=== PATIENT | male | born 1995 | race Caucasian/White ===

== ENCOUNTER 2016-12-31 12:12 | Inpatient (IN) | payer OTHER ==
[~2016-12-31] VITALS: Ht 172.7 cm; Wt 114.0 kg
[2016-12-31] MEDS ORDERED: SODIUM CHLORIDE 0.9% 1L BAG IV* STA (12:38)
[2016-12-31] MEDS ORDERED: CEFEPIME 2GM/50 ML (PMX) 50 ML IVPB STA (12:38)
[2016-12-31] MEDS ORDERED: VANCOMYCIN 1 GM (PMX) 250 ML IVPB ONE (13:00)
[2016-12-31] MEDS ORDERED: IBUPROFEN 800 MG TAB PO ONE (13:00)
[2016-12-31 13:13] LABS: ABNORMAL IP MESSAGE 1; BASOPHIL # 0.1 10^3/ul (0.0-0.1); BASOPHILS % 0.5 % (0.0-2.0); EOSINOPHILS # 0.5 10^3/ul (0.0-0.5); HEMATOCRIT 32.8 % (42.0-52.0); HEMOGLOBIN 11.1 g/dl (14.0-18.0); LYMPHOCYTES # 2.2 10^3/ul (0.8-2.9); LYMPHOCYTES % 9.1 % (15.0-51.0); MEAN CORPUSCULAR HGB CONC 33.8 g/dl (32.0-37.0); MEAN CORPUSCULAR VOLUME 100.6 fl (82.0-101.0); MEAN PLATELET VOLUME 9.7 fl (7.4-10.4); MONOCYTE # 1.5 10^3/ul (0.3-0.9); MONOCYTES % 6.3 % (0.0-11.0); NEUTROPHILS % 79.1 % (39.0-77.0); PLATELET COUNT 265 10^3/UL (140-415); POSITIVE DIFF @See below; RED BLOOD COUNT 3.26 10^6/ul (4.70-6.10); RED CELL DISTRIBUTION WIDTH 14.6 % (11.5-14.5)
--- NOTE | 2016-12-31 13:25 | RADRPT ---
PROCEDURE: XR Chest. CLINICAL INDICATION: Sepsis. TECHNIQUE: Single frontal view of the chest was obtained. COMPARISON: None FINDINGS: Monitoring electrodes project across the chest. The bony elements are normal. The heart, cardiomed iastinal silhouette and hilar structures are normal. The pulmonary vasculature is normal. There is a left-sided aorta. The lungs are clear. The costophrenic angles are normal. There is a suboptimal inspiration with mild elevation of the right diaphragm. IMPRESSION: 1. No evidence of active cardiopulmonary disease allowing for a poor inspiratory effort. RPTAT:AAJJ Physician Simone Date Time Electronically viewed and signed by Physician Simone on 12/31/2016 13:24 LOYDA/
[2016-12-31] MEDS ORDERED: LORAZEPAM 2 MG INJ IV ONE (13:30)
[2016-12-31 13:32] LABS: ALANINE AMINOTRANSFERASE 53 IU/L (13-69); ALBUMIN 3.1 g/dl (3.3-4.9); ALBUMIN/GLOBULIN RATIO 0.68; ALKALINE PHOSPHATASE 194 IU/L (42-121); ANION GAP 18 (8-16); ASPARTATE AMINO TRANSFERASE 198 IU/L (15-46); BILIRUBIN,INDIRECT 0.6 mg/dl (0-1.1); BILIRUBIN,TOTAL 0.6 mg/dl (0.2-1.3); CALCIUM 7.9 mg/dl (8.4-10.2); CARBON DIOXIDE 23 mmol/L (21-31); CHLORIDE 97 mmol/L (97-110); CREATININE 0.58 mg/dl (0.61-1.24); GLUCOSE 140 mg/dl (70-220); INR 1.21; PARTIAL THROMBOPLASTIN TIME 38.4 Sec (25.0-35.0); PROTIME 15.4 Sec (12.2-14.2); PT RATIO 1.2; SODIUM 135 mmol/L (135-144); TOTAL PROTEIN 7.6 g/dl (6.1-8.1)
[2016-12-31 13:35] LABS: BLOOD UREA NITROGEN < 2 mg/dl (7-20)
[2016-12-31 13:37] LABS: POTASSIUM 2.8 mmol/L (3.5-5.1)
[2016-12-31] MEDS ORDERED: MULTIVITAMINS 10 ML, THIAMINE 100 MG, FOLIC ACID 1 MG, MAGNESIUM SULFATE 2 GM in SOD CH... IV STA (13:38)
[2016-12-31] MEDS ORDERED: MULTIVITAMINS 10 ML, THIAMINE 100 MG, MAGNESIUM SULFATE 2 GM in SOD CHLORIDE 0.9% 1,000 ML IV STA (13:48)
[2016-12-31 13:52] LABS: TROPONIN-I < 0.012 ng/ml (0.00-0.12)
[2016-12-31] MEDS ORDERED: ONDANSETRON 4 MG INJ IV PRN ×2 (14:00→14:30)
[2016-12-31] MEDS ORDERED: POTASSIUM CHLORIDE 250 ML IVPB ONE (14:00)
[2016-12-31] MEDS ORDERED: ACETAMINOPHEN 325 MG TAB PO PRN (14:00)
[2016-12-31] MEDS ORDERED: LORAZEPAM 2 MG INJ IV PRN (14:30)
[2016-12-31] MEDS ORDERED: DOCUSATE SODIUM 100 MG CAP PO PRN (14:30)
[2016-12-31] MEDS ORDERED: hydrALAzine 20 MG INJ IV PRN (14:30)
[2016-12-31] MEDS ORDERED: NITROGLYCERIN (SL) 0.4 MG TAB SL PRN (14:30)
[2016-12-31] MEDS ORDERED: morphine 2 MG INJ IV PRN (14:30)
[2016-12-31] MEDS ORDERED: HYDROCODONE/APAP (5/325) TAB PO PRN (14:30)
[2016-12-31] MEDS ORDERED: NA PHOSPHATE/BIPHOS 133 ML ENEMA PR PRN (14:30)
[2016-12-31] MEDS ORDERED: ALBUTEROL/IPRATROPIUM (NEB) 3 ML AMP HHN PRN (14:30)
[2016-12-31] MEDS ORDERED: NACL 0.9% 3 ML SYG IV SCH (14:30)
[2016-12-31] MEDS ORDERED: MAGNESIUM HYDROXIDE 30ML CUP PO PRN (14:30)
--- NOTE | 2016-12-31 14:40 | ERD ---
ER Documentation Chief Complaint Chief Complaint sob, bilateral extremity edema, generalize weakness, adb distent x6 days HPI Patient is a 21-year-old male with no medical problems who presents with fever and abdominal pain. He says "I am guessing it is my drinking". He said that he has had bilateral leg swelling and abdominal distention over the past 5 days. He denies fevers although he had fever in the emergency department. He said that he has been drinking beer daily and says that he has been drinking four 24 ounce beers per day. He says he has been drinking for he has pain with coughing. No treatment as of yet. Upon review of old medical records this is the patient's first visit to the emergency department. He does not currently have a primary doctor. ROS All systems reviewed and are negative except as per history of present illness. Medications Home Meds No Active Prescriptions or Reported Meds Allergies Allergies: Coded Allergies: No Known Allergy (Unverified , 12/31/16) PMhx/Soc Medical and Surgical Hx: pt denies Medical Hx History of Surgery: No Anesthesia Reaction: No Hx 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 Disorder: No Hx Respiratory Disorders: No Hx Cardiac Disorders: No Hx Psychiatric Problems: No Hx Miscellaneous Medical Probl: No Hx Alcohol Use: No Hx Substance Use: No Hx Tobacco Use: No Smoking Status: Never smoker FmHx Family History: diabetes Physical Exam Vitals Vital Signs Date Time Temp Pulse Resp B/P Pulse Ox O2 Delivery O2 Flow Rate FiO2 12/31/16 14:17 Nasal Cannula 2.0 12/31/16 14:00 98.3 94 20 129/87 98 Nasal Cannula 2.0 12/31/16 13:00 98.3 141 20 139/91 100 Nasal Cannula 2.0 12/31/16 12:42 Nasal Cannula 2 12/31/16 12:14 100.9 143 18 139/80 97 Physical Exam Const: Moderate distress Head: Atraumatic Eyes: Normal Conjunctiva ENT: Normal External Ears, Nose and Mouth. Neck: Full range of motion..~ No meningismus. Resp: Clear to auscultation bilaterally Cardio: Tachycardic rate without murmur Abd: Distended abdomen with diffuse pain Skin: No petechiae or rashes Back: No midline or flank tenderness Ext: Bilateral lower extremity edema Neur: Awake and alert Psych: Normal Mood and Affect Result Diagram: 12/31/16 1250 12/31/16 1250 Results 24 hrs Laboratory Tests Test 12/31/16 12:50 White Blood Count 24.010^3/ul Red Blood Count 3.2610^6/ul Hemoglobin 11.1g/dl Hematocrit 32.8% Mean Corpuscular Volume 100.6fl Mean Corpuscular Hemoglobin 34.0pg Mean Corpuscular Hemoglobin Concent 33.8g/dl Red Cell Distribution Width 14.6% Platelet Count 55368^3/UL Mean Platelet Volume 9.7fl Neutrophils % 79.1% Lymphocytes % 9.1% Monocytes % 6.3% Eosinophils % 2.0% Basophils % 0.5% Nucleated Red Blood Cells % 0.0/100WBC Neutrophils # 19.010^3/ul Lymphocytes # 2.210^3/ul Monocytes # 1.510^3/ul Eosinophils # 0.510^3/ul Basophils # 0.110^3/ul Nucleated Red Blood Cells # 0.010^3/ul Prothrombin Time 15.4Sec Prothrombin Time Ratio 1.2 INR International Normalized Ratio 1.21 Activated Partial Thromboplast Time 38.4Sec Sodium Level 135mmol/L Potassium Level 2.8mmol/L Chloride Level 97mmol/L Carbon Dioxide Level 23mmol/L Anion Gap 18 Blood Urea Nitrogen < 2mg/dl Creatinine 0.58mg/dl Glucose Level 140mg/dl Lactic Acid Level 6.6mmol/L Calcium Level 7.9mg/dl Total Bilirubin 0.6mg/dl Direct Bilirubin 0.00mg/dl Indirect Bilirubin 0.6mg/dl Aspartate Amino Transf (AST/SGOT) 198IU/L Alanine Aminotransferase (ALT/SGPT) 53IU/L Alkaline Phosphatase 194IU/L Troponin I < 0.012ng/ml Total Protein 7.6g/dl Albumin 3.1g/dl Globulin 4.50g/dl Albumin/Globulin Ratio 0.68 Current Medications Medications (Trade) Dose Ordered Sig/Thalia Route PRN Reason Start Time Stop Time Status Last Admin Dose Admin Sodium Chloride 3530 ml 3,530 ml BOLUS OVER 2 HOURS STAT IV* 12/31/16 12:38 12/31/16 12:41 DC 12/31/16 13:01 Cefepime HCl 50 ml @ 100 mls/hr ONCE STAT IVPB 12/31/16 12:38 12/31/16 13:07 DC 12/31/16 13:02 Vancomycin HCl (Vancocin) 250 ml @ 125 mls/hr ONCE ONCE IVPB 12/31/16 13:00 12/31/16 14:59 12/31/16 13:32 Ibuprofen (Motrin) 800 mg ONCE ONCE PO 12/31/16 13:00 12/31/16 13:01 DC 12/31/16 13:02 Lorazepam 1 mg 1 mg ONCE ONCE IV 12/31/16 13:30 12/31/16 13:31 DC 12/31/16 13:33 Multivitamins 10 ml/Thiamine HCl 100 mg/Folic Acid 1 mg/Magnesium Sulfate 2 gm/ Sodium Chloride 1,015.2 ml @ 500 mls/ hr Q2H2M STAT IV 12/31/16 13:38 12/31/16 13:48 DC Multivitamins/ Thiamine HCl/ Magnesium Sulfate/ Sodium Chloride (Mvi Adult/ Vitamin B1/ Magnesium Sulfate/ NS) 1,015 ml @ 500 mls/hr Q2H2M STAT IV 12/31/16 13:48 12/31/16 15:39 Ondansetron HCl (Zofran Inj) 4 mg ER BRIDGE PRN IV NAUSEA AND/OR VOMITING 12/31/16 14:00 01/01/17 13:59 Acetaminophen 650 mg 650 mg ER BRIDGE PRN PO MILD PAIN/FEVER 12/31/16 14:00 01/01/17 13:59 Potassium Chloride (KCl 40 MEQ/250 ML NS) 250 ml @ 62.5 mls/hr ONCE ONCE IVPB 12/31/16 14:00 12/31/16 17:59 IV Flush (NS 3 ml) 3 ml PER PROTOCOL IV 12/31/16 14:30 Ondansetron HCl (Zofran Inj) 4 mg Q6H PRN IV NAUSEA AND/OR VOMITING 12/31/16 14:30 Acetaminophen (Tylenol Tab) 650 mg Q6H PRN PO PAIN LEVEL 1-3 OR FEVER 12/31/16 14:30 Acetaminophen/ Hydrocodone Bitart ([place] (5/325)) 1 tab Q6H PRN PO MODERATE PAIN LEVEL 4-6 12/31/16 14:30 Morphine Sulfate (morphine) 2 mg Q4H PRN IV SEVERE PAIN LEVEL 7-10 12/31/16 14:30 Docusate Sodium (Colace) 100 mg Q12H PRN PO CONSTIPATION 12/31/16 14:30 Magnesium Hydroxide (Milk Of Mag) 30 ml DAILY PRN PO CONSTIPATION 12/31/16 14:30 Sodium Biphosphate/ Sodium Phosphate (Fleet Enema) 133 ml DAILY PRN OR CONSTIPATION 12/31/16 14:30 Heparin Sodium (Porcine) (Heparin (5000 Units/0.5 ml)) 5,000 unit Q12 SC 12/31/16 15:00 Lorazepam (Ativan) 0.5 mg Q6H PRN IV ANXIETY 12/31/16 14:30 Albuterol/ Ipratropium (Duoneb) 3 ml Q4H RESP THERAPY PRN HHN SHORTNESS OF BREATH 12/31/16 14:30 Hydralazine HCl (Apresoline) 10 mg Q6H PRN IV for sys bp > 180 12/31/16 14:30 Clonidine (Catapres) 0.1 mg Q6H PRN PO sys bp > 160 12/31/16 14:30 Nitroglycerin 1 tab 1 tab Q5M PRN SL ANGINA 12/31/16 14:30 Cefotaxime Sodium/ Dextrose (Claforan 2gm/50 ml (Pmx)) 50 ml @ 100 mls/hr Q8 IVPB 12/31/16 15:00 Thiamine HCl (Vitamin B1) 100 mg DAILY PO 12/31/16 15:00 Multivitamins Therapeutic (Theragran) 1 tab DAILY PO 12/31/16 15:00 Folic Acid 1 mg 1 mg DAILY PO 12/31/16 15:00 Sodium Chloride (1/2 NS) 1,000 ml @ 75 mls/hr [id number] IV 12/31/16 14:30 Procedures/MDM EKG read by me: Rate/Rhythm: Sinus tachycardia Intervals: Normal Impression: Sinus tachycardia without ischemia Chest x-ray shows no pneumonia or pneumothorax per radiology. CT abdomen pelvis is pending. Ultrasound the gallbladder is pending at this time. Admit MDM: Patient's infectious symptoms have not stabilized and the patient is at risk of rapid decompensation. The patient will be admitted for careful hydration, antibiotic therapy, and infectious source control. Severe Sepsis criteria: Infectious source: Probable SBP End organ damage indicated by: Lactate greater than 2 Sepsis Management: Time of recognition of sepsis: Upon arrival Within 3 hours of recognition: Blood cultures x 2 before broad-spectrum antibiotics: Yes 30 ml/kg NS bolus Completed Initial lactate 6.6 Repeat lactate pending Time of recognition of septic shock: 12:50 PM Septic Shock Assessment: Any lactic acid > 4.0 Yes Persistent hypotension (SBP < 90 or 40 mmHg drop, MAP < 65) despite 30 mL/kg IV fluid bolus No Volume Re-assessment for Septic Shock (post 30 ml/kg bolus): Temp 98.3, BP 129/87, HR 94, RR 20, Pox 98% Heart Regular rate & rhythm Lungs No crackles Skin Warm & dry Cap Refill Less than 2 seconds Peripheral pulses Radially present Persistent Hypotension Treatment: Comfort care No Central line Not Required Vasopressor started Not required I considered further perfusion assessment with CVP measurement, SCVO2, bedside ultrasound volume assessment, passive leg raise, trial of further fluid bolus. And proceeded with 30 ml/kg fluid bolus of NSS, broad spectrum antibiotics, and admission. Accepting Care Team Current data and ongoing care discussed. Admitting Physician: Dr. Duke from the panel team Assessment Consultant(s): None Outstanding Data: Culture results and repeat lactic acid Critical Care: Critical care time 35 minutes excluding all billable procedures Emergent fluid management while maintaining close respiratory support. Provision of immediate and broad-spectrum antibiotic therapy. Simultaneous assessment for possible sources in order to direct targeted therapy. Consideration for invasive and chemical support to prevent cardiopulmonary collapse. Departure Diagnosis: Primary Impression: Septic shock Additional Impressions: Shortness of breath Alcohol withdrawal Complication of substance-induced condition: uncomplicated Qualified Code: F10.230 - Alcohol withdrawal syndrome without complication Condition: Serious JOSE LUIS MEDINA MD Dec 31, 2016 14:40
--- NOTE | 2016-12-31 14:50 | RADRPT ---
PROCEDURE: US limited abdomen. CLINICAL INDICATION: Ascites. TECHNIQUE: Multiple real-time longitudinal and transverse images were acquired of the patient's ab domen in all four quadrants utilizing a curved array transducer. COMPARISON: No prior studies are available for comparison. FINDINGS: Limited sonographic survey of the abdomen demonstrates no ascites. IMPRESSION: No sonographic evidence of ascites. RPTAT: EE .Michael Bland MD, MD Date Time Electronically viewed and signed by .Michael Bland MD, on 12/31/2016 14:56 .C/
[2016-12-31] MEDS ORDERED: SOD CHLORIDE 0.9% 100 ML ONE (14:56)
[2016-12-31] MEDS ORDERED: IOHEXOL 300MG/ML 30 ML BTL ONE (14:56)
[2016-12-31] MEDS ORDERED: VANCOMYCIN IV PER PHARMACY XX SCH (15:00)
[2016-12-31] MEDS: FOLIC ACID 1 MG TAB PO SCH (15:00)
[2016-12-31] MEDS: THIAMINE 100 MG TAB PO SCH (15:00)
[2016-12-31] MEDS: MULTIVITAMINS THERAPEUTIC TAB PO SCH (15:00)
--- NOTE | 2016-12-31 15:25 | HP ---
DATE OF ADMISSION: 12/31/2016 IDENTIFICATION: This is a 21-year-old male originally admitted on 12/31/2016. CHIEF COMPLAINT: Abdominal swelling. HISTORY OF PRESENT ILLNESS: The patient is a 21-year-old male, no significant past medical history, who says he has been having abdominal swelling and pain for the last 6 days. He has never had this before. No nausea or vomiting. No fevers or chills. He has had some diarrhea and loose stools, but nonbilious and nonbloody. No upper lower GI bleeding. No headaches or dizziness. No loss of consciousness. He has had some mild shortness of breath as well, but no chest pain. No fevers or chills. He does drink beer daily, a 24 ounce of beer for the last year he says. His last drink was 3 days ago. He does not have a primary care doctor. When he came in today, he had a temperature of 100.9, and he had an elevated white blood cell count of 24 and there was concern of possible SBP and he is presently getting an ultrasound of his abdomen for further evaluation. PAST MEDICAL HISTORY: Above. ALLERGIES: NO KNOWN DRUG ALLERGIES. HOME MEDICATIONS: None. PAST SURGICAL HISTORY: None. SOCIAL HISTORY: He drinks again a 24 ounce of beer a day for the last year. Denies any IV drug abuse. Denies any smoking history. FAMILY HISTORY: Noncontributory. PHYSICAL EXAMINATION: VITAL SIGNS: Today vital signs, T-max 100.9, pulse 94 to 143, respirations 18 to 20, blood pressure 129 systolic over 87 diastolic, sating at 98 percent on 2 L nasal cannula. GENERAL: Patient lying in bed, alert, but appears to have tremors and slightly agitated, in mild distress. HEENT: Pupils equal, round, react to light. Extraocular muscles intact. NECK: Supple. No thyromegaly. LUNGS: Clear auscultation bilaterally. CARDIOVASCULAR: S1, S2 heard. No rubs, gallops. ABDOMEN: Distended. Otherwise, normal bowel sounds. No rebound or guarding. MUSCULOSKELETAL: No lower extremity bilaterally. NEUROLOGIC: No focal deficits. LABS: WBC 24,000, hemoglobin 11.1, hematocrit 32.8, platelets of 265. Sodium 135, potassium 3.8, chloride 97, CO2 23, BUN of 2, creatinine 0.58. Glucose 140, lactic acid 6.6. His total bilirubin and direct bilirubin are normal. AST is 198, ALT is 53, troponin is negative x1. Coags show an INR of 1.2 and PTT of 38.4. He had a chest x-ray performed that shows no evidence of any active cardiopulmonary disease. ASSESSMENT AND PLAN: This is a 21-year-old male coming in with abdominal distention, fevers, leukocytosis, positive alcohol history, rule out spontaneous bacterial peritonitis versus intra- abdominal infection versus colitis. 1. Abdominal distention again. Admit patient to medical/surgical floor. Will get a Gastroenterology and Infectious Disease consult given his fevers and abdominal distention. We will check a hep panel. Check TSH, A1c, lipid panel. Put him on cefotaxime for now to treat possible spontaneous bacterial peritonitis . We will follow up the results of the abdominal ultrasound and order for paracentesis and send the fluid for fluid analysis including protein, glucose, LDH, culture, crystals and protein count and albumin count as well. Will check hep panel. 2. History of alcohol abuse. Again, monitor for signs of withdrawal. Ativan p.r.n. Consider Librium and also put him on a banana bag for now next. 3. Gastrointestinal prophylaxis. Put him on H2 ajnali. 4. Deep venous thrombosis prophylaxis. Heparin subcu. Dictated By: Gary Pope MD /maritza/mariana /Document#: [id number]
--- NOTE | 2016-12-31 15:28 | RADRPT ---
PROCEDURE: CT Abdomen and Pelvis with Contrast CLINICAL INDICATION: Abdominal distension, diarrhea, fever TECHNIQUE: Transaxial images were obtained through the abdomen and pelvis on a multi-slice scanner following the intravenous administration of 100 ml of Isovue 370 contrast. No oral contrast had pr eviously been given. Sagittal and coronal re-formations were subsequently reconstructed. One or more of the following dose reduction techniques were used: - Automated exposure control. - Adjustment of the mA and/or kV according to patient size. - Use of iterative reconstruction technique. Radiation dose: CTDIvol = 21.91 mGy; DLP = 1413.34 mGy-cm. COMPARISON: No prior studies are available for comparison. FINDINGS: Lung bases: Minimal discoid atelectasis is seen at the lateral left lung base. Liver: The liver is grossly enlarged and extensively fatty infiltrated with no discrete focal lesion evident. Gallbladder: The wall is not thickened. No radiopaque stones are identified. Bile ducts: The intra and extrahepatic bile ducts are normal in caliber. Pancreas: Appears normal with no mass or inflammation evident. Spleen: The spleen is mildly enlarged. Adrenals: Normal with no mass identified. Kidneys, ureters and bladder: The kidneys enhance normally and are normal in size and there is no ma ss, pathological calcification, or hydronephrosis evident. There is no perinephric stranding. The ur eters are normal in caliber and no ureteroliths are identified. The bladder appears unremarkable. Reproductive organs: The prostate is not enlarged. There is edema seen within the subcutaneous fat a t the base of the penis and anterior scrotal wall.. Stomach, bowel, and mesentery: The stomach appears unremarkable. There are mildly dilated segments o f small bowel with air-fluid levels that would air and stool seen to the colon most compatible with a moderate ileus. There is no evidence of bowel obstruction. Appendix: The vermiform appendix is not discretely identified. Peritoneum: There is a small amount of free intraperitoneal fluid primarily seen in the pelvis and p ericolic gutters. No free air is identified. There is a small fat containing umbilical hernia. There is a small fat containing left inguinal hernia. Aorta: Normal in caliber with no aneurysmal dilatation. IVC: Unremarkable. Lymph nodes: No pathologically enlarged nodes are identified. Osseous structures: The osseous elements appear intact. IMPRESSION: 1. The bowel gas pattern reflects a moderate ileus. There is no evidence of bowel obstruction. The vermiform appendix is not discretely identified. 2. There is a small to moderate amount of free intraperitoneal fluid primarily seen within the pelv is and pericolic gutters. No free air is evident. 3. There is no evidence of urinary outflow obstruction or ureterolithiasis within normal appearing bladder. 4. There is a small fat containing umbilical hernia and a small fat containing left inguinal hernia . 5. Gross hepatomegaly with extensive diffuse fatty infiltration of the liver but no focal lesion id entified. 6. Mild splenomegaly 7. Edema is seen within the soft tissues at the base of the penis and anterior scrotal wall. Physician José Date Time Electronically viewed and signed by Physician José on 12/31/2016 15:27 /
[2016-12-31 15:50] LABS: HAAIG REFLEX REFLEX FILED
[2016-12-31] MEDS ORDERED: VANCOMYCIN 1 GM in NS 250 ML IVPB SCH (16:00)
[2016-12-31 16:33] LABS: ACETAMINOPHEN < 10.0 ug/ml (10.0-30.0); SALICYLATE < 1.0 mg/dl (5.0-30.0)
[2016-12-31 17:00] LABS: HEPATITIS B CORE ANTIBODY NEGATIVE (NEGATIVE)
[2016-12-31 17:31] LABS: ADD UMIC NO; UR ASCORBIC ACID NEGATIVE (NEGATIVE); UR BILIRUBIN (Dip) NEGATIVE (NEGATIVE); UR BLOOD (Dip) NEGATIVE (NEGATIVE); UR CLARITY CLEAR (CLEAR); UR COLOR YELLOW (YELLOW); UR GLUCOSE (Dip) NEGATIVE (NEGATIVE); UR KETONES (Dip) NEGATIVE (NEGATIVE); UR LEUKOCYTE ESTERASE (Dip) NEGATIVE Leu/ul (NEGATIVE); UR NITRITE (Dip) NEGATIVE (NEGATIVE); UR TOTAL PROTEIN (Dip) NEGATIVE (NEGATIVE); UR UROBILINOGEN (Dip) NEGATIVE (NEGATIVE)
[2016-12-31 18:33] VITALS: TEMP 98.1
[2016-12-31 20:48] VITALS: BP 134/83; PULSE 125; RESP 22; Ht 172.7 cm; Wt 114.0 kg
[2016-12-31 20:59] VITALS: PULSE 124
[2016-12-31 23:50] VITALS: BP 129/77; RESP 18
[2017-01-01] VITALS (11 sets, daily range): BP systolic 110–147; BP diastolic 65–86; PULSE 108–121; RESP 18–19
[2017-01-01] MEDS: CEFOTAXIME IVPB SCH ×2 (00:31→06:28)
[2017-01-01] MEDS: VANCOMYCIN 1.25 GM in SOD CHLORIDE 0.9% 250 ML IVPB SCH ×2 (00:31→09:50)
[2017-01-01] MEDS: SOD CHLORIDE 0.45% 1,000 ML IV SCH ×3 (00:32→17:10)
[2017-01-01] MEDS: HEPARIN 5,000 UNIT/0.5 ML VIAL SC SCH ×3 (00:32→20:56)
--- NOTE | 2017-01-01 01:57 | CONS ---
DATE OF ADMISSION: 12/31/2016 DATE OF CONSULTATION: 12/31/2016 TYPE OF CONSULTATION: Infectious Disease. REASON FOR CONSULTATION: Antibiotic management. HISTORY OF PRESENT ILLNESS: Delano Slater is a 21-year-old male who comes in complaining of abdomin al swelling and is being seen for antibiotic management. The patient notes abdominal swelling and p ain for the last 6 days. He has no nausea, vomiting, fever or chills. He has had some diarrhea and loose stools but no nausea or vomiting, no bleeding. He drinks a 24-ounce can of beer daily for last year. His last drink was 3 days ago. He comes in with a temperature of 100.9. His white co unt is elevated at 24,000, H and H 11.1 and 32.8, platelet count 265,000. BUN and creatinine is 2/0 .58, glucose 140, lactic acid 6.6. His bilirubin is normal. AST 198, ALT 53. His coags are okay, negative. Chest x-ray shows no evidence of cardiopulmonary disease. The patient had a temperature 100.9 and elevated white count. There was concern for possible spontaneous bacterial peritonitis an d an ultrasound was ordered. PAST MEDICAL HISTORY: Operations as outlined. FAMILY HISTORY: Noncontributory. SOCIAL HISTORY: He does not smoke or abuse drugs, but he drinks 24 ounces of beer per day at least for the last year. ALLERGIES: NONE TO PENICILLIN, SULFA OR FOODS. MEDICATIONS: Per chart. REVIEW OF SYSTEMS: As per HPI. PHYSICAL EXAMINATION: GENERAL: The patient is a well-developed, well-nourished male, slightly agitated with some tremors, in mild distress. VITAL SIGNS: Stable with a T-max of 100.9. His pulse goes from 94 to 143, respirations 18 to 20. SKIN: Without generalized rash. HEENT: Within normal limits. NECK: Supple. LYMPH NODES: None palpable. CHEST: Decreased breath sounds at the bases. HEART: Without murmur or gallop. ABDOMEN: Soft, nontender, without organosplenomegaly or masses. EXTREMITIES: Without cyanosis, clubbing, or edema. RECTAL AND GENITAL: Deferred. NEUROLOGIC: No focal neurological abnormalities. IMPRESSION AND PLAN: The patient comes in with abdominal distention. GI was called. ID was called . Will get a hepatitis panel. Patient was started on cefotaxime for possible spontaneous bacterial peritonitis. An abdominal ultrasound was ordered and an order for paracentesis was done as well. Will be sent for protein, glucose, LDH, culture, crystals and so on, and will observe the results. The patient was also placed on vancomycin as well as cefotaxime, which is appropriate. I will dicta te my findings to the hospitalist. I want to thank them for asking me to see this mary gentleman in consultation. Dictated By: CRISTOBAL ORDOÑEZ MD, JD/DON Conf#: [id number] DID#: [id number]
[2017-01-01] MEDS ORDERED: PANTOPRAZOLE 40 MG INJ IV SCH (06:00)
[2017-01-01 07:09] LABS: WHITE BLOOD COUNT 19.2 10^3/ul (4.8-10.8)
[2017-01-01 07:10] LABS: BASOPHIL # 0.1 10^3/ul (0.0-0.1); BASOPHILS % 0.5 % (0.0-2.0); EOSINOPHILS # 0.9 10^3/ul (0.0-0.5); EOSINOPHILS % 4.7 % (0.0-7.0); HEMATOCRIT 33.1 % (42.0-52.0); HEMOGLOBIN 10.6 g/dl (14.0-18.0); LYMPHOCYTES # 1.8 10^3/ul (0.8-2.9); LYMPHOCYTES % 9.6 % (15.0-51.0); MEAN CORPUSCULAR HEMOGLOBIN 32.7 pg (29.0-33.0); MEAN CORPUSCULAR VOLUME 102.2 fl (82.0-101.0); MEAN PLATELET VOLUME 9.6 fl (7.4-10.4); MONOCYTE # 1.4 10^3/ul (0.3-0.9); NEUTROPHIL # 14.6 10^3/ul (1.6-7.5); PLATELET COUNT 249 10^3/UL (140-415); RED BLOOD COUNT 3.24 10^6/ul (4.70-6.10); RED CELL DISTRIBUTION WIDTH 15.1 % (11.5-14.5)
[2017-01-01 07:32] LABS: CHOL/HDL RATIO 8.6 RATIO
[2017-01-01 07:42] LABS: ANION GAP 9 (8-16); CALCIUM 7.6 mg/dl (8.4-10.2); CARBON DIOXIDE 28 mmol/L (21-31); CHLORIDE 103 mmol/L (97-110); CREATININE 0.56 mg/dl (0.61-1.24); GLUCOSE 89 mg/dl (70-220); MAGNESIUM 2.1 mg/dl (1.7-2.5); PHOSPHORUS 3.6 mg/dl (2.5-4.9); POTASSIUM 3.3 mmol/L (3.5-5.1); SODIUM 137 mmol/L (135-144)
[2017-01-01 07:44] LABS: BLOOD UREA NITROGEN < 2 mg/dl (7-20)
[2017-01-01 08:01] LABS: THYROID STIMULATING HORMONE 41.4 MIU/L (0.465-4.680)
[2017-01-01] MEDS: FOLIC ACID 1 MG TAB PO SCH (08:43)
[2017-01-01] MEDS: MULTIVITAMINS THERAPEUTIC TAB PO SCH (08:43)
[2017-01-01] MEDS ORDERED: MULTIVITAMINS 10 ML, THIAMINE 100 MG in SOD CHLORIDE 0.9% 1,000 ML IVPB SCH (09:00)
[2017-01-01] MEDS: THIAMINE 100 MG TAB PO SCH (09:49)
[2017-01-01] MEDS ORDERED: FLUCONAZOLE 200 MG TAB PO ONE (14:30)
--- NOTE | 2017-01-01 15:25 | PN ---
Date/Time of Note Date/Time of Note DATE: 01/01/17 TIME: 15:20 Assessment/Plan VTE Prophylaxis VTE Prophylaxis Intervention: SCD's Lines/Catheters IV [facility]from [facility]): Peripheral IV Urinary Cath still in place: No Assessment/Plan Assessment/Plan 21 yo M with pmhx EtOH abuse, obesity admitted for abd pain, found to have ileus and fatty liver. No ascites to suggest SBP. Lipase normal and no evidence of pancreatitis on imaging. UA without pyuria, leuk est or nitrites so no evidence of UTI #ileus: etiology unclear as no recent abd surgery -NPO, IVFs, aggressive electrolyte repletion -no compelling indication for abx as pt unlikely to have SBP given that he does not have ascites #fatty liver: RD eval for dietary counseling #EtOH abuse: SW eval, CIWAS #subclinical hypothyroid: TSH 40s, ft4 nl. Will need outpatient f/u. Subjective 24 Hr Interval Summary Free Text/Dictation Abd pain still present. +BMs Exam/Review of Systems Vital Signs Vitals Vital Signs Date Time Temp Pulse Resp B/P Pulse Ox O2 Delivery O2 Flow Rate FiO2 01/01/17 12:08 116 01/01/17 11:58 99.0 18 129/81 95 01/01/17 08:00 Nasal Cannula 1.0 Intake and Output 12/31/16 12/31/16 01/01/17 15:00 23:00 07:00 Intake Total 1220 ml Balance 1220 ml Exam uncomfortable lungs clear no mrg abd distended, +BS no rashes no edema imaging reviewed Results Result Diagram: 01/01/17 0646 01/01/17 0646 Results 24 hrs Laboratory Tests Test 12/31/16 16:30 12/31/16 17:10 01/01/17 06:46 Lactic Acid Level 3.4 *H Ammonia 36 H Urine Color YELLOW Urine Clarity CLEAR Urine pH 6.0 Urine Specific [place] 1.040 H Urine Ketones NEGATIVE Urine Nitrite NEGATIVE Urine Bilirubin NEGATIVE Urine Urobilinogen NEGATIVE Urine Leukocyte Esterase NEGATIVE Urine Hemoglobin NEGATIVE Urine Glucose NEGATIVE Urine Total Protein NEGATIVE White Blood Count 19.2 H Red Blood Count 3.24 L Hemoglobin 10.6 L Hematocrit 33.1 L Mean Corpuscular Volume 102.2 H Mean Corpuscular Hemoglobin 32.7 Mean Corpuscular Hemoglobin Concent 32.0 Red Cell Distribution Width 15.1 H Platelet Count 249 Mean Platelet Volume 9.6 Neutrophils % 76.0 Lymphocytes % 9.6 L Monocytes % 7.0 Eosinophils % 4.7 Basophils % 0.5 Nucleated Red Blood Cells % 0.0 Neutrophils # 14.6 H Lymphocytes # 1.8 Monocytes # 1.4 H Eosinophils # 0.9 H Basophils # 0.1 Nucleated Red Blood Cells # 0.0 Sodium Level 137 Potassium Level 3.3 L Chloride Level 103 Carbon Dioxide Level 28 Anion Gap 9 # Blood Urea Nitrogen < 2 L Creatinine 0.56 L Glucose Level 89 # Hemoglobin A1c 5.4 Calcium Level 7.6 L Phosphorus Level 3.6 Magnesium Level 2.1 Triglycerides Level 219 H Cholesterol Level 95 L LDL Cholesterol, Calculated 40 HDL Cholesterol 11 L Cholesterol/HDL Ratio 8.6 Prostate Specific Antigen 0.4 Thyroid Stimulating Hormone (TSH) 41.400 H Medications Medications Current Medications Ondansetron HCl (Zofran Inj) 4 mg Q6H PRN IV NAUSEA AND/OR VOMITING; Start at 14:30 Acetaminophen (Tylenol Tab) 650 mg Q6H PRN PO PAIN LEVEL 1-3 OR FEVER; Start 12/31/16 at 14:30 Acetaminophen/ Hydrocodone Bitart ([place] (5/325)) 1 tab Q6H PRN PO MODERATE PAIN LEVEL 4-6; Start 12/31/16 at 14:30 Morphine Sulfate (morphine) 2 mg Q4H PRN IV SEVERE PAIN LEVEL 7-10; Start at 14:30 Docusate Sodium (Colace) 100 mg Q12H PRN PO CONSTIPATION; Start 12/31/16 at 14 :30 Magnesium Hydroxide (Milk Of Mag) 30 ml DAILY PRN PO CONSTIPATION; Start 12/31 at 14:30 Sodium Biphosphate/ Sodium Phosphate (Fleet Enema) 133 ml DAILY PRN [place] CONSTIPATION; Start 12/31/16 at 14:30 Heparin Sodium (Porcine) (Heparin (5000 Units/0.5 ml)) 5,000 unit Q12 SC Last administered on 01/01/17t 08:43; Admin Dose 5,000 UNIT; Start 12/31/16 at 15: 00 Clonidine (Catapres) 0.1 mg Q6H PRN PO sys bp > 160; Start 12/31/16 at 14:30 Nitroglycerin 1 tab 1 tab Q5M PRN SL ANGINA; Start 12/31/16 at 14:30 Cefotaxime Sodium/ Dextrose (Claforan 2gm/50 ml (Pmx)) 50 ml @ 100 mls/hr Q8 IVPB Last administered on 01/01/17 06:28; Admin Dose 100 MLS/HR; Start 12/31 at 15:00 Thiamine HCl (Vitamin B1) 100 mg DAILY PO Last administered on 01/01/17 09:49 ; Admin Dose 100 MG; Start 12/31/16 at 15:00 Multivitamins Therapeutic (Theragran) 1 tab DAILY PO Last administered on 01/01 08:43; Admin Dose 1 TAB; Start 12/31/16 at 15:00 Folic Acid 1 mg 1 mg DAILY PO Last administered on 01/01/17 08:43; Admin Dose 1 MG; Start 12/31/16 at 15:00 Sodium Chloride 1,000 ml @ 75 mls/hr [id number] IV Last administered on 00:32; Admin Dose 75 MLS/HR; Start 12/31/16 at 14:30 Multivitamins/ Thiamine HCl/ Sodium Chloride (Mvi Adult/ Vitamin B1/NS) 1,011 ml @ 125 mls/hr DAILY@09 IVPB Last administered on 01/01/17 09:00; Admin Dose 125 MLS/HR; Start 01/01/17 at 09:00 Lorazepam 1 mg 1 mg Q1H PRN IV CONTROL WITHDRAWAL SYMPTOMS; Start 12/31/16 at 15:30 Vancomycin HCl/ Sodium Chloride (Vancocin/NS) 250 ml @ 83.333 mls/ hr Q8H IVPB Last administered on 01/01/17 09:50; Admin Dose 83.333 MLS/HR; Start at 00:00 Nystatin (Nystatin Susp) 5 ml QID PO ; Start 01/01/17 at 17:00 FERNANDEZ KEBEDE MD Jan 01, 2017 15:25
[2017-01-01] MEDS ORDERED: POTASSIUM CHLORIDE (SR) 20 MEQ TAB PO STA (15:27)
--- NOTE | 2017-01-01 16:12 | RADRPT ---
PROCEDURE: US left lower extremity veins. CLINICAL INDICATION: Left leg pain and swelling. TECHNIQUE: Multiple longitudinal and transverse images of the left lower extremity veins were obta ined with centeno scale and color Doppler imaging. The common femoral vein, femoral vein, and popliteal vein were evaluated. 2D grayscale measurements with compression sonography, pulsed Doppler, color D oppler, and pulsed Doppler with augmentation. COMPARISON: No prior studies are available for comparison. FINDINGS: The left common femoral, femoral and popliteal veins are normally compressible throughout. Color fl ow demonstrates normal filling of the vessels. Normal waveforms are visualized and there is normal response to augmentation. IMPRESSION: 1. No evidence of deep vein thrombosis involving the left lower extremity. RPTAT: QQ .Sunday Nava MD, MD Date Time Electronically viewed and signed by .Sunday Nava MD, on 01/01/2017 16:11 .R/
[2017-01-01] MEDS: NYSTATIN SUSP 5 ML CUP PO SCH ×2 (17:21→20:54)
[2017-01-02] VITALS (13 sets, daily range): BP systolic 117–155; BP diastolic 70–88; PULSE 82–120; RESP 18–20
[2017-01-02] MEDS: SOD CHLORIDE 0.45% 1,000 ML IV SCH ×2 (06:30→19:04)
--- NOTE | 2017-01-02 06:31 | PN ---
DATE: 01/01/2017 SUBJECTIVE: Patient is awake, looks comfortable, complaining of left lower extremity swelling and p ain. VITAL SIGNS: He is afebrile, temperature 99, pulse 114, respirations 18, blood pressure 129/81, sat uration 95% on nasal cannula. LABORATORY DATA: Blood cultures have been negative. Urinalysis was negative. Hepatitis panel also negative. DIAGNOSTICS: CT of the abdomen and pelvis on admission revealed moderate ileus, no bowel obstructio n. Gross hepatomegaly, mild splenomegaly and edema within the soft tissues at the base of the penis and anterior scrotal wall. Ultrasound of the abdomen revealed no ascites. Chest x-ray revealed no evidence of active cardiopulmonary disease. ANTIMICROBIALS: The patient is on: 1. Vancomycin. 2. Cefotaxime. PHYSICAL EXAMINATION: GENERAL: This is a morbidly obese young man who is alert, in no distress. HEENT: Head atraumatic, normocephalic. Sclerae anicteric. Buccal mucosa dry with white rash on hi s tongue and halitosis. NECK: Obese. CHEST: Rise symmetrical. Breath sounds diminished to bases. HEART: S1, S2. ABDOMEN: Obese, soft. Bowel tones present. EXTREMITIES: Without cyanosis. ASSESSMENT: 1. Sepsis with fevers, leukocytosis and tachycardia on admission, etiology unclear. 2. Transaminitis without evidence of acute hepatic injury, without evidence of acute cholecystitis, no ascites. 3. Oral thrush. 4. Left lower extremity pain with mild swelling. 5. History of alcohol abuse. PLAN: The patient is clinically stable, fevers resolving, white blood cell count tracing down. Blo od cultures have been negative. Urine culture pending. Lactic acid went down to 3.4. We are going to keep him on current antibiotics for now. Check left lower extremity ultrasound to make sure he does not have any DVT. Send urine culture if it has not been done yet. Follow chest x-ray. Add ny statin oral swish and give him a dose of fluconazole. Dictated By: BRENDEN SCOTT [employer]PER[employer] for [employer]/DON Conf#: [id number] DID#: [id number]
[2017-01-02 08:53] LABS: BASOPHIL # 0.1 10^3/ul (0.0-0.1); BASOPHILS % 0.7 % (0.0-2.0); EOSINOPHILS # 0.7 10^3/ul (0.0-0.5); EOSINOPHILS % 3.5 % (0.0-7.0); HEMATOCRIT 32.4 % (42.0-52.0); HEMOGLOBIN 10.5 g/dl (14.0-18.0); LYMPHOCYTES # 2.1 10^3/ul (0.8-2.9); LYMPHOCYTES % 10.8 % (15.0-51.0); MEAN CORPUSCULAR HEMOGLOBIN 34.1 pg (29.0-33.0); MEAN CORPUSCULAR HGB CONC 32.4 g/dl (32.0-37.0); MEAN CORPUSCULAR VOLUME 105.2 fl (82.0-101.0); MEAN PLATELET VOLUME 9.8 fl (7.4-10.4); MONOCYTE # 1.4 10^3/ul (0.3-0.9); MONOCYTES % 7.1 % (0.0-11.0); NEUTROPHIL # 14.9 10^3/ul (1.6-7.5); NEUTROPHILS % 75.5 % (39.0-77.0); PLATELET COUNT 250 10^3/UL (140-415); RED BLOOD COUNT 3.08 10^6/ul (4.70-6.10); RED CELL DISTRIBUTION WIDTH 15.2 % (11.5-14.5); WHITE BLOOD COUNT 19.7 10^3/ul (4.8-10.8)
--- NOTE | 2017-01-02 08:56 | RADRPT ---
PROCEDURE: XR Chest. CLINICAL INDICATION: Shortness of breath. TECHNIQUE: Single frontal view. COMPARISON: 12/31/2016. FINDINGS: There is mild right basilar atelectasis. The lungs are otherwise clear. The heart size is normal. There is no pleural effusion. There is no pneumothorax. IMPRESSION: 1. Mild right basilar atelectasis. 2. Otherwise unremarkable chest radiograph. RPTAT: QQ .Sunday Nava MD, MD Date Time Electronically viewed and signed by .Sunday Nava MD, MD on 01/02/2017 08:55 .R/
[2017-01-02 09:10] LABS: PHOSPHORUS 3.4 mg/dl (2.5-4.9)
[2017-01-02 09:17] LABS: CALCIUM 7.5 mg/dl (8.4-10.2); CREATININE 0.66 mg/dl (0.61-1.24); POTASSIUM 3.5 mmol/L (3.5-5.1)
[2017-01-02] MEDS: FOLIC ACID 1 MG TAB PO SCH (09:47)
[2017-01-02] MEDS: NYSTATIN SUSP 5 ML CUP PO SCH ×4 (09:47→20:28)
[2017-01-02] MEDS: THIAMINE 100 MG TAB PO SCH (09:48)
[2017-01-02] MEDS: MULTIVITAMINS THERAPEUTIC TAB PO SCH (09:48)
[2017-01-02] MEDS: HEPARIN 5,000 UNIT/0.5 ML VIAL SC SCH ×2 (09:59→20:30)
--- NOTE | 2017-01-02 14:26 | CONS ---
Date/Time of Note Date/Time of Note DATE: 01/02/17 TIME: 14:23 Consult Date/Type/Reason Admit Date/Time Dec 31, 2016 at 13:50 Initial Consult Date Type of Consultation: id Objective Vital Signs Date Time Temp Pulse Resp B/P Pulse Ox O2 Delivery O2 Flow Rate FiO2 01/02/17 12:00 82 01/02/17 11:40 99.5 18 118/79 97 01/01/17 20:00 Nasal Cannula 1.0 Intake and Output 01/01/17 01/01/17 01/02/17 15:00 23:00 07:00 Intake Total 0 ml Balance 0 ml Results/Medications Result Diagram: 01/02/17 0738 01/02/1738 Results 24 hrs Laboratory Tests Test 01/01/17 14:44 01/02/17 07:38 Vancomycin Level Trough 15.3 HIV (1&2) Antibody NEGATIVE White Blood Count 19.7 H Red Blood Count 3.08 L Hemoglobin 10.5 L Hematocrit 32.4 L Mean Corpuscular Volume 105.2 H Mean Corpuscular Hemoglobin 34.1 H Mean Corpuscular Hemoglobin Concent 32.4 Red Cell Distribution Width 15.2 H Platelet Count 250 Mean Platelet Volume 9.8 Neutrophils % 75.5 Lymphocytes % 10.8 L Monocytes % 7.1 Eosinophils % 3.5 Basophils % 0.7 Nucleated Red Blood Cells % 0.0 Neutrophils # 14.9 H Lymphocytes # 2.1 Monocytes # 1.4 H Eosinophils # 0.7 H Basophils # 0.1 Nucleated Red Blood Cells # 0.0 Sodium Level 140 Potassium Level 3.5 Chloride Level 104 Carbon Dioxide Level 26 Anion Gap 14 Blood Urea Nitrogen 3 L Creatinine 0.66 Glucose Level 67 #L Calcium Level 7.5 L Phosphorus Level 3.4 Magnesium Level 2.0 Medications Current Medications Ondansetron HCl (Zofran Inj) 4 mg Q6H PRN IV NAUSEA AND/OR VOMITING; Start at 14:30 Acetaminophen (Tylenol Tab) 650 mg Q6H PRN PO PAIN LEVEL 1-3 OR FEVER; Start 12/31/16 at 14:30 Acetaminophen/ Hydrocodone Bitart ([place] (5/325)) 1 tab Q6H PRN PO MODERATE PAIN LEVEL 4-6; Start 12/31/16 at 14:30 Morphine Sulfate (morphine) 2 mg Q4H PRN IV SEVERE PAIN LEVEL 7-10; Start at 14:30 Docusate Sodium (Colace) 100 mg Q12H PRN PO CONSTIPATION; Start 12/31/16 at 14 :30 Magnesium Hydroxide (Milk Of Mag) 30 ml DAILY PRN PO CONSTIPATION; Start 12/31 at 14:30 Sodium Biphosphate/ Sodium Phosphate (Fleet Enema) 133 ml DAILY PRN [place] CONSTIPATION; Start 12/31/16 at 14:30 Heparin Sodium (Porcine) (Heparin (5000 Units/0.5 ml)) 5,000 unit Q12 SC Last administered on 01/02/17 09:59; Admin Dose 5,000 UNIT; Start 12/31/16 at 15: 00 Nitroglycerin (Nitroglycerin (Sl Tab) 0.4 Mg) 1 tab Q5M PRN SL ANGINA; Start 12/31/16 at 14:30 Thiamine HCl (Vitamin B1) 100 mg DAILY PO Last administered on 01/02/17 09:48 ; Admin Dose 100 MG; Start 12/31/16 at 15:00 Folic Acid 1 mg 1 mg DAILY PO Last administered on 01/02/17 09:47; Admin Dose 1 MG; Start 12/31/16 at 15:00 Sodium Chloride (1/2 NS) 1,000 ml @ 75 mls/hr [id number] IV Last administered on 01/01/17 00:32; Admin Dose 75 MLS/HR; Start 12/31/16 at 14:30 Lorazepam (Ativan) 1 mg Q1H PRN IV CONTROL WITHDRAWAL SYMPTOMS; Start at 15:30 Nystatin (Nystatin Susp) 5 ml QID PO Last administered on 01/02/17 13:48; Admin Dose 5 ML; Start 01/01/17 at 17:00 Multivitamins Therapeutic (Theragran) 1 tab DAILY PO Last administered on 01/02 09:48; Admin Dose 1 TAB; Start 01/02/17 at 09:00 Assessment/Plan Chief Complaint/Hosp Course SUBJECTIVE: Patient is awake, looks comfortable, no fevers LABORATORY DATA: Blood cultures have been negative. Urinalysis was negative. Hepatitis panel nd HIV negative. DIAGNOSTICS: CT of the abdomen and pelvis on admission revealed moderate ileus , no bowel obstruction. Gross hepatomegaly, mild splenomegaly and edema within the soft tissues at the base of the penis and anterior scrotal wall. Ultrasound of the abdomen revealed no ascites. Chest x-ray revealed no evidence of active cardiopulmonary disease. PHYSICAL EXAMINATION: GENERAL: This is a morbidly obese young man who is alert, in no distress. HEENT: Head atraumatic, normocephalic. Sclerae anicteric. Buccal mucosa dry with white rash on his tongue and halitosis. NECK: Obese. CHEST: Rise symmetrical. Breath sounds diminished to bases. HEART: S1, S2. ABDOMEN: Obese, soft. Bowel tones present. EXTREMITIES: Without cyanosis. ASSESSMENT: 1. Sepsis with fevers, leukocytosis and tachycardia on admission ?etiology 2. Transaminitis without evidence of acute hepatic injury, without evidence of acute cholecystitis, no ascites. 3. Oral thrush. 4. Left lower extremity pain with mild swelling. 5. History of alcohol abuse. PLAN: The patient is clinically stable, all cx's negative, leukocytosis persists, abx dc'd, continue observing, reculture prn, continue Nystatin juliane GONZALEZ staff Problems: BRENDEN SCOTT NP Jan 02, 2017 14:26
[2017-01-02] MEDS: LORAZEPAM 2 MG INJ IV PRN (14:30)
--- NOTE | 2017-01-02 15:38 | PN ---
Date/Time of Note Date/Time of Note DATE: 01/02/17 TIME: 15:37 Assessment/Plan VTE Prophylaxis VTE Prophylaxis Intervention: SCD's Lines/Catheters IV Catheter Type (from Nrsg): Peripheral IV Urinary Cath still in place: No Assessment/Plan Assessment/Plan 21 yo M with pmhx EtOH abuse, obesity admitted for abd pain, found to have ileus and fatty liver. #ileus: etiology unclear as no recent abd surgery -ADAT IVFs, aggressive electrolyte repletion -no compelling indication for abx as pt unlikely to have SBP given that he does not have ascites #fatty liver: RD eval for dietary counseling #EtOH abuse: sp SW eval, CIWAS #subclinical hypothyroid: TSH 40s, ft4 nl. Will need outpatient f/u. dc in AM if tolerating regular diet Subjective 24 Hr Interval Summary Free Text/Dictation abd pain improving Exam/Review of Systems Vital Signs Vitals Vital Signs Date Time Temp Pulse Resp B/P Pulse Ox O2 Delivery O2 Flow Rate FiO2 01/02/17 12:00 82 01/02/17 11:40 99.5 18 118/79 97 01/01/17 20:00 Nasal Cannula 1.0 Intake and Output 01/01/17 01/01/17 01/02/17 15:00 23:00 07:00 Intake Total 0 ml Balance 0 ml Exam nad no mrg lungs clear abd distended no rashes Results Result Diagram: 01/02/17 0738 01/02/17 0738 Results 24 hrs Laboratory Tests Test 01/02/17 07:38 White Blood Count 19.7 H Red Blood Count 3.08 L Hemoglobin 10.5 L Hematocrit 32.4 L Mean Corpuscular Volume 105.2 H Mean Corpuscular Hemoglobin 34.1 H Mean Corpuscular Hemoglobin Concent 32.4 Red Cell Distribution Width 15.2 H Platelet Count 250 Mean Platelet Volume 9.8 Neutrophils % 75.5 Lymphocytes % 10.8 L Monocytes % 7.1 Eosinophils % 3.5 Basophils % 0.7 Nucleated Red Blood Cells % 0.0 Neutrophils # 14.9 H Lymphocytes # 2.1 Monocytes # 1.4 H Eosinophils # 0.7 H Basophils # 0.1 Nucleated Red Blood Cells # 0.0 Sodium Level 140 Potassium Level 3.5 Chloride Level 104 Carbon Dioxide Level 26 Anion Gap 14 Blood Urea Nitrogen 3 L Creatinine 0.66 Glucose Level 67 #L Calcium Level 7.5 L Phosphorus Level 3.4 Magnesium Level 2.0 Medications Medications Current Medications Ondansetron HCl (Zofran Inj) 4 mg Q6H PRN IV NAUSEA AND/OR VOMITING; Start at 14:30 Acetaminophen (Tylenol Tab) 650 mg Q6H PRN PO PAIN LEVEL 1-3 OR FEVER; Start 12/31/16 at 14:30 Acetaminophen/ Hydrocodone Bitart ([place] (5/325)) 1 tab Q6H PRN PO MODERATE PAIN LEVEL 4-6; Start 12/31/16 at 14:30 Morphine Sulfate (morphine) 2 mg Q4H PRN IV SEVERE PAIN LEVEL 7-10; Start at 14:30 Docusate Sodium (Colace) 100 mg Q12H PRN PO CONSTIPATION; Start 12/31/16 at 14 :30 Magnesium Hydroxide (Milk Of Mag) 30 ml DAILY PRN PO CONSTIPATION; Start 12/31 at 14:30 Sodium Biphosphate/ Sodium Phosphate (Fleet Enema) 133 ml DAILY PRN [place] CONSTIPATION; Start 12/31/16 at 14:30 Heparin Sodium (Porcine) (Heparin (5000 Units/0.5 ml)) 5,000 unit Q12 SC Last administered on 01/02/17 09:59; Admin Dose 5,000 UNIT; Start 12/31/16 at 15: 00 Nitroglycerin (Nitroglycerin (Sl Tab) 0.4 Mg) 1 tab Q5M PRN SL ANGINA; Start 12/31/16 at 14:30 Thiamine HCl (Vitamin B1) 100 mg DAILY PO Last administered on 01/02/17 09:48 ; Admin Dose 100 MG; Start 12/31/16 at 15:00 Folic Acid 1 mg 1 mg DAILY PO Last administered on 01/02/17 09:47; Admin Dose 1 MG; Start 12/31/16 at 15:00 Sodium Chloride (1/2 NS) 1,000 ml @ 75 mls/hr [id number] IV Last administered on 01/01/17 00:32; Admin Dose 75 MLS/HR; Start 12/31/16 at 14:30 Lorazepam (Ativan) 1 mg Q1H PRN IV CONTROL WITHDRAWAL SYMPTOMS Last administered on 01/02/17 14:30; Admin Dose 1 MG; Start 12/31/16 at 15:30 Nystatin (Nystatin Susp) 5 ml QID PO Last administered on 01/02/17 13:48; Admin Dose 5 ML; Start 01/01/17 at 17:00 Multivitamins Therapeutic (Theragran) 1 tab DAILY PO Last administered on 01/02 09:48; Admin Dose 1 TAB; Start 01/02/17 at 09:00 FERNANDEZ KEBEDE MD Jan 02, 2017 15:38
[2017-01-03] VITALS (11 sets, daily range): BP systolic 116–128; BP diastolic 60–81; PULSE 116–130; RESP 18–20
[2017-01-03] MEDS: SOD CHLORIDE 0.45% 1,000 ML IV SCH (05:51)
[2017-01-03 09:16] LABS: ABNORMAL IP MESSAGE 1; BASOPHIL # 0.1 10^3/ul (0.0-0.1); BASOPHILS % 0.6 % (0.0-2.0); EOSINOPHILS # 0.7 10^3/ul (0.0-0.5); EOSINOPHILS % 3.8 % (0.0-7.0); HEMATOCRIT 31.2 % (42.0-52.0); HEMOGLOBIN 10.1 g/dl (14.0-18.0); LYMPHOCYTES # 2.4 10^3/ul (0.8-2.9); LYMPHOCYTES % 12.4 % (15.0-51.0); MEAN CORPUSCULAR HGB CONC 32.4 g/dl (32.0-37.0); MEAN CORPUSCULAR VOLUME 105.1 fl (82.0-101.0); MEAN PLATELET VOLUME 9.4 fl (7.4-10.4); MONOCYTE # 1.5 10^3/ul (0.3-0.9); MONOCYTES % 7.8 % (0.0-11.0); NEUTROPHILS % 72.2 % (39.0-77.0); NUCLEATED RED BLOOD CELLS% 0.2 /100WBC (0.0-0.0); PLATELET COUNT 236 10^3/UL (140-415); POSITIVE DIFF @See below; RED BLOOD COUNT 2.97 10^6/ul (4.70-6.10); RED CELL DISTRIBUTION WIDTH 15.3 % (11.5-14.5); WHITE BLOOD COUNT 19.4 10^3/ul (4.8-10.8)
[2017-01-03] MEDS ORDERED: FUROSEMIDE 40 MG TAB PO ONE (09:30)
[2017-01-03] MEDS: THIAMINE 100 MG TAB PO SCH (09:35)
[2017-01-03] MEDS: MULTIVITAMINS THERAPEUTIC TAB PO SCH (09:35)
[2017-01-03] MEDS: FOLIC ACID 1 MG TAB PO SCH (09:35)
[2017-01-03] MEDS: NYSTATIN SUSP 5 ML CUP PO SCH ×4 (09:35→20:11)
[2017-01-03 09:40] LABS: ANION GAP 11 (8-16); CALCIUM 7.9 mg/dl (8.4-10.2); CARBON DIOXIDE 26 mmol/L (21-31); CHLORIDE 105 mmol/L (97-110); CREATININE 0.74 mg/dl (0.61-1.24); GLUCOSE 78 mg/dl (70-220); MAGNESIUM 1.8 mg/dl (1.7-2.5); PHOSPHORUS 3.9 mg/dl (2.5-4.9); POTASSIUM 3.9 mmol/L (3.5-5.1); SODIUM 138 mmol/L (135-144)
[2017-01-03 09:53] LABS: BLOOD UREA NITROGEN < 2 mg/dl (7-20)
[2017-01-03] MEDS: HEPARIN 5,000 UNIT/0.5 ML VIAL SC SCH ×2 (10:26→20:16)
--- NOTE | 2017-01-03 13:53 | CONS ---
Date/Time of Note Date/Time of Note DATE: 01/03/17 TIME: 13:52 Consult Date/Type/Reason Admit Date/Time Dec 31, 2016 at 13:50 Type of Consultation: id Objective Vital Signs Date Time Temp Pulse Resp B/P Pulse Ox O2 Delivery O2 Flow Rate FiO2 01/03/17 12:21 129 01/03/17 12:16 100.4 18 116/60 96 01/02/17 20:00 Nasal Cannula 1.0 Intake and Output 01/02/17 01/02/17 01/03/17 15:00 23:00 07:00 Intake Total 600 ml 1500 ml Balance 600 ml 1500 ml Results/Medications Result Diagram: 01/03/17 0830 01/03/17 0830 Results 24 hrs Laboratory Tests Test 01/03/17 08:30 White Blood Count 19.4 H Red Blood Count 2.97 L Hemoglobin 10.1 L Hematocrit 31.2 L Mean Corpuscular Volume 105.1 H Mean Corpuscular Hemoglobin 34.0 H Mean Corpuscular Hemoglobin Concent 32.4 Red Cell Distribution Width 15.3 H Platelet Count 236 Mean Platelet Volume 9.4 Neutrophils % 72.2 Lymphocytes % 12.4 L Monocytes % 7.8 Eosinophils % 3.8 Basophils % 0.6 Nucleated Red Blood Cells % 0.2 H Neutrophils # 14.0 H Lymphocytes # 2.4 Monocytes # 1.5 H Eosinophils # 0.7 H Basophils # 0.1 Nucleated Red Blood Cells # 0.0 Sodium Level 138 Potassium Level 3.9 Chloride Level 105 Carbon Dioxide Level 26 Anion Gap 11 Blood Urea Nitrogen < 2 L Creatinine 0.74 Glucose Level 78 Calcium Level 7.9 L Phosphorus Level 3.9 Magnesium Level 1.8 Medications Current Medications Ondansetron HCl (Zofran Inj) 4 mg Q6H PRN IV NAUSEA AND/OR VOMITING; Start at 14:30 Acetaminophen (Tylenol Tab) 650 mg Q6H PRN PO PAIN LEVEL 1-3 OR FEVER; Start 12/31/16 at 14:30 Acetaminophen/ Hydrocodone Bitart ([place] (5/325)) 1 tab Q6H PRN PO MODERATE PAIN LEVEL 4-6; Start 12/31/16 at 14:30 Morphine Sulfate (morphine) 2 mg Q4H PRN IV SEVERE PAIN LEVEL 7-10; Start at 14:30 Docusate Sodium (Colace) 100 mg Q12H PRN PO CONSTIPATION; Start 12/31/16 at 14 :30 Magnesium Hydroxide (Milk Of Mag) 30 ml DAILY PRN PO CONSTIPATION; Start 12/31 at 14:30 Sodium Biphosphate/ Sodium Phosphate (Fleet Enema) 133 ml DAILY PRN [place] CONSTIPATION; Start 12/31/16 at 14:30 Heparin Sodium (Porcine) (Heparin (5000 Units/0.5 ml)) 5,000 unit Q12 SC Last administered on 01/03/17 10:26; Admin Dose 5,000 UNIT; Start 12/31/16 at 15:00 Nitroglycerin (Nitroglycerin (Sl Tab) 0.4 Mg) 1 tab Q5M PRN SL ANGINA; Start 12/31/16 at 14:30 Thiamine HCl (Vitamin B1) 100 mg DAILY PO Last administered on 01/03/17 09:35 ; Admin Dose 100 MG; Start 12/31/16 at 15:00 Folic Acid (Folic Acid) 1 mg DAILY PO Last administered on 01/03/17 09:35; Admin Dose 1 MG; Start 12/31/16 at 15:00 Lorazepam (Ativan) 1 mg Q1H PRN IV CONTROL WITHDRAWAL SYMPTOMS Last administered on 01/02/17 14:30; Admin Dose 1 MG; Start 12/31/16 at 15:30 Nystatin (Nystatin Susp) 5 ml QID PO Last administered on 01/03/17 13:09; Admin Dose 5 ML; Start 01/01/17 at 17:00 Multivitamins Therapeutic (Theragran) 1 tab DAILY PO Last administered on 09:35; Admin Dose 1 TAB; Start 01/02/17 at 09:00 Assessment/Plan Chief Complaint/Hosp Course SUBJECTIVE: Patient is awake, looks comfortable, still with low grade temps, no n/v/d, no dysuria LABORATORY DATA: Blood cultures have been negative. Urinalysis was negative. Hepatitis panel and HIV negative. DIAGNOSTICS: CT of the abdomen and pelvis on admission revealed moderate ileus , no bowel obstruction. Gross hepatomegaly, mild splenomegaly and edema within the soft tissues at the base of the penis and anterior scrotal wall. Ultrasound of the abdomen revealed no ascites. Chest x-ray revealed no evidence of active cardiopulmonary disease. PHYSICAL EXAMINATION: GENERAL: This is a morbidly obese young man who is alert, in no distress. HEENT: Head atraumatic, normocephalic. Sclerae anicteric. Buccal mucosa dry with white rash on his tongue and halitosis. NECK: Obese. CHEST: Rise symmetrical. Breath sounds diminished to bases. HEART: S1, S2. ABDOMEN: Obese, soft. Bowel tones present. EXTREMITIES: Without cyanosis. ASSESSMENT: 1. Sepsis with fevers, leukocytosis and tachycardia on admission 2. Transaminitis without evidence of acute hepatic injury, without evidence of acute cholecystitis, no ascites. 3. Oral thrush. 4. Left lower extremity pain with mild swelling. 5. History of alcohol abuse ?acute wd. PLAN: The patient is clinically stable, all cx's negative, continue observing off abx, reculture prn, continue Nystatin swishes DW staff Problems: BRENDEN SCOTT NP Jan 03, 2017 13:53
--- NOTE | 2017-01-03 15:02 | PN ---
Date/Time of Note Date/Time of Note DATE: 01/03/17 TIME: 14:48 Assessment/Plan VTE Prophylaxis VTE Prophylaxis Intervention: heparin Lines/Catheters [facility] Peripheral IV Urinary Cath still in place: No Assessment/Plan Assessment/Plan 1. Community acquired pneumonia, likely viral, influenza screen, levaquin 2. Leukocytosis, likely reactive from viral infection 3. Alcoholism, no withdrawal 4. Transaminitis, alcohol related, follow up with LFTs 5. DVT prophylaxis: heparin Subjective 24 Hr Interval Summary Free Text/Dictation cough with shortness of breath and yellowish sputum, generalized body ache for 1 and 1/2 weeks Exam/Review of Systems Vital Signs Vitals Vital Signs Date Time Temp Pulse Resp B/P Pulse Ox O2 Delivery O2 Flow Rate FiO2 01/03/17 12:21 129 01/03/17 12:16 100.4 18 116/60 96 01/02/17 20:00 Nasal Cannula 1.0 Intake and Output 01/02/17 01/02/17 01/03/17 15:00 23:00 07:00 Intake Total 600 ml 1500 ml Balance 600 ml 1500 ml Exam Constitutional: alert, obese, oriented, well developed Psych: nl mood/affect, no complaints Head: atraumatic, normocephalic Eyes: EOMI, nl conjunctiva, nl lids ENMT: nl external ears & nose, nl lips & teeth, nl nasal mucosa & septum Neck: non-tender, supple Respiratory: congested cough, crackles/rales (at back) Cardiovascular: nl pulses, regular rate and rhythm, No S3, No S4, No bruits, No diastolic murmur, No edema, No gallop, No irregular rhythm, No jugular venous distention (JVD), No murmurs/extra sounds, No other, No rub, No systolic murmur Gastrointestinal: nl liver, spleen, non-tender, soft, No ascites, No bowel sounds, No distended, No firm, No hepatomegaly, No mass , No other, No rebound or guarding, No splenomegaly, No surgical scars, No tender Musculoskeletal: nl extremities to inspection Extremities: normal pulses, No calf tenderness, No clubbing, No cyanosis, No edema, No other, No palpable cord, No pitting pedal edema, No tenderness 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: MANAGER EQUIPMENT II-XII intact, nl mental status, nl speech, nl strength Skin: nl turgor Lymph: nl lymph nodes Results Result Diagram: 01/03/17 0830 01/03/17 0830 Results 24 hrs Laboratory Tests Test 01/03/17 08:30 White Blood Count 19.4 H Red Blood Count 2.97 L Hemoglobin 10.1 L Hematocrit 31.2 L Mean Corpuscular Volume 105.1 H Mean Corpuscular Hemoglobin 34.0 H Mean Corpuscular Hemoglobin Concent 32.4 Red Cell Distribution Width 15.3 H Platelet Count 236 Mean Platelet Volume 9.4 Neutrophils % 72.2 Lymphocytes % 12.4 L Monocytes % 7.8 Eosinophils % 3.8 Basophils % 0.6 Nucleated Red Blood Cells % 0.2 H Neutrophils # 14.0 H Lymphocytes # 2.4 Monocytes # 1.5 H Eosinophils # 0.7 H Basophils # 0.1 Nucleated Red Blood Cells # 0.0 Sodium Level 138 Potassium Level 3.9 Chloride Level 105 Carbon Dioxide Level 26 Anion Gap 11 Blood Urea Nitrogen < 2 L Creatinine 0.74 Glucose Level 78 Calcium Level 7.9 L Phosphorus Level 3.9 Magnesium Level 1.8 Medications Medications Current Medications Ondansetron HCl (Zofran Inj) 4 mg Q6H PRN IV NAUSEA AND/OR VOMITING; Start at 14:30 Acetaminophen (Tylenol Tab) 650 mg Q6H PRN PO PAIN LEVEL 1-3 OR FEVER; Start 12/31/16 at 14:30 Acetaminophen/ Hydrocodone Bitart ([place] (5/325)) 1 tab Q6H PRN PO MODERATE PAIN LEVEL 4-6; Start 12/31/16 at 14:30 Morphine Sulfate (morphine) 2 mg Q4H PRN IV SEVERE PAIN LEVEL 7-10; Start at 14:30 Docusate Sodium (Colace) 100 mg Q12H PRN PO CONSTIPATION; Start 12/31/16 at 14 :30 Magnesium Hydroxide (Milk Of Mag) 30 ml DAILY PRN PO CONSTIPATION; Start 12/31 at 14:30 Sodium Biphosphate/ Sodium Phosphate (Fleet Enema) 133 ml DAILY PRN [place] CONSTIPATION; Start 12/31/16 at 14:30 Heparin Sodium (Porcine) (Heparin (5000 Units/0.5 ml)) 5,000 unit Q12 SC Last administered on 01/03/17t 10:26; Admin Dose 5,000 UNIT; Start 12/31/16 at 15:00 Nitroglycerin (Nitroglycerin (Sl Tab) 0.4 Mg) 1 tab Q5M PRN SL ANGINA; Start 12/31/16 at 14:30 Thiamine HCl (Vitamin B1) 100 mg DAILY PO Last administered on 01/03/17 09:35 ; Admin Dose 100 MG; Start 12/31/16 at 15:00 Folic Acid (Folic Acid) 1 mg DAILY PO Last administered on 01/03/17 09:35; Admin Dose 1 MG; Start 12/31/16 at 15:00 Lorazepam (Ativan) 1 mg Q1H PRN IV CONTROL WITHDRAWAL SYMPTOMS Last administered on 01/02/17 14:30; Admin Dose 1 MG; Start 12/31/16 at 15:30 Nystatin (Nystatin Susp) 5 ml QID PO Last administered on 01/03/17 13:09; Admin Dose 5 ML; Start 01/01/17 at 17:00 Multivitamins Therapeutic (Theragran) 1 tab DAILY PO Last administered on 09:35; Admin Dose 1 TAB; Start 01/02/17 at 09:00 BREE ARENAS MD Jan 03, 2017 14:58
[2017-01-03] MEDS: LEVOFLOXACIN 500MG/D5W (PMX) 100 ML IVPB SCH (15:46)
[2017-01-03] MEDS: ACETAMINOPHEN 325 MG TAB PO PRN (16:03)
[2017-01-03] MEDS: GUAIFENESIN/DM 5ML CUP PO PRN (23:33)
[2017-01-04] VITALS (12 sets, daily range): BP systolic 114–136; BP diastolic 66–81; PULSE 107–118; RESP 18–20
[2017-01-04] MEDS: GUAIFENESIN/DM 5ML CUP PO PRN ×2 (04:56→20:50)
[2017-01-04] MEDS: LEVOTHYROXINE 50 MCG TAB PO SCH (05:10)
[2017-01-04 07:55] LABS: BASOPHIL # 0.1 10^3/ul (0.0-0.1); BASOPHILS % 0.5 % (0.0-2.0); EOSINOPHILS # 0.7 10^3/ul (0.0-0.5); EOSINOPHILS % 3.4 % (0.0-7.0); HEMATOCRIT 32.9 % (42.0-52.0); HEMOGLOBIN 10.4 g/dl (14.0-18.0); LYMPHOCYTES # 2.5 10^3/ul (0.8-2.9); LYMPHOCYTES % 12.9 % (15.0-51.0); MEAN CORPUSCULAR HGB CONC 31.6 g/dl (32.0-37.0); MEAN CORPUSCULAR VOLUME 104.4 fl (82.0-101.0); MEAN PLATELET VOLUME 9.3 fl (7.4-10.4); MONOCYTE # 1.4 10^3/ul (0.3-0.9); MONOCYTES % 7.3 % (0.0-11.0); NEUTROPHILS % 71.7 % (39.0-77.0); NUCLEATED RED BLOOD CELLS% 0.2 /100WBC (0.0-0.0); PLATELET COUNT 236 10^3/UL (140-415); RED BLOOD COUNT 3.15 10^6/ul (4.70-6.10); RED CELL DISTRIBUTION WIDTH 15.6 % (11.5-14.5); WHITE BLOOD COUNT 19.6 10^3/ul (4.8-10.8)
[2017-01-04 08:11] LABS: ALANINE AMINOTRANSFERASE 51 IU/L (13-69); ALBUMIN 2.7 g/dl (3.3-4.9); ALBUMIN/GLOBULIN RATIO 0.62; ALKALINE PHOSPHATASE 157 IU/L (42-121); ANION GAP 11 (8-16); ASPARTATE AMINO TRANSFERASE 169 IU/L (15-46); BILIRUBIN,INDIRECT 0.8 mg/dl (0-1.1); BILIRUBIN,TOTAL 0.8 mg/dl (0.2-1.3); CALCIUM 7.7 mg/dl (8.4-10.2); CARBON DIOXIDE 27 mmol/L (21-31); CHLORIDE 105 mmol/L (97-110); CREATININE 0.61 mg/dl (0.61-1.24); GLUCOSE 90 mg/dl (70-220); POTASSIUM 3.5 mmol/L (3.5-5.1); SODIUM 139 mmol/L (135-144)
[2017-01-04 08:20] LABS: BLOOD UREA NITROGEN < 2 mg/dl (7-20)
[2017-01-04] MEDS: FOLIC ACID 1 MG TAB PO SCH (09:33)
[2017-01-04] MEDS: NYSTATIN SUSP 5 ML CUP PO SCH ×4 (09:33→20:50)
[2017-01-04] MEDS: THIAMINE 100 MG TAB PO SCH (09:33)
[2017-01-04] MEDS: MULTIVITAMINS THERAPEUTIC TAB PO SCH (09:33)
[2017-01-04] MEDS: HEPARIN 5,000 UNIT/0.5 ML VIAL SC SCH ×2 (09:35→20:52)
[2017-01-04] MEDS ORDERED: IBUPROFEN 400 MG TAB PO PRN (11:00)
[2017-01-04] MEDS ORDERED: IBUPROFEN 200 MG TAB PO ONE (11:00)
[2017-01-04] MEDS ORDERED: IBUPROFEN 400 MG TAB PO SCH (12:00)
[2017-01-04] MEDS: LEVOFLOXACIN 500MG/D5W (PMX) 100 ML IVPB SCH (14:15)
--- NOTE | 2017-01-04 14:23 | CONS ---
Date/Time of Note Date/Time of Note DATE: 01/04/17 TIME: 14:22 Consult Date/Type/Reason Admit Date/Time Dec 31, 2016 at 13:50 Type of Consultation: id Objective Vital Signs Date Time Temp Pulse Resp B/P Pulse Ox O2 Delivery O2 Flow Rate FiO2 01/04/17 12:15 114 01/04/17 11:57 Room Air 01/04/17 11:45 98.9 20 114/67 95 01/02/17 20:00 1.0 Intake and Output 01/03/17 01/03/17 01/04/17 15:00 23:00 07:00 Intake Total 1800 ml 700 ml 700 ml Balance 1800 ml 700 ml 700 ml Results/Medications Result Diagram: 01/04/17 0729 01/04/17728 Results 24 hrs Laboratory Tests Test 01/04/17 07:29 White Blood Count 19.6 H Red Blood Count 3.15 L Hemoglobin 10.4 L Hematocrit 32.9 L Mean Corpuscular Volume 104.4 H Mean Corpuscular Hemoglobin 33.0 Mean Corpuscular Hemoglobin Concent 31.6 L Red Cell Distribution Width 15.6 H Platelet Count 236 Mean Platelet Volume 9.3 Neutrophils % 71.7 Lymphocytes % 12.9 L Monocytes % 7.3 Eosinophils % 3.4 Basophils % 0.5 Nucleated Red Blood Cells % 0.2 H Neutrophils # 14.0 H Lymphocytes # 2.5 Monocytes # 1.4 H Eosinophils # 0.7 H Basophils # 0.1 Nucleated Red Blood Cells # 0.0 Sodium Level 139 Potassium Level 3.5 Chloride Level 105 Carbon Dioxide Level 27 Anion Gap 11 Blood Urea Nitrogen < 2 L Creatinine 0.61 Glucose Level 90 Calcium Level 7.7 L Total Bilirubin 0.8 Direct Bilirubin 0.00 Indirect Bilirubin 0.8 Aspartate Amino Transf (AST/SGOT) 169 H Alanine Aminotransferase (ALT/SGPT) 51 Alkaline Phosphatase 157 H Total Protein 7.0 Albumin 2.7 L Globulin 4.30 H Albumin/Globulin Ratio 0.62 Medications Current Medications Ondansetron HCl (Zofran Inj) 4 mg Q6H PRN IV NAUSEA AND/OR VOMITING; Start at 14:30 Acetaminophen (Tylenol Tab) 650 mg Q6H PRN PO PAIN LEVEL 1-3 OR FEVER Last administered on 01/03/17t 16:03; Admin Dose 650 MG; Start 12/31/16 at 14:30 Acetaminophen/ Hydrocodone Bitart ([place] (5/325)) 1 tab Q6H PRN PO MODERATE PAIN LEVEL 4-6; Start 12/31/16 at 14:30 Morphine Sulfate (morphine) 2 mg Q4H PRN IV SEVERE PAIN LEVEL 7-10; Start at 14:30 Docusate Sodium (Colace) 100 mg Q12H PRN PO CONSTIPATION; Start 12/31/16 at 14 :30 Magnesium Hydroxide (Milk Of Mag) 30 ml DAILY PRN PO CONSTIPATION; Start 12/31 at 14:30 Sodium Biphosphate/ Sodium Phosphate (Fleet Enema) 133 ml DAILY PRN [place] CONSTIPATION; Start 12/31/16 at 14:30 Heparin Sodium (Porcine) (Heparin (5000 Units/0.5 ml)) 5,000 unit Q12 SC Last administered on 01/04/17 09:35; Admin Dose 5,000 UNIT; Start 12/31/16 at 15:00 Nitroglycerin (Nitroglycerin (Sl Tab) 0.4 Mg) 1 tab Q5M PRN [place] ANGINA; Start 12/31/16 at 14:30 Thiamine HCl (Vitamin B1) 100 mg DAILY PO Last administered on 01/04/17 09:33 ; Admin Dose 100 MG; Start 12/31/16 at 15:00 Folic Acid (Folic Acid) 1 mg DAILY PO Last administered on 01/04/17 09:33; Admin Dose 1 MG; Start 12/31/16 at 15:00 Lorazepam (Ativan) 1 mg Q1H PRN IV CONTROL WITHDRAWAL SYMPTOMS Last administered on 01/02/17 14:30; Admin Dose 1 MG; Start 12/31/16 at 15:30 Nystatin (Nystatin Susp) 5 ml QID PO Last administered on 01/04/17 13:50; Admin Dose 5 ML; Start 01/01/17 at 17:00 Multivitamins Therapeutic 1 tab 1 tab DAILY PO Last administered on 01/04/17 09:33; Admin Dose 1 TAB; Start 01/02/17 at 09:00 Levofloxacin/ Dextrose (Levaquin 500mg/ D5W 100 ml (Pmx)) 100 ml @ 100 mls/hr Q24H IVPB Last administered on 01/04/17 14:15; Admin Dose 100 MLS/HR; Start 01/03/17 at 15:00 Levothyroxine Sodium (Synthroid) 50 mcg DAILY@06 PO Last administered on 05:10; Admin Dose 50 MCG; Start 01/04/17 at 06:00 Guaifenesin/ Dextromethorphan (Robitussin Dm Liquid Cup) 10 ml Q4H PRN PO COUGH Last administered on 01/04/17 04:56; Admin Dose 10 ML; Start 01/03/17 at 23:30 Ibuprofen (Motrin) 400 mg Q6H PRN PO PAIN OR TEMP ABOVE 38C; Start 01/04/17 at 11:00 Assessment/Plan Chief Complaint/Hosp Course SUBJECTIVE: Patient is awake, looks comfortable, no n/v/d, no dysuria LABORATORY DATA: Blood cultures have been negative. Urinalysis was negative. Hepatitis panel and HIV negative. PHYSICAL EXAMINATION: GENERAL: This is a morbidly obese young man who is alert, in no distress. HEENT: Head atraumatic, normocephalic. Sclerae anicteric. Buccal mucosa dry with white rash on his tongue and halitosis. NECK: Obese. CHEST: Rise symmetrical. Breath sounds diminished to bases. HEART: S1, S2. ABDOMEN: Obese, soft. Bowel tones present. EXTREMITIES: Without cyanosis. ASSESSMENT: 1. Sepsis with fevers, leukocytosis and tachycardia on admission ?PNA===> cxr neg 2. Transaminitis without evidence of acute hepatic injury, without evidence of acute cholecystitis, no ascites. 3. Oral thrush. 4. Left lower extremity pain with mild swelling. 5. History of alcohol abuse ?acute wd. PLAN: The patient is clinically stable, started on Levaquin, continue present care, f/u cxr in am DW staff Problems: BRENDEN SCOTT NP Jan 04, 2017 14:23
--- NOTE | 2017-01-04 17:38 | PN ---
Date/Time of Note Date/Time of Note DATE: 01/04/17 TIME: 17:36 Assessment/Plan VTE Prophylaxis VTE Prophylaxis Intervention: heparin Lines/Catheters IV [facility]from [facility] Saline Lock Urinary Cath still in place: No Assessment/Plan Assessment/Plan 1. Community acquired pneumonia, likely viral, influenza screen, levaquin 2. Leukocytosis, likely reactive from viral infection 3. Alcoholism, no withdrawal 4. Transaminitis, alcohol related, follow up with LFTs 5. DVT prophylaxis: heparin CXR in AM, if improving then we will plan for d/c Subjective 24 Hr Interval Summary Free Text/Dictation no acute events, Bp stable Exam/Review of Systems Vital Signs Vitals Vital Signs Date Time Temp Pulse Resp B/P Pulse Ox O2 Delivery O2 Flow Rate FiO2 01/04/17 16:01 110 01/04/17 15:36 100.5 20 125/76 100 01/04/17 15:17 Room Air 01/02/17 20:00 1.0 Intake and Output 01/03/17 01/03/17 01/04/17 15:00 23:00 07:00 Intake Total 1800 ml 700 ml 700 ml Balance 1800 ml 700 ml 700 ml Exam GENERAL: This is a morbidly obese young man who is alert, in no distress. HEENT: Head atraumatic, normocephalic. Sclerae anicteric. Buccal mucosa dry with white rash on his tongue and halitosis. NECK: Obese. CHEST: Rise symmetrical. Breath sounds diminished to bases. HEART: S1, S2. ABDOMEN: Obese, soft. Bowel tones present. EXTREMITIES: Without cyanosis. Results Result Diagram: 01/04/17 0729 01/04/17 0729 Results 24 hrs Laboratory Tests Test 01/04/17 07:29 White Blood Count 19.6 H Red Blood Count 3.15 L Hemoglobin 10.4 L Hematocrit 32.9 L Mean Corpuscular Volume 104.4 H Mean Corpuscular Hemoglobin 33.0 Mean Corpuscular Hemoglobin Concent 31.6 L Red Cell Distribution Width 15.6 H Platelet Count 236 Mean Platelet Volume 9.3 Neutrophils % 71.7 Lymphocytes % 12.9 L Monocytes % 7.3 Eosinophils % 3.4 Basophils % 0.5 Nucleated Red Blood Cells % 0.2 H Neutrophils # 14.0 H Lymphocytes # 2.5 Monocytes # 1.4 H Eosinophils # 0.7 H Basophils # 0.1 Nucleated Red Blood Cells # 0.0 Sodium Level 139 Potassium Level 3.5 Chloride Level 105 Carbon Dioxide Level 27 Anion Gap 11 Blood Urea Nitrogen < 2 L Creatinine 0.61 Glucose Level 90 Calcium Level 7.7 L Total Bilirubin 0.8 Direct Bilirubin 0.00 Indirect Bilirubin 0.8 Aspartate Amino Transf (AST/SGOT) 169 H Alanine Aminotransferase (ALT/SGPT) 51 Alkaline Phosphatase 157 H Total Protein 7.0 Albumin 2.7 L Globulin 4.30 H Albumin/Globulin Ratio 0.62 Medications Medications Current Medications Ondansetron HCl (Zofran Inj) 4 mg Q6H PRN IV NAUSEA AND/OR VOMITING; Start at 14:30 Acetaminophen (Tylenol Tab) 650 mg Q6H PRN PO PAIN LEVEL 1-3 OR FEVER Last administered on 01/03/17 16:03; Admin Dose 650 MG; Start 12/31/16 at 14:30 Acetaminophen/ Hydrocodone Bitart ([place] (5/325)) 1 tab Q6H PRN PO MODERATE PAIN LEVEL 4-6; Start 12/31/16 at 14:30 Morphine Sulfate (morphine) 2 mg Q4H PRN IV SEVERE PAIN LEVEL 7-10; Start at 14:30 Docusate Sodium (Colace) 100 mg Q12H PRN PO CONSTIPATION; Start 12/31/16 at 14 :30 Magnesium Hydroxide (Milk Of Mag) 30 ml DAILY PRN PO CONSTIPATION; Start 12/31 at 14:30 Sodium Biphosphate/ Sodium Phosphate (Fleet Enema) 133 ml DAILY PRN [place] CONSTIPATION; Start 12/31/16 at 14:30 Heparin Sodium (Porcine) (Heparin (5000 Units/0.5 ml)) 5,000 unit Q12 SC Last administered on 01/04/17 09:35; Admin Dose 5,000 UNIT; Start 12/31/16 at 15:00 Nitroglycerin (Nitroglycerin (Sl Tab) 0.4 Mg) 1 tab Q5M PRN SL ANGINA; Start 12/31/16 at 14:30 Thiamine HCl (Vitamin B1) 100 mg DAILY PO Last administered on 01/04/17 09:33 ; Admin Dose 100 MG; Start 12/31/16 at 15:00 Folic Acid (Folic Acid) 1 mg DAILY PO Last administered on 01/04/17 09:33; Admin Dose 1 MG; Start 12/31/16 at 15:00 Lorazepam (Ativan) 1 mg Q1H PRN IV CONTROL WITHDRAWAL SYMPTOMS Last administered on 01/02/17 14:30; Admin Dose 1 MG; Start 12/31/16 at 15:30 Nystatin (Nystatin Susp) 5 ml QID PO Last administered on 01/04/17 17:10; Admin Dose 5 ML; Start 01/01/17 at 17:00 Multivitamins Therapeutic 1 tab 1 tab DAILY PO Last administered on 01/04/17 09:33; Admin Dose 1 TAB; Start 01/02/17 at 09:00 Levofloxacin/ Dextrose (Levaquin 500mg/ D5W 100 ml (Pmx)) 100 ml @ 100 mls/hr Q24H IVPB Last administered on 01/04/17 14:15; Admin Dose 100 MLS/HR; Start 01/03/17 at 15:00 Levothyroxine Sodium (Synthroid) 50 mcg DAILY@06 PO Last administered on 05:10; Admin Dose 50 MCG; Start 01/04/17 at 06:00 Guaifenesin/ Dextromethorphan (Robitussin Dm Liquid Cup) 10 ml Q4H PRN PO COUGH Last administered on 01/04/17 04:56; Admin Dose 10 ML; Start 01/03/17 at 23:30 Ibuprofen (Motrin) 400 mg Q6H PRN PO PAIN OR TEMP ABOVE 38C; Start 01/04/17 at 11:00 JAY ROSALES MD Jan 04, 2017 17:38
--- NOTE | 2017-01-04 17:55 | RADRPT ---
PROCEDURE: XR Chest. CLINICAL INDICATION: Cough. Evaluate for pneumonia. TECHNIQUE: PA and Lateral views of the chest were obtained. COMPARISON: Chest radiograph dated January 02, 2017. FINDINGS: The heart is magnified. There are low lung volumes with mild pulmonary vascular congestion. No focal consolidation, pleural effusions, or pneumothorax. The osseous structures are grossly unremarkable. IMPRESSION: 1. Low lung volumes with mild pulmonary vascular congestion. 2. No focal consolidations. RPTAT:AAJJ Physician Aida Date Time Electronically viewed and signed by Sully Velez Physician on 01/04/2017 17:55 QL/
--- NOTE | 2017-01-04 19:20 | RADRPT ---
Echocardiogram Report Patient Name: REECE FERMIN Gender: Male Date: 1995 Study Date: 04-Jan-2017 Collection Systems Modeler: Simón Zambrano [facility] Location: 5563 Ref. Physician: OSCAR WADSWORTH Quality: Good Procedures: Transthoracic echocardiogram with complete 2D, M-Mode, and doppler examination. Indications: Edema. 2D/M Mode Doppler Measurement Value Normal Ranges Measurement Value Normal Ranges LVIDd 2D 5.6 3.5 - 5.6 cm AV Peak [place] 1.6 m/sec LVIDs 2D 3.6 2.1 - 4.1 cm AV Peak PG 10.0 mmHg FS 2D 35.2 % LVOT Peak [place] 0.9 m/sec LVPWd 2D 1.0 0.6 - 1.1 cm LVOT Peak PG 3.0 mmHg IVSd 2D 1.1 0.6 - 1.1 cm MV E Peak [place] 1.3 m/sec IVS/LVPW 2D 1.1 MV A Peak [place] 1.2 m/sec AoR Diam 2D 3.0 2.0 - 3.7 cm MV E/A 1.1 LA/Ao 2D 1 0 - 1 MV Decel Time 81 msec EDV 2D 173.0 cm3 MV E/A 1.1 ESV 2D 47.0 cm3 TR Peak [place] 2.2 m/sec LA Dimen 2D 4.1 2.3 - 4.0 cm TR Peak PG 20.0 mmHg RVSP 28.0 mmHg Findings Left Ventricle: Normal left ventricular cavity size. Mild concentric left ventricular hypertrophy. Mild global left ventricular systolic dysfunction. Ejection fraction is visually estimated at 4550 %. Right Ventricle: Normal right ventricular size. Normal right ventricular systolic function. Left Atrium: There is mild enlargement of left atrium. Right Atrium: The right atrium is normal in size. Mitral Valve: Normal appearance and function of the mitral valve with trace physiologic regurgitation. Aortic Valve: Normal appearance of the aortic valve. No significant aortic stenosis or insufficiency. Tricuspid Valve: Normal appearance of the tricuspid valve. Estimated peak PA systolic pressure 28 mmHg. There is trace tricuspid regurgitation. Pulmonic Valve: Normal pulmonic valve appearance. Pericardium: Normal pericardium with no significant pericardial effusion. Aorta: Normal aortic root. IVC: Dilated IVC with respiratory collapse consistent with elevated right atrial pressure. Conclusions 1.Left ventricular cavity size at the upper limits of normal. Mild concentric left ventricular hypertrophy. Mild global left ventricular systolic dysfunction. Ejection fraction is visually estimated at 45-50 %. 2.Normal right ventricular size. Normal right ventricular systolic function. 3.There is mild enlargement of left atrium. 4.Normal appearance and function of the mitral valve with trace physiologic regurgitation. 5.Normal appearance of the tricuspid valve. Estimated peak PA systolic pressure 28 mmHg. There is trace tricuspid regurgitation. Electronically Signed By: Jeff Tobias 04-Jan-2017 19:19:27 -0700 Patient Name: REECE FERMIN Study Date: 04-Jan-2017 [id number]
[2017-01-05] VITALS (12 sets, daily range): BP systolic 110–126; BP diastolic 56–79; PULSE 105–129; RESP 18–20
[2017-01-05] MEDS: LEVOTHYROXINE 50 MCG TAB PO SCH (05:26)
[2017-01-05] MEDS: GUAIFENESIN/DM 5ML CUP PO PRN (05:26)
[2017-01-05 08:45] LABS: BASOPHIL # 0.1 10^3/ul (0.0-0.1); BASOPHILS % 0.6 % (0.0-2.0); EOSINOPHILS # 0.8 10^3/ul (0.0-0.5); HEMATOCRIT 33.4 % (42.0-52.0); HEMOGLOBIN 10.4 g/dl (14.0-18.0); LYMPHOCYTES # 2.7 10^3/ul (0.8-2.9); LYMPHOCYTES % 14.4 % (15.0-51.0); MEAN CORPUSCULAR HEMOGLOBIN 32.6 pg (29.0-33.0); MEAN CORPUSCULAR HGB CONC 31.1 g/dl (32.0-37.0); MEAN CORPUSCULAR VOLUME 104.7 fl (82.0-101.0); MEAN PLATELET VOLUME 9.4 fl (7.4-10.4); MONOCYTE # 1.3 10^3/ul (0.3-0.9); NEUTROPHIL # 13.3 10^3/ul (1.6-7.5); NUCLEATED RED BLOOD CELLS% 0.1 /100WBC (0.0-0.0); PLATELET COUNT 249 10^3/UL (140-415); RED BLOOD COUNT 3.19 10^6/ul (4.70-6.10); RED CELL DISTRIBUTION WIDTH 16.1 % (11.5-14.5); WHITE BLOOD COUNT 18.9 10^3/ul (4.8-10.8)
[2017-01-05] MEDS: FOLIC ACID 1 MG TAB PO SCH (08:45)
[2017-01-05] MEDS: NYSTATIN SUSP 5 ML CUP PO SCH ×4 (08:45→21:08)
[2017-01-05] MEDS: MULTIVITAMINS THERAPEUTIC TAB PO SCH (08:45)
[2017-01-05] MEDS: HEPARIN 5,000 UNIT/0.5 ML VIAL SC SCH ×2 (08:48→21:10)
[2017-01-05 09:08] LABS: ANION GAP 11 (8-16); CALCIUM 7.8 mg/dl (8.4-10.2); CARBON DIOXIDE 27 mmol/L (21-31); CHLORIDE 106 mmol/L (97-110); CREATININE 0.63 mg/dl (0.61-1.24); GLUCOSE 99 mg/dl (70-220); POTASSIUM 3.5 mmol/L (3.5-5.1); SODIUM 140 mmol/L (135-144)
[2017-01-05 09:14] LABS: BLOOD UREA NITROGEN < 2 mg/dl (7-20)
--- NOTE | 2017-01-05 12:38 | PN ---
Date/Time of Note Date/Time of Note DATE: 01/05/17 TIME: 12:33 Assessment/Plan VTE Prophylaxis VTE Prophylaxis Intervention: heparin Lines/Catheters IV [facility]from [facility] Saline Lock Urinary Cath still in place: No Assessment/Plan Assessment/Plan 1. Community acquired pneumonia, likely viral, influenza screen, levaquin 2. Leukocytosis, likely reactive from viral infection 3. Alcoholism, no withdrawal 4. Transaminitis, alcohol related, follow up with LFTs 5. DVT prophylaxis: heparin 6. severe Lower extremity edema 3+, US negative for DVT, US abdomen did not show ascites CXR showed mild pulmonary congestion plan: IV albumin + IV lasix diuresis for 2 days, then we will consider more diuresis depending on his response to Rx US negative for DVT will need PO levaquin on discharge not stable for d/c yet due to anasarca and LE edema, need agressive Diuresis, K replacement while being on IV Lasix Heparin for DVT prophylaxis Subjective 24 Hr Interval Summary Free Text/Dictation CXR still showed Pul congestion, no Pneumonia BP stable, still has 3+ LE edema Respiratory: cough, pleuritic pain, shortness of breath Musculoskeletal: other (3+ edema ), swelling Exam/Review of Systems Vital Signs Vitals Vital Signs Date Time Temp Pulse Resp B/P Pulse Ox O2 Delivery O2 Flow Rate FiO2 01/05/17 12:20 Room Air 01/05/17 11:53 98.9 112 20 122/76 96 01/02/17 20:00 1.0 Intake and Output 01/04/17 01/04/17 01/05/17 15:00 23:00 07:00 Intake Total 1300 ml Balance 1300 ml Exam Constitutional: alert Psych: no complaints Head: normocephalic Eyes: nl conjunctiva Neck: non-tender, supple Respiratory: clear to auscultation, crackles/rales Cardiovascular: nl pulses, regular rate and rhythm Gastrointestinal: non-tender, soft Genitourinary - Male: other (scrotal edema ) Musculoskeletal: muscle weakness, swelling (3+ LE Edema ) Extremities: normal pulses 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: INTELLIGENCE CONSULTANT II-XII intact, nl mental status, nl speech, nl strength Results Result Diagram: 01/05/17 0823 01/05/17 0822 Results 24 hrs Laboratory Tests Test 01/05/17 08:22 01/05/17 08:23 Sodium Level 140 Potassium Level 3.5 Chloride Level 106 Carbon Dioxide Level 27 Anion Gap 11 Blood Urea Nitrogen < 2 L Creatinine 0.63 Glucose Level 99 Calcium Level 7.8 L White Blood Count 18.9 H Red Blood Count 3.19 L Hemoglobin 10.4 L Hematocrit 33.4 L Mean Corpuscular Volume 104.7 H Mean Corpuscular Hemoglobin 32.6 Mean Corpuscular Hemoglobin Concent 31.1 L Red Cell Distribution Width 16.1 H Platelet Count 249 Mean Platelet Volume 9.4 Neutrophils % 70.0 Lymphocytes % 14.4 L Monocytes % 7.0 Eosinophils % 4.0 Basophils % 0.6 Nucleated Red Blood Cells % 0.1 H Neutrophils # 13.3 H Lymphocytes # 2.7 Monocytes # 1.3 H Eosinophils # 0.8 H Basophils # 0.1 Nucleated Red Blood Cells # 0.0 Medications Medications Current Medications Ondansetron HCl (Zofran Inj) 4 mg Q6H PRN IV NAUSEA AND/OR VOMITING; Start at 14:30 Acetaminophen (Tylenol Tab) 650 mg Q6H PRN PO PAIN LEVEL 1-3 OR FEVER Last administered on 01/03/17 16:03; Admin Dose 650 MG; Start 12/31/16 at 14:30 Acetaminophen/ Hydrocodone Bitart ([place] (5/325)) 1 tab Q6H PRN PO MODERATE PAIN LEVEL 4-6; Start 12/31/16 at 14:30 Morphine Sulfate (morphine) 2 mg Q4H PRN IV SEVERE PAIN LEVEL 7-10; Start at 14:30 Docusate Sodium (Colace) 100 mg Q12H PRN PO CONSTIPATION; Start 12/31/16 at 14 :30 Magnesium Hydroxide (Milk Of Mag) 30 ml DAILY PRN PO CONSTIPATION; Start 12/31 at 14:30 Sodium Biphosphate/ Sodium Phosphate (Fleet Enema) 133 ml DAILY PRN [place] CONSTIPATION; Start 12/31/16 at 14:30 Heparin Sodium (Porcine) (Heparin (5000 Units/0.5 ml)) 5,000 unit Q12 SC Last administered on 01/05/17 08:48; Admin Dose 5,000 UNIT; Start 12/31/16 at 15:00 Nitroglycerin (Nitroglycerin (Sl Tab) 0.4 Mg) 1 tab Q5M PRN SL ANGINA; Start 12/31/16 at 14:30 Thiamine HCl (Vitamin B1) 100 mg DAILY PO Last administered on 01/04/17 09:33 ; Admin Dose 100 MG; Start 12/31/16 at 15:00 Folic Acid (Folic Acid) 1 mg DAILY PO Last administered on 01/05/17 08:45; Admin Dose 1 MG; Start 12/31/16 at 15:00 Lorazepam (Ativan) 1 mg Q1H PRN IV CONTROL WITHDRAWAL SYMPTOMS Last administered on 01/02/17 14:30; Admin Dose 1 MG; Start 12/31/16 at 15:30 Nystatin (Nystatin Susp) 5 ml QID PO Last administered on 01/05/17 08:45; Admin Dose 5 ML; Start 01/01/17 at 17:00 Multivitamins Therapeutic 1 tab 1 tab DAILY PO Last administered on 01/05/17 08:45; Admin Dose 1 TAB; Start 01/02/17 at 09:00 Levofloxacin/ Dextrose (Levaquin 500mg/ D5W 100 ml (Pmx)) 100 ml @ 100 mls/hr Q24H IVPB Last administered on 01/04/17 14:15; Admin Dose 100 MLS/HR; Start 01/03/17 at 15:00 Levothyroxine Sodium (Synthroid) 50 mcg DAILY@06 PO Last administered on 05:26; Admin Dose 50 MCG; Start 01/04/17 at 06:00 Guaifenesin/ Dextromethorphan (Robitussin Dm Liquid Cup) 10 ml Q4H PRN PO COUGH Last administered on 01/05/17 05:26; Admin Dose 10 ML; Start 01/03/17 at 23:30 Ibuprofen 400 mg 400 mg Q6H PRN PO PAIN OR TEMP ABOVE 38C; Start 01/04/17 at 11 :00 Albumin Human (Albumin Human 25%) 50 ml @ 100 mls/hr BID IV ; Start 01/05/17 at 12:30; Stop 01/07/17 at 18:00; Status UNV Furosemide (Lasix) 20 mg BID IV ; Start 01/05/17 at 12:30; Status UNV JAY ROSALES MD Jan 05, 2017 12:38
[2017-01-05] MEDS: THIAMINE 100 MG TAB PO SCH (12:58)
[2017-01-05] MEDS: ALBUMIN HUMAN 25% 50 ML IV SCH ×2 (12:59→21:07)
[2017-01-05] MEDS: FUROSEMIDE 20 MG INJ IV SCH ×2 (13:49→21:09)
[2017-01-05] MEDS: LEVOFLOXACIN 500MG/D5W (PMX) 100 ML IVPB SCH (14:00)
--- NOTE | 2017-01-05 14:05 | CONS ---
Date/Time of Note Date/Time of Note DATE: 01/05/17 TIME: 14:04 Consult Date/Type/Reason Admit Date/Time Dec 31, 2016 at 13:50 Type of Consultation: id Objective Vital Signs Date Time Temp Pulse Resp B/P Pulse Ox O2 Delivery O2 Flow Rate FiO2 01/05/17 13:08 112 01/05/17 12:20 Room Air 01/05/17 11:53 98.9 20 122/76 96 01/02/17 20:00 1.0 Intake and Output 01/04/17 01/04/17 01/05/17 15:00 23:00 07:00 Intake Total 1300 ml Balance 1300 ml Results/Medications Result Diagram: 01/05/17 0823 01/05/17 0822 Results 24 hrs Laboratory Tests Test 01/05/17 08:22 01/05/17 08:23 Sodium Level 140 Potassium Level 3.5 Chloride Level 106 Carbon Dioxide Level 27 Anion Gap 11 Blood Urea Nitrogen < 2 L Creatinine 0.63 Glucose Level 99 Calcium Level 7.8 L White Blood Count 18.9 H Red Blood Count 3.19 L Hemoglobin 10.4 L Hematocrit 33.4 L Mean Corpuscular Volume 104.7 H Mean Corpuscular Hemoglobin 32.6 Mean Corpuscular Hemoglobin Concent 31.1 L Red Cell Distribution Width 16.1 H Platelet Count 249 Mean Platelet Volume 9.4 Neutrophils % 70.0 Lymphocytes % 14.4 L Monocytes % 7.0 Eosinophils % 4.0 Basophils % 0.6 Nucleated Red Blood Cells % 0.1 H Neutrophils # 13.3 H Lymphocytes # 2.7 Monocytes # 1.3 H Eosinophils # 0.8 H Basophils # 0.1 Nucleated Red Blood Cells # 0.0 Medications Current Medications Ondansetron HCl (Zofran Inj) 4 mg Q6H PRN IV NAUSEA AND/OR VOMITING; Start at 14:30 Acetaminophen (Tylenol Tab) 650 mg Q6H PRN PO PAIN LEVEL 1-3 OR FEVER Last administered on 01/03/17t 16:03; Admin Dose 650 MG; Start 12/31/16 at 14:30 Acetaminophen/ Hydrocodone Bitart ([place] (5/325)) 1 tab Q6H PRN PO MODERATE PAIN LEVEL 4-6; Start 12/31/16 at 14:30 Morphine Sulfate (morphine) 2 mg Q4H PRN IV SEVERE PAIN LEVEL 7-10; Start at 14:30 Docusate Sodium (Colace) 100 mg Q12H PRN PO CONSTIPATION; Start 12/31/16 at 14 :30 Magnesium Hydroxide (Milk Of Mag) 30 ml DAILY PRN PO CONSTIPATION; Start 12/31 at 14:30 Sodium Biphosphate/ Sodium Phosphate (Fleet Enema) 133 ml DAILY PRN [place] CONSTIPATION; Start 12/31/16 at 14:30 Heparin Sodium (Porcine) (Heparin (5000 Units/0.5 ml)) 5,000 unit Q12 SC Last administered on 01/05/17 08:48; Admin Dose 5,000 UNIT; Start 12/31/16 at 15:00 Nitroglycerin (Nitroglycerin (Sl Tab) 0.4 Mg) 1 tab Q5M PRN SL ANGINA; Start 12/31/16 at 14:30 Thiamine HCl (Vitamin B1) 100 mg DAILY PO Last administered on 01/05/17 12:58 ; Admin Dose 100 MG; Start 12/31/16 at 15:00 Folic Acid (Folic Acid) 1 mg DAILY PO Last administered on 01/05/17 08:45; Admin Dose 1 MG; Start 12/31/16 at 15:00 Lorazepam (Ativan) 1 mg Q1H PRN IV CONTROL WITHDRAWAL SYMPTOMS Last administered on 01/02/17 14:30; Admin Dose 1 MG; Start 12/31/16 at 15:30 Nystatin (Nystatin Susp) 5 ml QID PO Last administered on 01/05/17 12:58; Admin Dose 5 ML; Start 01/01/17 at 17:00 Multivitamins Therapeutic 1 tab 1 tab DAILY PO Last administered on 01/05/17 08:45; Admin Dose 1 TAB; Start 01/02/17 at 09:00 Levofloxacin/ Dextrose (Levaquin 500mg/ D5W 100 ml (Pmx)) 100 ml @ 100 mls/hr Q24H IVPB Last administered on 01/05/17 14:00; Admin Dose 100 MLS/HR; Start 01/03/17 at 15:00 Levothyroxine Sodium (Synthroid) 50 mcg DAILY@06 PO Last administered on 05:26; Admin Dose 50 MCG; Start 01/04/17 at 06:00 Guaifenesin/ Dextromethorphan (Robitussin Dm Liquid Cup) 10 ml Q4H PRN PO COUGH Last administered on 01/05/17 05:26; Admin Dose 10 ML; Start 01/03/17 at 23:30 Ibuprofen 400 mg 400 mg Q6H PRN PO PAIN OR TEMP ABOVE 38C; Start 01/04/17 at 11 :00 Albumin Human (Albumin Human 25%) 50 ml @ 100 mls/hr BID IV Last administered on 01/05/17 12:59; Admin Dose 100 MLS/HR; Start 01/05/17 at 12:30; Stop at 18:00 Furosemide (Lasix) 20 mg BID IV Last administered on 01/05/17 13:49; Admin Dose 20 MG; Start 01/05/17 at 12:30; Stop 01/07/17 at 18:00 Potassium Chloride (Klor-Con 20) 20 meq BID PO ; Start 01/05/17 at 21:00; Stop 01/07/17 at 22:00 Assessment/Plan Chief Complaint/Hosp Course SUBJECTIVE: Patient is awake, looks comfortable, no n/v/d, no dysuria LABORATORY DATA: Blood cultures have been negative. Urinalysis was negative. Hepatitis panel and HIV negative. PHYSICAL EXAMINATION: GENERAL: This is a morbidly obese young man who is alert, in no distress. HEENT: Head atraumatic, normocephalic. Sclerae anicteric. Buccal mucosa dry with white rash on his tongue and halitosis. NECK: Obese. CHEST: Rise symmetrical. Breath sounds diminished to bases. HEART: S1, S2. ABDOMEN: Obese, soft. Bowel tones present. EXTREMITIES: Without cyanosis. ASSESSMENT: 1. Sepsis with fevers, leukocytosis and tachycardia on admission ?PNA===> cxr neg 2. Transaminitis without evidence of acute hepatic injury, without evidence of acute cholecystitis, no ascites. 3. Oral thrush. 4. Left lower extremity pain with mild swelling. 5. History of alcohol abuse ?acute wd. PLAN: The patient is clinically stable, CXR negative, dc Levaquin, continue present care, WBC labeled nuclear scan DW staff Problems: BRENDEN SCOTT NP Jan 05, 2017 14:05
[2017-01-05] MEDS: POTASSIUM CHLORIDE (SR) 20 MEQ TAB PO SCH (21:08)
[2017-01-05] MEDS: ACETAMINOPHEN 325 MG TAB PO PRN (21:10)
[2017-01-06] VITALS (12 sets, daily range): BP systolic 106–123; BP diastolic 62–82; PULSE 103–121; RESP 17–19
[2017-01-06] MEDS: LEVOTHYROXINE 50 MCG TAB PO SCH (06:06)
[2017-01-06] MEDS: ALBUMIN HUMAN 25% 50 ML IV SCH ×2 (08:59→21:57)
[2017-01-06] MEDS: NYSTATIN SUSP 5 ML CUP PO SCH ×4 (09:00→21:57)
[2017-01-06] MEDS: FOLIC ACID 1 MG TAB PO SCH (09:00)
[2017-01-06] MEDS: POTASSIUM CHLORIDE (SR) 20 MEQ TAB PO SCH ×2 (09:00→21:58)
[2017-01-06] MEDS: THIAMINE 100 MG TAB PO SCH (09:00)
[2017-01-06] MEDS: MULTIVITAMINS THERAPEUTIC TAB PO SCH (09:00)
[2017-01-06] MEDS: HEPARIN 5,000 UNIT/0.5 ML VIAL SC SCH ×2 (09:01→21:59)
[2017-01-06] MEDS: FUROSEMIDE 20 MG INJ IV SCH ×2 (09:37→21:58)
[2017-01-06 09:44] LABS: BASOPHIL # 0.1 10^3/ul (0.0-0.1); BASOPHILS % 0.7 % (0.0-2.0); EOSINOPHILS # 0.8 10^3/ul (0.0-0.5); EOSINOPHILS % 4.3 % (0.0-7.0); HEMATOCRIT 32.5 % (42.0-52.0); HEMOGLOBIN 10.3 g/dl (14.0-18.0); LYMPHOCYTES # 2.5 10^3/ul (0.8-2.9); LYMPHOCYTES % 13.9 % (15.0-51.0); MEAN CORPUSCULAR HEMOGLOBIN 33.7 pg (29.0-33.0); MEAN CORPUSCULAR HGB CONC 31.7 g/dl (32.0-37.0); MEAN CORPUSCULAR VOLUME 106.2 fl (82.0-101.0); MEAN PLATELET VOLUME 9.6 fl (7.4-10.4); MONOCYTE # 1.4 10^3/ul (0.3-0.9); MONOCYTES % 7.5 % (0.0-11.0); NEUTROPHIL # 12.8 10^3/ul (1.6-7.5); NEUTROPHILS % 70.5 % (39.0-77.0); NUCLEATED RED BLOOD CELLS% 0.1 /100WBC (0.0-0.0); PLATELET COUNT 258 10^3/UL (140-415); RED BLOOD COUNT 3.06 10^6/ul (4.70-6.10); RED CELL DISTRIBUTION WIDTH 16.6 % (11.5-14.5); WHITE BLOOD COUNT 18.2 10^3/ul (4.8-10.8)
[2017-01-06 09:59] LABS: ANION GAP 11 (8-16); CALCIUM 7.6 mg/dl (8.4-10.2); CARBON DIOXIDE 28 mmol/L (21-31); CHLORIDE 103 mmol/L (97-110); CREATININE 0.69 mg/dl (0.61-1.24); GLUCOSE 91 mg/dl (70-220); POTASSIUM 3.4 mmol/L (3.5-5.1); SODIUM 139 mmol/L (135-144)
[2017-01-06 10:00] LABS: BLOOD UREA NITROGEN < 2 mg/dl (7-20)
--- NOTE | 2017-01-06 13:29 | PN ---
Date/Time of Note Date/Time of Note DATE: 01/06/17 TIME: 13:26 Assessment/Plan VTE Prophylaxis VTE Prophylaxis Intervention: heparin Lines/Catheters IV [facility] Urinary Cath still in place: No Assessment/Plan Assessment/Plan 1. Community acquired pneumonia, likely viral, influenza screen, levaquin 2. Leukocytosis, likely reactive from viral infection 3. Alcoholism, no withdrawal 4. Transaminitis, alcohol related, follow up with LFTs 5. DVT prophylaxis: heparin 6. severe Lower extremity edema 3+, US negative for DVT, US abdomen did not show ascites CXR showed mild pulmonary congestion Plan: getting IV lasix diuresis , HR in 100-110, low grade fever also, no clear source of infection yet, CXR showed mild pulmonary congestion, on infitlrates IV albumin + IV lasix diuresis for 2 days, then we will consider more diuresis depending on his response to Rx US negative for DVT Abx stopped for now, Plan for WBC scan on Sunday not stable for d/c yet due to anasarca and LE edema, need agressive Diuresis, K replacement while being on IV Lasix Heparin for DVT prophylaxis Subjective 24 Hr Interval Summary Free Text/Dictation getting IV lasix diuresis , HR in 100-110, low grade fever also, no clear source of infection yet, CXR showed mild pulmonary congestion, on infitlrates Exam/Review of Systems Vital Signs Vitals Vital Signs Date Time Temp Pulse Resp B/P Pulse Ox O2 Delivery O2 Flow Rate FiO2 01/06/17 13:04 Room Air 01/06/17 12:05 109 01/06/17 11:49 99.9 17 119/63 98 01/02/17 20:00 1.0 Intake and Output 01/05/17 01/05/17 01/06/17 15:00 23:00 07:00 Intake Total 1350 ml 700 ml Balance 1350 ml 700 ml Exam Constitutional: alert Respiratory: clear to auscultation, crackles/rales Cardiovascular: nl pulses, regular rate and rhythm, Tachycardia Gastrointestinal: non-tender, soft Genitourinary - Male: other (scrotal edema ) Musculoskeletal: muscle weakness, swelling (3+ LE Edema ) Extremities: normal pulses 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: FI[employer] 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[employer] 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, nl mental status, nl speech, nl strength Results Result Diagram: 01/06/1737 01/06/17 0837 Results 24 hrs Laboratory Tests Test 01/06/17 08:37 01/06/17 11:24 White Blood Count 18.2 H Red Blood Count 3.06 L Hemoglobin 10.3 L Hematocrit 32.5 L Mean Corpuscular Volume 106.2 H Mean Corpuscular Hemoglobin 33.7 H Mean Corpuscular Hemoglobin Concent 31.7 L Red Cell Distribution Width 16.6 H Platelet Count 258 Mean Platelet Volume 9.6 Neutrophils % 70.5 Lymphocytes % 13.9 L Monocytes % 7.5 Eosinophils % 4.3 Basophils % 0.7 Nucleated Red Blood Cells % 0.1 H Neutrophils # 12.8 H Lymphocytes # 2.5 Monocytes # 1.4 H Eosinophils # 0.8 H Basophils # 0.1 Nucleated Red Blood Cells # 0.0 Sodium Level 139 Potassium Level 3.4 L Chloride Level 103 Carbon Dioxide Level 28 Anion Gap 11 Blood Urea Nitrogen < 2 L Creatinine 0.69 Glucose Level 91 Calcium Level 7.6 L Lab Scanned Report REFERENCE LAB Medications Medications Current Medications Ondansetron HCl (Zofran Inj) 4 mg Q6H PRN IV NAUSEA AND/OR VOMITING; Start at 14:30 Acetaminophen (Tylenol Tab) 650 mg Q6H PRN PO PAIN LEVEL 1-3 OR FEVER Last administered on 01/05/17 21:10; Admin Dose 650 MG; Start 12/31/16 at 14:30 Acetaminophen/ Hydrocodone Bitart ([place] (5/325)) 1 tab Q6H PRN PO MODERATE PAIN LEVEL 4-6; Start 12/31/16 at 14:30 Morphine Sulfate (morphine) 2 mg Q4H PRN IV SEVERE PAIN LEVEL 7-10; Start at 14:30 Docusate Sodium (Colace) 100 mg Q12H PRN PO CONSTIPATION; Start 12/31/16 at 14 :30 Magnesium Hydroxide (Milk Of Mag) 30 ml DAILY PRN PO CONSTIPATION; Start 12/31 at 14:30 Sodium Biphosphate/ Sodium Phosphate (Fleet Enema) 133 ml DAILY PRN [place] CONSTIPATION; Start 12/31/16 at 14:30 Heparin Sodium (Porcine) (Heparin (5000 Units/0.5 ml)) 5,000 unit Q12 SC Last administered on 01/06/17 09:01; Admin Dose 5,000 UNIT; Start 12/31/16 at 15:00 Nitroglycerin (Nitroglycerin (Sl Tab) 0.4 Mg) 1 tab Q5M PRN SL ANGINA; Start 12/31/16 at 14:30 Thiamine HCl (Vitamin B1) 100 mg DAILY PO Last administered on 01/06/17 09:00 ; Admin Dose 100 MG; Start 12/31/16 at 15:00 Folic Acid (Folic Acid) 1 mg DAILY PO Last administered on 01/06/17 09:00; Admin Dose 1 MG; Start 12/31/16 at 15:00 Lorazepam (Ativan) 1 mg Q1H PRN IV CONTROL WITHDRAWAL SYMPTOMS Last administered on 01/02/17 14:30; Admin Dose 1 MG; Start 12/31/16 at 15:30 Nystatin (Nystatin Susp) 5 ml QID PO Last administered on 01/06/17 12:12; Admin Dose 5 ML; Start 01/01/17 at 17:00 Multivitamins Therapeutic (Theragran) 1 tab DAILY PO Last administered on 09:00; Admin Dose 1 TAB; Start 01/02/17 at 09:00 Levothyroxine Sodium (Synthroid) 50 mcg DAILY@06 PO Last administered on 06:06; Admin Dose 50 MCG; Start 01/04/17 at 06:00 Guaifenesin/ Dextromethorphan (Robitussin Dm Liquid Cup) 10 ml Q4H PRN PO COUGH Last administered on 01/05/17 05:26; Admin Dose 10 ML; Start 01/03/17 at 23:30 Ibuprofen 400 mg 400 mg Q6H PRN PO PAIN OR TEMP ABOVE 38C; Start 01/04/17 at 11 :00 Albumin Human (Albumin Human 25%) 50 ml @ 100 mls/hr BID IV Last administered on 01/06/17 08:59; Admin Dose 100 MLS/HR; Start 01/05/17 at 12:30; Stop at 18:00 Furosemide (Lasix) 20 mg BID IV Last administered on 01/06/17 09:37; Admin Dose 20 MG; Start 01/05/17 at 12:30; Stop 01/07/17 at 18:00 Potassium Chloride (Klor-Con 20) 20 meq BID PO Last administered on 01/06/17 09:00; Admin Dose 20 MEQ; Start 01/05/17 at 21:00; Stop 01/07/17 at 22:00 JAY ROSALES MD Jan 06, 2017 13:29
--- NOTE | 2017-01-06 13:43 | CONS ---
Date/Time of Note Date/Time of Note DATE: 01/06/17 TIME: 13:40 Consult Date/Type/Reason Admit Date/Time Dec 31, 2016 at 13:50 Type of Consultation: id Objective Vital Signs Date Time Temp Pulse Resp B/P Pulse Ox O2 Delivery O2 Flow Rate FiO2 01/06/17 13:04 Room Air 01/06/17 12:05 109 01/06/17 11:49 99.9 17 119/63 98 01/02/17 20:00 1.0 Intake and Output 01/05/17 01/05/17 01/06/17 15:00 23:00 07:00 Intake Total 1350 ml 700 ml Balance 1350 ml 700 ml Results/Medications Result Diagram: 01/06/17 0837 01/06/17 0837 Results 24 hrs Laboratory Tests Test 01/06/17 08:37 01/06/17 11:24 White Blood Count 18.2 H Red Blood Count 3.06 L Hemoglobin 10.3 L Hematocrit 32.5 L Mean Corpuscular Volume 106.2 H Mean Corpuscular Hemoglobin 33.7 H Mean Corpuscular Hemoglobin Concent 31.7 L Red Cell Distribution Width 16.6 H Platelet Count 258 Mean Platelet Volume 9.6 Neutrophils % 70.5 Lymphocytes % 13.9 L Monocytes % 7.5 Eosinophils % 4.3 Basophils % 0.7 Nucleated Red Blood Cells % 0.1 H Neutrophils # 12.8 H Lymphocytes # 2.5 Monocytes # 1.4 H Eosinophils # 0.8 H Basophils # 0.1 Nucleated Red Blood Cells # 0.0 Sodium Level 139 Potassium Level 3.4 L Chloride Level 103 Carbon Dioxide Level 28 Anion Gap 11 Blood Urea Nitrogen < 2 L Creatinine 0.69 Glucose Level 91 Calcium Level 7.6 L Lab Scanned Report REFERENCE LAB Medications Current Medications Ondansetron HCl (Zofran Inj) 4 mg Q6H PRN IV NAUSEA AND/OR VOMITING; Start at 14:30 Acetaminophen (Tylenol Tab) 650 mg Q6H PRN PO PAIN LEVEL 1-3 OR FEVER Last administered on 01/05/17t 21:10; Admin Dose 650 MG; Start 12/31/16 at 14:30 Acetaminophen/ Hydrocodone Bitart ([place] (5/325)) 1 tab Q6H PRN PO MODERATE PAIN LEVEL 4-6; Start 12/31/16 at 14:30 Morphine Sulfate (morphine) 2 mg Q4H PRN IV SEVERE PAIN LEVEL 7-10; Start at 14:30 Docusate Sodium (Colace) 100 mg Q12H PRN PO CONSTIPATION; Start 12/31/16 at 14 :30 Magnesium Hydroxide (Milk Of Mag) 30 ml DAILY PRN PO CONSTIPATION; Start 12/31 at 14:30 Sodium Biphosphate/ Sodium Phosphate (Fleet Enema) 133 ml DAILY PRN [place] CONSTIPATION; Start 12/31/16 at 14:30 Heparin Sodium (Porcine) (Heparin (5000 Units/0.5 ml)) 5,000 unit Q12 SC Last administered on 01/06/17 09:01; Admin Dose 5,000 UNIT; Start 12/31/16 at 15:00 Nitroglycerin (Nitroglycerin (Sl Tab) 0.4 Mg) 1 tab Q5M PRN SL ANGINA; Start 12/31/16 at 14:30 Thiamine HCl (Vitamin B1) 100 mg DAILY PO Last administered on 01/06/17 09:00 ; Admin Dose 100 MG; Start 12/31/16 at 15:00 Folic Acid (Folic Acid) 1 mg DAILY PO Last administered on 01/06/17 09:00; Admin Dose 1 MG; Start 12/31/16 at 15:00 Lorazepam (Ativan) 1 mg Q1H PRN IV CONTROL WITHDRAWAL SYMPTOMS Last administered on 01/02/17 14:30; Admin Dose 1 MG; Start 12/31/16 at 15:30 Nystatin (Nystatin Susp) 5 ml QID PO Last administered on 01/06/17 12:12; Admin Dose 5 ML; Start 01/01/17 at 17:00 Multivitamins Therapeutic (Theragran) 1 tab DAILY PO Last administered on 09:00; Admin Dose 1 TAB; Start 01/02/17 at 09:00 Levothyroxine Sodium (Synthroid) 50 mcg DAILY@06 PO Last administered on 06:06; Admin Dose 50 MCG; Start 01/04/17 at 06:00 Guaifenesin/ Dextromethorphan (Robitussin Dm Liquid Cup) 10 ml Q4H PRN PO COUGH Last administered on 01/05/17 05:26; Admin Dose 10 ML; Start 01/03/17 at 23:30 Ibuprofen 400 mg 400 mg Q6H PRN PO PAIN OR TEMP ABOVE 38C; Start 01/04/17 at 11 :00 Albumin Human (Albumin Human 25%) 50 ml @ 100 mls/hr BID IV Last administered on 01/06/17 08:59; Admin Dose 100 MLS/HR; Start 01/05/17 at 12:30; Stop at 18:00 Furosemide (Lasix) 20 mg BID IV Last administered on 01/06/17 09:37; Admin Dose 20 MG; Start 01/05/17 at 12:30; Stop 01/07/17 at 18:00 Potassium Chloride 20 meq 20 meq BID PO Last administered on 01/06/17 09:00; Admin Dose 20 MEQ; Start 01/05/17 at 21:00; Stop 01/07/17 at 22:00 Potassium Chloride/Sodium Chloride (KCl/NS) 110 ml @ 55 mls/hr ONCE ONCE IVPB ; Start 01/06/17 at 14:30; Stop 01/06/17 at 16:29 Assessment/Plan Chief Complaint/Hosp Course SUBJECTIVE: Patient is awake, looks comfortable, no n/v/d, no dysuria, still with low grate temps LABORATORY DATA: Blood cultures have been negative. Urinalysis was negative. Hepatitis panel and HIV negative. PHYSICAL EXAMINATION: GENERAL: This is a morbidly obese young man who is alert, in no distress. HEENT: Head atraumatic, normocephalic. Sclerae anicteric. Buccal mucosa dry with white rash on his tongue and halitosis. NECK: Obese. CHEST: Rise symmetrical. Breath sounds diminished to bases. HEART: S1, S2. ABDOMEN: Obese, soft. Bowel tones present. EXTREMITIES: Without cyanosis. ASSESSMENT: 1. Sepsis with fevers, leukocytosis and tachycardia on admission 2. Transaminitis without evidence of acute hepatic injury, without evidence of acute cholecystitis, no ascites. 3. Oral thrush. 4. BLE cellulitis. 5. History of alcohol abuse 6. Poss nephritic syndrome PLAN: The patient is clinically stable, continue present care, diuresis, pending WBC labeled nuclear scan, keep off abx LISA Batista Problems: BRENDEN SCOTT NP Jan 06, 2017 13:43
[2017-01-06] MEDS ORDERED: POTASSIUM CHLORIDE 20 MEQ in DEXTROSE 5% 100 ML IVPB ONE (14:30)
[2017-01-07] VITALS (10 sets, daily range): BP systolic 120–128; BP diastolic 59–80; PULSE 110–128; RESP 17–19
[2017-01-07] MEDS: LEVOTHYROXINE 50 MCG TAB PO SCH (06:23)
[2017-01-07 08:22] LABS: BASOPHIL # 0.1 10^3/ul (0.0-0.1); BASOPHILS % 0.6 % (0.0-2.0); EOSINOPHILS # 0.7 10^3/ul (0.0-0.5); EOSINOPHILS % 3.4 % (0.0-7.0); HEMATOCRIT 34.1 % (42.0-52.0); HEMOGLOBIN 10.6 g/dl (14.0-18.0); LYMPHOCYTES # 2.7 10^3/ul (0.8-2.9); LYMPHOCYTES % 13.7 % (15.0-51.0); MEAN CORPUSCULAR HEMOGLOBIN 32.7 pg (29.0-33.0); MEAN CORPUSCULAR HGB CONC 31.1 g/dl (32.0-37.0); MEAN CORPUSCULAR VOLUME 105.2 fl (82.0-101.0); MEAN PLATELET VOLUME 9.5 fl (7.4-10.4); MONOCYTE # 1.2 10^3/ul (0.3-0.9); NEUTROPHIL # 14.7 10^3/ul (1.6-7.5); NEUTROPHILS % 73.8 % (39.0-77.0); NUCLEATED RED BLOOD CELLS% 0.1 /100WBC (0.0-0.0); PLATELET COUNT 251 10^3/UL (140-415); RED BLOOD COUNT 3.24 10^6/ul (4.70-6.10); RED CELL DISTRIBUTION WIDTH 16.8 % (11.5-14.5)
[2017-01-07 08:42] LABS: ANION GAP 14 (8-16); CALCIUM 8.1 mg/dl (8.4-10.2); CARBON DIOXIDE 25 mmol/L (21-31); CHLORIDE 104 mmol/L (97-110); CREATININE 0.65 mg/dl (0.61-1.24); GLUCOSE 120 mg/dl (70-220); POTASSIUM 3.9 mmol/L (3.5-5.1); SODIUM 139 mmol/L (135-144)
[2017-01-07 08:49] LABS: BLOOD UREA NITROGEN < 2 mg/dl (7-20)
[2017-01-07] MEDS: FOLIC ACID 1 MG TAB PO SCH (09:07)
[2017-01-07] MEDS: ALBUMIN HUMAN 25% 50 ML IV SCH (09:07)
[2017-01-07] MEDS: MULTIVITAMINS THERAPEUTIC TAB PO SCH (09:07)
[2017-01-07] MEDS: NYSTATIN SUSP 5 ML CUP PO SCH ×4 (09:07→20:58)
[2017-01-07] MEDS: POTASSIUM CHLORIDE (SR) 20 MEQ TAB PO SCH ×2 (09:07→20:58)
[2017-01-07] MEDS: HEPARIN 5,000 UNIT/0.5 ML VIAL SC SCH ×2 (09:08→20:56)
[2017-01-07] MEDS: THIAMINE 100 MG TAB PO SCH (11:37)
[2017-01-07] MEDS: FUROSEMIDE 20 MG INJ IV SCH (11:38)
--- NOTE | 2017-01-07 14:02 | CONS ---
Date/Time of Note Date/Time of Note DATE: 01/07/17 TIME: 13:51 Assessment/Plan Assessment/Plan Chief Complaint/Hosp Course ID PROGRESS NOTE CURRENT ABX=> OFF ABX 01/05/17 24H INTERVAL SUMMARY * Awake, alert, responsive, VSS, NAD, large ABD, afebrile today PHYSICAL EXAMINATION: GENERAL: Super morbid obese w/large ABD, sitting in bed, VSS, NAD HEENT: Unremarkable NECK: Trach midline CHEST: Rise symmetrical, diminished HEART: Pulse RRR ABDOMEN: Soft, benign EXTREMITIES: Warm, moves all extremities ID ASSESSMENT 21 yo morbid obese M admit with: 1. SIRS with fevers, leukocytosis and tachycardia on admission=> Low grade temps => Etiology unclear? * ESR 60, CRP 4.6 * Leukocytosis persisting 2. Moderate ileus on admission 3. Transaminitis without evidence of acute hepatic injury, without evidence of acute cholecystitis, no ascites. * (+)Fatty liver disease 4. Fluid overload => CHF 2D ECHO: Mild concentric left ventricular hypertrophy. Mild global left ventricular systolic dysfunction. Ejection fraction is visually estimated at 45-50 * Edema is seen within the soft tissues at the base of the penis and anterior scrotal wall. * BLEXT edema, improved 5. BLE cellulitis. 6. History of alcohol abuse 7. Poss nephritic syndrome 8. Oral thrush SEROLOGY SCREENING: (-)HIV, (-HBV, (-) HCV, (-)Influenza INVASIVES: PIV ABX ALLERGY: KNDA CURRENT ABX: => OFF ABX ID RECOMMENDATIONS 1. OFF ABX -- repeat micro if TEMP > 101.5 2. WBC Scan pending . Problems: Consultation Date/Type/Reason Admit Date/Time Dec 31, 2016 at 13:50 Initial Consult Date Type of Consultation: id Exam/Review of Systems Vital Signs Vitals Vital Signs Date Time Temp Pulse Resp B/P Pulse Ox O2 Delivery O2 Flow Rate FiO2 01/07/17 12:08 121 01/07/17 12:08 98.0 18 120/74 95 01/06/17 15:24 Room Air Intake and Output 01/06/17 01/06/17 01/07/17 15:00 23:00 07:00 Intake Total 1500 ml 1000 ml Balance 1500 ml 1000 ml Results Result Diagram: 01/07/17 0800 01/07/17 0801 Results 24 hrs Laboratory Tests Test 01/07/17 08:00 01/07/17 08:01 White Blood Count 20.0 H Red Blood Count 3.24 L Hemoglobin 10.6 L Hematocrit 34.1 L Mean Corpuscular Volume 105.2 H Mean Corpuscular Hemoglobin 32.7 Mean Corpuscular Hemoglobin Concent 31.1 L Red Cell Distribution Width 16.8 H Platelet Count 251 Mean Platelet Volume 9.5 Neutrophils % 73.8 Lymphocytes % 13.7 L Monocytes % 6.0 Eosinophils % 3.4 Basophils % 0.6 Nucleated Red Blood Cells % 0.1 H Neutrophils # 14.7 H Lymphocytes # 2.7 Monocytes # 1.2 H Eosinophils # 0.7 H Basophils # 0.1 Nucleated Red Blood Cells # 0.0 Erythrocyte Sedimentation Rate 60 H C-Reactive Protein 4.6 H Sodium Level 139 Potassium Level 3.9 Chloride Level 104 Carbon Dioxide Level 25 Anion Gap 14 Blood Urea Nitrogen < 2 L Creatinine 0.65 Glucose Level 120 Calcium Level 8.1 L Medications Medications Current Medications Ondansetron HCl (Zofran Inj) 4 mg Q6H PRN IV NAUSEA AND/OR VOMITING; Start at 14:30 Acetaminophen (Tylenol Tab) 650 mg Q6H PRN PO PAIN LEVEL 1-3 OR FEVER Last administered on 01/05/17 21:10; Admin Dose 650 MG; Start 12/31/16 at 14:30 Acetaminophen/ Hydrocodone Bitart ([place] (5/325)) 1 tab Q6H PRN PO MODERATE PAIN LEVEL 4-6; Start 12/31/16 at 14:30 Morphine Sulfate (morphine) 2 mg Q4H PRN IV SEVERE PAIN LEVEL 7-10; Start at 14:30 Docusate Sodium (Colace) 100 mg Q12H PRN PO CONSTIPATION; Start 12/31/16 at 14 :30 Magnesium Hydroxide (Milk Of Mag) 30 ml DAILY PRN PO CONSTIPATION; Start 12/31 at 14:30 Sodium Biphosphate/ Sodium Phosphate (Fleet Enema) 133 ml DAILY PRN [place] CONSTIPATION; Start 12/31/16 at 14:30 Heparin Sodium (Porcine) (Heparin (5000 Units/0.5 ml)) 5,000 unit Q12 SC Last administered on 01/07/17 09:08; Admin Dose 5,000 UNIT; Start 12/31/16 at 15:00 Nitroglycerin (Nitroglycerin (Sl Tab) 0.4 Mg) 1 tab Q5M PRN SL ANGINA; Start 12/31/16 at 14:30 Thiamine HCl (Vitamin B1) 100 mg DAILY PO Last administered on 01/07/17 11:37 ; Admin Dose 100 MG; Start 12/31/16 at 15:00 Folic Acid (Folic Acid) 1 mg DAILY PO Last administered on 01/07/17 09:07; Admin Dose 1 MG; Start 12/31/16 at 15:00 Lorazepam (Ativan) 1 mg Q1H PRN IV CONTROL WITHDRAWAL SYMPTOMS Last administered on 01/02/17 14:30; Admin Dose 1 MG; Start 12/31/16 at 15:30 Nystatin (Nystatin Susp) 5 ml QID PO Last administered on 01/07/17 12:08; Admin Dose 5 ML; Start 01/01/17 at 17:00 Multivitamins Therapeutic (Theragran) 1 tab DAILY PO Last administered on 09:07; Admin Dose 1 TAB; Start 01/02/17 at 09:00 Levothyroxine Sodium (Synthroid) 50 mcg DAILY@06 PO Last administered on 06:23; Admin Dose 50 MCG; Start 01/04/17 at 06:00 Guaifenesin/ Dextromethorphan (Robitussin Dm Liquid Cup) 10 ml Q4H PRN PO COUGH Last administered on 01/05/17 05:26; Admin Dose 10 ML; Start 01/03/17 at 23:30 Ibuprofen 400 mg 400 mg Q6H PRN PO PAIN OR TEMP ABOVE 38C; Start 01/04/17 at 11 :00 Albumin Human (Albumin Human 25%) 50 ml @ 100 mls/hr BID IV Last administered on 01/07/17 09:07; Admin Dose 100 MLS/HR; Start 01/05/17 at 12:30; Stop at 18:00 Furosemide (Lasix) 20 mg BID IV Last administered on 01/07/17 11:38; Admin Dose 20 MG; Start 01/05/17 at 12:30; Stop 01/07/17 at 18:00 Potassium Chloride (Klor-Con 20) 20 meq BID PO Last administered on 01/07/17 09:07; Admin Dose 20 MEQ; Start 01/05/17 at 21:00; Stop 01/07/17 at 22:00 TAJ RIZZO NP Jan 07, 2017 14:01
[2017-01-07] MEDS: ACETAMINOPHEN 325 MG TAB PO PRN (16:07)
--- NOTE | 2017-01-07 21:39 | PN ---
Date/Time of Note Date/Time of Note DATE: 01/07/17 TIME: 21:34 Assessment/Plan VTE Prophylaxis VTE Prophylaxis Intervention: heparin Lines/Catheters IV [facility]ter Type (from [email or web address] Saline Lock Urinary Cath still in place: No Assessment/Plan Assessment/Plan 1. Community acquired pneumonia, likely viral, influenza screen, levaquin 2. Leukocytosis, likely reactive from viral infection 3. Alcoholism, no withdrawal 4. Transaminitis, alcohol related, follow up with LFTs 5, severe Lower extremity edema 3+, US negative for DVT, US abdomen did not show ascites CXR showed mild pulmonary congestion Plan: pt has been having low grade with tachycardia upto HR in 110-120s, no clear source of infection, will order Autoimmune work up including DOLORES, ANCA< ESR, CRP , Rheumatoid factor, His HIV, hepatitis panel negative CXR showed mild pulmonary congestion, on infitlrates - getting IV lasix + IV albumin diuresis - will revaluate him in AM if pt needs more diuresis US negative for DVT Abx stopped for now, Plan for WBC scan on Sunday Heparin for DVT prophylaxis Subjective 24 Hr Interval Summary Free Text/Dictation pt still spiking low grade fever, ith HR upto 120-130s., S/p IV lasix_ albumin diuresis for 2 days Respiratory: cough, pleuritic pain, shortness of breath Exam/Review of Systems Vital Signs Vitals Vital Signs Date Time Temp Pulse Resp B/P Pulse Ox O2 Delivery O2 Flow Rate FiO2 01/07/17 20:34 98.4 115 19 128/73 97 01/06/17 15:24 Room Air Intake and Output 01/06/17 01/06/17 01/07/17 14:59 22:59 06:59 Intake Total 1500 ml 1000 ml Balance 1500 ml 1000 ml Exam Constitutional: alert Respiratory: clear to auscultation, crackles/rales Cardiovascular: nl pulses, regular rate and rhythm, Tachycardia Gastrointestinal: non-tender, soft Genitourinary - Male: other (scrotal edema ) Musculoskeletal: muscle weakness, swelling (3+ LE Edema ) Extremities: normal pulses 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: GAMBLING BROKER II-XII intact, nl mental status, nl speech, nl strength Results Result Diagram: 01/07/17 0800 01/07/17 0801 Results 24 hrs Laboratory Tests Test 01/07/17 08:00 01/07/17 08:01 White Blood Count 20.0 H Red Blood Count 3.24 L Hemoglobin 10.6 L Hematocrit 34.1 L Mean Corpuscular Volume 105.2 H Mean Corpuscular Hemoglobin 32.7 Mean Corpuscular Hemoglobin Concent 31.1 L Red Cell Distribution Width 16.8 H Platelet Count 251 Mean Platelet Volume 9.5 Neutrophils % 73.8 Lymphocytes % 13.7 L Monocytes % 6.0 Eosinophils % 3.4 Basophils % 0.6 Nucleated Red Blood Cells % 0.1 H Neutrophils # 14.7 H Lymphocytes # 2.7 Monocytes # 1.2 H Eosinophils # 0.7 H Basophils # 0.1 Nucleated Red Blood Cells # 0.0 Erythrocyte Sedimentation Rate 60 H C-Reactive Protein 4.6 H Sodium Level 139 Potassium Level 3.9 Chloride Level 104 Carbon Dioxide Level 25 Anion Gap 14 Blood Urea Nitrogen < 2 L Creatinine 0.65 Glucose Level 120 Calcium Level 8.1 L Medications Medications Current Medications Ondansetron HCl (Zofran Inj) 4 mg Q6H PRN IV NAUSEA AND/OR VOMITING; Start at 14:30 Acetaminophen (Tylenol Tab) 650 mg Q6H PRN PO PAIN LEVEL 1-3 OR FEVER Last administered on 01/07/17 16:07; Admin Dose 650 MG; Start 12/31/16 at 14:30 Acetaminophen/ Hydrocodone Bitart ([place] (5/325)) 1 tab Q6H PRN PO MODERATE PAIN LEVEL 4-6; Start 12/31/16 at 14:30 Morphine Sulfate (morphine) 2 mg Q4H PRN IV SEVERE PAIN LEVEL 7-10; Start at 14:30 Docusate Sodium (Colace) 100 mg Q12H PRN PO CONSTIPATION; Start 12/31/16 at 14 :30 Magnesium Hydroxide (Milk Of Mag) 30 ml DAILY PRN PO CONSTIPATION; Start 12/31 at 14:30 Sodium Biphosphate/ Sodium Phosphate (Fleet Enema) 133 ml DAILY PRN [place] CONSTIPATION; Start 12/31/16 at 14:30 Heparin Sodium (Porcine) (Heparin (5000 Units/0.5 ml)) 5,000 unit Q12 SC Last administered on 01/07/17 20:56; Admin Dose 5,000 UNIT; Start 12/31/16 at 15:00 Nitroglycerin (Nitroglycerin (Sl Tab) 0.4 Mg) 1 tab Q5M PRN SL ANGINA; Start 12/31/16 at 14:30 Thiamine HCl (Vitamin B1) 100 mg DAILY PO Last administered on 01/07/17 11:37 ; Admin Dose 100 MG; Start 12/31/16 at 15:00 Folic Acid (Folic Acid) 1 mg DAILY PO Last administered on 01/07/17 09:07; Admin Dose 1 MG; Start 12/31/16 at 15:00 Lorazepam (Ativan) 1 mg Q1H PRN IV CONTROL WITHDRAWAL SYMPTOMS Last administered on 01/02/17 14:30; Admin Dose 1 MG; Start 12/31/16 at 15:30 Nystatin (Nystatin Susp) 5 ml QID PO Last administered on 01/07/17 20:58; Admin Dose 5 ML; Start 01/01/17 at 17:00 Multivitamins Therapeutic (Theragran) 1 tab DAILY PO Last administered on 09:07; Admin Dose 1 TAB; Start 01/02/17 at 09:00 Levothyroxine Sodium (Synthroid) 50 mcg DAILY@06 PO Last administered on 06:23; Admin Dose 50 MCG; Start 01/04/17 at 06:00 Guaifenesin/ Dextromethorphan (Robitussin Dm Liquid Cup) 10 ml Q4H PRN PO COUGH Last administered on 01/05/17 05:26; Admin Dose 10 ML; Start 01/03/17 at 23:30 Ibuprofen (Motrin) 400 mg Q6H PRN PO PAIN OR TEMP ABOVE 38C; Start 01/04/17 at 11:00 Potassium Chloride (Klor-Con 20) 20 meq BID PO Last administered on 01/07/17 20:58; Admin Dose 20 MEQ; Start 01/05/17 at 21:00; Stop 01/07/17 at 22:00 JAY ROSALES MD Jan 07, 2017 21:39
[2017-01-08] VITALS (11 sets, daily range): BP systolic 114–145; BP diastolic 63–71; PULSE 107–120; RESP 17–20
[2017-01-08] MEDS: LEVOTHYROXINE 50 MCG TAB PO SCH (05:25)
[2017-01-08 07:34] LABS: BASOPHIL # 0.1 10^3/ul (0.0-0.1); BASOPHILS % 0.5 % (0.0-2.0); EOSINOPHILS # 0.8 10^3/ul (0.0-0.5); EOSINOPHILS % 3.8 % (0.0-7.0); HEMATOCRIT 33.7 % (42.0-52.0); HEMOGLOBIN 10.3 g/dl (14.0-18.0); LYMPHOCYTES # 2.7 10^3/ul (0.8-2.9); LYMPHOCYTES % 13.3 % (15.0-51.0); MEAN CORPUSCULAR HEMOGLOBIN 32.3 pg (29.0-33.0); MEAN CORPUSCULAR HGB CONC 30.6 g/dl (32.0-37.0); MEAN CORPUSCULAR VOLUME 105.6 fl (82.0-101.0); MEAN PLATELET VOLUME 9.7 fl (7.4-10.4); MONOCYTE # 1.5 10^3/ul (0.3-0.9); MONOCYTES % 7.5 % (0.0-11.0); NEUTROPHIL # 14.4 10^3/ul (1.6-7.5); NEUTROPHILS % 72.1 % (39.0-77.0); NUCLEATED RED BLOOD CELLS% 0.1 /100WBC (0.0-0.0); PLATELET COUNT 258 10^3/UL (140-415); RED BLOOD COUNT 3.19 10^6/ul (4.70-6.10); RED CELL DISTRIBUTION WIDTH 16.6 % (11.5-14.5); WHITE BLOOD COUNT 19.9 10^3/ul (4.8-10.8)
[2017-01-08 08:03] LABS: CALCIUM 8.1 mg/dl (8.4-10.2); CREATININE 0.63 mg/dl (0.61-1.24); POTASSIUM 4.1 mmol/L (3.5-5.1)
[2017-01-08] MEDS: THIAMINE 100 MG TAB PO SCH ×2 (09:00→12:46)
[2017-01-08] MEDS: HEPARIN 5,000 UNIT/0.5 ML VIAL SC SCH ×2 (09:15→21:00)
[2017-01-08] MEDS: FOLIC ACID 1 MG TAB PO SCH (09:15)
[2017-01-08] MEDS: NYSTATIN SUSP 5 ML CUP PO SCH ×3 (09:15→21:00)
[2017-01-08] MEDS: MULTIVITAMINS THERAPEUTIC TAB PO SCH (09:15)
--- NOTE | 2017-01-08 12:53 | CONS ---
Date/Time of Note Date/Time of Note DATE: 01/08/17 TIME: 12:52 Consult Date/Type/Reason Admit Date/Time Dec 31, 2016 at 13:50 Type of Consultation: id Objective Vital Signs Date Time Temp Pulse Resp B/P Pulse Ox O2 Delivery O2 Flow Rate FiO2 01/08/17 12:23 107 01/08/17 11:57 99.0 18 117/67 95 01/06/17 15:24 Room Air Intake and Output 01/07/17 01/07/17 01/08/17 15:00 23:00 07:00 Intake Total 50 ml 250 ml 400 ml Balance 50 ml 250 ml 400 ml Results/Medications Result Diagram: 01/08/17 0600 01/08/17 0600 Results 24 hrs Laboratory Tests Test 01/08/17 06:00 White Blood Count 19.9 H Red Blood Count 3.19 L Hemoglobin 10.3 L Hematocrit 33.7 L Mean Corpuscular Volume 105.6 H Mean Corpuscular Hemoglobin 32.3 Mean Corpuscular Hemoglobin Concent 30.6 L Red Cell Distribution Width 16.6 H Platelet Count 258 Mean Platelet Volume 9.7 Neutrophils % 72.1 Lymphocytes % 13.3 L Monocytes % 7.5 Eosinophils % 3.8 Basophils % 0.5 Nucleated Red Blood Cells % 0.1 H Neutrophils # 14.4 H Lymphocytes # 2.7 Monocytes # 1.5 H Eosinophils # 0.8 H Basophils # 0.1 Nucleated Red Blood Cells # 0.0 Sodium Level 140 Potassium Level 4.1 Chloride Level 105 Carbon Dioxide Level 24 Anion Gap 15 Blood Urea Nitrogen 3 L Creatinine 0.63 Glucose Level 95 Calcium Level 8.1 L Medications Current Medications Ondansetron HCl (Zofran Inj) 4 mg Q6H PRN IV NAUSEA AND/OR VOMITING; Start at 14:30 Acetaminophen (Tylenol Tab) 650 mg Q6H PRN PO PAIN LEVEL 1-3 OR FEVER Last administered on 01/07/17t 16:07; Admin Dose 650 MG; Start 12/31/16 at 14:30 Acetaminophen/ Hydrocodone Bitart ([place] (5/325)) 1 tab Q6H PRN PO MODERATE PAIN LEVEL 4-6; Start 12/31/16 at 14:30 Morphine Sulfate (morphine) 2 mg Q4H PRN IV SEVERE PAIN LEVEL 7-10; Start at 14:30 Docusate Sodium (Colace) 100 mg Q12H PRN PO CONSTIPATION; Start 12/31/16 at 14 :30 Magnesium Hydroxide (Milk Of Mag) 30 ml DAILY PRN PO CONSTIPATION; Start 12/31 at 14:30 Sodium Biphosphate/ Sodium Phosphate (Fleet Enema) 133 ml DAILY PRN [place] CONSTIPATION; Start 12/31/16 at 14:30 Heparin Sodium (Porcine) (Heparin (5000 Units/0.5 ml)) 5,000 unit Q12 SC Last administered on 01/08/17 09:15; Admin Dose 5,000 UNIT; Start 12/31/16 at 15:00 Nitroglycerin (Nitroglycerin (Sl Tab) 0.4 Mg) 1 tab Q5M PRN SL ANGINA; Start 12/31/16 at 14:30 Thiamine HCl (Vitamin B1) 100 mg DAILY PO Last administered on 01/08/17 12:46 ; Admin Dose 100 MG; Start 12/31/16 at 15:00 Folic Acid (Folic Acid) 1 mg DAILY PO Last administered on 01/08/17 09:15; Admin Dose 1 MG; Start 12/31/16 at 15:00 Lorazepam (Ativan) 1 mg Q1H PRN IV CONTROL WITHDRAWAL SYMPTOMS Last administered on 01/02/17 14:30; Admin Dose 1 MG; Start 12/31/16 at 15:30 Nystatin (Nystatin Susp) 5 ml QID PO Last administered on 01/08/17 12:46; Admin Dose 5 ML; Start 01/01/17 at 17:00 Multivitamins Therapeutic (Theragran) 1 tab DAILY PO Last administered on 09:15; Admin Dose 1 TAB; Start 01/02/17 at 09:00 Levothyroxine Sodium (Synthroid) 50 mcg DAILY@06 PO Last administered on 05:25; Admin Dose 50 MCG; Start 01/04/17 at 06:00 Guaifenesin/ Dextromethorphan (Robitussin Dm Liquid Cup) 10 ml Q4H PRN PO COUGH Last administered on 01/05/17 05:26; Admin Dose 10 ML; Start 01/03/17 at 23:30 Ibuprofen (Motrin) 400 mg Q6H PRN PO PAIN OR TEMP ABOVE 38C; Start 01/04/17 at 11:00 Assessment/Plan Chief Complaint/Hosp Course SUBJECTIVE: Patient is awake, looks comfortable, no n/v/d, no dysuria, still with ongoing fevers and leukocytosis LABORATORY DATA: Blood cultures have been negative. Urinalysis was negative. Hepatitis panel and HIV negative. PHYSICAL EXAMINATION: GENERAL: This is a morbidly obese young man who is alert, in no distress. HEENT: Head atraumatic, normocephalic. Sclerae anicteric. Buccal mucosa dry with white rash on his tongue and halitosis. NECK: Obese. CHEST: Rise symmetrical. Breath sounds diminished to bases. HEART: S1, S2. ABDOMEN: Obese, soft. Bowel tones present. EXTREMITIES: Without cyanosis. ASSESSMENT: 1. S/p sepsis with fevers, leukocytosis and tachycardia on admission 2. Transaminitis without evidence of acute hepatic injury, without evidence of acute cholecystitis, no ascites. 3. Oral thrush. 4. BLE edema 5. History of alcohol abuse 6. Poss nephritic syndrome PLAN: The patient is clinically stable, off abx, fevers and leukocytosis persist, all cx's negative, will await for WBC labeled scan [facility] staff/pt Problems: BRENDEN SCOTT NP Jan 08, 2017 12:53
--- NOTE | 2017-01-08 13:33 | PN ---
Date/Time of Note Date/Time of Note DATE: 01/08/17 TIME: 13:28 Assessment/Plan VTE Prophylaxis VTE Prophylaxis Intervention: heparin Lines/Catheters IV Catheter Type (from Nrs): Saline Lock Urinary Cath still in place: No Assessment/Plan Assessment/Plan 1. Persistent leukocytosis, stopped antibiotics per ID, awaiting for WBC scan 2. Cough with hoarseness, off of antibiotics 3. Alcoholism, no withdrawal 4. Transaminitis, alcohol related, follow up with LFTs 5. DVT prophylaxis: heparin Subjective 24 Hr Interval Summary Free Text/Dictation still cough with hoarseness, hoarseness is better Exam/Review of Systems Vital Signs Vitals Vital Signs Date Time Temp Pulse Resp B/P Pulse Ox O2 Delivery O2 Flow Rate FiO2 01/08/17 12:23 107 01/08/17 11:57 99.0 18 117/67 95 01/06/17 15:24 Room Air Intake and Output 01/07/17 01/07/17 01/08/17 15:00 23:00 07:00 Intake Total 50 ml 250 ml 400 ml Balance 50 ml 250 ml 400 ml Exam Constitutional: alert, oriented, well developed Psych: nl mood/affect, no complaints Head: atraumatic, normocephalic Eyes: EOMI, nl conjunctiva, nl lids ENMT: nl external ears & nose, nl lips & teeth, nl nasal mucosa & septum Neck: non-tender, supple Respiratory: clear to auscultation, normal air movement, No congested cough, No crackles/rales, No diminished breath sounds, No intercostal retraction, No labored breathing, No other, No respirations, No tactile fremitus, No wheezing Cardiovascular: nl pulses, regular rate and rhythm, No S3, No S4, No bruits, No diastolic murmur, No edema, No gallop, No irregular rhythm, No jugular venous distention (JVD), No murmurs/extra sounds, No other, No rub, No systolic murmur Gastrointestinal: nl liver, spleen, non-tender, soft, No ascites, No bowel sounds, No distended, No firm, No hepatomegaly, No mass , No other, No rebound or guarding, No splenomegaly, No surgical scars, No tender Musculoskeletal: nl extremities to inspection Extremities: normal pulses 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: 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 II-XII intact, nl mental status, nl speech, nl strength Results Result Diagram: 01/08/17 0600 01/08/17 0600 Results 24 hrs Laboratory Tests Test 01/08/17 06:00 White Blood Count 19.9 H Red Blood Count 3.19 L Hemoglobin 10.3 L Hematocrit 33.7 L Mean Corpuscular Volume 105.6 H Mean Corpuscular Hemoglobin 32.3 Mean Corpuscular Hemoglobin Concent 30.6 L Red Cell Distribution Width 16.6 H Platelet Count 258 Mean Platelet Volume 9.7 Neutrophils % 72.1 Lymphocytes % 13.3 L Monocytes % 7.5 Eosinophils % 3.8 Basophils % 0.5 Nucleated Red Blood Cells % 0.1 H Neutrophils # 14.4 H Lymphocytes # 2.7 Monocytes # 1.5 H Eosinophils # 0.8 H Basophils # 0.1 Nucleated Red Blood Cells # 0.0 Sodium Level 140 Potassium Level 4.1 Chloride Level 105 Carbon Dioxide Level 24 Anion Gap 15 Blood Urea Nitrogen 3 L Creatinine 0.63 Glucose Level 95 Calcium Level 8.1 L Medications Medications Current Medications Ondansetron HCl (Zofran Inj) 4 mg Q6H PRN IV NAUSEA AND/OR VOMITING; Start at 14:30 Acetaminophen (Tylenol Tab) 650 mg Q6H PRN PO PAIN LEVEL 1-3 OR FEVER Last administered on 01/07/17 16:07; Admin Dose 650 MG; Start 12/31/16 at 14:30 Acetaminophen/ Hydrocodone Bitart ([place] (5/325)) 1 tab Q6H PRN PO MODERATE PAIN LEVEL 4-6; Start 12/31/16 at 14:30 Morphine Sulfate (morphine) 2 mg Q4H PRN IV SEVERE PAIN LEVEL 7-10; Start at 14:30 Docusate Sodium (Colace) 100 mg Q12H PRN PO CONSTIPATION; Start 12/31/16 at 14 :30 Magnesium Hydroxide (Milk Of Mag) 30 ml DAILY PRN PO CONSTIPATION; Start 12/31 at 14:30 Sodium Biphosphate/ Sodium Phosphate (Fleet Enema) 133 ml DAILY PRN [place] CONSTIPATION; Start 12/31/16 at 14:30 Heparin Sodium (Porcine) (Heparin (5000 Units/0.5 ml)) 5,000 unit Q12 SC Last administered on 01/08/17 09:15; Admin Dose 5,000 UNIT; Start 12/31/16 at 15:00 Nitroglycerin (Nitroglycerin (Sl Tab) 0.4 Mg) 1 tab Q5M PRN SL ANGINA; Start 12/31/16 at 14:30 Thiamine HCl (Vitamin B1) 100 mg DAILY PO Last administered on 01/08/17 12:46 ; Admin Dose 100 MG; Start 12/31/16 at 15:00 Folic Acid (Folic Acid) 1 mg DAILY PO Last administered on 01/08/17 09:15; Admin Dose 1 MG; Start 12/31/16 at 15:00 Lorazepam (Ativan) 1 mg Q1H PRN IV CONTROL WITHDRAWAL SYMPTOMS Last administered on 01/02/17 14:30; Admin Dose 1 MG; Start 12/31/16 at 15:30 Nystatin (Nystatin Susp) 5 ml QID PO Last administered on 01/08/17 12:46; Admin Dose 5 ML; Start 01/01/17 at 17:00 Multivitamins Therapeutic (Theragran) 1 tab DAILY PO Last administered on 09:15; Admin Dose 1 TAB; Start 01/02/17 at 09:00 Levothyroxine Sodium (Synthroid) 50 mcg DAILY@06 PO Last administered on 05:25; Admin Dose 50 MCG; Start 01/04/17 at 06:00 Guaifenesin/ Dextromethorphan (Robitussin Dm Liquid Cup) 10 ml Q4H PRN PO COUGH Last administered on 01/05/17 05:26; Admin Dose 10 ML; Start 01/03/17 at 23:30 Ibuprofen (Motrin) 400 mg Q6H PRN PO PAIN OR TEMP ABOVE 38C; Start 01/04/17 at 11:00 BREE ARENAS MD Jan 08, 2017 13:33
--- NOTE | 2017-01-08 15:20 | CONS ---
Date/Time of Note Date/Time of Note DATE: 01/08/17 TIME: 15:20 Assessment/Plan Assessment/Plan Additional Assessment/Plan 1. Anasarca with Significant LE edema- 3+, US negative for DVT, US abdomen did not show ascites- CXR showed mild pulmonary congestion 2. Community acquired pneumonia, likely viral, influenza screen, levaquin 3. Leukocytosis, likely reactive from viral infection 4. Alcoholism, no withdrawal 5. Transaminitis, alcohol related, follow up with LFTs Plan: pt has been having low grade with tachycardia upto HR in 110-120s, no clear source of infection, will order Autoimmune work up including DOLORES, ANCA< ESR, CRP , Rheumatoid factor, C3, C4, total complement His HIV, hepatitis panel negative US LE negative for DVT- s/p IV lasix + albumin diuresis still has LE edema- will order repeat US abdomen complete to assess for Liver cirrhosis, ascites 24 hr urine collection for protein and creatinine clearance WBC scan today Heparin for DVT prophylaxis Thanks for consultation ,we will contineu to follow up Consultation Date/Type/Reason Admit Date/Time Dec 31, 2016 at 13:50 Date of Consultation: Jan 08, 2017 Type of Consultation: NEPHROLOGY Reason for Consultation Anasarca, rule out nephrotic syndrome Referring Provider: BREE ARENAS MD Hx of Present Illness 21-year-old male with no PMHx except alcohol abuse, admitted with SIRS cough, CAP- treated with iV abx, pt persitently have Cough with low grade fever, ID followed up on patient. pt finished Levaquin abx for PNA coverage but continues to have low grade fever, with signficant LE 3-4+ edema, UA negative for protein Pt was treated with IV albumin +IV lasix for diuresis but continues to have Edema. Renal has been consulted for Anasarca, to rule out nephrotic syndrome. Respiratory: cough, pleuritic pain, shortness of breath Musculoskeletal: other (3+ edema ), swelling Psychological: nl mood/affect, no complaints Past Medical History Medical History: no pertinent history Past Surgical History Past Surgical Hx: no surgical history Family History Significant Family History: no pertinent family hx Social History Alcohol Use: heavy Smoking Status: Unknown if ever smoked Drug Use: none Exam/Review of Systems Vital Signs Vitals Vital Signs Date Time Temp Pulse Resp B/P Pulse Ox O2 Delivery O2 Flow Rate FiO2 01/08/17 12:23 107 01/08/17 11:57 99.0 18 117/67 95 01/06/17 15:24 Room Air Intake and Output 01/07/17 01/07/17 01/08/17 15:00 23:00 07:00 Intake Total 50 ml 250 ml 400 ml Balance 50 ml 250 ml 400 ml Exam Constitutional: alert Respiratory: clear to auscultation, crackles/rales Cardiovascular: nl pulses, regular rate and rhythm, Tachycardia Gastrointestinal: non-tender, soft Genitourinary - Male: other (scrotal edema ) Musculoskeletal: muscle weakness, swelling (3+ LE Edema ) Extremities: normal pulses 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: HAND PASTER II-XII intact, nl mental status, nl speech, nl strength Results Result Diagram: 01/08/17 0600 01/08/17 0600 Results 24 hrs Laboratory Tests Test 01/08/17 06:00 White Blood Count 19.9 H Red Blood Count 3.19 L Hemoglobin 10.3 L Hematocrit 33.7 L Mean Corpuscular Volume 105.6 H Mean Corpuscular Hemoglobin 32.3 Mean Corpuscular Hemoglobin Concent 30.6 L Red Cell Distribution Width 16.6 H Platelet Count 258 Mean Platelet Volume 9.7 Neutrophils % 72.1 Lymphocytes % 13.3 L Monocytes % 7.5 Eosinophils % 3.8 Basophils % 0.5 Nucleated Red Blood Cells % 0.1 H Neutrophils # 14.4 H Lymphocytes # 2.7 Monocytes # 1.5 H Eosinophils # 0.8 H Basophils # 0.1 Nucleated Red Blood Cells # 0.0 Sodium Level 140 Potassium Level 4.1 Chloride Level 105 Carbon Dioxide Level 24 Anion Gap 15 Blood Urea Nitrogen 3 L Creatinine 0.63 Glucose Level 95 Calcium Level 8.1 L Medications Medications Current Medications Ondansetron HCl (Zofran Inj) 4 mg Q6H PRN IV NAUSEA AND/OR VOMITING; Start at 14:30 Acetaminophen (Tylenol Tab) 650 mg Q6H PRN PO PAIN LEVEL 1-3 OR FEVER Last administered on 01/07/17t 16:07; Admin Dose 650 MG; Start 12/31/16 at 14:30 Acetaminophen/ Hydrocodone Bitart ([place] (5/325)) 1 tab Q6H PRN PO MODERATE PAIN LEVEL 4-6; Start 12/31/16 at 14:30 Morphine Sulfate (morphine) 2 mg Q4H PRN IV SEVERE PAIN LEVEL 7-10; Start at 14:30 Docusate Sodium (Colace) 100 mg Q12H PRN PO CONSTIPATION; Start 12/31/16 at 14 :30 Magnesium Hydroxide (Milk Of Mag) 30 ml DAILY PRN PO CONSTIPATION; Start 12/31 at 14:30 Sodium Biphosphate/ Sodium Phosphate (Fleet Enema) 133 ml DAILY PRN [place] CONSTIPATION; Start 12/31/16 at 14:30 Heparin Sodium (Porcine) (Heparin (5000 Units/0.5 ml)) 5,000 unit Q12 SC Last administered on 01/08/17 09:15; Admin Dose 5,000 UNIT; Start 12/31/16 at 15:00 Nitroglycerin (Nitroglycerin (Sl Tab) 0.4 Mg) 1 tab Q5M PRN SL ANGINA; Start 12/31/16 at 14:30 Thiamine HCl (Vitamin B1) 100 mg DAILY PO Last administered on 01/08/17 12:46 ; Admin Dose 100 MG; Start 12/31/16 at 15:00 Folic Acid (Folic Acid) 1 mg DAILY PO Last administered on 01/08/17 09:15; Admin Dose 1 MG; Start 12/31/16 at 15:00 Lorazepam (Ativan) 1 mg Q1H PRN IV CONTROL WITHDRAWAL SYMPTOMS Last administered on 01/02/17 14:30; Admin Dose 1 MG; Start 12/31/16 at 15:30 Nystatin (Nystatin Susp) 5 ml QID PO Last administered on 01/08/17 12:46; Admin Dose 5 ML; Start 01/01/17 at 17:00 Multivitamins Therapeutic (Theragran) 1 tab DAILY PO Last administered on 09:15; Admin Dose 1 TAB; Start 01/02/17 at 09:00 Levothyroxine Sodium (Synthroid) 50 mcg DAILY@06 PO Last administered on 05:25; Admin Dose 50 MCG; Start 01/04/17 at 06:00 Guaifenesin/ Dextromethorphan (Robitussin Dm Liquid Cup) 10 ml Q4H PRN PO COUGH Last administered on 01/05/17 05:26; Admin Dose 10 ML; Start 01/03/17 at 23:30 Ibuprofen (Motrin) 400 mg Q6H PRN PO PAIN OR TEMP ABOVE 38C; Start 01/04/17 at 11:00 JAY ROSALES MD Jan 08, 2017 15:20
[2017-01-09] VITALS (13 sets, daily range): BP systolic 114–125; BP diastolic 63–76; PULSE 98–159; RESP 17–20
[2017-01-09] MEDS: ACETAMINOPHEN 325 MG TAB PO PRN ×2 (00:55→12:39)
[2017-01-09] MEDS: LEVOTHYROXINE 50 MCG TAB PO SCH (05:58)
--- NOTE | 2017-01-09 07:50 | RADRPT ---
PROCEDURE: US Abdomen and Retroperitoneum. CLINICAL INDICATION: Abdominal pain. TECHNIQUE: Multiple real-time longitudinal and transverse images were acquired of the patient's ab domen and retroperitoneum utilizing a curved array transducer. COMPARISON: No prior studies are available for comparison. FINDINGS: The liver is enlarged and diffusely increased in echogenicity. The liver has a normal smooth surfac e. There is no focal hepatic lesion. Color Doppler and pulsed Doppler sonography demonstrate normal antegrade flow in the portal vein. There is possible sludge in the gallbladder. The gallbladder is otherwise normal with no stones or w all thickening. The bile ducts are dilated with the common bile duct measuring 7.1 mm in diameter. The spleen is enlarged measuring 17.6 cm in length. There is no focal splenic lesion. The pancreas is not visualized due to overlying bowel gas. There is no free fluid. The right kidney measures 12.4 cm and the left kidney measures 12.3 cm. There is no renal mass. There is no hydronephrosis or calculus. The abdominal aorta and inferior vena cava are not visualized due to overlying bowel gas. IMPRESSION: 1. Hepatomegaly. 2. Fatty metamorphosis of the liver. 3. Dilated common bile duct measuring 7.1 mm. Correlation with MRCP should be considered. 4. Pancreas, aorta, and IVC not visualized. 5. Splenomegaly. 6. Possible sludge in the gallbladder. 7. Otherwise unremarkable study. RPTAT: QQ .Sunday Nava MD, MD Date Time Electronically viewed and signed by .Sunday Nava MD, on 01/09/2017 07:50 .R/
[2017-01-09 08:52] LABS: HEMATOCRIT 33.2 % (42.0-52.0); HEMOGLOBIN 10.5 g/dl (14.0-18.0); MEAN CORPUSCULAR HEMOGLOBIN 33.3 pg (29.0-33.0); MEAN CORPUSCULAR VOLUME 105.4 fl (82.0-101.0); RED BLOOD COUNT 3.15 10^6/ul (4.70-6.10); WHITE BLOOD COUNT 19.7 10^3/ul (4.8-10.8)
[2017-01-09 08:53] LABS: BASOPHIL # 0.2 10^3/ul (0.0-0.1); BASOPHILS % 0.8 % (0.0-2.0); EOSINOPHILS % 4.9 % (0.0-7.0); LYMPHOCYTES # 2.8 10^3/ul (0.8-2.9); LYMPHOCYTES % 14.4 % (15.0-51.0); MEAN CORPUSCULAR HGB CONC 31.6 g/dl (32.0-37.0); MEAN PLATELET VOLUME 9.8 fl (7.4-10.4); MONOCYTE # 1.5 10^3/ul (0.3-0.9); MONOCYTES % 7.4 % (0.0-11.0); NEUTROPHIL # 13.9 10^3/ul (1.6-7.5); NEUTROPHILS % 70.4 % (39.0-77.0); NUCLEATED RED BLOOD CELLS% 0.1 /100WBC (0.0-0.0); PLATELET COUNT 277 10^3/UL (140-415); RED CELL DISTRIBUTION WIDTH 16.3 % (11.5-14.5)
[2017-01-09] MEDS: MULTIVITAMINS THERAPEUTIC TAB PO SCH (08:54)
[2017-01-09] MEDS: FOLIC ACID 1 MG TAB PO SCH (08:54)
[2017-01-09] MEDS: THIAMINE 100 MG TAB PO SCH (08:54)
[2017-01-09] MEDS: NYSTATIN SUSP 5 ML CUP PO SCH ×4 (08:54→20:37)
[2017-01-09] MEDS: HEPARIN 5,000 UNIT/0.5 ML VIAL SC SCH ×2 (08:54→20:42)
[2017-01-09 09:13] LABS: ALBUMIN 3.2 g/dl (3.3-4.9); ALBUMIN/GLOBULIN RATIO 0.8; CALCIUM 8.3 mg/dl (8.4-10.2); CREATININE 0.6 mg/dl (0.61-1.24); POTASSIUM 4.3 mmol/L (3.5-5.1); TOTAL PROTEIN 7.2 g/dl (6.1-8.1)
[2017-01-09] MEDS: GUAIFENESIN/DM 5ML CUP PO PRN (09:56)
[2017-01-09 10:18] LABS: COMPLEMENT C3 159 mg/dl (88-165); COMPLEMENT C4 24 mg/dl (14-44)
[2017-01-09 12:32] LABS: MYELOPEROXIDASE ANTIBODY <1.0 AI; PROTEINASE-3 ANTIBODY <1.0 AI
--- NOTE | 2017-01-09 12:46 | CONS ---
Date/Time of Note Date/Time of Note DATE: 01/09/17 TIME: 12:44 Consult Date/Type/Reason Admit Date/Time Dec 31, 2016 at 13:50 Type of Consultation: ID Ordering Provider: BREE ARENAS MD Objective Vital Signs Date Time Temp Pulse Resp B/P Pulse Ox O2 Delivery O2 Flow Rate FiO2 01/09/17 12:26 112 01/09/17 12:00 100.2 17 117/67 95 01/09/17 04:00 Room Air Intake and Output 01/08/17 01/08/17 01/09/17 15:00 23:00 07:00 Intake Total 500 ml Output Total 1000 ml Balance -500 ml Results/Medications Result Diagram: 01/09/17 0734 01/09/17 0734 Results 24 hrs Laboratory Tests Test 01/09/17 07:34 White Blood Count 19.7 H Red Blood Count 3.15 L Hemoglobin 10.5 L Hematocrit 33.2 L Mean Corpuscular Volume 105.4 H Mean Corpuscular Hemoglobin 33.3 H Mean Corpuscular Hemoglobin Concent 31.6 L Red Cell Distribution Width 16.3 H Platelet Count 277 Mean Platelet Volume 9.8 Neutrophils % 70.4 Lymphocytes % 14.4 L Monocytes % 7.4 Eosinophils % 4.9 Basophils % 0.8 Nucleated Red Blood Cells % 0.1 H Neutrophils # 13.9 H Lymphocytes # 2.8 Monocytes # 1.5 H Eosinophils # 1.0 H Basophils # 0.2 H Nucleated Red Blood Cells # 0.0 Sodium Level 141 Potassium Level 4.3 Chloride Level 105 Carbon Dioxide Level 25 Anion Gap 15 Blood Urea Nitrogen 3 L Creatinine 0.60 L Glucose Level 90 Calcium Level 8.3 L Total Bilirubin 1.0 Direct Bilirubin 0.00 Indirect Bilirubin 1.0 Aspartate Amino Transf (AST/SGOT) 142 H Alanine Aminotransferase (ALT/SGPT) 35 Alkaline Phosphatase 129 H Total Protein 7.2 Albumin 3.2 L Globulin 4.00 H Albumin/Globulin Ratio 0.80 Complement C3 159 Complement C4 24 Medications Current Medications Ondansetron HCl (Zofran Inj) 4 mg Q6H PRN IV NAUSEA AND/OR VOMITING; Start at 14:30 Acetaminophen (Tylenol Tab) 650 mg Q6H PRN PO PAIN LEVEL 1-3 OR FEVER Last administered on 01/09/17t 12:39; Admin Dose 650 MG; Start 12/31/16 at 14:30 Acetaminophen/ Hydrocodone Bitart ([place] (5/325)) 1 tab Q6H PRN PO MODERATE PAIN LEVEL 4-6; Start 12/31/16 at 14:30 Morphine Sulfate (morphine) 2 mg Q4H PRN IV SEVERE PAIN LEVEL 7-10; Start at 14:30 Docusate Sodium (Colace) 100 mg Q12H PRN PO CONSTIPATION; Start 12/31/16 at 14 :30 Magnesium Hydroxide (Milk Of Mag) 30 ml DAILY PRN PO CONSTIPATION; Start 12/31 at 14:30 Sodium Biphosphate/ Sodium Phosphate (Fleet Enema) 133 ml DAILY PRN [place] CONSTIPATION; Start 12/31/16 at 14:30 Heparin Sodium (Porcine) (Heparin (5000 Units/0.5 ml)) 5,000 unit Q12 SC Last administered on 01/09/17 08:54; Admin Dose 5,000 UNIT; Start 12/31/16 at 15:00 Nitroglycerin (Nitroglycerin (Sl Tab) 0.4 Mg) 1 tab Q5M PRN SL ANGINA; Start 12/31/16 at 14:30 Thiamine HCl (Vitamin B1) 100 mg DAILY PO Last administered on 01/09/17 08:54 ; Admin Dose 100 MG; Start 12/31/16 at 15:00 Folic Acid (Folic Acid) 1 mg DAILY PO Last administered on 01/09/17 08:54; Admin Dose 1 MG; Start 12/31/16 at 15:00 Lorazepam (Ativan) 1 mg Q1H PRN IV CONTROL WITHDRAWAL SYMPTOMS Last administered on 01/02/17 14:30; Admin Dose 1 MG; Start 12/31/16 at 15:30 Nystatin (Nystatin Susp) 5 ml QID PO Last administered on 01/09/17 12:40; Admin Dose 5 ML; Start 01/01/17 at 17:00 Multivitamins Therapeutic (Theragran) 1 tab DAILY PO Last administered on 08:54; Admin Dose 1 TAB; Start 01/02/17 at 09:00 Levothyroxine Sodium (Synthroid) 50 mcg DAILY@06 PO Last administered on 05:58; Admin Dose 50 MCG; Start 01/04/17 at 06:00 Guaifenesin/ Dextromethorphan (Robitussin Dm Liquid Cup) 10 ml Q4H PRN PO COUGH Last administered on 01/09/17t 09:56; Admin Dose 10 ML; Start 01/03/17 at 23:30 Ibuprofen (Motrin) 400 mg Q6H PRN PO PAIN OR TEMP ABOVE 38C; Start 01/04/17 at 11:00 Assessment/Plan Chief Complaint/Hosp Course SUBJECTIVE: Patient is awake, looks comfortable, no n/v/d, no dysuria, still with ongoing fevers and leukocytosis LABORATORY DATA: Blood cultures have been negative. Urinalysis was negative. Hepatitis panel and HIV negative. PHYSICAL EXAMINATION: GENERAL: This is a morbidly obese young man who is alert, in no distress. HEENT: Head atraumatic, normocephalic. Sclerae anicteric. Buccal mucosa dry with white rash on his tongue and halitosis. NECK: Obese. CHEST: Rise symmetrical. Breath sounds diminished to bases. HEART: S1, S2. ABDOMEN: Obese, soft. Bowel tones present. EXTREMITIES: Without cyanosis. ASSESSMENT: 1. Ongoing fevers with leukocytosis 2. Transaminitis ==> dilated CBD per US. 3. Oral thrush. 4. BLE edema 5. History of alcohol abuse 6. Poss nephritic syndrome PLAN: The patient is clinically stable, will start Zosyn for poss biliary sepsis, consider MRCP, pending WBC labeled scan [facility] staff/pt Problems: BRENDEN SCOTT NP Jan 09, 2017 12:46
[2017-01-09 14:02] LABS: ANA SCREEN NEGATIVE (NEGATIVE)
--- NOTE | 2017-01-09 14:15 | PN ---
Date/Time of Note Date/Time of Note DATE: 01/09/17 TIME: 14:12 Assessment/Plan VTE Prophylaxis VTE Prophylaxis Intervention: heparin Lines/Catheters IV C[facility]ter Type (from [facility] Urinary Cath still in place: No Assessment/Plan Assessment/Plan 1. Persistent leukocytosis, unclear source/etiology, restart zosyn on 01/09/2017 , awaiting for WBC scan 2. Cough with hoarseness, off of antibiotics 3. Alcoholism, no withdrawal 4. Transaminitis, alcohol related, follow up with LFTs 5. Dilated CBD on US, MRCP 6. 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 Peripheral edema with hypoalbuminemia, probably from fatty liver disease related, check 24 hour urine protein r/o renal loss 8. DVT prophylaxis: heparin Subjective 24 Hr Interval Summary Free Text/Dictation no fever, no abdominal pain Exam/Review of Systems Vital Signs Vitals Vital Signs Date Time Temp Pulse Resp B/P Pulse Ox O2 Delivery O2 Flow Rate FiO2 01/09/17 12:26 112 01/09/17 12:00 100.2 17 117/67 95 01/09/17 04:00 Room Air Intake and Output 01/08/17 01/08/17 01/09/17 15:00 23:00 07:00 Intake Total 500 ml Output Total 1000 ml Balance -500 ml Exam Constitutional: alert, obese, oriented, well developed Psych: nl mood/affect, no complaints Head: atraumatic, normocephalic Eyes: EOMI, nl conjunctiva, nl lids ENMT: nl external ears & nose, nl lips & teeth, nl nasal mucosa & septum Neck: non-tender, supple Respiratory: clear to auscultation, normal air movement, No congested cough, No crackles/rales, No diminished breath sounds, No intercostal retraction, No labored breathing, No other, No respirations, No tactile fremitus, No wheezing Cardiovascular: nl pulses, regular rate and rhythm, No S3, No S4, No bruits, No diastolic murmur, No edema, No gallop, No irregular rhythm, No jugular venous distention (JVD), No murmurs/extra sounds, No other, No rub, No systolic murmur Gastrointestinal: nl liver, spleen, non-tender, soft, No ascites, No bowel sounds, No distended, No firm, No hepatomegaly, No mass , No other, No rebound or guarding, No splenomegaly, No surgical scars, No tender Musculoskeletal: nl extremities to inspection Extremities: edema, normal pulses, No calf tenderness, No clubbing, No cyanosis, No other, No palpable cord, No pitting pedal edema, No tenderness 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: [employer] II-XII intact, nl mental status, nl speech, nl strength Skin: nl turgor Lymph: nl lymph nodes Results Result Diagram: 01/09/17 0734 01/09/17 0734 Results 24 hrs Laboratory Tests Test 01/09/17 07:34 White Blood Count 19.7 H Red Blood Count 3.15 L Hemoglobin 10.5 L Hematocrit 33.2 L Mean Corpuscular Volume 105.4 H Mean Corpuscular Hemoglobin 33.3 H Mean Corpuscular Hemoglobin Concent 31.6 L Red Cell Distribution Width 16.3 H Platelet Count 277 Mean Platelet Volume 9.8 Neutrophils % 70.4 Lymphocytes % 14.4 L Monocytes % 7.4 Eosinophils % 4.9 Basophils % 0.8 Nucleated Red Blood Cells % 0.1 H Neutrophils # 13.9 H Lymphocytes # 2.8 Monocytes # 1.5 H Eosinophils # 1.0 H Basophils # 0.2 H Nucleated Red Blood Cells # 0.0 Sodium Level 141 Potassium Level 4.3 Chloride Level 105 Carbon Dioxide Level 25 Anion Gap 15 Blood Urea Nitrogen 3 L Creatinine 0.60 L Glucose Level 90 Calcium Level 8.3 L Total Bilirubin 1.0 Direct Bilirubin 0.00 Indirect Bilirubin 1.0 Aspartate Amino Transf (AST/SGOT) 142 H Alanine Aminotransferase (ALT/SGPT) 35 Alkaline Phosphatase 129 H Total Protein 7.2 Albumin 3.2 L Globulin 4.00 H Albumin/Globulin Ratio 0.80 Complement C3 159 Complement C4 24 Medications Medications Current Medications Ondansetron HCl (Zofran Inj) 4 mg Q6H PRN IV NAUSEA AND/OR VOMITING; Start at 14:30 Acetaminophen (Tylenol Tab) 650 mg Q6H PRN PO PAIN LEVEL 1-3 OR FEVER Last administered on 01/09/17t 12:39; Admin Dose 650 MG; Start 12/31/16 at 14:30 Acetaminophen/ Hydrocodone Bitart ([place] (5/325)) 1 tab Q6H PRN PO MODERATE PAIN LEVEL 4-6; Start 12/31/16 at 14:30 Morphine Sulfate (morphine) 2 mg Q4H PRN IV SEVERE PAIN LEVEL 7-10; Start at 14:30 Docusate Sodium (Colace) 100 mg Q12H PRN PO CONSTIPATION; Start 12/31/16 at 14 :30 Magnesium Hydroxide (Milk Of Mag) 30 ml DAILY PRN PO CONSTIPATION; Start 12/31 at 14:30 Sodium Biphosphate/ Sodium Phosphate (Fleet Enema) 133 ml DAILY PRN [place] CONSTIPATION; Start 12/31/16 at 14:30 Heparin Sodium (Porcine) (Heparin (5000 Units/0.5 ml)) 5,000 unit Q12 SC Last administered on 01/09/17 08:54; Admin Dose 5,000 UNIT; Start 12/31/16 at 15:00 Nitroglycerin (Nitroglycerin (Sl Tab) 0.4 Mg) 1 tab Q5M PRN SL ANGINA; Start 12/31/16 at 14:30 Thiamine HCl (Vitamin B1) 100 mg DAILY PO Last administered on 01/09/17 08:54 ; Admin Dose 100 MG; Start 12/31/16 at 15:00 Folic Acid (Folic Acid) 1 mg DAILY PO Last administered on 01/09/17 08:54; Admin Dose 1 MG; Start 12/31/16 at 15:00 Lorazepam (Ativan) 1 mg Q1H PRN IV CONTROL WITHDRAWAL SYMPTOMS Last administered on 01/02/17 14:30; Admin Dose 1 MG; Start 12/31/16 at 15:30 Nystatin (Nystatin Susp) 5 ml QID PO Last administered on 01/09/17 12:40; Admin Dose 5 ML; Start 01/01/17 at 17:00 Multivitamins Therapeutic (Theragran) 1 tab DAILY PO Last administered on 08:54; Admin Dose 1 TAB; Start 01/02/17 at 09:00 Levothyroxine Sodium (Synthroid) 50 mcg DAILY@06 PO Last administered on 05:58; Admin Dose 50 MCG; Start 01/04/17 at 06:00 Guaifenesin/ Dextromethorphan (Robitussin Dm Liquid Cup) 10 ml Q4H PRN PO COUGH Last administered on 01/09/17 09:56; Admin Dose 10 ML; Start 01/03/17 at 23:30 Ibuprofen 400 mg 400 mg Q6H PRN PO PAIN OR TEMP ABOVE 38C; Start 01/04/17 at 11 :00 Piperacillin Sod/ Tazobactam Sod (Zosyn 3.375gm/ 50 ml (Pmx)) 50 ml @ 100 mls/ hr Q8 IVPB ; Start 01/09/17 at 14:00 BREE ARENAS MD Jan 09, 2017 14:15
[2017-01-09] MEDS: PIPER-TAZO 3.375 GM IV (PMX) 50 ML IVPB SCH ×2 (14:43→21:24)
[2017-01-09 19:50] LABS: SCRET 0.6 mg/dl (0.61-1.24)
[2017-01-10] VITALS (13 sets, daily range): BP systolic 110–127; BP diastolic 65–74; PULSE 105–130; RESP 16–19
[2017-01-10] MEDS: PIPER-TAZO 3.375 GM IV (PMX) 50 ML IVPB SCH ×3 (05:33→21:27)
[2017-01-10] MEDS: LEVOTHYROXINE 50 MCG TAB PO SCH (05:33)
[2017-01-10 08:04] LABS: BASOPHIL # 0.1 10^3/ul (0.0-0.1); BASOPHILS % 0.7 % (0.0-2.0); EOSINOPHILS # 0.9 10^3/ul (0.0-0.5); EOSINOPHILS % 4.6 % (0.0-7.0); HEMATOCRIT 31.6 % (42.0-52.0); LYMPHOCYTES # 2.4 10^3/ul (0.8-2.9); MEAN CORPUSCULAR HEMOGLOBIN 33.7 pg (29.0-33.0); MEAN CORPUSCULAR HGB CONC 31.6 g/dl (32.0-37.0); MEAN CORPUSCULAR VOLUME 106.4 fl (82.0-101.0); MEAN PLATELET VOLUME 9.7 fl (7.4-10.4); MONOCYTE # 1.3 10^3/ul (0.3-0.9); MONOCYTES % 6.8 % (0.0-11.0); NEUTROPHIL # 14.6 10^3/ul (1.6-7.5); NEUTROPHILS % 73.9 % (39.0-77.0); PLATELET COUNT 291 10^3/UL (140-415); RED BLOOD COUNT 2.97 10^6/ul (4.70-6.10); WHITE BLOOD COUNT 19.8 10^3/ul (4.8-10.8)
[2017-01-10] MEDS: FOLIC ACID 1 MG TAB PO SCH (08:54)
[2017-01-10] MEDS: NYSTATIN SUSP 5 ML CUP PO SCH ×4 (08:54→21:26)
[2017-01-10] MEDS: THIAMINE 100 MG TAB PO SCH (08:54)
[2017-01-10] MEDS: MULTIVITAMINS THERAPEUTIC TAB PO SCH (08:54)
[2017-01-10] MEDS: HEPARIN 5,000 UNIT/0.5 ML VIAL SC SCH ×2 (08:57→21:28)
--- NOTE | 2017-01-10 13:04 | PN ---
Date/Time of Note Date/Time of Note DATE: 01/10/17 TIME: 13:02 Assessment/Plan VTE Prophylaxis VTE Prophylaxis Intervention: heparin Lines/Catheters IV C[facility]ter Type (from [facility]): Saline Lock Urinary Cath still in place: No Assessment/Plan Assessment/Plan 1. Persistent leukocytosis, unclear source/etiology, likely respiratory, restart zosyn on 01/09/2017, awaiting for WBC scan 2. Cough with hoarseness, off of antibiotics 3. Alcoholism, no withdrawal 4. Transaminitis, alcohol related, follow up with LFTs 5. Dilated CBD on US, could not finish MRCP 6. 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 Peripheral edema with hypoalbuminemia, probably from fatty liver disease related, check 24 hour urine protein r/o renal loss 8. DVT prophylaxis: heparin Subjective 24 Hr Interval Summary Free Text/Dictation no fever or chills. No abdominal pain. still cough, less hoarseness Exam/Review of Systems Vital Signs Vitals Vital Signs Date Time Temp Pulse Resp B/P Pulse Ox O2 Delivery O2 Flow Rate FiO2 01/10/17 12:16 106 01/10/17 11:56 98.0 17 119/73 96 01/09/17 04:00 Room Air Intake and Output 01/09/17 01/09/17 01/10/17 15:00 23:00 07:00 Intake Total 650 ml 400 ml Output Total 500 ml 600 ml Balance 150 ml -200 ml Exam Constitutional: alert, obese, oriented, well developed Psych: nl mood/affect, no complaints Head: atraumatic, normocephalic Eyes: EOMI, PERRL, nl conjunctiva, nl lids, nl sclera ENMT: nl external ears & nose, nl lips & teeth, nl nasal mucosa & septum Neck: non-tender, supple Respiratory: clear to auscultation, normal air movement Cardiovascular: nl pulses, regular rate and rhythm, No S3, No S4, No bruits, No diastolic murmur, No edema, No gallop, No irregular rhythm, No jugular venous distention (JVD), No murmurs/extra sounds, No other, No rub, No systolic murmur Gastrointestinal: nl liver, spleen, non-tender, soft, No ascites, No bowel sounds, No distended, No firm, No hepatomegaly, No mass , No other, No rebound or guarding, No splenomegaly, No surgical scars, No tender Musculoskeletal: nl extremities to inspection Extremities: normal pulses, No calf tenderness, No clubbing, No cyanosis, No edema, No other, No palpable cord, No pitting pedal edema, No tenderness 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: [employer] II-XII intact, nl mental status, nl speech, nl strength Skin: nl turgor Lymph: nl lymph nodes Results Result Diagram: 01/10/17 0738 01/09/17 0734 Results 24 hrs Laboratory Tests Test 01/09/17 18:15 01/10/17 07:38 Urine Random Creatinine 58.40 Urine Collection Duration 24 Urine Total Volume 24 Hours 1500 Urine Creatinine Timed 24 Creatinine Clearance 101.4 Urine Total Volume (Protein) 1500 Urine Total Protein 24 Hour 225.0 White Blood Count 19.8 H Red Blood Count 2.97 L Hemoglobin 10.0 L Hematocrit 31.6 L Mean Corpuscular Volume 106.4 H Mean Corpuscular Hemoglobin 33.7 H Mean Corpuscular Hemoglobin Concent 31.6 L Red Cell Distribution Width 16.0 H Platelet Count 291 Mean Platelet Volume 9.7 Neutrophils % 73.9 Lymphocytes % 12.0 L Monocytes % 6.8 Eosinophils % 4.6 Basophils % 0.7 Nucleated Red Blood Cells % 0.0 Neutrophils # 14.6 H Lymphocytes # 2.4 Monocytes # 1.3 H Eosinophils # 0.9 H Basophils # 0.1 Nucleated Red Blood Cells # 0.0 Medications Medications Current Medications Ondansetron HCl (Zofran Inj) 4 mg Q6H PRN IV NAUSEA AND/OR VOMITING; Start at 14:30 Acetaminophen (Tylenol Tab) 650 mg Q6H PRN PO PAIN LEVEL 1-3 OR FEVER Last administered on 01/09/17t 12:39; Admin Dose 650 MG; Start 12/31/16 at 14:30 Acetaminophen/ Hydrocodone Bitart ([place] (5/325)) 1 tab Q6H PRN PO MODERATE PAIN LEVEL 4-6; Start 12/31/16 at 14:30 Morphine Sulfate (morphine) 2 mg Q4H PRN IV SEVERE PAIN LEVEL 7-10; Start at 14:30 Docusate Sodium (Colace) 100 mg Q12H PRN PO CONSTIPATION; Start 12/31/16 at 14 :30 Magnesium Hydroxide (Milk Of Mag) 30 ml DAILY PRN PO CONSTIPATION; Start 12/31 at 14:30 Sodium Biphosphate/ Sodium Phosphate (Fleet Enema) 133 ml DAILY PRN [place] CONSTIPATION; Start 12/31/16 at 14:30 Heparin Sodium (Porcine) (Heparin (5000 Units/0.5 ml)) 5,000 unit Q12 SC Last administered on 01/10/17 08:57; Admin Dose 5,000 UNIT; Start 12/31/16 at 15:00 Nitroglycerin (Nitroglycerin (Sl Tab) 0.4 Mg) 1 tab Q5M PRN SL ANGINA; Start 12/31/16 at 14:30 Thiamine HCl (Vitamin B1) 100 mg DAILY PO Last administered on 01/10/17 08:54 ; Admin Dose 100 MG; Start 12/31/16 at 15:00 Folic Acid (Folic Acid) 1 mg DAILY PO Last administered on 01/10/17 08:54; Admin Dose 1 MG; Start 12/31/16 at 15:00 Lorazepam (Ativan) 1 mg Q1H PRN IV CONTROL WITHDRAWAL SYMPTOMS Last administered on 01/02/17 14:30; Admin Dose 1 MG; Start 12/31/16 at 15:30 Nystatin (Nystatin Susp) 5 ml QID PO Last administered on 01/10/17 12:04; Admin Dose 5 ML; Start 01/01/17 at 17:00 Multivitamins Therapeutic (Theragran) 1 tab DAILY PO Last administered on 08:54; Admin Dose 1 TAB; Start 01/02/17 at 09:00 Levothyroxine Sodium (Synthroid) 50 mcg DAILY@06 PO Last administered on 05:33; Admin Dose 50 MCG; Start 01/04/17 at 06:00 Guaifenesin/ Dextromethorphan (Robitussin Dm Liquid Cup) 10 ml Q4H PRN PO COUGH Last administered on 01/09/17 09:56; Admin Dose 10 ML; Start 01/03/17 at 23:30 Ibuprofen 400 mg 400 mg Q6H PRN PO PAIN OR TEMP ABOVE 38C; Start 01/04/17 at 11 :00 Piperacillin Sod/ Tazobactam Sod (Zosyn 3.375gm/ 50 ml (Pmx)) 50 ml @ 100 mls/ hr Q8 IVPB Last administered on 01/10/17t 05:33; Admin Dose 100 MLS/HR; Start 01/09/17 at 14:00 BREE ARENAS MD Jan 10, 2017 13:04
--- NOTE | 2017-01-10 13:17 | CONS ---
Date/Time of Note Date/Time of Note DATE: 01/10/17 TIME: 13:16 Consult Date/Type/Reason Admit Date/Time Dec 31, 2016 at 13:50 Type of Consultation: ID Ordering Provider: BREE ARENAS MD Objective Vital Signs Date Time Temp Pulse Resp B/P Pulse Ox O2 Delivery O2 Flow Rate FiO2 01/10/17 12:16 106 01/10/17 11:56 98.0 17 119/73 96 01/09/17 04:00 Room Air Intake and Output 01/09/17 01/09/17 01/10/17 15:00 23:00 07:00 Intake Total 650 ml 400 ml Output Total 500 ml 600 ml Balance 150 ml -200 ml Results/Medications Result Diagram: 01/10/17 0738 01/09/17 0734 Results 24 hrs Laboratory Tests Test 01/09/17 18:15 01/10/17 07:38 Urine Random Creatinine 58.40 Urine Collection Duration 24 Urine Total Volume 24 Hours 1500 Urine Creatinine Timed 24 Creatinine Clearance 101.4 Urine Total Volume (Protein) 1500 Urine Total Protein 24 Hour 225.0 White Blood Count 19.8 H Red Blood Count 2.97 L Hemoglobin 10.0 L Hematocrit 31.6 L Mean Corpuscular Volume 106.4 H Mean Corpuscular Hemoglobin 33.7 H Mean Corpuscular Hemoglobin Concent 31.6 L Red Cell Distribution Width 16.0 H Platelet Count 291 Mean Platelet Volume 9.7 Neutrophils % 73.9 Lymphocytes % 12.0 L Monocytes % 6.8 Eosinophils % 4.6 Basophils % 0.7 Nucleated Red Blood Cells % 0.0 Neutrophils # 14.6 H Lymphocytes # 2.4 Monocytes # 1.3 H Eosinophils # 0.9 H Basophils # 0.1 Nucleated Red Blood Cells # 0.0 Medications Current Medications Ondansetron HCl (Zofran Inj) 4 mg Q6H PRN IV NAUSEA AND/OR VOMITING; Start at 14:30 Acetaminophen (Tylenol Tab) 650 mg Q6H PRN PO PAIN LEVEL 1-3 OR FEVER Last administered on 01/09/17t 12:39; Admin Dose 650 MG; Start 12/31/16 at 14:30 Acetaminophen/ Hydrocodone Bitart ([place] (5/325)) 1 tab Q6H PRN PO MODERATE PAIN LEVEL 4-6; Start 12/31/16 at 14:30 Morphine Sulfate (morphine) 2 mg Q4H PRN IV SEVERE PAIN LEVEL 7-10; Start at 14:30 Docusate Sodium (Colace) 100 mg Q12H PRN PO CONSTIPATION; Start 12/31/16 at 14 :30 Magnesium Hydroxide (Milk Of Mag) 30 ml DAILY PRN PO CONSTIPATION; Start 12/31 at 14:30 Sodium Biphosphate/ Sodium Phosphate (Fleet Enema) [address] CONSTIPATION; Start 12/31/16 at 14:30 Heparin Sodium (Porcine) (Heparin (5000 Units/0.5 ml)) 5,000 unit Q12 SC Last administered on 01/10/17 08:57; Admin Dose 5,000 UNIT; Start 12/31/16 at 15:00 Nitroglycerin (Nitroglycerin (Sl Tab) 0.4 Mg) 1 tab Q5M PRN SL ANGINA; Start 12/31/16 at 14:30 Thiamine HCl (Vitamin B1) 100 mg DAILY PO Last administered on 01/10/17 08:54 ; Admin Dose 100 MG; Start 12/31/16 at 15:00 Folic Acid (Folic Acid) 1 mg DAILY PO Last administered on 01/10/17 08:54; Admin Dose 1 MG; Start 12/31/16 at 15:00 Lorazepam (Ativan) 1 mg Q1H PRN IV CONTROL WITHDRAWAL SYMPTOMS Last administered on 01/02/17 14:30; Admin Dose 1 MG; Start 12/31/16 at 15:30 Nystatin (Nystatin Susp) 5 ml QID PO Last administered on 01/10/17 12:04; Admin Dose 5 ML; Start 01/01/17 at 17:00 Multivitamins Therapeutic (Theragran) 1 tab DAILY PO Last administered on 08:54; Admin Dose 1 TAB; Start 01/02/17 at 09:00 Levothyroxine Sodium (Synthroid) 50 mcg DAILY@06 PO Last administered on 05:33; Admin Dose 50 MCG; Start 01/04/17 at 06:00 Guaifenesin/ Dextromethorphan (Robitussin Dm Liquid Cup) 10 ml Q4H PRN PO COUGH Last administered on 01/09/17 09:56; Admin Dose 10 ML; Start 01/03/17 at 23:30 Ibuprofen 400 mg 400 mg Q6H PRN PO PAIN OR TEMP ABOVE 38C; Start 01/04/17 at 11 :00 Piperacillin Sod/ Tazobactam Sod (Zosyn 3.375gm/ 50 ml (Pmx)) 50 ml @ 100 mls/ hr Q8 IVPB Last administered on 01/10/17t 05:33; Admin Dose 100 MLS/HR; Start 01/09/17 at 14:00 Assessment/Plan Chief Complaint/Hosp Course SUBJECTIVE: Patient is awake, looks comfortable, no n/v, no dysuria LABORATORY DATA: Blood cultures have been negative. Urinalysis was negative. Hepatitis panel and HIV negative. Abx: Zosyn PHYSICAL EXAMINATION: GENERAL: This is a morbidly obese young man who is alert, in no distress. HEENT: Head atraumatic, normocephalic. Sclerae anicteric. Buccal mucosa dry with white rash on his tongue and halitosis. NECK: Obese. CHEST: Rise symmetrical. Breath sounds diminished to bases. HEART: S1, S2. ABDOMEN: Obese, soft. Bowel tones present. EXTREMITIES: Without cyanosis. ASSESSMENT: 1. Ongoing fevers with leukocytosis 2. Transaminitis ==> dilated CBD per US. 3. Oral thrush. 4. BLE edema 5. History of alcohol abuse 6. Poss nephritic syndrome PLAN: The patient is clinically stable, started on Zosyn for poss biliary sepsis, will order MRCP, pending WBC labeled scan [facility] staff/pt Problems: BRENDEN SCOTT NP Jan 10, 2017 13:17
[2017-01-10] MEDS: GUAIFENESIN/DM 5ML CUP PO PRN (13:32)
[2017-01-10] MEDS: ACETAMINOPHEN 325 MG TAB PO PRN (13:32)
--- NOTE | 2017-01-10 19:21 | CONS ---
Date/Time of Note Date/Time of Note DATE: 01/10/17 TIME: 19:15 Assessment/Plan Assessment/Plan Chief Complaint/Hosp Course 21-year-old male with no PMHx except alcohol abuse, admitted with SIRS cough, CAP- treated with iV abx, pt persitently have Cough with low grade fever, ID followed up on patient. pt finished Levaquin abx for PNA coverage but continues to have low grade fever, with signficant LE 3-4+ edema, UA negative for protein Pt was treated with IV albumin +IV lasix for diuresis but continues to have Edema. Renal has been consulted for Anasarca, to rule out nephrotic syndrome. Problems: Additional Assessment/Plan 1. Anasarca with Significant LE edema- 3+, US negative for DVT, US abdomen did not show ascites- CXR showed mild pulmonary congestion 2. Community acquired pneumonia, likely viral, influenza screen, levaquin 3. Leukocytosis, likely reactive from viral infection 4. Alcoholism, no withdrawal 5. Transaminitis, alcohol related, follow up with LFTs Plan: Autoimmune work up including DOLORES, ANCA< ESR, CRP, Rheumatoid factor, C3, C4, total complement - negative His HIV, hepatitis panel negative US LE negative for DVT- s/p IV lasix + albumin diuresis still has LE edema- 24 hr urine collection did not show nephrotic range proteinuria US abdomen showed fatty liver, hepatomegaluy, no evidence of cirrhosis. Heparin for DVT prophylaxis Consultation Date/Type/Reason Admit Date/Time Dec 31, 2016 at 13:50 Initial Consult Date 01/08/17 Type of Consultation: NEPHROLOGY Referring Provider: BREE ARENAS MD Exam/Review of Systems Vital Signs Vitals Vital Signs Date Time Temp Pulse Resp B/P Pulse Ox O2 Delivery O2 Flow Rate FiO2 01/10/17 16:47 124 01/10/17 15:49 98.2 17 126/70 94 01/09/17 04:00 Room Air Intake and Output 01/09/17 01/09/17 01/10/17 15:00 23:00 07:00 Intake Total 650 ml 400 ml Output Total 500 ml 600 ml Balance 150 ml -200 ml Exam Constitutional: alert Respiratory: clear to auscultation, crackles/rales Cardiovascular: nl pulses, regular rate and rhythm, Tachycardia Gastrointestinal: non-tender, soft Genitourinary - Male: other (scrotal edema ) Musculoskeletal: muscle weakness, swelling (3+ LE Edema ) Extremities: normal pulses 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: GRAIN ORIGINATION SPECIALIST II-XII intact, nl mental status, nl speech, nl strength Results Result Diagram: 01/10/17 0738 01/09/17 0734 Results 24 hrs Laboratory Tests Test 01/10/17 07:38 White Blood Count 19.8 H Red Blood Count 2.97 L Hemoglobin 10.0 L Hematocrit 31.6 L Mean Corpuscular Volume 106.4 H Mean Corpuscular Hemoglobin 33.7 H Mean Corpuscular Hemoglobin Concent 31.6 L Red Cell Distribution Width 16.0 H Platelet Count 291 Mean Platelet Volume 9.7 Neutrophils % 73.9 Lymphocytes % 12.0 L Monocytes % 6.8 Eosinophils % 4.6 Basophils % 0.7 Nucleated Red Blood Cells % 0.0 Neutrophils # 14.6 H Lymphocytes # 2.4 Monocytes # 1.3 H Eosinophils # 0.9 H Basophils # 0.1 Nucleated Red Blood Cells # 0.0 Medications Medications Current Medications Ondansetron HCl (Zofran Inj) 4 mg Q6H PRN IV NAUSEA AND/OR VOMITING; Start at 14:30 Acetaminophen (Tylenol Tab) 650 mg Q6H PRN PO PAIN LEVEL 1-3 OR FEVER Last administered on 01/10/17 13:32; Admin Dose 650 MG; Start 12/31/16 at 14:30 Acetaminophen/ Hydrocodone Bitart ([place] (5/325)) 1 tab Q6H PRN PO MODERATE PAIN LEVEL 4-6; Start 12/31/16 at 14:30 Morphine Sulfate (morphine) 2 mg Q4H PRN IV SEVERE PAIN LEVEL 7-10; Start at 14:30 Docusate Sodium (Colace) 100 mg Q12H PRN PO CONSTIPATION; Start 12/31/16 at 14 :30 Magnesium Hydroxide (Milk Of Mag) 30 ml DAILY PRN PO CONSTIPATION; Start 12/31 at 14:30 Sodium Biphosphate/ Sodium Phosphate (Fleet Enema) 133 ml DAILY PRN [place] CONSTIPATION; Start 12/31/16 at 14:30 Heparin Sodium (Porcine) (Heparin (5000 Units/0.5 ml)) 5,000 unit Q12 SC Last administered on 01/10/17 08:57; Admin Dose 5,000 UNIT; Start 12/31/16 at 15:00 Nitroglycerin (Nitroglycerin (Sl Tab) 0.4 Mg) 1 tab Q5M PRN SL ANGINA; Start 12/31/16 at 14:30 Thiamine HCl (Vitamin B1) 100 mg DAILY PO Last administered on 01/10/17 08:54 ; Admin Dose 100 MG; Start 12/31/16 at 15:00 Folic Acid (Folic Acid) 1 mg DAILY PO Last administered on 01/10/17 08:54; Admin Dose 1 MG; Start 12/31/16 at 15:00 Lorazepam (Ativan) 1 mg Q1H PRN IV CONTROL WITHDRAWAL SYMPTOMS Last administered on 01/02/17 14:30; Admin Dose 1 MG; Start 12/31/16 at 15:30 Nystatin (Nystatin Susp) 5 ml QID PO Last administered on 01/10/17 17:29; Admin Dose 5 ML; Start 01/01/17 at 17:00 Multivitamins Therapeutic (Theragran) 1 tab DAILY PO Last administered on 08:54; Admin Dose 1 TAB; Start 01/02/17 at 09:00 Levothyroxine Sodium (Synthroid) 50 mcg DAILY@06 PO Last administered on 05:33; Admin Dose 50 MCG; Start 01/04/17 at 06:00 Guaifenesin/ Dextromethorphan (Robitussin Dm Liquid Cup) 10 ml Q4H PRN PO COUGH Last administered on 01/10/17 13:32; Admin Dose 10 ML; Start 01/03/17 at 23:30 Ibuprofen 400 mg 400 mg Q6H PRN PO PAIN OR TEMP ABOVE 38C; Start 01/04/17 at 11 :00 Piperacillin Sod/ Tazobactam Sod (Zosyn 3.375gm/ 50 ml (Pmx)) 50 ml @ 100 mls/ hr Q8 IVPB Last administered on 01/10/17 13:32; Admin Dose 100 MLS/HR; Start 01/09/17 at 14:00 JAY ROSALES MD Jan 10, 2017 19:21
[2017-01-11] VITALS (11 sets, daily range): BP systolic 105–127; BP diastolic 65–79; PULSE 97–110; RESP 16–20
[2017-01-11] MEDS: PIPER-TAZO 3.375 GM IV (PMX) 50 ML IVPB SCH ×3 (05:41→21:31)
[2017-01-11] MEDS: LEVOTHYROXINE 50 MCG TAB PO SCH (06:00)
[2017-01-11] MEDS: FOLIC ACID 1 MG TAB PO SCH (08:21)
[2017-01-11] MEDS: NYSTATIN SUSP 5 ML CUP PO SCH ×4 (08:21→21:30)
[2017-01-11] MEDS: THIAMINE 100 MG TAB PO SCH (08:21)
[2017-01-11] MEDS: MULTIVITAMINS THERAPEUTIC TAB PO SCH (08:21)
[2017-01-11] MEDS: HEPARIN 5,000 UNIT/0.5 ML VIAL SC SCH ×2 (08:24→21:32)
[2017-01-11 08:36] LABS: BASOPHIL # 0.1 10^3/ul (0.0-0.1); BASOPHILS % 0.6 % (0.0-2.0); EOSINOPHILS # 0.8 10^3/ul (0.0-0.5); EOSINOPHILS % 4.7 % (0.0-7.0); HEMATOCRIT 32.1 % (42.0-52.0); HEMOGLOBIN 9.9 g/dl (14.0-18.0); LYMPHOCYTES % 12.5 % (15.0-51.0); MEAN CORPUSCULAR HEMOGLOBIN 32.1 pg (29.0-33.0); MEAN CORPUSCULAR HGB CONC 30.8 g/dl (32.0-37.0); MEAN CORPUSCULAR VOLUME 104.2 fl (82.0-101.0); MEAN PLATELET VOLUME 9.5 fl (7.4-10.4); MONOCYTES % 6.3 % (0.0-11.0); NEUTROPHIL # 12.2 10^3/ul (1.6-7.5); NEUTROPHILS % 74.6 % (39.0-77.0); PLATELET COUNT 301 10^3/UL (140-415); RED BLOOD COUNT 3.08 10^6/ul (4.70-6.10); RED CELL DISTRIBUTION WIDTH 15.9 % (11.5-14.5); WHITE BLOOD COUNT 16.3 10^3/ul (4.8-10.8)
[2017-01-11 08:49] LABS: ALBUMIN 3.3 g/dl (3.3-4.9); ALBUMIN/GLOBULIN RATIO 0.84; BILIRUBIN,INDIRECT 0.7 mg/dl (0-1.1); BILIRUBIN,TOTAL 0.7 mg/dl (0.2-1.3); CALCIUM 7.9 mg/dl (8.4-10.2); CREATININE 0.71 mg/dl (0.61-1.24); POTASSIUM 4.2 mmol/L (3.5-5.1); TOTAL PROTEIN 7.2 g/dl (6.1-8.1)
--- NOTE | 2017-01-11 09:41 | CONS ---
Date/Time of Note Date/Time of Note DATE: 01/11/17 TIME: 09:40 Assessment/Plan Assessment/Plan Chief Complaint/Hosp Course 21-year-old male with no PMHx except alcohol abuse, admitted with SIRS cough, CAP- treated with iV abx, pt persitently have Cough with low grade fever, ID followed up on patient. pt finished Levaquin abx for PNA coverage but continues to have low grade fever, with signficant LE 3-4+ edema, UA negative for protein Pt was treated with IV albumin +IV lasix for diuresis but continues to have Edema. Renal has been consulted for Anasarca, to rule out nephrotic syndrome. Problems: Additional Assessment/Plan 1. Anasarca with Significant LE edema- 3+, US negative for DVT, US abdomen did not show ascites- CXR showed mild pulmonary congestion 2. Community acquired pneumonia, likely viral, influenza screen, levaquin 3. Leukocytosis, likely reactive from viral infection 4. Alcoholism, no withdrawal 5. Transaminitis, alcohol related, follow up with LFTs Plan: Autoimmune work up including DOLORES, ANCA< ESR, CRP, Rheumatoid factor, C3, C4, total complement - negative His HIV, hepatitis panel negative US LE negative for DVT- s/p IV lasix + albumin diuresis still has LE edema- 24 hr urine collection did not show nephrotic range proteinuria US abdomen showed fatty liver, hepatomegaluy, no evidence of cirrhosis. Heparin for DVT prophylaxis Consultation Date/Type/Reason Admit Date/Time Dec 31, 2016 at 13:50 Initial Consult Date 01/08/17 Type of Consultation: NEPHROLOGY Referring Provider: BREE ARENAS MD Exam/Review of Systems Vital Signs Vitals Vital Signs Date Time Temp Pulse Resp B/P Pulse Ox O2 Delivery O2 Flow Rate FiO2 01/11/17 08:10 106 01/11/17 07:45 98.0 18 111/65 94 01/09/17 04:00 Room Air Intake and Output 01/10/17 01/10/17 01/11/17 15:00 23:00 07:00 Intake Total 550 ml 600 ml Balance 550 ml 600 ml Exam Constitutional: alert Respiratory: clear to auscultation, crackles/rales Cardiovascular: nl pulses, regular rate and rhythm, Tachycardia Gastrointestinal: non-tender, soft Genitourinary - Male: other (scrotal edema ) Musculoskeletal: muscle weakness, swelling (3+ LE Edema ) Extremities: normal pulses 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: TABULATING CLERK II-XII intact, nl mental status, nl speech, nl strength Results Result Diagram: 01/11/1781301/11/17813 Results 24 hrs Laboratory Tests Test 01/11/17 08:14 White Blood Count 16.3 H Red Blood Count 3.08 L Hemoglobin 9.9 L Hematocrit 32.1 L Mean Corpuscular Volume 104.2 H Mean Corpuscular Hemoglobin 32.1 Mean Corpuscular Hemoglobin Concent 30.8 L Red Cell Distribution Width 15.9 H Platelet Count 301 Mean Platelet Volume 9.5 Neutrophils % 74.6 Lymphocytes % 12.5 L Monocytes % 6.3 Eosinophils % 4.7 Basophils % 0.6 Nucleated Red Blood Cells % 0.0 Neutrophils # 12.2 H Lymphocytes # 2.0 Monocytes # 1.0 H Eosinophils # 0.8 H Basophils # 0.1 Nucleated Red Blood Cells # 0.0 Sodium Level 140 Potassium Level 4.2 Chloride Level 104 Carbon Dioxide Level 26 Anion Gap 14 Blood Urea Nitrogen 3 L Creatinine 0.71 Glucose Level 122 Calcium Level 7.9 L Total Bilirubin 0.7 Direct Bilirubin 0.00 Indirect Bilirubin 0.7 Aspartate Amino Transf (AST/SGOT) 135 H Alanine Aminotransferase (ALT/SGPT) 39 Alkaline Phosphatase 120 Total Protein 7.2 Albumin 3.3 Globulin 3.90 H Albumin/Globulin Ratio 0.84 Medications Medications Current Medications Ondansetron HCl (Zofran Inj) 4 mg Q6H PRN IV NAUSEA AND/OR VOMITING; Start at 14:30 Acetaminophen (Tylenol Tab) 650 mg Q6H PRN PO PAIN LEVEL 1-3 OR FEVER Last administered on 01/10/17t 13:32; Admin Dose 650 MG; Start 12/31/16 at 14:30 Acetaminophen/ Hydrocodone Bitart ([place] (5/325)) 1 tab Q6H PRN PO MODERATE PAIN LEVEL 4-6; Start 12/31/16 at 14:30 Morphine Sulfate (morphine) 2 mg Q4H PRN IV SEVERE PAIN LEVEL 7-10; Start at 14:30 Docusate Sodium (Colace) 100 mg Q12H PRN PO CONSTIPATION; Start 12/31/16 at 14 :30 Magnesium Hydroxide (Milk Of Mag) 30 ml DAILY PRN PO CONSTIPATION; Start 12/31 at 14:30 Sodium Biphosphate/ Sodium Phosphate (Fleet Enema) 133 ml DAILY PRN [place] CONSTIPATION; Start 12/31/16 at 14:30 Heparin Sodium (Porcine) (Heparin (5000 Units/0.5 ml)) 5,000 unit Q12 SC Last administered on 01/11/17 08:24; Admin Dose 5,000 UNIT; Start 12/31/16 at 15:00 Nitroglycerin (Nitroglycerin (Sl Tab) 0.4 Mg) 1 tab Q5M PRN SL ANGINA; Start 12/31/16 at 14:30 Thiamine HCl (Vitamin B1) 100 mg DAILY PO Last administered on 01/11/17 08:21 ; Admin Dose 100 MG; Start 12/31/16 at 15:00 Folic Acid (Folic Acid) 1 mg DAILY PO Last administered on 01/11/17 08:21; Admin Dose 1 MG; Start 12/31/16 at 15:00 Lorazepam (Ativan) 1 mg Q1H PRN IV CONTROL WITHDRAWAL SYMPTOMS Last administered on 01/02/17 14:30; Admin Dose 1 MG; Start 12/31/16 at 15:30 Nystatin (Nystatin Susp) 5 ml QID PO Last administered on 01/11/17 08:21; Admin Dose 5 ML; Start 01/01/17 at 17:00 Multivitamins Therapeutic (Theragran) 1 tab DAILY PO Last administered on 08:21; Admin Dose 1 TAB; Start 01/02/17 at 09:00 Levothyroxine Sodium (Synthroid) 50 mcg DAILY@06 PO Last administered on 05:33; Admin Dose 50 MCG; Start 01/04/17 at 06:00 Guaifenesin/ Dextromethorphan (Robitussin Dm Liquid Cup) 10 ml Q4H PRN PO COUGH Last administered on 01/10/17 13:32; Admin Dose 10 ML; Start 01/03/17 at 23:30 Ibuprofen 400 mg 400 mg Q6H PRN PO PAIN OR TEMP ABOVE 38C; Start 01/04/17 at 11 :00 Piperacillin Sod/ Tazobactam Sod (Zosyn 3.375gm/ 50 ml (Pmx)) 50 ml @ 100 mls/ hr Q8 IVPB Last administered on 01/11/17t 05:41; Admin Dose 100 MLS/HR; Start 01/09/17 at 14:00 JAY ROSALES MD Jan 11, 2017 09:41
--- NOTE | 2017-01-11 13:21 | PN ---
Date/Time of Note Date/Time of Note DATE: 01/11/17 TIME: 13:15 Assessment/Plan VTE Prophylaxis VTE Prophylaxis Intervention: heparin Lines/Catheters IV [facility] [place] [facility] Urinary Cath still in place: No Assessment/Plan Assessment/Plan 1. Persistent leukocytosis, unclear source/etiology, likely respiratory, restart zosyn on 01/09/2017, improving on leukocytosis 2. Cough with hoarseness, off of antibiotics 3. Alcoholism, no withdrawal 4. Transaminitis, alcohol related, follow up with LFTs 5. Dilated CBD on US, could not finish MRCP 6. 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 Peripheral edema with hypoalbuminemia, probably from fatty liver disease related, check 24 hour urine protein r/o renal loss 8. DVT prophylaxis: heparin Subjective 24 Hr Interval Summary Free Text/Dictation less cough Exam/Review of Systems Vital Signs Vitals Vital Signs Date Time Temp Pulse Resp B/P Pulse Ox O2 Delivery O2 Flow Rate FiO2 01/11/17 12:08 97 01/11/17 11:34 98.1 17 113/68 98 01/09/17 04:00 Room Air Intake and Output 01/10/17 01/10/17 01/11/17 15:00 23:00 07:00 Intake Total 550 ml 600 ml Balance 550 ml 600 ml Exam Constitutional: alert, oriented, well developed Psych: nl mood/affect, no complaints Head: atraumatic, normocephalic Eyes: EOMI, nl conjunctiva, nl lids ENMT: nl external ears & nose, nl lips & teeth, nl nasal mucosa & septum Neck: non-tender, supple Respiratory: clear to auscultation, normal air movement, No congested cough, No crackles/rales, No diminished breath sounds, No intercostal retraction, No labored breathing, No other, No respirations, No tactile fremitus, No wheezing Cardiovascular: nl pulses, regular rate and rhythm, No S3, No S4, No bruits, No diastolic murmur, No edema, No gallop, No irregular rhythm, No jugular venous distention (JVD), No murmurs/extra sounds, No other, No rub, No systolic murmur Gastrointestinal: nl liver, spleen, non-tender, soft, No ascites, No bowel sounds, No distended, No firm, No hepatomegaly, No mass , No other, No rebound or guarding, No splenomegaly, No surgical scars, No tender Musculoskeletal: nl extremities to inspection Extremities: normal pulses, No calf tenderness, No clubbing, No cyanosis, No edema, No other, No palpable cord, No pitting pedal edema, No tenderness 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: BARTENDER MANAGER II-XII intact, nl mental status, nl speech, nl strength Skin: nl turgor Lymph: nl lymph nodes Results Result Diagram: 01/11/1714 01/11/1714 Results 24 hrs Laboratory Tests Test 01/11/17 08:14 White Blood Count 16.3 H Red Blood Count 3.08 L Hemoglobin 9.9 L Hematocrit 32.1 L Mean Corpuscular Volume 104.2 H Mean Corpuscular Hemoglobin 32.1 Mean Corpuscular Hemoglobin Concent 30.8 L Red Cell Distribution Width 15.9 H Platelet Count 301 Mean Platelet Volume 9.5 Neutrophils % 74.6 Lymphocytes % 12.5 L Monocytes % 6.3 Eosinophils % 4.7 Basophils % 0.6 Nucleated Red Blood Cells % 0.0 Neutrophils # 12.2 H Lymphocytes # 2.0 Monocytes # 1.0 H Eosinophils # 0.8 H Basophils # 0.1 Nucleated Red Blood Cells # 0.0 Sodium Level 140 Potassium Level 4.2 Chloride Level 104 Carbon Dioxide Level 26 Anion Gap 14 Blood Urea Nitrogen 3 L Creatinine 0.71 Glucose Level 122 Calcium Level 7.9 L Total Bilirubin 0.7 Direct Bilirubin 0.00 Indirect Bilirubin 0.7 Aspartate Amino Transf (AST/SGOT) 135 H Alanine Aminotransferase (ALT/SGPT) 39 Alkaline Phosphatase 120 Total Protein 7.2 Albumin 3.3 Globulin 3.90 H Albumin/Globulin Ratio 0.84 Medications Medications Current Medications Ondansetron HCl (Zofran Inj) 4 mg Q6H PRN IV NAUSEA AND/OR VOMITING; Start at 14:30 Acetaminophen (Tylenol Tab) 650 mg Q6H PRN PO PAIN LEVEL 1-3 OR FEVER Last administered on 01/10/17t 13:32; Admin Dose 650 MG; Start 12/31/16 at 14:30 Acetaminophen/ Hydrocodone Bitart ([place] (5/325)) 1 tab Q6H PRN PO MODERATE PAIN LEVEL 4-6; Start 12/31/16 at 14:30 Morphine Sulfate (morphine) 2 mg Q4H PRN IV SEVERE PAIN LEVEL 7-10; Start at 14:30 Docusate Sodium (Colace) 100 mg Q12H PRN PO CONSTIPATION; Start 12/31/16 at 14 :30 Magnesium Hydroxide (Milk Of Mag) 30 ml DAILY PRN PO CONSTIPATION; Start 12/31 at 14:30 Sodium Biphosphate/ Sodium Phosphate (Fleet Enema) 133 ml DAILY PRN [place] CONSTIPATION; Start 12/31/16 at 14:30 Heparin Sodium (Porcine) (Heparin (5000 Units/0.5 ml)) 5,000 unit Q12 SC Last administered on 01/11/17 08:24; Admin Dose 5,000 UNIT; Start 12/31/16 at 15:00 Nitroglycerin (Nitroglycerin (Sl Tab) 0.4 Mg) 1 tab Q5M PRN SL ANGINA; Start 12/31/16 at 14:30 Thiamine HCl (Vitamin B1) 100 mg DAILY PO Last administered on 01/11/17 08:21 ; Admin Dose 100 MG; Start 12/31/16 at 15:00 Folic Acid (Folic Acid) 1 mg DAILY PO Last administered on 01/11/17 08:21; Admin Dose 1 MG; Start 12/31/16 at 15:00 Lorazepam (Ativan) 1 mg Q1H PRN IV CONTROL WITHDRAWAL SYMPTOMS Last administered on 01/02/17 14:30; Admin Dose 1 MG; Start 12/31/16 at 15:30 Nystatin (Nystatin Susp) 5 ml QID PO Last administered on 01/11/17 08:21; Admin Dose 5 ML; Start 01/01/17 at 17:00 Multivitamins Therapeutic (Theragran) 1 tab DAILY PO Last administered on 08:21; Admin Dose 1 TAB; Start 01/02/17 at 09:00 Levothyroxine Sodium (Synthroid) 50 mcg DAILY@06 PO Last administered on 05:33; Admin Dose 50 MCG; Start 01/04/17 at 06:00 Guaifenesin/ Dextromethorphan (Robitussin Dm Liquid Cup) 10 ml Q4H PRN PO COUGH Last administered on 01/10/17 13:32; Admin Dose 10 ML; Start 01/03/17 at 23:30 Ibuprofen 400 mg 400 mg Q6H PRN PO PAIN OR TEMP ABOVE 38C; Start 01/04/17 at 11 :00 Piperacillin Sod/ Tazobactam Sod (Zosyn 3.375gm/ 50 ml (Pmx)) 50 ml @ 100 mls/ hr Q8 IVPB Last administered on 01/11/17t 05:41; Admin Dose 100 MLS/HR; Start 01/09/17 at 14:00 BREE ARENAS MD Jan 11, 2017 13:21
--- NOTE | 2017-01-11 14:15 | CONS ---
Date/Time of Note Date/Time of Note DATE: 01/11/17 TIME: 14:14 Assessment/Plan Assessment/Plan Chief Complaint/Hosp Course SUBJECTIVE: Patient is awake, looks comfortable, no n/v/d, fevers improved LABORATORY DATA: Blood cultures have been negative. Urinalysis was negative. Hepatitis panel and HIV negative. Abx: Zosyn PHYSICAL EXAMINATION: GENERAL: This is a morbidly obese young man who is alert, in no distress. HEENT: Head atraumatic, normocephalic. Sclerae anicteric. Buccal mucosa dry with white rash on his tongue and halitosis. NECK: Obese. CHEST: Rise symmetrical. Breath sounds diminished to bases. HEART: S1, S2. ABDOMEN: Obese, soft. Bowel tones present. EXTREMITIES: Without cyanosis. ASSESSMENT: 1. Ongoing fevers with leukocytosis==> improved 2. Transaminitis ==> dilated CBD per US. 3. Oral thrush. 4. BLE edema 5. History of alcohol abuse 6. Poss nephritic syndrome PLAN: The patient is clinically stable, pending MRCP, pending WBC labeled scan [facility] staff/pt Problems: Consultation Date/Type/Reason Admit Date/Time Dec 31, 2016 at 13:50 Type of Consultation: ID Referring Provider: BREE ARENAS MD Exam/Review of Systems Vital Signs Vitals Vital Signs Date Time Temp Pulse Resp B/P Pulse Ox O2 Delivery O2 Flow Rate FiO2 01/11/17 12:08 97 01/11/17 11:34 98.1 17 113/68 98 01/09/17 04:00 Room Air Intake and Output 01/10/17 01/10/17 01/11/17 14:59 22:59 06:59 Intake Total 550 ml 600 ml Balance 550 ml 600 ml Results Result Diagram: 01/11/1714 01/11/1714 Results 24 hrs Laboratory Tests Test 01/11/17 08:14 White Blood Count 16.3 H Red Blood Count 3.08 L Hemoglobin 9.9 L Hematocrit 32.1 L Mean Corpuscular Volume 104.2 H Mean Corpuscular Hemoglobin 32.1 Mean Corpuscular Hemoglobin Concent 30.8 L Red Cell Distribution Width 15.9 H Platelet Count 301 Mean Platelet Volume 9.5 Neutrophils % 74.6 Lymphocytes % 12.5 L Monocytes % 6.3 Eosinophils % 4.7 Basophils % 0.6 Nucleated Red Blood Cells % 0.0 Neutrophils # 12.2 H Lymphocytes # 2.0 Monocytes # 1.0 H Eosinophils # 0.8 H Basophils # 0.1 Nucleated Red Blood Cells # 0.0 Sodium Level 140 Potassium Level 4.2 Chloride Level 104 Carbon Dioxide Level 26 Anion Gap 14 Blood Urea Nitrogen 3 L Creatinine 0.71 Glucose Level 122 Calcium Level 7.9 L Total Bilirubin 0.7 Direct Bilirubin 0.00 Indirect Bilirubin 0.7 Aspartate Amino Transf (AST/SGOT) 135 H Alanine Aminotransferase (ALT/SGPT) 39 Alkaline Phosphatase 120 Total Protein 7.2 Albumin 3.3 Globulin 3.90 H Albumin/Globulin Ratio 0.84 Medications Medications Current Medications Ondansetron HCl (Zofran Inj) 4 mg Q6H PRN IV NAUSEA AND/OR VOMITING; Start at 14:30 Acetaminophen (Tylenol Tab) 650 mg Q6H PRN PO PAIN LEVEL 1-3 OR FEVER Last administered on 01/10/17 13:32; Admin Dose 650 MG; Start 12/31/16 at 14:30 Acetaminophen/ Hydrocodone Bitart ([place] (5/325)) 1 tab Q6H PRN PO MODERATE PAIN LEVEL 4-6; Start 12/31/16 at 14:30 Morphine Sulfate (morphine) 2 mg Q4H PRN IV SEVERE PAIN LEVEL 7-10; Start at 14:30 Docusate Sodium (Colace) 100 mg Q12H PRN PO CONSTIPATION; Start 12/31/16 at 14 :30 Magnesium Hydroxide (Milk Of Mag) 30 ml DAILY PRN PO CONSTIPATION; Start 12/31 at 14:30 Sodium Biphosphate/ Sodium Phosphate (Fleet Enema) 133 ml DAILY PRN [place] CONSTIPATION; Start 12/31/16 at 14:30 Heparin Sodium (Porcine) (Heparin (5000 Units/0.5 ml)) 5,000 unit Q12 SC Last administered on 01/11/17 08:24; Admin Dose 5,000 UNIT; Start 12/31/16 at 15:00 Nitroglycerin (Nitroglycerin (Sl Tab) 0.4 Mg) 1 tab Q5M PRN [place] ANGINA; Start 12/31/16 at 14:30 Thiamine HCl (Vitamin B1) 100 mg DAILY PO Last administered on 01/11/17 08:21 ; Admin Dose 100 MG; Start 12/31/16 at 15:00 Folic Acid (Folic Acid) 1 mg DAILY PO Last administered on 01/11/17 08:21; Admin Dose 1 MG; Start 12/31/16 at 15:00 Lorazepam (Ativan) 1 mg Q1H PRN IV CONTROL WITHDRAWAL SYMPTOMS Last administered on 01/02/17 14:30; Admin Dose 1 MG; Start 12/31/16 at 15:30 Nystatin (Nystatin Susp) 5 ml QID PO Last administered on 01/11/17 13:40; Admin Dose 5 ML; Start 01/01/17 at 17:00 Multivitamins Therapeutic (Theragran) 1 tab DAILY PO Last administered on 08:21; Admin Dose 1 TAB; Start 01/02/17 at 09:00 Levothyroxine Sodium (Synthroid) 50 mcg DAILY@06 PO Last administered on 05:33; Admin Dose 50 MCG; Start 01/04/17 at 06:00 Guaifenesin/ Dextromethorphan (Robitussin Dm Liquid Cup) 10 ml Q4H PRN PO COUGH Last administered on 01/10/17 13:32; Admin Dose 10 ML; Start 01/03/17 at 23:30 Ibuprofen 400 mg 400 mg Q6H PRN PO PAIN OR TEMP ABOVE 38C; Start 01/04/17 at 11 :00 Piperacillin Sod/ Tazobactam Sod (Zosyn 3.375gm/ 50 ml (Pmx)) 50 ml @ 100 mls/ hr Q8 IVPB Last administered on 01/11/17 13:40; Admin Dose 100 MLS/HR; Start 01/09/17 at 14:00 BRENDEN SCOTT NP Jan 11, 2017 14:15
[2017-01-12] VITALS (7 sets, daily range): BP systolic 107–139; BP diastolic 61–83; RESP 18–20
[2017-01-12] MEDS: PIPER-TAZO 3.375 GM IV (PMX) 50 ML IVPB SCH ×3 (05:58→21:04)
[2017-01-12] MEDS: LEVOTHYROXINE 50 MCG TAB PO SCH (06:00)
[2017-01-12 08:41] LABS: BASOPHIL # 0.1 10^3/ul (0.0-0.1); BASOPHILS % 0.7 % (0.0-2.0); EOSINOPHILS % 5.3 % (0.0-7.0); HEMATOCRIT 31.9 % (42.0-52.0); HEMOGLOBIN 10.1 g/dl (14.0-18.0); LYMPHOCYTES # 2.2 10^3/ul (0.8-2.9); MEAN CORPUSCULAR HEMOGLOBIN 33.3 pg (29.0-33.0); MEAN CORPUSCULAR HGB CONC 31.7 g/dl (32.0-37.0); MEAN CORPUSCULAR VOLUME 105.3 fl (82.0-101.0); MEAN PLATELET VOLUME 9.6 fl (7.4-10.4); MONOCYTE # 1.2 10^3/ul (0.3-0.9); MONOCYTES % 6.6 % (0.0-11.0); NEUTROPHIL # 13.7 10^3/ul (1.6-7.5); NEUTROPHILS % 74.3 % (39.0-77.0); PLATELET COUNT 318 10^3/UL (140-415); RED BLOOD COUNT 3.03 10^6/ul (4.70-6.10); RED CELL DISTRIBUTION WIDTH 15.4 % (11.5-14.5); WHITE BLOOD COUNT 18.4 10^3/ul (4.8-10.8)
[2017-01-12] MEDS: FOLIC ACID 1 MG TAB PO SCH (09:08)
[2017-01-12] MEDS: NYSTATIN SUSP 5 ML CUP PO SCH ×4 (09:08→21:04)
[2017-01-12] MEDS: THIAMINE 100 MG TAB PO SCH (09:08)
[2017-01-12] MEDS: MULTIVITAMINS THERAPEUTIC TAB PO SCH (09:08)
[2017-01-12] MEDS: HEPARIN 5,000 UNIT/0.5 ML VIAL SC SCH ×2 (09:12→21:05)
--- NOTE | 2017-01-12 13:12 | CONS ---
Date/Time of Note Date/Time of Note DATE: 01/12/17 TIME: 13:11 Assessment/Plan Assessment/Plan Chief Complaint/Hosp Course SUBJECTIVE: Patient is awake, looks comfortable, no n/v/d, low grade temps, Tm 99.6 LABORATORY DATA: Blood cultures have been negative. Urinalysis was negative. Hepatitis panel and HIV negative. Abx: Zosyn PHYSICAL EXAMINATION: GENERAL: This is a morbidly obese young man who is alert, in no distress. HEENT: Head atraumatic, normocephalic. Sclerae anicteric. Buccal mucosa dry with white rash on his tongue and halitosis. NECK: Obese. CHEST: Rise symmetrical. Breath sounds diminished to bases. HEART: S1, S2. ABDOMEN: Obese, soft. Bowel tones present. EXTREMITIES: Without cyanosis. ASSESSMENT: 1. Ongoing fevers with leukocytosis 2. Transaminitis ==> dilated CBD per US. 3. Oral thrush. 4. BLE edema 5. History of alcohol abuse 6. Poss nephritic syndrome PLAN: The patient is clinically stable, pending MRCP, pending WBC labeled scan , continue abx for concern of septic process DW staff/pt Problems: Consultation Date/Type/Reason Admit Date/Time Dec 31, 2016 at 13:50 Type of Consultation: ID Referring Provider: BREE ARENAS MD Exam/Review of Systems Vital Signs Vitals Vital Signs Date Time Temp Pulse Resp B/P Pulse Ox O2 Delivery O2 Flow Rate FiO2 01/12/17 12:29 98.2 118 18 120/75 95 01/09/17 04:00 Room Air Intake and Output 01/11/17 01/11/17 01/12/17 15:00 23:00 07:00 Intake Total 550 ml Balance 550 ml Results Result Diagram: 01/12/17 0741 01/11/17 0814 Results 24 hrs Laboratory Tests Test 01/12/17 07:41 White Blood Count 18.4 H Red Blood Count 3.03 L Hemoglobin 10.1 L Hematocrit 31.9 L Mean Corpuscular Volume 105.3 H Mean Corpuscular Hemoglobin 33.3 H Mean Corpuscular Hemoglobin Concent 31.7 L Red Cell Distribution Width 15.4 H Platelet Count 318 Mean Platelet Volume 9.6 Neutrophils % 74.3 Lymphocytes % 12.0 L Monocytes % 6.6 Eosinophils % 5.3 Basophils % 0.7 Nucleated Red Blood Cells % 0.0 Neutrophils # 13.7 H Lymphocytes # 2.2 Monocytes # 1.2 H Eosinophils # 1.0 H Basophils # 0.1 Nucleated Red Blood Cells # 0.0 Medications Medications Current Medications Ondansetron HCl (Zofran Inj) 4 mg Q6H PRN IV NAUSEA AND/OR VOMITING; Start at 14:30 Acetaminophen (Tylenol Tab) 650 mg Q6H PRN PO PAIN LEVEL 1-3 OR FEVER Last administered on 01/10/17 13:32; Admin Dose 650 MG; Start 12/31/16 at 14:30 Acetaminophen/ Hydrocodone Bitart ([place] (5/325)) 1 tab Q6H PRN PO MODERATE PAIN LEVEL 4-6; Start 12/31/16 at 14:30 Morphine Sulfate (morphine) 2 mg Q4H PRN IV SEVERE PAIN LEVEL 7-10; Start at 14:30 Docusate Sodium (Colace) 100 mg Q12H PRN PO CONSTIPATION; Start 12/31/16 at 14 :30 Magnesium Hydroxide (Milk Of Mag) 30 ml DAILY PRN PO CONSTIPATION; Start 12/31 at 14:30 Sodium Biphosphate/ Sodium Phosphate (Fleet Enema) 133 ml DAILY PRN [place] CONSTIPATION; Start 12/31/16 at 14:30 Heparin Sodium (Porcine) (Heparin (5000 Units/0.5 ml)) 5,000 unit Q12 SC Last administered on 01/12/17 09:12; Admin Dose 5,000 UNIT; Start 12/31/16 at 15: 00 Nitroglycerin (Nitroglycerin (Sl Tab) 0.4 Mg) 1 tab Q5M PRN SL ANGINA; Start 12/31/16 at 14:30 Thiamine HCl (Vitamin B1) 100 mg DAILY PO Last administered on 01/12/17 09:08 ; Admin Dose 100 MG; Start 12/31/16 at 15:00 Folic Acid (Folic Acid) 1 mg DAILY PO Last administered on 01/12/17 09:08; Admin Dose 1 MG; Start 12/31/16 at 15:00 Lorazepam (Ativan) 1 mg Q1H PRN IV CONTROL WITHDRAWAL SYMPTOMS Last administered on 01/02/17 14:30; Admin Dose 1 MG; Start 12/31/16 at 15:30 Nystatin (Nystatin Susp) 5 ml QID PO Last administered on 01/12/17 09:08; Admin Dose 5 ML; Start 01/01/17 at 17:00 Multivitamins Therapeutic (Theragran) 1 tab DAILY PO Last administered on 01/12 09:08; Admin Dose 1 TAB; Start 01/02/17 at 09:00 Levothyroxine Sodium (Synthroid) 50 mcg DAILY@06 PO Last administered on 06:00; Admin Dose 50 MCG; Start 01/04/17 at 06:00 Guaifenesin/ Dextromethorphan (Robitussin Dm Liquid Cup) 10 ml Q4H PRN PO COUGH Last administered on 01/10/17 13:32; Admin Dose 10 ML; Start 01/03/17 at 23:30 Ibuprofen 400 mg 400 mg Q6H PRN PO PAIN OR TEMP ABOVE 38C; Start 01/04/17 at 11 :00 Piperacillin Sod/ Tazobactam Sod (Zosyn 3.375gm/ 50 ml (Pmx)) 50 ml @ 100 mls/ hr Q8 IVPB Last administered on 01/12/17 05:58; Admin Dose 100 MLS/HR; Start 01/09/17 at 14:00 BRENDEN SCOTT NP Jan 12, 2017 13:12
--- NOTE | 2017-01-12 13:50 | PN ---
Date/Time of Note Date/Time of Note DATE: 01/12/17 TIME: 13:48 Assessment/Plan VTE Prophylaxis VTE Prophylaxis Intervention: heparin Lines/Catheters IV [facility] Urinary Cath still in place: No Assessment/Plan Assessment/Plan 1. Persistent leukocytosis, unclear source/etiology, likely respiratory, restart zosyn on 01/09/2017. WBC scan schedule on next Sunday 2. Cough with hoarseness, on zosyn 3. Alcoholism, no withdrawal 4. Transaminitis, alcohol related, follow up with LFTs 5. Dilated CBD on US, refuses MRCP 6. 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 Peripheral edema with hypoalbuminemia, probably from fatty liver disease related, check 24 hour urine protein r/o renal loss 8. DVT prophylaxis: heparin Subjective 24 Hr Interval Summary Free Text/Dictation afebrile. less cough. no shortness of breath Exam/Review of Systems Vital Signs Vitals Vital Signs Date Time Temp Pulse Resp B/P Pulse Ox O2 Delivery O2 Flow Rate FiO2 01/12/17 12:29 98.2 118 18 120/75 95 01/09/17 04:00 Room Air Intake and Output 01/11/17 01/11/17 01/12/17 15:00 23:00 07:00 Intake Total 550 ml Balance 550 ml Exam Constitutional: alert, obese, oriented, well developed Psych: nl mood/affect, no complaints Head: atraumatic, normocephalic Eyes: EOMI, nl conjunctiva, nl lids ENMT: nl external ears & nose, nl lips & teeth, nl nasal mucosa & septum Neck: non-tender, supple Respiratory: clear to auscultation, normal air movement, No congested cough, No crackles/rales, No diminished breath sounds, No intercostal retraction, No labored breathing, No other, No respirations, No tactile fremitus, No wheezing Cardiovascular: nl pulses, regular rate and rhythm, No S3, No S4, No bruits, No diastolic murmur, No edema, No gallop, No irregular rhythm, No jugular venous distention (JVD), No murmurs/extra sounds, No other, No rub, No systolic murmur Gastrointestinal: nl liver, spleen, non-tender, soft Musculoskeletal: nl extremities to inspection Extremities: edema, normal pulses, No calf tenderness, No clubbing, No cyanosis, No other, No palpable cord, No pitting pedal edema, No tenderness 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: 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, nl mental status, nl speech, nl strength Results Result Diagram: 01/12/17 0741 01/11/17 0814 Results 24 hrs Laboratory Tests Test 01/12/17 07:41 White Blood Count 18.4 H Red Blood Count 3.03 L Hemoglobin 10.1 L Hematocrit 31.9 L Mean Corpuscular Volume 105.3 H Mean Corpuscular Hemoglobin 33.3 H Mean Corpuscular Hemoglobin Concent 31.7 L Red Cell Distribution Width 15.4 H Platelet Count 318 Mean Platelet Volume 9.6 Neutrophils % 74.3 Lymphocytes % 12.0 L Monocytes % 6.6 Eosinophils % 5.3 Basophils % 0.7 Nucleated Red Blood Cells % 0.0 Neutrophils # 13.7 H Lymphocytes # 2.2 Monocytes # 1.2 H Eosinophils # 1.0 H Basophils # 0.1 Nucleated Red Blood Cells # 0.0 Medications Medications Current Medications Ondansetron HCl (Zofran Inj) 4 mg Q6H PRN IV NAUSEA AND/OR VOMITING; Start at 14:30 Acetaminophen (Tylenol Tab) 650 mg Q6H PRN PO PAIN LEVEL 1-3 OR FEVER Last administered on 01/10/17 13:32; Admin Dose 650 MG; Start 12/31/16 at 14:30 Acetaminophen/ Hydrocodone Bitart ([place] (5/325)) 1 tab Q6H PRN PO MODERATE PAIN LEVEL 4-6; Start 12/31/16 at 14:30 Morphine Sulfate (morphine) 2 mg Q4H PRN IV SEVERE PAIN LEVEL 7-10; Start at 14:30 Docusate Sodium (Colace) 100 mg Q12H PRN PO CONSTIPATION; Start 12/31/16 at 14 :30 Magnesium Hydroxide (Milk Of Mag) 30 ml DAILY PRN PO CONSTIPATION; Start 12/31 at 14:30 Sodium Biphosphate/ Sodium Phosphate (Fleet Enema) 133 ml DAILY PRN [place] CONSTIPATION; Start 12/31/16 at 14:30 Heparin Sodium (Porcine) (Heparin (5000 Units/0.5 ml)) 5,000 unit Q12 SC Last administered on 01/12/17 09:12; Admin Dose 5,000 UNIT; Start 12/31/16 at 15: 00 Nitroglycerin (Nitroglycerin (Sl Tab) 0.4 Mg) 1 tab Q5M PRN SL ANGINA; Start 12/31/16 at 14:30 Thiamine HCl (Vitamin B1) 100 mg DAILY PO Last administered on 01/12/17 09:08 ; Admin Dose 100 MG; Start 12/31/16 at 15:00 Folic Acid (Folic Acid) 1 mg DAILY PO Last administered on 01/12/17 09:08; Admin Dose 1 MG; Start 12/31/16 at 15:00 Lorazepam (Ativan) 1 mg Q1H PRN IV CONTROL WITHDRAWAL SYMPTOMS Last administered on 01/02/17 14:30; Admin Dose 1 MG; Start 12/31/16 at 15:30 Nystatin (Nystatin Susp) 5 ml QID PO Last administered on 01/12/17 13:14; Admin Dose 5 ML; Start 01/01/17 at 17:00 Multivitamins Therapeutic (Theragran) 1 tab DAILY PO Last administered on 01/12 09:08; Admin Dose 1 TAB; Start 01/02/17 at 09:00 Levothyroxine Sodium (Synthroid) 50 mcg DAILY@06 PO Last administered on 06:00; Admin Dose 50 MCG; Start 01/04/17 at 06:00 Guaifenesin/ Dextromethorphan (Robitussin Dm Liquid Cup) 10 ml Q4H PRN PO COUGH Last administered on 01/10/17 13:32; Admin Dose 10 ML; Start 01/03/17 at 23:30 Ibuprofen 400 mg 400 mg Q6H PRN PO PAIN OR TEMP ABOVE 38C; Start 01/04/17 at 11 :00 Piperacillin Sod/ Tazobactam Sod (Zosyn 3.375gm/ 50 ml (Pmx)) 50 ml @ 100 mls/ hr Q8 IVPB Last administered on 01/12/17 05:58; Admin Dose 100 MLS/HR; Start 01/09/17 at 14:00 BREE ARENAS MD Jan 12, 2017 13:50
--- NOTE | 2017-01-12 17:31 | CONS ---
Date/Time of Note Date/Time of Note DATE: 01/12/17 TIME: 17:30 Assessment/Plan Assessment/Plan Chief Complaint/Hosp Course 21-year-old male with no PMHx except alcohol abuse, admitted with SIRS cough, CAP- treated with iV abx, pt persitently have Cough with low grade fever, ID followed up on patient. pt finished Levaquin abx for PNA coverage but continues to have low grade fever, with signficant LE 3-4+ edema, UA negative for protein Pt was treated with IV albumin +IV lasix for diuresis but continues to have Edema. Renal has been consulted for Anasarca, to rule out nephrotic syndrome. Problems: Additional Assessment/Plan 1. Anasarca with Significant LE edema- 3+, US negative for DVT, US abdomen did not show ascites- CXR showed mild pulmonary congestion 2. Community acquired pneumonia, likely viral, influenza screen, levaquin 3. Leukocytosis, likely reactive from viral infection 4. Alcoholism, no withdrawal 5. Transaminitis, alcohol related, follow up with LFTs Plan: Autoimmune work up including DOLORES, ANCA< ESR, CRP, Rheumatoid factor, C3, C4, total complement - negative His HIV, hepatitis panel negative plan for WBC Scan on Sunday US LE negative for DVT- s/p IV lasix + albumin diuresis still has LE edema- 24 hr urine collection did not show nephrotic range proteinuria US abdomen showed fatty liver, hepatomegaluy, no evidence of cirrhosis. Heparin for DVT prophylaxis will follow up Consultation Date/Type/Reason Admit Date/Time Dec 31, 2016 at 13:50 Initial Consult Date 01/08/17 Type of Consultation: NEPHROLOG Y Referring Provider: BREE ARENAS MD 24 HR Interval Summary Free Text/Dictation plan for WBC Scan on Sunday Exam/Review of Systems Vital Signs Vitals Vital Signs Date Time Temp Pulse Resp B/P Pulse Ox O2 Delivery O2 Flow Rate FiO2 01/12/17 16:23 98.1 110 18 107/63 97 01/09/17 04:00 Room Air Intake and Output 01/11/17 01/11/17 01/12/17 15:00 23:00 07:00 Intake Total 550 ml Balance 550 ml Exam Constitutional: alert Respiratory: clear to auscultation, crackles/rales Cardiovascular: nl pulses, regular rate and rhythm, Tachycardia Gastrointestinal: non-tender, soft Genitourinary - Male: other (scrotal edema ) Musculoskeletal: muscle weakness, swelling (1-2+ LE Edema ) Extremities: normal pulses 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: AGR[employer]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 II-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 intact, nl mental status, nl speech, nl strength Results Result Diagram: 01/12/17 0741 01/11/17 0814 Results 24 hrs Laboratory Tests Test 01/12/17 07:41 White Blood Count 18.4 H Red Blood Count 3.03 L Hemoglobin 10.1 L Hematocrit 31.9 L Mean Corpuscular Volume 105.3 H Mean Corpuscular Hemoglobin 33.3 H Mean Corpuscular Hemoglobin Concent 31.7 L Red Cell Distribution Width 15.4 H Platelet Count 318 Mean Platelet Volume 9.6 Neutrophils % 74.3 Lymphocytes % 12.0 L Monocytes % 6.6 Eosinophils % 5.3 Basophils % 0.7 Nucleated Red Blood Cells % 0.0 Neutrophils # 13.7 H Lymphocytes # 2.2 Monocytes # 1.2 H Eosinophils # 1.0 H Basophils # 0.1 Nucleated Red Blood Cells # 0.0 Medications Medications Current Medications Ondansetron HCl (Zofran Inj) 4 mg Q6H PRN IV NAUSEA AND/OR VOMITING; Start at 14:30 Acetaminophen (Tylenol Tab) 650 mg Q6H PRN PO PAIN LEVEL 1-3 OR FEVER Last administered on 01/10/17 13:32; Admin Dose 650 MG; Start 12/31/16 at 14:30 Acetaminophen/ Hydrocodone Bitart ([place] (5/325)) 1 tab Q6H PRN PO MODERATE PAIN LEVEL 4-6; Start 12/31/16 at 14:30 Morphine Sulfate (morphine) 2 mg Q4H PRN IV SEVERE PAIN LEVEL 7-10; Start at 14:30 Docusate Sodium (Colace) 100 mg Q12H PRN PO CONSTIPATION; Start 12/31/16 at 14 :30 Magnesium Hydroxide (Milk Of Mag) 30 ml DAILY PRN PO CONSTIPATION; Start 12/31 at 14:30 Sodium Biphosphate/ Sodium Phosphate (Fleet Enema) 133 ml DAILY PRN [place] CONSTIPATION; Start 12/31/16 at 14:30 Heparin Sodium (Porcine) (Heparin (5000 Units/0.5 ml)) 5,000 unit Q12 SC Last administered on 01/12/17 09:12; Admin Dose 5,000 UNIT; Start 12/31/16 at 15: 00 Nitroglycerin (Nitroglycerin (Sl Tab) 0.4 Mg) 1 tab Q5M PRN SL ANGINA; Start 12/31/16 at 14:30 Thiamine HCl (Vitamin B1) 100 mg DAILY PO Last administered on 01/12/17 09:08 ; Admin Dose 100 MG; Start 12/31/16 at 15:00 Folic Acid (Folic Acid) 1 mg DAILY PO Last administered on 01/12/17 09:08; Admin Dose 1 MG; Start 12/31/16 at 15:00 Lorazepam (Ativan) 1 mg Q1H PRN IV CONTROL WITHDRAWAL SYMPTOMS Last administered on 01/02/17 14:30; Admin Dose 1 MG; Start 12/31/16 at 15:30 Nystatin (Nystatin Susp) 5 ml QID PO Last administered on 01/12/17 13:14; Admin Dose 5 ML; Start 01/01/17 at 17:00 Multivitamins Therapeutic (Theragran) 1 tab DAILY PO Last administered on 01/12 09:08; Admin Dose 1 TAB; Start 01/02/17 at 09:00 Levothyroxine Sodium (Synthroid) 50 mcg DAILY@06 PO Last administered on 06:00; Admin Dose 50 MCG; Start 01/04/17 at 06:00 Guaifenesin/ Dextromethorphan (Robitussin Dm Liquid Cup) 10 ml Q4H PRN PO COUGH Last administered on 01/10/17 13:32; Admin Dose 10 ML; Start 01/03/17 at 23:30 Ibuprofen 400 mg 400 mg Q6H PRN PO PAIN OR TEMP ABOVE 38C; Start 01/04/17 at 11 :00 Piperacillin Sod/ Tazobactam Sod (Zosyn 3.375gm/ 50 ml (Pmx)) 50 ml @ 100 mls/ hr Q8 IVPB Last administered on 01/12/17 14:17; Admin Dose 100 MLS/HR; Start 01/09/17 at 14:00 JAY ROSALES MD Jan 12, 2017 17:31
[2017-01-12] MEDS: GUAIFENESIN/DM 5ML CUP PO PRN (21:36)
[2017-01-13 02:00] VITALS: BP 134/65; RESP 20
[2017-01-13 05:44] LABS: HEMATOCRIT 31.8 % (42.0-52.0); HEMOGLOBIN 10.1 g/dl (14.0-18.0); LYMPHOCYTES % 12.6 % (15.0-51.0); MEAN CORPUSCULAR HEMOGLOBIN 32.7 pg (29.0-33.0); MEAN CORPUSCULAR HGB CONC 31.8 g/dl (32.0-37.0); MEAN CORPUSCULAR VOLUME 102.9 fl (82.0-101.0); MEAN PLATELET VOLUME 9.8 fl (7.4-10.4); MONOCYTES % 7.2 % (0.0-11.0); NEUTROPHILS % 73.4 % (39.0-77.0); PLATELET COUNT 331 10^3/UL (140-415); RED BLOOD COUNT 3.09 10^6/ul (4.70-6.10); RED CELL DISTRIBUTION WIDTH 15.3 % (11.5-14.5); WHITE BLOOD COUNT 18.9 10^3/ul (4.8-10.8)
[2017-01-13 05:45] LABS: BASOPHIL # 0.1 10^3/ul (0.0-0.1); BASOPHILS % 0.6 % (0.0-2.0); EOSINOPHILS # 0.9 10^3/ul (0.0-0.5); EOSINOPHILS % 4.8 % (0.0-7.0); LYMPHOCYTES # 2.4 10^3/ul (0.8-2.9); MONOCYTE # 1.4 10^3/ul (0.3-0.9); NEUTROPHIL # 13.9 10^3/ul (1.6-7.5)
[2017-01-13] MEDS: LEVOTHYROXINE 50 MCG TAB PO SCH (06:15)
[2017-01-13] MEDS: PIPER-TAZO 3.375 GM IV (PMX) 50 ML IVPB SCH ×2 (06:16→13:34)
[2017-01-13] MEDS: GUAIFENESIN/DM 5ML CUP PO PRN ×2 (06:24→20:17)
[2017-01-13 08:00] VITALS: BP 118/69; RESP 19
[2017-01-13] MEDS: FOLIC ACID 1 MG TAB PO SCH (08:49)
[2017-01-13] MEDS: NYSTATIN SUSP 5 ML CUP PO SCH ×4 (08:49→20:10)
[2017-01-13] MEDS: MULTIVITAMINS THERAPEUTIC TAB PO SCH (08:49)
[2017-01-13] MEDS: THIAMINE 100 MG TAB PO SCH (08:49)
[2017-01-13] MEDS: HEPARIN 5,000 UNIT/0.5 ML VIAL SC SCH ×2 (08:59→20:10)
--- NOTE | 2017-01-13 13:52 | PN ---
Date/Time of Note Date/Time of Note DATE: 01/13/17 TIME: 13:47 Assessment/Plan VTE Prophylaxis VTE Prophylaxis Intervention: heparin Lines/Catheters IV Catheter Type (from [facility]): Saline Lock Urinary Cath still in place: No Assessment/Plan Chief Complaint/Hosp Course Assessment/Plan: 21-year-old male with: 1. Persistent leukocytosis, unclear source/etiology, likely respiratory, on Zosyn since 01/09/2017. WBC scan schedule on Sunday 2. Cough with hoarseness -monitor, cough medicines as needed, also on zosyn 3. Alcoholism, no withdrawal -monitor 4. Transaminitis, alcohol related, follow up with LFTs 5. Dilated CBD on US, refuses MRCP 6. 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 Peripheral edema with hypoalbuminemia, probably from fatty liver disease related, check 24 hour urine protein r/o renal loss 8. DVT prophylaxis: heparin Problems: Subjective 24 Hr Interval Summary Free Text/Dictation No acute events overnight. Patient refused abdominal MRI scan. Exam/Review of Systems Vital Signs Vitals Vital Signs Date Time Temp Pulse Resp B/P Pulse Ox O2 Delivery O2 Flow Rate FiO2 01/13/17 08:00 99.3 109 19 118/69 96 Intake and Output 01/12/17 01/12/17 01/13/17 15:00 23:00 07:00 Intake Total 550 ml 50 ml Balance 550 ml 50 ml Exam Constitutional: alert, obese, oriented, well developed Psych: nl mood/affect, no complaints Head: atraumatic, normocephalic Eyes: EOMI, nl conjunctiva, nl lids ENMT: nl external ears & nose, nl lips & teeth, nl nasal mucosa & septum Neck: non-tender, supple Respiratory: clear to auscultation, normal air movement, No congested cough, No crackles/rales, No diminished breath sounds, No intercostal retraction, No labored breathing, No other, No respirations, No tactile fremitus, No wheezing Cardiovascular: nl pulses, regular rate and rhythm, No S3, No S4, No bruits, No diastolic murmur, No edema, No gallop, No irregular rhythm, No jugular venous distention (JVD), No murmurs/extra sounds, No other, No rub, No systolic murmur Gastrointestinal: nl liver, spleen, non-tender, soft Musculoskeletal: nl extremities to inspection Extremities: edema, normal pulses, No calf tenderness, No clubbing, No cyanosis, No other, No palpable cord, No pitting pedal edema, No tenderness 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: GI ASST II-XII intact, nl mental status, nl speech, nl strength Results Result Diagram: 01/13/17 0435 01/11/17 0814 Results 24 hrs Laboratory Tests Test 01/13/17 04:35 White Blood Count 18.9 H Red Blood Count 3.09 L Hemoglobin 10.1 L Hematocrit 31.8 L Mean Corpuscular Volume 102.9 H Mean Corpuscular Hemoglobin 32.7 Mean Corpuscular Hemoglobin Concent 31.8 L Red Cell Distribution Width 15.3 H Platelet Count 331 Mean Platelet Volume 9.8 Neutrophils % 73.4 Lymphocytes % 12.6 L Monocytes % 7.2 Eosinophils % 4.8 Basophils % 0.6 Nucleated Red Blood Cells % 0.0 Neutrophils # 13.9 H Lymphocytes # 2.4 Monocytes # 1.4 H Eosinophils # 0.9 H Basophils # 0.1 Nucleated Red Blood Cells # 0.0 Medications Medications Current Medications Ondansetron HCl (Zofran Inj) 4 mg Q6H PRN IV NAUSEA AND/OR VOMITING; Start at 14:30 Acetaminophen (Tylenol Tab) 650 mg Q6H PRN PO PAIN LEVEL 1-3 OR FEVER Last administered on 01/10/17t 13:32; Admin Dose 650 MG; Start 12/31/16 at 14:30 Acetaminophen/ Hydrocodone Bitart ([place] (5/325)) 1 tab Q6H PRN PO MODERATE PAIN LEVEL 4-6; Start 12/31/16 at 14:30 Morphine Sulfate (morphine) 2 mg Q4H PRN IV SEVERE PAIN LEVEL 7-10; Start at 14:30 Docusate Sodium (Colace) 100 mg Q12H PRN PO CONSTIPATION; Start 12/31/16 at 14 :30 Magnesium Hydroxide (Milk Of Mag) 30 ml DAILY PRN PO CONSTIPATION; Start 12/31 at 14:30 Sodium Biphosphate/ Sodium Phosphate (Fleet Enema) 133 ml DAILY PRN [place] CONSTIPATION; Start 12/31/16 at 14:30 Heparin Sodium (Porcine) (Heparin (5000 Units/0.5 ml)) 5,000 unit Q12 SC Last administered on 01/13/17 08:59; Admin Dose 5,000 UNIT; Start 12/31/16 at 15: 00 Nitroglycerin (Nitroglycerin (Sl Tab) 0.4 Mg) 1 tab Q5M PRN SL ANGINA; Start 12/31/16 at 14:30 Thiamine HCl (Vitamin B1) 100 mg DAILY PO Last administered on 01/13/17 08:49 ; Admin Dose 100 MG; Start 12/31/16 at 15:00 Folic Acid (Folic Acid) 1 mg DAILY PO Last administered on 01/13/17 08:49; Admin Dose 1 MG; Start 12/31/16 at 15:00 Lorazepam (Ativan) 1 mg Q1H PRN IV CONTROL WITHDRAWAL SYMPTOMS Last administered on 01/02/17 14:30; Admin Dose 1 MG; Start 12/31/16 at 15:30 Nystatin (Nystatin Susp) 5 ml QID PO Last administered on 01/13/17 13:34; Admin Dose 5 ML; Start 01/01/17 at 17:00 Multivitamins Therapeutic (Theragran) 1 tab DAILY PO Last administered on 01/13 08:49; Admin Dose 1 TAB; Start 01/02/17 at 09:00 Levothyroxine Sodium (Synthroid) 50 mcg DAILY@06 PO Last administered on 06:15; Admin Dose 50 MCG; Start 01/04/17 at 06:00 Guaifenesin/ Dextromethorphan (Robitussin Dm Liquid Cup) 10 ml Q4H PRN PO COUGH Last administered on 01/13/17 06:24; Admin Dose 10 ML; Start 01/03/17 at 23:30 Ibuprofen 400 mg 400 mg Q6H PRN PO PAIN OR TEMP ABOVE 38C; Start 01/04/17 at 11 :00 Piperacillin Sod/ Tazobactam Sod (Zosyn 3.375gm/ 50 ml (Pmx)) 50 ml @ 100 mls/ hr Q8 IVPB Last administered on 01/13/17 13:34; Admin Dose 100 MLS/HR; Start 01/09/17 at 14:00 LEIDY MARCUS 11, 2017 13:52
[2017-01-13 14:00] VITALS: BP 113/69; RESP 18
--- NOTE | 2017-01-13 16:44 | CONS ---
Date/Time of Note Date/Time of Note DATE: 01/13/17 TIME: 16:44 Assessment/Plan Assessment/Plan Additional Assessment/Plan 1. Anasarca with Significant LE edema- 3+, US negative for DVT, US abdomen did not show ascites- CXR showed mild pulmonary congestion 2. Community acquired pneumonia, likely viral, influenza screen, levaquin 3. Leukocytosis, likely reactive from viral infection 4. Alcoholism, no withdrawal 5. Transaminitis, alcohol related, follow up with LFTs Plan: Autoimmune work up including DOLORES, ANCA< ESR, CRP, Rheumatoid factor, C3, C4, total complement - negative His HIV, hepatitis panel negative plan for WBC Scan on Sunday US LE negative for DVT- s/p IV lasix + albumin diuresis still has LE edema- 24 hr urine collection did not show nephrotic range proteinuria US abdomen showed fatty liver, hepatomegaly, no evidence of cirrhosis. Heparin for DVT prophylaxis will follow up Consultation Date/Type/Reason Admit Date/Time Dec 31, 2016 at 13:50 Initial Consult Date 01/08/17 Type of Consultation: NEPHROLOG Y Referring Provider: BREE ARENAS MD 24 HR Interval Summary Free Text/Dictation resting, states his generalized body swelling is better than yesterday, afebrile, family at bed side- all Qs answered, dw staff- no new issues reported overnight Constitutional: improved Detailed Summary Respiratory: no complaints Cardiovascular: no complaints Gastrointestinal: no complaints Genitourinary: other (scrotal edema) Musculoskeletal: swelling (generelized body swelling) Exam/Review of Systems Vital Signs Vitals Vital Signs Date Time Temp Pulse Resp B/P Pulse Ox O2 Delivery O2 Flow Rate FiO2 01/13/17 08:00 99.3 109 19 118/69 96 Intake and Output 01/12/17 01/12/17 01/13/17 15:00 23:00 07:00 Intake Total 550 ml 50 ml Balance 550 ml 50 ml Exam Constitutional: alert, oriented Psych: nl mood/affect Respiratory: clear to auscultation, diminished breath sounds (bilaterally) Cardiovascular: nl pulses, other (s1s2) Gastrointestinal: non-tender, soft Musculoskeletal: nl extremities to inspection Extremities: edema (2+edema ble) 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: nl mental status, nl speech Results Result Diagram: 01/13/17 0435 01/11/17 0814 Results 24 hrs Laboratory Tests Test 01/13/17 04:35 White Blood Count 18.9 H Red Blood Count 3.09 L Hemoglobin 10.1 L Hematocrit 31.8 L Mean Corpuscular Volume 102.9 H Mean Corpuscular Hemoglobin 32.7 Mean Corpuscular Hemoglobin Concent 31.8 L Red Cell Distribution Width 15.3 H Platelet Count 331 Mean Platelet Volume 9.8 Neutrophils % 73.4 Lymphocytes % 12.6 L Monocytes % 7.2 Eosinophils % 4.8 Basophils % 0.6 Nucleated Red Blood Cells % 0.0 Neutrophils # 13.9 H Lymphocytes # 2.4 Monocytes # 1.4 H Eosinophils # 0.9 H Basophils # 0.1 Nucleated Red Blood Cells # 0.0 Medications Medications Current Medications Ondansetron HCl (Zofran Inj) 4 mg Q6H PRN IV NAUSEA AND/OR VOMITING; Start at 14:30 Acetaminophen (Tylenol Tab) 650 mg Q6H PRN PO PAIN LEVEL 1-3 OR FEVER Last administered on 01/10/17 13:32; Admin Dose 650 MG; Start 12/31/16 at 14:30 Acetaminophen/ Hydrocodone Bitart ([place] (5/325)) 1 tab Q6H PRN PO MODERATE PAIN LEVEL 4-6; Start 12/31/16 at 14:30 Morphine Sulfate (morphine) 2 mg Q4H PRN IV SEVERE PAIN LEVEL 7-10; Start at 14:30 Docusate Sodium (Colace) 100 mg Q12H PRN PO CONSTIPATION; Start 12/31/16 at 14 :30 Magnesium Hydroxide (Milk Of Mag) 30 ml DAILY PRN PO CONSTIPATION; Start 12/31 at 14:30 Sodium Biphosphate/ Sodium Phosphate (Fleet Enema) 133 ml DAILY PRN [place] CONSTIPATION; Start 12/31/16 at 14:30 Heparin Sodium (Porcine) (Heparin (5000 Units/0.5 ml)) 5,000 unit Q12 SC Last administered on 01/13/17 08:59; Admin Dose 5,000 UNIT; Start 12/31/16 at 15: 00 Nitroglycerin (Nitroglycerin (Sl Tab) 0.4 Mg) 1 tab Q5M PRN SL ANGINA; Start 12/31/16 at 14:30 Thiamine HCl (Vitamin B1) 100 mg DAILY PO Last administered on 01/13/17 08:49 ; Admin Dose 100 MG; Start 12/31/16 at 15:00 Folic Acid (Folic Acid) 1 mg DAILY PO Last administered on 01/13/17 08:49; Admin Dose 1 MG; Start 12/31/16 at 15:00 Lorazepam (Ativan) 1 mg Q1H PRN IV CONTROL WITHDRAWAL SYMPTOMS Last administered on 01/02/17 14:30; Admin Dose 1 MG; Start 12/31/16 at 15:30 Nystatin (Nystatin Susp) 5 ml QID PO Last administered on 01/13/17 13:34; Admin Dose 5 ML; Start 01/01/17 at 17:00 Multivitamins Therapeutic (Theragran) 1 tab DAILY PO Last administered on 01/13 08:49; Admin Dose 1 TAB; Start 01/02/17 at 09:00 Levothyroxine Sodium (Synthroid) 50 mcg DAILY@06 PO Last administered on 06:15; Admin Dose 50 MCG; Start 01/04/17 at 06:00 Guaifenesin/ Dextromethorphan (Robitussin Dm Liquid Cup) 10 ml Q4H PRN PO COUGH Last administered on 01/13/17 06:24; Admin Dose 10 ML; Start 01/03/17 at 23:30 Ibuprofen 400 mg 400 mg Q6H PRN PO PAIN OR TEMP ABOVE 38C; Start 01/04/17 at 11 :00 Piperacillin Sod/ Tazobactam Sod (Zosyn 3.375gm/ 50 ml (Pmx)) 50 ml @ 100 mls/ hr Q8 IVPB Last administered on 01/13/17 13:34; Admin Dose 100 MLS/HR; Start 01/09/17 at 14:00 TERESA SEYMOUR Jan 13, 2017 16:44
--- NOTE | 2017-01-13 17:14 | CONS ---
Date/Time of Note Date/Time of Note DATE: 01/13/17 TIME: 17:13 Consult Date/Type/Reason Admit Date/Time Dec 31, 2016 at 13:50 Type of Consultation: ID Ordering Provider: BREE ARENAS MD Objective Vital Signs Date Time Temp Pulse Resp B/P Pulse Ox O2 Delivery O2 Flow Rate FiO2 01/13/17 08:00 99.3 109 19 118/69 96 Intake and Output 01/12/17 01/12/17 01/13/17 15:00 23:00 07:00 Intake Total 550 ml 50 ml Balance 550 ml 50 ml Results/Medications Result Diagram: 01/13/17 0435 01/11/17 0814 Results 24 hrs Laboratory Tests Test 01/13/17 04:35 White Blood Count 18.9 H Red Blood Count 3.09 L Hemoglobin 10.1 L Hematocrit 31.8 L Mean Corpuscular Volume 102.9 H Mean Corpuscular Hemoglobin 32.7 Mean Corpuscular Hemoglobin Concent 31.8 L Red Cell Distribution Width 15.3 H Platelet Count 331 Mean Platelet Volume 9.8 Neutrophils % 73.4 Lymphocytes % 12.6 L Monocytes % 7.2 Eosinophils % 4.8 Basophils % 0.6 Nucleated Red Blood Cells % 0.0 Neutrophils # 13.9 H Lymphocytes # 2.4 Monocytes # 1.4 H Eosinophils # 0.9 H Basophils # 0.1 Nucleated Red Blood Cells # 0.0 Medications Current Medications Ondansetron HCl (Zofran Inj) 4 mg Q6H PRN IV NAUSEA AND/OR VOMITING; Start at 14:30 Acetaminophen (Tylenol Tab) 650 mg Q6H PRN PO PAIN LEVEL 1-3 OR FEVER Last administered on 01/10/17t 13:32; Admin Dose 650 MG; Start 12/31/16 at 14:30 Acetaminophen/ Hydrocodone Bitart ([place] (5/325)) 1 tab Q6H PRN PO MODERATE PAIN LEVEL 4-6; Start 12/31/16 at 14:30 Morphine Sulfate (morphine) 2 mg Q4H PRN IV SEVERE PAIN LEVEL 7-10; Start at 14:30 Docusate Sodium (Colace) 100 mg Q12H PRN PO CONSTIPATION; Start 12/31/16 at 14 :30 Magnesium Hydroxide (Milk Of Mag) 30 ml DAILY PRN PO CONSTIPATION; Start 12/31 at 14:30 Sodium Biphosphate/ Sodium Phosphate (Fleet Enema) 133 ml DAILY PRN [place] CONSTIPATION; Start 12/31/16 at 14:30 Heparin Sodium (Porcine) (Heparin (5000 Units/0.5 ml)) 5,000 unit Q12 SC Last administered on 01/13/17 08:59; Admin Dose 5,000 UNIT; Start 12/31/16 at 15: 00 Nitroglycerin (Nitroglycerin (Sl Tab) 0.4 Mg) 1 tab Q5M PRN SL ANGINA; Start 12/31/16 at 14:30 Thiamine HCl (Vitamin B1) 100 mg DAILY PO Last administered on 01/13/17 08:49 ; Admin Dose 100 MG; Start 12/31/16 at 15:00 Folic Acid (Folic Acid) 1 mg DAILY PO Last administered on 01/13/17 08:49; Admin Dose 1 MG; Start 12/31/16 at 15:00 Lorazepam (Ativan) 1 mg Q1H PRN IV CONTROL WITHDRAWAL SYMPTOMS Last administered on 01/02/17 14:30; Admin Dose 1 MG; Start 12/31/16 at 15:30 Nystatin (Nystatin Susp) 5 ml QID PO Last administered on 01/13/17 17:11; Admin Dose 5 ML; Start 01/01/17 at 17:00 Multivitamins Therapeutic (Theragran) 1 tab DAILY PO Last administered on 01/13 08:49; Admin Dose 1 TAB; Start 01/02/17 at 09:00 Levothyroxine Sodium (Synthroid) 50 mcg DAILY@06 PO Last administered on 06:15; Admin Dose 50 MCG; Start 01/04/17 at 06:00 Guaifenesin/ Dextromethorphan (Robitussin Dm Liquid Cup) 10 ml Q4H PRN PO COUGH Last administered on 01/13/17 06:24; Admin Dose 10 ML; Start 01/03/17 at 23:30 Ibuprofen 400 mg 400 mg Q6H PRN PO PAIN OR TEMP ABOVE 38C; Start 01/04/17 at 11 :00 Piperacillin Sod/ Tazobactam Sod (Zosyn 3.375gm/ 50 ml (Pmx)) 50 ml @ 100 mls/ hr Q8 IVPB Last administered on 01/13/17t 13:34; Admin Dose 100 MLS/HR; Start 01/09/17 at 14:00 Assessment/Plan Chief Complaint/Hosp Course SUBJECTIVE: Alert, denies pain, looks comfortable LABORATORY DATA: Blood cultures have been negative. Urinalysis was negative. Hepatitis panel and HIV negative. Abx: Zosyn PHYSICAL EXAMINATION: GENERAL: This is a morbidly obese young man who is alert, in no distress. HEENT: Head atraumatic, normocephalic. Sclerae anicteric. Buccal mucosa dry with white rash on his tongue and halitosis. NECK: Obese. CHEST: Rise symmetrical. Breath sounds diminished to bases. HEART: S1, S2. ABDOMEN: Obese, soft. Bowel tones present. EXTREMITIES: Without cyanosis. ASSESSMENT: 1. Ongoing fevers with leukocytosis 2. Transaminitis ==> dilated CBD per US. 3. Oral thrush. 4. BLE edema 5. History of alcohol abuse 6. Poss nephritic syndrome PLAN: Stable, pending WBC labeled scan, will dc abx, repeat cx's prn DW staff/pt Problems: BRENDEN SCOTT NP Jan 13, 2017 17:14
[2017-01-13 20:00] VITALS: BP 111/63; RESP 19
[2017-01-14 02:00] VITALS: BP 124/76; RESP 20
[2017-01-14] MEDS: LEVOTHYROXINE 50 MCG TAB PO SCH (06:11)
[2017-01-14] MEDS: GUAIFENESIN/DM 5ML CUP PO PRN ×2 (06:16→11:29)
[2017-01-14 06:42] LABS: BASOPHIL # 0.1 10^3/ul (0.0-0.1); BASOPHILS % 0.6 % (0.0-2.0); EOSINOPHILS # 0.9 10^3/ul (0.0-0.5); EOSINOPHILS % 5.1 % (0.0-7.0); HEMATOCRIT 33.9 % (42.0-52.0); HEMOGLOBIN 10.5 g/dl (14.0-18.0); LYMPHOCYTES # 2.4 10^3/ul (0.8-2.9); LYMPHOCYTES % 13.2 % (15.0-51.0); MEAN CORPUSCULAR VOLUME 103.4 fl (82.0-101.0); MEAN PLATELET VOLUME 9.7 fl (7.4-10.4); MONOCYTE # 1.3 10^3/ul (0.3-0.9); NEUTROPHIL # 13.4 10^3/ul (1.6-7.5); NEUTROPHILS % 72.8 % (39.0-77.0); PLATELET COUNT 342 10^3/UL (140-415); RED BLOOD COUNT 3.28 10^6/ul (4.70-6.10); RED CELL DISTRIBUTION WIDTH 15.1 % (11.5-14.5); WHITE BLOOD COUNT 18.4 10^3/ul (4.8-10.8)
[2017-01-14 07:23] LABS: CREATININE 0.7 mg/dl (0.61-1.24); POTASSIUM 4.4 mmol/L (3.5-5.1)
[2017-01-14 07:37] VITALS: BP 118/65; RESP 18
[2017-01-14] MEDS: THIAMINE 100 MG TAB PO SCH (09:30)
[2017-01-14] MEDS: NYSTATIN SUSP 5 ML CUP PO SCH ×4 (09:30→20:09)
[2017-01-14] MEDS: FOLIC ACID 1 MG TAB PO SCH (09:30)
[2017-01-14] MEDS: MULTIVITAMINS THERAPEUTIC TAB PO SCH (09:30)
[2017-01-14] MEDS: HEPARIN 5,000 UNIT/0.5 ML VIAL SC SCH ×2 (09:32→20:13)
--- NOTE | 2017-01-14 10:32 | CONS ---
Date/Time of Note Date/Time of Note DATE: 01/14/17 TIME: 10:27 Assessment/Plan Assessment/Plan Additional Assessment/Plan 1. Anasarca with Significant LE edema- 3+, US negative for DVT, US abdomen did not show ascites- CXR showed mild pulmonary congestion 2. Community acquired pneumonia, likely viral, influenza screen, levaquin 3. Leukocytosis, likely reactive from viral infection 4. Alcoholism, no withdrawal 5. Transaminitis, alcohol related, follow up with LFTs Plan: Autoimmune work up including DOLORES, ANCA< ESR, CRP, Rheumatoid factor, C3, C4, total complement - negative His HIV, hepatitis panel negative plan for WBC Scan on Sunday US LE negative for DVT- s/p IV lasix + albumin diuresis still has LE edema- 24 hr urine collection did not show nephrotic range proteinuria US abdomen showed fatty liver, hepatomegaluy, no evidence of cirrhosis. Heparin for DVT prophylaxis will follow up Dw Dr Danilo Batista/staff Consultation Date/Type/Reason Admit Date/Time Dec 31, 2016 at 13:50 Initial Consult Date 01/08/17 Type of Consultation: ID Referring Provider: BREE ARENAS MD 24 HR Interval Summary Free Text/Dictation Resting in bed, seems comfortable, afebrile, WBCs 18.4 today -plan for WBC Scan on Sunday. Tachycardic ,denies chest pain, palpitations complaints, states edema is getting better,denies any bilateral calf pain no new issues reported overnight discussed with staff Detailed Summary Respiratory: no complaints Cardiovascular: no complaints Gastrointestinal: no complaints Genitourinary: no complaints Exam/Review of Systems Vital Signs Vitals Vital Signs Date Time Temp Pulse Resp B/P Pulse Ox O2 Delivery O2 Flow Rate FiO2 01/14/17 07:37 98.7 113 18 118/65 94 Intake and Output 01/13/17 01/13/17 01/14/17 14:59 22:59 06:59 Intake Total 50 ml 640 ml 580 ml Balance 50 ml 640 ml 580 ml Exam Constitutional: alert, obese, oriented Respiratory: diminished breath sounds, normal air movement Cardiovascular: nl pulses Gastrointestinal: non-tender, soft Musculoskeletal: nl extremities to inspection Extremities: edema 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: nl mental status, nl speech Results Result Diagram: 01/14/17 0454 01/14/17 0454 Results 24 hrs Laboratory Tests Test 01/14/17 04:54 White Blood Count 18.4 H Red Blood Count 3.28 L Hemoglobin 10.5 L Hematocrit 33.9 L Mean Corpuscular Volume 103.4 H Mean Corpuscular Hemoglobin 32.0 Mean Corpuscular Hemoglobin Concent 31.0 L Red Cell Distribution Width 15.1 H Platelet Count 342 Mean Platelet Volume 9.7 Neutrophils % 72.8 Lymphocytes % 13.2 L Monocytes % 7.0 Eosinophils % 5.1 Basophils % 0.6 Nucleated Red Blood Cells % 0.0 Neutrophils # 13.4 H Lymphocytes # 2.4 Monocytes # 1.3 H Eosinophils # 0.9 H Basophils # 0.1 Nucleated Red Blood Cells # 0.0 Sodium Level 140 Potassium Level 4.4 Chloride Level 102 Carbon Dioxide Level 27 Anion Gap 15 Blood Urea Nitrogen 4 L Creatinine 0.70 Glucose Level 122 Calcium Level 9.0 Medications Medications Current Medications Ondansetron HCl (Zofran Inj) 4 mg Q6H PRN IV NAUSEA AND/OR VOMITING; Start at 14:30 Acetaminophen (Tylenol Tab) 650 mg Q6H PRN PO PAIN LEVEL 1-3 OR FEVER Last administered on 01/10/17 13:32; Admin Dose 650 MG; Start 12/31/16 at 14:30 Acetaminophen/ Hydrocodone Bitart ([place] (5/325)) 1 tab Q6H PRN PO MODERATE PAIN LEVEL 4-6; Start 12/31/16 at 14:30 Morphine Sulfate (morphine) 2 mg Q4H PRN IV SEVERE PAIN LEVEL 7-10; Start at 14:30 Docusate Sodium (Colace) 100 mg Q12H PRN PO CONSTIPATION; Start 12/31/16 at 14 :30 Magnesium Hydroxide (Milk Of Mag) 30 ml DAILY PRN PO CONSTIPATION; Start 12/31 at 14:30 Sodium Biphosphate/ Sodium Phosphate (Fleet Enema) 133 ml DAILY PRN [place] CONSTIPATION; Start 12/31/16 at 14:30 Heparin Sodium (Porcine) (Heparin (5000 Units/0.5 ml)) 5,000 unit Q12 SC Last administered on 01/14/17 09:32; Admin Dose 5,000 UNIT; Start 12/31/16 at 15: 00 Nitroglycerin (Nitroglycerin (Sl Tab) 0.4 Mg) 1 tab Q5M PRN SL ANGINA; Start 12/31/16 at 14:30 Thiamine HCl (Vitamin B1) 100 mg DAILY PO Last administered on 01/14/17 09:30 ; Admin Dose 100 MG; Start 12/31/16 at 15:00 Folic Acid (Folic Acid) 1 mg DAILY PO Last administered on 01/14/17 09:30; Admin Dose 1 MG; Start 12/31/16 at 15:00 Lorazepam (Ativan) 1 mg Q1H PRN IV CONTROL WITHDRAWAL SYMPTOMS Last administered on 01/02/17 14:30; Admin Dose 1 MG; Start 12/31/16 at 15:30 Nystatin (Nystatin Susp) 5 ml QID PO Last administered on 01/14/17 09:30; Admin Dose 5 ML; Start 01/01/17 at 17:00 Multivitamins Therapeutic (Theragran) 1 tab DAILY PO Last administered on 01/14 09:30; Admin Dose 1 TAB; Start 01/02/17 at 09:00 Levothyroxine Sodium (Synthroid) 50 mcg DAILY@06 PO Last administered on 06:11; Admin Dose 50 MCG; Start 01/04/17 at 06:00 Guaifenesin/ Dextromethorphan (Robitussin Dm Liquid Cup) 10 ml Q4H PRN PO COUGH Last administered on 01/14/17 06:16; Admin Dose 10 ML; Start 01/03/17 at 23:30 Ibuprofen (Motrin) 400 mg Q6H PRN PO PAIN OR TEMP ABOVE 38C; Start 01/04/17 at 11:00 TERESA SEYMOUR Jan 14, 2017 10:32
[2017-01-14] MEDS: CEPASTAT LOZENGE MT PRN ×3 (13:51→23:32)
[2017-01-14 13:54] VITALS: BP 127/74; RESP 18
--- NOTE | 2017-01-14 14:09 | PN ---
Date/Time of Note Date/Time of Note DATE: 01/14/17 TIME: 14:05 Assessment/Plan VTE Prophylaxis VTE Prophylaxis Intervention: heparin Lines/Catheters IV [facility] [place] [facility] Urinary Cath still in place: No Assessment/Plan Chief Complaint/Hosp Course Assessment/Plan: 21-year-old male with: 1. Persistent leukocytosis, unclear source/etiology, likely respiratory, was on Zosyn since 01/09/2017. - Abx stopped today, for WBC scan schedule on Sunday 2. Cough with hoarseness -monitor, cough medicines as needed 3. Alcoholism, no withdrawal -monitor 4. Transaminitis, alcohol related, follow up with LFTs 5. Dilated CBD on US, refuses MRCP 6. 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 Peripheral edema with hypoalbuminemia, probably from fatty liver disease related - f/u renal rec's 8. DVT prophylaxis: heparin Problems: Subjective 24 Hr Interval Summary Free Text/Dictation No acute events overnight. Exam/Review of Systems Vital Signs Vitals Vital Signs Date Time Temp Pulse Resp B/P Pulse Ox O2 Delivery O2 Flow Rate FiO2 01/14/17 13:54 98.3 110 18 127/74 95 Intake and Output 01/13/17 01/13/17 01/14/17 15:00 23:00 07:00 Intake Total 50 ml 640 ml 580 ml Balance 50 ml 640 ml 580 ml Exam Constitutional: alert, obese, oriented, well developed Psych: nl mood/affect, no complaints Head: atraumatic, normocephalic Eyes: EOMI, nl conjunctiva, nl lids ENMT: nl external ears & nose, nl lips & teeth, nl nasal mucosa & septum Neck: non-tender, supple Respiratory: clear to auscultation, normal air movement, No congested cough, No crackles/rales, No diminished breath sounds, No intercostal retraction, No labored breathing, No other, No respirations, No tactile fremitus, No wheezing Cardiovascular: nl pulses, regular rate and rhythm, No S3, No S4, No bruits, No diastolic murmur, No edema, No gallop, No irregular rhythm, No jugular venous distention (JVD), No murmurs/extra sounds, No other, No rub, No systolic murmur Gastrointestinal: nl liver, spleen, non-tender, soft Musculoskeletal: nl extremities to inspection Extremities: edema, normal pulses, No calf tenderness, No clubbing, No cyanosis, No other, No palpable cord, No pitting pedal edema, No tenderness 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: [employer] II-XII intact, nl mental status, nl speech, nl strength Results Result Diagram: 01/14/17 0454 01/14/17 0454 Results 24 hrs Laboratory Tests Test 01/14/17 04:54 White Blood Count 18.4 H Red Blood Count 3.28 L Hemoglobin 10.5 L Hematocrit 33.9 L Mean Corpuscular Volume 103.4 H Mean Corpuscular Hemoglobin 32.0 Mean Corpuscular Hemoglobin Concent 31.0 L Red Cell Distribution Width 15.1 H Platelet Count 342 Mean Platelet Volume 9.7 Neutrophils % 72.8 Lymphocytes % 13.2 L Monocytes % 7.0 Eosinophils % 5.1 Basophils % 0.6 Nucleated Red Blood Cells % 0.0 Neutrophils # 13.4 H Lymphocytes # 2.4 Monocytes # 1.3 H Eosinophils # 0.9 H Basophils # 0.1 Nucleated Red Blood Cells # 0.0 Sodium Level 140 Potassium Level 4.4 Chloride Level 102 Carbon Dioxide Level 27 Anion Gap 15 Blood Urea Nitrogen 4 L Creatinine 0.70 Glucose Level 122 Calcium Level 9.0 Medications Medications Current Medications Ondansetron HCl (Zofran Inj) 4 mg Q6H PRN IV NAUSEA AND/OR VOMITING; Start at 14:30 Acetaminophen (Tylenol Tab) 650 mg Q6H PRN PO PAIN LEVEL 1-3 OR FEVER Last administered on 01/10/17t 13:32; Admin Dose 650 MG; Start 12/31/16 at 14:30 Acetaminophen/ Hydrocodone Bitart ([place] (5/325)) 1 tab Q6H PRN PO MODERATE PAIN LEVEL 4-6; Start 12/31/16 at 14:30 Morphine Sulfate (morphine) 2 mg Q4H PRN IV SEVERE PAIN LEVEL 7-10; Start at 14:30 Docusate Sodium (Colace) 100 mg Q12H PRN PO CONSTIPATION; Start 12/31/16 at 14 :30 Magnesium Hydroxide (Milk Of Mag) 30 ml DAILY PRN PO CONSTIPATION; Start 12/31 at 14:30 Sodium Biphosphate/ Sodium Phosphate (Fleet Enema) 133 ml DAILY PRN [place] CONSTIPATION; Start 12/31/16 at 14:30 Heparin Sodium (Porcine) (Heparin (5000 Units/0.5 ml)) 5,000 unit Q12 SC Last administered on 01/14/17 09:32; Admin Dose 5,000 UNIT; Start 12/31/16 at 15: 00 Nitroglycerin (Nitroglycerin (Sl Tab) 0.4 Mg) 1 tab Q5M PRN SL ANGINA; Start 12/31/16 at 14:30 Thiamine HCl (Vitamin B1) 100 mg DAILY PO Last administered on 01/14/17 09:30 ; Admin Dose 100 MG; Start 12/31/16 at 15:00 Folic Acid (Folic Acid) 1 mg DAILY PO Last administered on 01/14/17 09:30; Admin Dose 1 MG; Start 12/31/16 at 15:00 Lorazepam (Ativan) 1 mg Q1H PRN IV CONTROL WITHDRAWAL SYMPTOMS Last administered on 01/02/17 14:30; Admin Dose 1 MG; Start 12/31/16 at 15:30 Nystatin (Nystatin Susp) 5 ml QID PO Last administered on 01/14/17 13:51; Admin Dose 5 ML; Start 01/01/17 at 17:00 Multivitamins Therapeutic (Theragran) 1 tab DAILY PO Last administered on 01/14 09:30; Admin Dose 1 TAB; Start 01/02/17 at 09:00 Levothyroxine Sodium (Synthroid) 50 mcg DAILY@06 PO Last administered on 06:11; Admin Dose 50 MCG; Start 01/04/17 at 06:00 Guaifenesin/ Dextromethorphan (Robitussin Dm Liquid Cup) 10 ml Q4H PRN PO COUGH Last administered on 01/14/17 11:29; Admin Dose 10 ML; Start 01/03/17 at 23:30 Ibuprofen (Motrin) 400 mg Q6H PRN PO PAIN OR TEMP ABOVE 38C; Start 01/04/17 at 11:00 Phenol (Cepastat Lozenge) 1 lozenge Q1H PRN [place] COUGH Last administered on 01/14 13:51; Admin Dose 1 LOZENGE; Start 01/14/17 at 13:30 LEIDY MARCUS 12, 2017 14:09
--- NOTE | 2017-01-14 15:03 | CONS ---
Date/Time of Note Date/Time of Note DATE: 01/14/17 TIME: 15:02 Consult Date/Type/Reason Admit Date/Time Dec 31, 2016 at 13:50 Type of Consultation: ID Ordering Provider: BREE ARENAS MD Objective Vital Signs Date Time Temp Pulse Resp B/P Pulse Ox O2 Delivery O2 Flow Rate FiO2 01/14/17 13:54 98.3 110 18 127/74 95 Intake and Output 01/13/17 01/13/17 01/14/17 15:00 23:00 07:00 Intake Total 50 ml 640 ml 580 ml Balance 50 ml 640 ml 580 ml Results/Medications Result Diagram: 01/14/17 0454 01/14/17 0454 Results 24 hrs Laboratory Tests Test 01/14/17 04:54 White Blood Count 18.4 H Red Blood Count 3.28 L Hemoglobin 10.5 L Hematocrit 33.9 L Mean Corpuscular Volume 103.4 H Mean Corpuscular Hemoglobin 32.0 Mean Corpuscular Hemoglobin Concent 31.0 L Red Cell Distribution Width 15.1 H Platelet Count 342 Mean Platelet Volume 9.7 Neutrophils % 72.8 Lymphocytes % 13.2 L Monocytes % 7.0 Eosinophils % 5.1 Basophils % 0.6 Nucleated Red Blood Cells % 0.0 Neutrophils # 13.4 H Lymphocytes # 2.4 Monocytes # 1.3 H Eosinophils # 0.9 H Basophils # 0.1 Nucleated Red Blood Cells # 0.0 Sodium Level 140 Potassium Level 4.4 Chloride Level 102 Carbon Dioxide Level 27 Anion Gap 15 Blood Urea Nitrogen 4 L Creatinine 0.70 Glucose Level 122 Calcium Level 9.0 Medications Current Medications Ondansetron HCl (Zofran Inj) 4 mg Q6H PRN IV NAUSEA AND/OR VOMITING; Start at 14:30 Acetaminophen (Tylenol Tab) 650 mg Q6H PRN PO PAIN LEVEL 1-3 OR FEVER Last administered on 01/10/17t 13:32; Admin Dose 650 MG; Start 12/31/16 at 14:30 Acetaminophen/ Hydrocodone Bitart ([place] (5/325)) 1 tab Q6H PRN PO MODERATE PAIN LEVEL 4-6; Start 12/31/16 at 14:30 Morphine Sulfate (morphine) 2 mg Q4H PRN IV SEVERE PAIN LEVEL 7-10; Start at 14:30 Docusate Sodium (Colace) 100 mg Q12H PRN PO CONSTIPATION; Start 12/31/16 at 14 :30 Magnesium Hydroxide (Milk Of Mag) 30 ml DAILY PRN PO CONSTIPATION; Start 12/31 at 14:30 Sodium Biphosphate/ Sodium Phosphate (Fleet Enema) 133 ml DAILY PRN [place] CONSTIPATION; Start 12/31/16 at 14:30 Heparin Sodium (Porcine) (Heparin (5000 Units/0.5 ml)) 5,000 unit Q12 SC Last administered on 01/14/17 09:32; Admin Dose 5,000 UNIT; Start 12/31/16 at 15: 00 Nitroglycerin (Nitroglycerin (Sl Tab) 0.4 Mg) 1 tab Q5M PRN [place] ANGINA; Start 12/31/16 at 14:30 Thiamine HCl (Vitamin B1) 100 mg DAILY PO Last administered on 01/14/17 09:30 ; Admin Dose 100 MG; Start 12/31/16 at 15:00 Folic Acid (Folic Acid) 1 mg DAILY PO Last administered on 01/14/17 09:30; Admin Dose 1 MG; Start 12/31/16 at 15:00 Lorazepam (Ativan) 1 mg Q1H PRN IV CONTROL WITHDRAWAL SYMPTOMS Last administered on 01/02/17 14:30; Admin Dose 1 MG; Start 12/31/16 at 15:30 Nystatin (Nystatin Susp) 5 ml QID PO Last administered on 01/14/17 13:51; Admin Dose 5 ML; Start 01/01/17 at 17:00 Multivitamins Therapeutic (Theragran) 1 tab DAILY PO Last administered on 01/14 09:30; Admin Dose 1 TAB; Start 01/02/17 at 09:00 Levothyroxine Sodium (Synthroid) 50 mcg DAILY@06 PO Last administered on 06:11; Admin Dose 50 MCG; Start 01/04/17 at 06:00 Guaifenesin/ Dextromethorphan (Robitussin Dm Liquid Cup) 10 ml Q4H PRN PO COUGH Last administered on 01/14/17 11:29; Admin Dose 10 ML; Start 01/03/17 at 23:30 Ibuprofen (Motrin) 400 mg Q6H PRN PO PAIN OR TEMP ABOVE 38C; Start 01/04/17 at 11:00 Phenol (Cepastat Lozenge) 1 lozenge Q1H PRN [place] COUGH Last administered on 01/14t 13:51; Admin Dose 1 LOZENGE; Start 01/14/17 at 13:30 Assessment/Plan Chief Complaint/Hosp Course SUBJECTIVE: Alert, denies pain, looks comfortable LABORATORY DATA: Blood cultures have been negative. Urinalysis was negative. Hepatitis panel and HIV negative. PHYSICAL EXAMINATION: GENERAL: This is a morbidly obese young man who is alert, in no distress. HEENT: Head atraumatic, normocephalic. Sclerae anicteric. Buccal mucosa dry with white rash on his tongue and halitosis. NECK: Obese. CHEST: Rise symmetrical. Breath sounds diminished to bases. HEART: S1, S2. ABDOMEN: Obese, soft. Bowel tones present. EXTREMITIES: Without cyanosis. ASSESSMENT: 1. Ongoing fevers with leukocytosis 2. Transaminitis ==> dilated CBD per US. 3. Oral thrush. 4. BLE edema 5. History of alcohol abuse 6. Poss nephritic syndrome PLAN: Clinically unchanged, refused MRCP, pending WBC labeled scan, continue present care, may need hematology eval if negative DW staff/pt Problems: BRENDEN SCOTT NP Jan 14, 2017 15:03
[2017-01-14 20:34] VITALS: BP 123/75; RESP 17
[2017-01-14 20:39] VITALS: BP 123/72; RESP 17
[2017-01-15] MEDS: GUAIFENESIN/DM 5ML CUP PO PRN ×2 (02:52→19:56)
[2017-01-15 05:15] LABS: BASOPHIL # 0.1 10^3/ul (0.0-0.1); BASOPHILS % 0.6 % (0.0-2.0); EOSINOPHILS # 0.8 10^3/ul (0.0-0.5); EOSINOPHILS % 4.7 % (0.0-7.0); HEMATOCRIT 32.1 % (42.0-52.0); HEMOGLOBIN 10.2 g/dl (14.0-18.0); LYMPHOCYTES # 2.3 10^3/ul (0.8-2.9); MEAN CORPUSCULAR HEMOGLOBIN 32.3 pg (29.0-33.0); MEAN CORPUSCULAR HGB CONC 31.8 g/dl (32.0-37.0); MEAN CORPUSCULAR VOLUME 101.6 fl (82.0-101.0); MEAN PLATELET VOLUME 9.5 fl (7.4-10.4); MONOCYTE # 1.3 10^3/ul (0.3-0.9); MONOCYTES % 7.3 % (0.0-11.0); NEUTROPHIL # 13.1 10^3/ul (1.6-7.5); NEUTROPHILS % 73.1 % (39.0-77.0); PLATELET COUNT 337 10^3/UL (140-415); RED BLOOD COUNT 3.16 10^6/ul (4.70-6.10); RED CELL DISTRIBUTION WIDTH 14.6 % (11.5-14.5); WHITE BLOOD COUNT 17.9 10^3/ul (4.8-10.8)
[2017-01-15 05:32] LABS: CALCIUM 8.6 mg/dl (8.4-10.2); CREATININE 0.68 mg/dl (0.61-1.24); POTASSIUM 4.1 mmol/L (3.5-5.1)
[2017-01-15] MEDS: LEVOTHYROXINE 50 MCG TAB PO SCH (05:51)
[2017-01-15 07:35] VITALS: BP 131/73; RESP 16
[2017-01-15 07:46] VITALS: BP 124/76; RESP 16
[2017-01-15] MEDS: NYSTATIN SUSP 5 ML CUP PO SCH ×4 (08:17→20:01)
[2017-01-15] MEDS: THIAMINE 100 MG TAB PO SCH (08:18)
[2017-01-15] MEDS: MULTIVITAMINS THERAPEUTIC TAB PO SCH (08:18)
[2017-01-15] MEDS: FOLIC ACID 1 MG TAB PO SCH (08:18)
[2017-01-15] MEDS: HEPARIN 5,000 UNIT/0.5 ML VIAL SC SCH ×2 (08:22→20:01)
--- NOTE | 2017-01-15 12:42 | CONS ---
Date/Time of Note Date/Time of Note DATE: 01/15/17 TIME: 12:41 Consult Date/Type/Reason Admit Date/Time Dec 31, 2016 at 13:50 Type of Consultation: ID Ordering Provider: BREE ARENAS MD Objective Vital Signs Date Time Temp Pulse Resp B/P Pulse Ox O2 Delivery O2 Flow Rate FiO2 01/15/17 07:46 98.4 110 16 124/76 98 Intake and Output 01/14/17 01/14/17 01/15/17 15:00 23:00 07:00 Intake Total 1550 ml 700 ml Balance 1550 ml 700 ml Results/Medications Result Diagram: 01/15/17 0434 01/15/17 0434 Results 24 hrs Laboratory Tests Test 01/15/17 04:34 White Blood Count 17.9 H Red Blood Count 3.16 L Hemoglobin 10.2 L Hematocrit 32.1 L Mean Corpuscular Volume 101.6 H Mean Corpuscular Hemoglobin 32.3 Mean Corpuscular Hemoglobin Concent 31.8 L Red Cell Distribution Width 14.6 H Platelet Count 337 Mean Platelet Volume 9.5 Neutrophils % 73.1 Lymphocytes % 13.0 L Monocytes % 7.3 Eosinophils % 4.7 Basophils % 0.6 Nucleated Red Blood Cells % 0.0 Neutrophils # 13.1 H Lymphocytes # 2.3 Monocytes # 1.3 H Eosinophils # 0.8 H Basophils # 0.1 Nucleated Red Blood Cells # 0.0 Sodium Level 138 Potassium Level 4.1 Chloride Level 104 Carbon Dioxide Level 25 Anion Gap 13 Blood Urea Nitrogen 5 L Creatinine 0.68 Glucose Level 135 Calcium Level 8.6 Medications Current Medications Ondansetron HCl (Zofran Inj) 4 mg Q6H PRN IV NAUSEA AND/OR VOMITING; Start at 14:30 Acetaminophen (Tylenol Tab) 650 mg Q6H PRN PO PAIN LEVEL 1-3 OR FEVER Last administered on 01/10/17t 13:32; Admin Dose 650 MG; Start 12/31/16 at 14:30 Acetaminophen/ Hydrocodone Bitart ([place] (5/325)) 1 tab Q6H PRN PO MODERATE PAIN LEVEL 4-6; Start 12/31/16 at 14:30 Morphine Sulfate (morphine) 2 mg Q4H PRN IV SEVERE PAIN LEVEL 7-10; Start at 14:30 Docusate Sodium (Colace) 100 mg Q12H PRN PO CONSTIPATION; Start 12/31/16 at 14 :30 Magnesium Hydroxide (Milk Of Mag) 30 ml DAILY PRN PO CONSTIPATION; Start 12/31 at 14:30 Sodium Biphosphate/ Sodium Phosphate (Fleet Enema) 133 ml DAILY PRN [place] CONSTIPATION; Start 12/31/16 at 14:30 Heparin Sodium (Porcine) (Heparin (5000 Units/0.5 ml)) 5,000 unit Q12 SC Last administered on 01/15/17 08:22; Admin Dose 5,000 UNIT; Start 12/31/16 at 15: 00 Nitroglycerin (Nitroglycerin (Sl Tab) 0.4 Mg) 1 tab Q5M PRN SL ANGINA; Start 12/31/16 at 14:30 Thiamine HCl (Vitamin B1) 100 mg DAILY PO Last administered on 01/15/17 08:18 ; Admin Dose 100 MG; Start 12/31/16 at 15:00 Folic Acid (Folic Acid) 1 mg DAILY PO Last administered on 01/15/17 08:18; Admin Dose 1 MG; Start 12/31/16 at 15:00 Lorazepam (Ativan) 1 mg Q1H PRN IV CONTROL WITHDRAWAL SYMPTOMS Last administered on 01/02/17 14:30; Admin Dose 1 MG; Start 12/31/16 at 15:30 Nystatin (Nystatin Susp) 5 ml QID PO Last administered on 01/15/17 12:20; Admin Dose 5 ML; Start 01/01/17 at 17:00 Multivitamins Therapeutic (Theragran) 1 tab DAILY PO Last administered on 01/15 08:18; Admin Dose 1 TAB; Start 01/02/17 at 09:00 Levothyroxine Sodium (Synthroid) 50 mcg DAILY@06 PO Last administered on 05:51; Admin Dose 50 MCG; Start 01/04/17 at 06:00 Guaifenesin/ Dextromethorphan (Robitussin Dm Liquid Cup) 10 ml Q4H PRN PO COUGH Last administered on 01/15/17 02:52; Admin Dose 10 ML; Start 01/03/17 at 23:30 Ibuprofen (Motrin) 400 mg Q6H PRN PO PAIN OR TEMP ABOVE 38C; Start 01/04/17 at 11:00 Phenol (Cepastat Lozenge) 1 lozenge Q1H PRN MT COUGH Last administered on 01/14t 23:32; Admin Dose 1 LOZENGE; Start 01/14/17 at 13:30 Assessment/Plan Chief Complaint/Hosp Course SUBJECTIVE: Alert, denies pain, looks comfortable LABORATORY DATA: Blood cultures have been negative. Urinalysis was negative. Hepatitis panel and HIV negative. PHYSICAL EXAMINATION: GENERAL: This is a morbidly obese young man who is alert, in no distress. HEENT: Head atraumatic, normocephalic. Sclerae anicteric. Buccal mucosa dry with white rash on his tongue and halitosis. NECK: Obese. CHEST: Rise symmetrical. Breath sounds diminished to bases. HEART: S1, S2. ABDOMEN: Obese, soft. Bowel tones present. EXTREMITIES: Without cyanosis. ASSESSMENT: 1. Ongoing fevers with leukocytosis 2. Transaminitis ==> dilated CBD per US. 3. Oral thrush. 4. BLE edema 5. History of alcohol abuse 6. Poss nephritic syndrome PLAN: Clinically unchanged, refused MRCP, pending WBC labeled scan [facility] staff/pt Problems: BRENDEN SCOTT NP Jan 15, 2017 12:42
[2017-01-15 13:52] VITALS: BP 121/69; RESP 18
--- NOTE | 2017-01-15 15:41 | PN ---
Date/Time of Note Date/Time of Note DATE: 01/15/17 TIME: 15:38 Assessment/Plan VTE Prophylaxis VTE Prophylaxis Intervention: heparin Lines/Catheters IV [facility] [facility] Urinary Cath still in place: No Assessment/Plan Assessment/Plan 1. Persistent leukocytosis, unclear source/etiology, off of antibiotics. follow up with WBC scan 2. Cough with hoarseness 3. Alcoholism, no withdrawal 4. Transaminitis, alcohol related, follow up with LFTs 5. Dilated CBD on US, refuses MRCP 6. 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 Peripheral edema with hypoalbuminemia 8. DVT prophylaxis: heparin Subjective 24 Hr Interval Summary Free Text/Dictation still cough, no fever. getting WBC scan Exam/Review of Systems Vital Signs Vitals Vital Signs Date Time Temp Pulse Resp B/P Pulse Ox O2 Delivery O2 Flow Rate FiO2 01/15/17 13:52 99.2 110 18 121/69 99 Intake and Output 01/14/17 01/14/17 01/15/17 15:00 23:00 07:00 Intake Total 1550 ml 700 ml Balance 1550 ml 700 ml Exam Constitutional: alert, oriented, well developed Psych: nl mood/affect, no complaints Head: atraumatic, normocephalic Eyes: EOMI, PERRL, nl conjunctiva, nl lids, nl sclera ENMT: nl external ears & nose, nl lips & teeth, nl nasal mucosa & septum Neck: non-tender, supple Respiratory: clear to auscultation, normal air movement, No congested cough, No crackles/rales, No diminished breath sounds, No intercostal retraction, No labored breathing, No other, No respirations, No tactile fremitus, No wheezing Cardiovascular: nl pulses, regular rate and rhythm, No S3, No S4, No bruits, No diastolic murmur, No edema, No gallop, No irregular rhythm, No jugular venous distention (JVD), No murmurs/extra sounds, No other, No rub, No systolic murmur Gastrointestinal: nl liver, spleen, non-tender, soft, No ascites, No bowel sounds, No distended, No firm, No hepatomegaly, No mass , No other, No rebound or guarding, No splenomegaly, No surgical scars, No tender Musculoskeletal: nl extremities to inspection Extremities: normal pulses, No calf tenderness, No clubbing, No cyanosis, No edema, No other, No palpable cord, No pitting pedal edema, No tenderness 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: LOADER MACHINE II-XII intact, nl mental status, nl speech, nl strength Results Result Diagram: 01/15/174 01/15/174 Results 24 hrs Laboratory Tests Test 01/15/17 04:34 White Blood Count 17.9 H Red Blood Count 3.16 L Hemoglobin 10.2 L Hematocrit 32.1 L Mean Corpuscular Volume 101.6 H Mean Corpuscular Hemoglobin 32.3 Mean Corpuscular Hemoglobin Concent 31.8 L Red Cell Distribution Width 14.6 H Platelet Count 337 Mean Platelet Volume 9.5 Neutrophils % 73.1 Lymphocytes % 13.0 L Monocytes % 7.3 Eosinophils % 4.7 Basophils % 0.6 Nucleated Red Blood Cells % 0.0 Neutrophils # 13.1 H Lymphocytes # 2.3 Monocytes # 1.3 H Eosinophils # 0.8 H Basophils # 0.1 Nucleated Red Blood Cells # 0.0 Sodium Level 138 Potassium Level 4.1 Chloride Level 104 Carbon Dioxide Level 25 Anion Gap 13 Blood Urea Nitrogen 5 L Creatinine 0.68 Glucose Level 135 Calcium Level 8.6 Medications Medications Current Medications Ondansetron HCl (Zofran Inj) 4 mg Q6H PRN IV NAUSEA AND/OR VOMITING; Start at 14:30 Acetaminophen (Tylenol Tab) 650 mg Q6H PRN PO PAIN LEVEL 1-3 OR FEVER Last administered on 01/10/17t 13:32; Admin Dose 650 MG; Start 12/31/16 at 14:30 Acetaminophen/ Hydrocodone Bitart ([place] (5/325)) 1 tab Q6H PRN PO MODERATE PAIN LEVEL 4-6; Start 12/31/16 at 14:30 Morphine Sulfate (morphine) 2 mg Q4H PRN IV SEVERE PAIN LEVEL 7-10; Start at 14:30 Docusate Sodium (Colace) 100 mg Q12H PRN PO CONSTIPATION; Start 12/31/16 at 14 :30 Magnesium Hydroxide (Milk Of Mag) 30 ml DAILY PRN PO CONSTIPATION; Start 12/31 at 14:30 Sodium Biphosphate/ Sodium Phosphate (Fleet Enema) 133 ml DAILY PRN [place] CONSTIPATION; Start 12/31/16 at 14:30 Heparin Sodium (Porcine) (Heparin (5000 Units/0.5 ml)) 5,000 unit Q12 SC Last administered on 01/15/17 08:22; Admin Dose 5,000 UNIT; Start 12/31/16 at 15: 00 Nitroglycerin (Nitroglycerin (Sl Tab) 0.4 Mg) 1 tab Q5M PRN SL ANGINA; Start 12/31/16 at 14:30 Thiamine HCl (Vitamin B1) 100 mg DAILY PO Last administered on 01/15/17 08:18 ; Admin Dose 100 MG; Start 12/31/16 at 15:00 Folic Acid (Folic Acid) 1 mg DAILY PO Last administered on 01/15/17 08:18; Admin Dose 1 MG; Start 12/31/16 at 15:00 Lorazepam (Ativan) 1 mg Q1H PRN IV CONTROL WITHDRAWAL SYMPTOMS Last administered on 01/02/17 14:30; Admin Dose 1 MG; Start 12/31/16 at 15:30 Nystatin (Nystatin Susp) 5 ml QID PO Last administered on 01/15/17 12:20; Admin Dose 5 ML; Start 01/01/17 at 17:00 Multivitamins Therapeutic (Theragran) 1 tab DAILY PO Last administered on 01/15 08:18; Admin Dose 1 TAB; Start 01/02/17 at 09:00 Levothyroxine Sodium (Synthroid) 50 mcg DAILY@06 PO Last administered on 05:51; Admin Dose 50 MCG; Start 01/04/17 at 06:00 Guaifenesin/ Dextromethorphan (Robitussin Dm Liquid Cup) 10 ml Q4H PRN PO COUGH Last administered on 01/15/17 02:52; Admin Dose 10 ML; Start 01/03/17 at 23:30 Ibuprofen (Motrin) 400 mg Q6H PRN PO PAIN OR TEMP ABOVE 38C; Start 01/04/17 at 11:00 Phenol (Cepastat Lozenge) 1 lozenge Q1H PRN MT COUGH Last administered on 01/14 23:32; Admin Dose 1 LOZENGE; Start 01/14/17 at 13:30 BREE ARENAS MD Jan 15, 2017 15:41
[2017-01-15 20:21] VITALS: BP 122/67; RESP 18
--- NOTE | 2017-01-15 21:12 | CONS ---
Date/Time of Note Date/Time of Note DATE: 01/15/17 TIME: 21:11 Assessment/Plan Assessment/Plan Chief Complaint/Hosp Course 21-year-old male with no PMHx except alcohol abuse, admitted with SIRS cough, CAP- treated with iV abx, pt persitently have Cough with low grade fever, ID followed up on patient. pt finished Levaquin abx for PNA coverage but continues to have low grade fever, with signficant LE 3-4+ edema, UA negative for protein Pt was treated with IV albumin +IV lasix for diuresis but continues to have Edema. Renal has been consulted for Anasarca, to rule out nephrotic syndrome. Problems: Additional Assessment/Plan 1. Anasarca with Significant LE edema- 3+, US negative for DVT, US abdomen did not show ascites- CXR showed mild pulmonary congestion 2. Community acquired pneumonia, likely viral, influenza screen, levaquin 3. Leukocytosis, likely reactive from viral infection 4. Alcoholism, no withdrawal 5. Transaminitis, alcohol related, follow up with LFTs Plan: Autoimmune work up including DOLORES, ANCA< ESR, CRP, Rheumatoid factor, C3, C4, total complement - negative His HIV, hepatitis panel negative plan for WBC Scan on Sunday US LE negative for DVT- s/p IV lasix + albumin diuresis still has LE edema- 24 hr urine collection did not show nephrotic range proteinuria US abdomen showed fatty liver, hepatomegaluy, no evidence of cirrhosis. Heparin for DVT prophylaxis will follow up Consultation Date/Type/Reason Admit Date/Time Dec 31, 2016 at 13:50 Initial Consult Date 01/08/17 Type of Consultation: NEPHROLOGY Referring Provider: BREE ARENAS MD 24 HR Interval Summary Free Text/Dictation BP stable, Cr normal Exam/Review of Systems Vital Signs Vitals Vital Signs Date Time Temp Pulse Resp B/P Pulse Ox O2 Delivery O2 Flow Rate FiO2 01/15/17 20:21 100.0 110 18 122/67 96 Intake and Output 01/14/17 01/14/17 01/15/17 14:59 22:59 06:59 Intake Total 1550 ml 700 ml Balance 1550 ml 700 ml Exam Constitutional: alert Respiratory: clear to auscultation, crackles/rales Cardiovascular: nl pulses, regular rate and rhythm, Tachycardia Gastrointestinal: non-tender, soft Genitourinary - Male: other (scrotal edema ) Musculoskeletal: muscle weakness, swelling (1+ LE Edema ) Extremities: normal pulses 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: HOME COMFORT ADVISOR II-XII intact, nl mental status, nl speech, nl strength Results Result Diagram: 01/15/1743301/15/17433 Results 24 hrs Laboratory Tests Test 01/15/17 04:34 White Blood Count 17.9 H Red Blood Count 3.16 L Hemoglobin 10.2 L Hematocrit 32.1 L Mean Corpuscular Volume 101.6 H Mean Corpuscular Hemoglobin 32.3 Mean Corpuscular Hemoglobin Concent 31.8 L Red Cell Distribution Width 14.6 H Platelet Count 337 Mean Platelet Volume 9.5 Neutrophils % 73.1 Lymphocytes % 13.0 L Monocytes % 7.3 Eosinophils % 4.7 Basophils % 0.6 Nucleated Red Blood Cells % 0.0 Neutrophils # 13.1 H Lymphocytes # 2.3 Monocytes # 1.3 H Eosinophils # 0.8 H Basophils # 0.1 Nucleated Red Blood Cells # 0.0 Sodium Level 138 Potassium Level 4.1 Chloride Level 104 Carbon Dioxide Level 25 Anion Gap 13 Blood Urea Nitrogen 5 L Creatinine 0.68 Glucose Level 135 Calcium Level 8.6 Medications Medications Current Medications Ondansetron HCl (Zofran Inj) 4 mg Q6H PRN IV NAUSEA AND/OR VOMITING; Start at 14:30 Acetaminophen (Tylenol Tab) 650 mg Q6H PRN PO PAIN LEVEL 1-3 OR FEVER Last administered on 01/10/17t 13:32; Admin Dose 650 MG; Start 12/31/16 at 14:30 Acetaminophen/ Hydrocodone Bitart ([place] (5/325)) 1 tab Q6H PRN PO MODERATE PAIN LEVEL 4-6; Start 12/31/16 at 14:30 Morphine Sulfate (morphine) 2 mg Q4H PRN IV SEVERE PAIN LEVEL 7-10; Start at 14:30 Docusate Sodium (Colace) 100 mg Q12H PRN PO CONSTIPATION; Start 12/31/16 at 14 :30 Magnesium Hydroxide (Milk Of Mag) 30 ml DAILY PRN PO CONSTIPATION; Start 12/31 at 14:30 Sodium Biphosphate/ Sodium Phosphate (Fleet Enema) 133 ml DAILY PRN [place] CONSTIPATION; Start 12/31/16 at 14:30 Heparin Sodium (Porcine) (Heparin (5000 Units/0.5 ml)) 5,000 unit Q12 SC Last administered on 01/15/17 20:01; Admin Dose 5,000 UNIT; Start 12/31/16 at 15: 00 Nitroglycerin (Nitroglycerin (Sl Tab) 0.4 Mg) 1 tab Q5M PRN SL ANGINA; Start 12/31/16 at 14:30 Thiamine HCl (Vitamin B1) 100 mg DAILY PO Last administered on 01/15/17 08:18 ; Admin Dose 100 MG; Start 12/31/16 at 15:00 Folic Acid (Folic Acid) 1 mg DAILY PO Last administered on 01/15/17 08:18; Admin Dose 1 MG; Start 12/31/16 at 15:00 Lorazepam (Ativan) 1 mg Q1H PRN IV CONTROL WITHDRAWAL SYMPTOMS Last administered on 01/02/17 14:30; Admin Dose 1 MG; Start 12/31/16 at 15:30 Nystatin (Nystatin Susp) 5 ml QID PO Last administered on 01/15/17 20:01; Admin Dose 5 ML; Start 01/01/17 at 17:00 Multivitamins Therapeutic (Theragran) 1 tab DAILY PO Last administered on 01/15 08:18; Admin Dose 1 TAB; Start 01/02/17 at 09:00 Levothyroxine Sodium (Synthroid) 50 mcg DAILY@06 PO Last administered on 05:51; Admin Dose 50 MCG; Start 01/04/17 at 06:00 Guaifenesin/ Dextromethorphan (Robitussin Dm Liquid Cup) 10 ml Q4H PRN PO COUGH Last administered on 01/15/17 19:56; Admin Dose 10 ML; Start 01/03/17 at 23:30 Ibuprofen (Motrin) 400 mg Q6H PRN PO PAIN OR TEMP ABOVE 38C; Start 01/04/17 at 11:00 Phenol (Cepastat Lozenge) 1 lozenge Q1H PRN MT COUGH Last administered on 01/14 23:32; Admin Dose 1 LOZENGE; Start 01/14/17 at 13:30 JAY ROSALES MD Jan 15, 2017 21:12
[2017-01-16 02:19] VITALS: BP 126/70; RESP 18
[2017-01-16] MEDS: ACETAMINOPHEN 325 MG TAB PO PRN (04:49)
[2017-01-16] MEDS: LEVOTHYROXINE 50 MCG TAB PO SCH (05:32)
[2017-01-16] MEDS: GUAIFENESIN/DM 5ML CUP PO PRN (05:33)
[2017-01-16] MEDS: CEPASTAT LOZENGE MT PRN (05:33)
[2017-01-16 06:27] LABS: BASOPHIL # 0.1 10^3/ul (0.0-0.1); BASOPHILS % 0.7 % (0.0-2.0); EOSINOPHILS # 0.9 10^3/ul (0.0-0.5); EOSINOPHILS % 4.3 % (0.0-7.0); HEMATOCRIT 34.1 % (42.0-52.0); HEMOGLOBIN 10.8 g/dl (14.0-18.0); LYMPHOCYTES # 2.5 10^3/ul (0.8-2.9); LYMPHOCYTES % 12.8 % (15.0-51.0); MEAN CORPUSCULAR HEMOGLOBIN 32.5 pg (29.0-33.0); MEAN CORPUSCULAR HGB CONC 31.7 g/dl (32.0-37.0); MEAN CORPUSCULAR VOLUME 102.7 fl (82.0-101.0); MEAN PLATELET VOLUME 9.6 fl (7.4-10.4); MONOCYTE # 1.2 10^3/ul (0.3-0.9); MONOCYTES % 6.2 % (0.0-11.0); NEUTROPHIL # 14.8 10^3/ul (1.6-7.5); NEUTROPHILS % 74.3 % (39.0-77.0); PLATELET COUNT 370 10^3/UL (140-415); RED BLOOD COUNT 3.32 10^6/ul (4.70-6.10); RED CELL DISTRIBUTION WIDTH 14.6 % (11.5-14.5); WHITE BLOOD COUNT 19.9 10^3/ul (4.8-10.8)
[2017-01-16 06:44] LABS: ADD UMIC NO; UR ASCORBIC ACID NEGATIVE (NEGATIVE); UR BILIRUBIN (Dip) NEGATIVE (NEGATIVE); UR BLOOD (Dip) NEGATIVE (NEGATIVE); UR CLARITY CLEAR (CLEAR); UR COLOR YELLOW (YELLOW); UR GLUCOSE (Dip) 2+ mg/dL (NEGATIVE); UR KETONES (Dip) NEGATIVE (NEGATIVE); UR LEUKOCYTE ESTERASE (Dip) NEGATIVE Leu/ul (NEGATIVE); UR NITRITE (Dip) NEGATIVE (NEGATIVE); UR SPECIFIC GRAVITY (Dip) 1.011 (1.003-1.030); UR TOTAL PROTEIN (Dip) NEGATIVE (NEGATIVE); UR UROBILINOGEN (Dip) NEGATIVE (NEGATIVE)
[2017-01-16 06:51] LABS: CALCIUM 8.5 mg/dl (8.4-10.2); CREATININE 0.67 mg/dl (0.61-1.24); POTASSIUM 4.3 mmol/L (3.5-5.1)
[2017-01-16 07:56] VITALS: BP 118/74; RESP 16
[2017-01-16] MEDS: NYSTATIN SUSP 5 ML CUP PO SCH ×4 (08:15→21:36)
[2017-01-16] MEDS: THIAMINE 100 MG TAB PO SCH (08:15)
[2017-01-16] MEDS: FOLIC ACID 1 MG TAB PO SCH (08:15)
[2017-01-16] MEDS: MULTIVITAMINS THERAPEUTIC TAB PO SCH (08:15)
[2017-01-16] MEDS: HEPARIN 5,000 UNIT/0.5 ML VIAL SC SCH ×2 (08:16→21:37)
--- NOTE | 2017-01-16 09:46 | RADRPT ---
PROCEDURE: Indium-111 labeled white blood cell scan CLINICAL INDICATION: 21 -year-old patient with fever and leukocytosis. TECHNIQUE: Following the intravenous injection of proximately 0.5 mCi of Indium-111 labeled white blood cells, whole body anterior and posterior planar images were obtained 24 hours post injection. COMPARISON: No prior indium scans. FINDINGS: No definite abnormal areas of increased activity are seen in the study, including visualized portion s of the head and neck, chest, abdomen, pelvis and visualized portions of the upper and lower extrem ities bilaterally. There is evidence of a splenomegaly. Physiologic uptake is noted in the liver and spleen. IMPRESSION: 1. No definite abnormal focal areas of increased activity. 2. Splenomegaly. RPTAT: HH .Carolin Cox MD, Date Time Electronically viewed and signed by .Carolin Cox MD, on 01/16/2017 09:45 .L/
--- NOTE | 2017-01-16 11:07 | CONS ---
Date/Time of Note Date/Time of Note DATE: 01/16/17 TIME: 11:05 Consult Date/Type/Reason Admit Date/Time Dec 31, 2016 at 13:50 Type of Consultation: id Ordering Provider: BREE ARENAS MD Objective Vital Signs Date Time Temp Pulse Resp B/P Pulse Ox O2 Delivery O2 Flow Rate FiO2 01/16/17 07:56 98.6 105 16 118/74 99 Intake and Output 01/15/17 01/15/17 01/16/17 14:59 22:59 06:59 Intake Total 1020 ml 980 ml Balance 1020 ml 980 ml Results/Medications Result Diagram: 01/16/17 0547 01/16/17 0547 Results 24 hrs Laboratory Tests Test 01/16/17 05:40 01/16/17 05:47 Urine Color YELLOW Urine Clarity CLEAR Urine pH 6.0 Urine Specific [place] 1.011 Urine Ketones NEGATIVE Urine Nitrite NEGATIVE Urine Bilirubin NEGATIVE Urine Urobilinogen NEGATIVE Urine Leukocyte Esterase NEGATIVE Urine Hemoglobin NEGATIVE Urine Glucose 2+ H Urine Total Protein NEGATIVE White Blood Count 19.9 H Red Blood Count 3.32 L Hemoglobin 10.8 L Hematocrit 34.1 L Mean Corpuscular Volume 102.7 H Mean Corpuscular Hemoglobin 32.5 Mean Corpuscular Hemoglobin Concent 31.7 L Red Cell Distribution Width 14.6 H Platelet Count 370 Mean Platelet Volume 9.6 Neutrophils % 74.3 Lymphocytes % 12.8 L Monocytes % 6.2 Eosinophils % 4.3 Basophils % 0.7 Nucleated Red Blood Cells % 0.0 Neutrophils # 14.8 H Lymphocytes # 2.5 Monocytes # 1.2 H Eosinophils # 0.9 H Basophils # 0.1 Nucleated Red Blood Cells # 0.0 Sodium Level 137 Potassium Level 4.3 Chloride Level 103 Carbon Dioxide Level 23 Anion Gap 15 Blood Urea Nitrogen 5 L Creatinine 0.67 Glucose Level 240 #H Calcium Level 8.5 Medications Current Medications Ondansetron HCl (Zofran Inj) 4 mg Q6H PRN IV NAUSEA AND/OR VOMITING; Start at 14:30 Acetaminophen (Tylenol Tab) 650 mg Q6H PRN PO PAIN LEVEL 1-3 OR FEVER Last administered on 01/16/17t 04:49; Admin Dose 650 MG; Start 12/31/16 at 14:30 Acetaminophen/ Hydrocodone Bitart ([place] (5/325)) 1 tab Q6H PRN PO MODERATE PAIN LEVEL 4-6; Start 12/31/16 at 14:30 Morphine Sulfate (morphine) 2 mg Q4H PRN IV SEVERE PAIN LEVEL 7-10; Start at 14:30 Docusate Sodium (Colace) 100 mg Q12H PRN PO CONSTIPATION; Start 12/31/16 at 14 :30 Magnesium Hydroxide (Milk Of Mag) 30 ml DAILY PRN PO CONSTIPATION; Start 12/31 at 14:30 Sodium Biphosphate/ Sodium Phosphate (Fleet Enema) 133 ml DAILY PRN [place] CONSTIPATION; Start 12/31/16 at 14:30 Heparin Sodium (Porcine) (Heparin (5000 Units/0.5 ml)) 5,000 unit Q12 SC Last administered on 01/16/17 08:16; Admin Dose 5,000 UNIT; Start 12/31/16 at 15: 00 Nitroglycerin (Nitroglycerin (Sl Tab) 0.4 Mg) 1 tab Q5M PRN SL ANGINA; Start 12/31/16 at 14:30 Thiamine HCl (Vitamin B1) 100 mg DAILY PO Last administered on 01/16/17 08:15 ; Admin Dose 100 MG; Start 12/31/16 at 15:00 Folic Acid (Folic Acid) 1 mg DAILY PO Last administered on 01/16/17 08:15; Admin Dose 1 MG; Start 12/31/16 at 15:00 Lorazepam (Ativan) 1 mg Q1H PRN IV CONTROL WITHDRAWAL SYMPTOMS Last administered on 01/02/17 14:30; Admin Dose 1 MG; Start 12/31/16 at 15:30 Nystatin (Nystatin Susp) 5 ml QID PO Last administered on 01/16/17 08:15; Admin Dose 5 ML; Start 01/01/17 at 17:00 Multivitamins Therapeutic (Theragran) 1 tab DAILY PO Last administered on 01/16 08:15; Admin Dose 1 TAB; Start 01/02/17 at 09:00 Levothyroxine Sodium (Synthroid) 50 mcg DAILY@06 PO Last administered on 05:32; Admin Dose 50 MCG; Start 01/04/17 at 06:00 Guaifenesin/ Dextromethorphan (Robitussin Dm Liquid Cup) 10 ml Q4H PRN PO COUGH Last administered on 01/16/17 05:33; Admin Dose 10 ML; Start 01/03/17 at 23:30 Ibuprofen (Motrin) 400 mg Q6H PRN PO PAIN OR TEMP ABOVE 38C; Start 01/04/17 at 11:00 Phenol (Cepastat Lozenge) 1 lozenge Q1H PRN [place] COUGH Last administered on 01/16 05:33; Admin Dose 1 LOZENGE; Start 01/14/17 at 13:30 Assessment/Plan Chief Complaint/Hosp Course SUBJECTIVE: Alert, looks comfortable, continues to have low grade temps, leukocytosis persists LABORATORY DATA: Blood cultures have been negative. Urinalysis was negative. Hepatitis panel and HIV negative. PHYSICAL EXAMINATION: GENERAL: This is a morbidly obese young man who is alert, in no distress. HEENT: Head atraumatic, normocephalic. Sclerae anicteric. Buccal mucosa dry with white rash on his tongue and halitosis. NECK: Obese. CHEST: Rise symmetrical. Breath sounds diminished to bases. HEART: S1, S2. ABDOMEN: Obese, soft. Bowel tones present. EXTREMITIES: Without cyanosis. ASSESSMENT: 1. Ongoing fevers with leukocytosis 2. Transaminitis ==> dilated CBD per US. 3. Oral thrush. 4. BLE edema 5. History of alcohol abuse 6. Poss nephritic syndrome PLAN: Clinically unchanged, refused MRCP, WBC labeled scan negative, consider hem-oncology eval [facility] staff Problems: BRENDEN SCOTT NP Jan 16, 2017 11:07
--- NOTE | 2017-01-16 14:26 | RADRPT ---
PROCEDURE: XR Chest. CLINICAL INDICATION: fever TECHNIQUE: PA and Lateral views of the chest were obtained. COMPARISON: None. FINDINGS: The heart is within upper limits of normal in size. There is no evidence of pulmonary vascular conge stion acute lung consolidation pleural effusions and pneumothorax. IMPRESSION: No evidence of congestive heart failure or pneumonia. RPTAT:AAJJ Physician Naman Date Time Electronically viewed and signed by Physician Naman on 01/16/2017 14:26 /
--- NOTE | 2017-01-16 15:39 | PN ---
Date/Time of Note Date/Time of Note DATE: 01/16/17 TIME: 15:37 Assessment/Plan VTE Prophylaxis VTE Prophylaxis Intervention: heparin Lines/Catheters IV [facility]ter [facility]from [facility] Urinary Cath still in place: No Assessment/Plan Assessment/Plan 1. Persistent leukocytosis, unclear source/etiology, off of antibiotics. negative WBC scan, hematology consultation with Dr. Nichole 2. Cough with hoarseness 3. Alcoholism, no withdrawal 4. Transaminitis, alcohol related, follow up with LFTs 5. Dilated CBD on US, refuses MRCP 6. 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 Peripheral edema with hypoalbuminemia 8. DVT prophylaxis: heparin Subjective 24 Hr Interval Summary Free Text/Dictation dry cough. afebrile Exam/Review of Systems Vital Signs Vitals Vital Signs Date Time Temp Pulse Resp B/P Pulse Ox O2 Delivery O2 Flow Rate FiO2 01/16/17 07:56 98.6 105 16 118/74 99 Intake and Output 01/15/17 01/15/17 01/16/17 15:00 23:00 07:00 Intake Total 1020 ml 980 ml Balance 1020 ml 980 ml Exam Constitutional: alert, obese, oriented, well developed Psych: nl mood/affect, no complaints Head: atraumatic, normocephalic Eyes: EOMI, PERRL, nl conjunctiva, nl lids, nl sclera ENMT: nl external ears & nose, nl lips & teeth, nl nasal mucosa & septum Neck: non-tender, supple Respiratory: clear to auscultation, normal air movement, No congested cough, No crackles/rales, No diminished breath sounds, No intercostal retraction, No labored breathing, No other, No respirations, No tactile fremitus, No wheezing Cardiovascular: nl pulses, regular rate and rhythm, No S3, No S4, No bruits, No diastolic murmur, No edema, No gallop, No irregular rhythm, No jugular venous distention (JVD), No murmurs/extra sounds, No other, No rub, No systolic murmur Gastrointestinal: nl liver, spleen, non-tender, soft, No ascites, No bowel sounds, No distended, No firm, No hepatomegaly, No mass , No other, No rebound or guarding, No splenomegaly, No surgical scars, No tender Musculoskeletal: nl extremities to inspection Extremities: normal pulses, No calf tenderness, No clubbing, No cyanosis, No edema, No other, No palpable cord, No pitting pedal edema, No tenderness 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: 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 intact, nl mental status, nl speech, nl strength Results Result Diagram: 01/16/17 0547 01/16/17 0547 Results 24 hrs Laboratory Tests Test 01/16/17 05:40 01/16/17 05:47 Urine Color YELLOW Urine Clarity CLEAR Urine pH 6.0 Urine Specific [place] 1.011 Urine Ketones NEGATIVE Urine Nitrite NEGATIVE Urine Bilirubin NEGATIVE Urine Urobilinogen NEGATIVE Urine Leukocyte Esterase NEGATIVE Urine Hemoglobin NEGATIVE Urine Glucose 2+ H Urine Total Protein NEGATIVE White Blood Count 19.9 H Red Blood Count 3.32 L Hemoglobin 10.8 L Hematocrit 34.1 L Mean Corpuscular Volume 102.7 H Mean Corpuscular Hemoglobin 32.5 Mean Corpuscular Hemoglobin Concent 31.7 L Red Cell Distribution Width 14.6 H Platelet Count 370 Mean Platelet Volume 9.6 Neutrophils % 74.3 Lymphocytes % 12.8 L Monocytes % 6.2 Eosinophils % 4.3 Basophils % 0.7 Nucleated Red Blood Cells % 0.0 Neutrophils # 14.8 H Lymphocytes # 2.5 Monocytes # 1.2 H Eosinophils # 0.9 H Basophils # 0.1 Nucleated Red Blood Cells # 0.0 Sodium Level 137 Potassium Level 4.3 Chloride Level 103 Carbon Dioxide Level 23 Anion Gap 15 Blood Urea Nitrogen 5 L Creatinine 0.67 Glucose Level 240 #H Calcium Level 8.5 Medications Medications Current Medications Ondansetron HCl (Zofran Inj) 4 mg Q6H PRN IV NAUSEA AND/OR VOMITING; Start at 14:30 Acetaminophen (Tylenol Tab) 650 mg Q6H PRN PO PAIN LEVEL 1-3 OR FEVER Last administered on 01/16/17t 04:49; Admin Dose 650 MG; Start 12/31/16 at 14:30 Acetaminophen/ Hydrocodone Bitart ([place] (5/325)) 1 tab Q6H PRN PO MODERATE PAIN LEVEL 4-6; Start 12/31/16 at 14:30 Morphine Sulfate (morphine) 2 mg Q4H PRN IV SEVERE PAIN LEVEL 7-10; Start at 14:30 Docusate Sodium (Colace) 100 mg Q12H PRN PO CONSTIPATION; Start 12/31/16 at 14 :30 Magnesium Hydroxide (Milk Of Mag) 30 ml DAILY PRN PO CONSTIPATION; Start 12/31 at 14:30 Sodium Biphosphate/ Sodium Phosphate (Fleet Enema) 133 ml DAILY PRN [place] CONSTIPATION; Start 12/31/16 at 14:30 Heparin Sodium (Porcine) (Heparin (5000 Units/0.5 ml)) 5,000 unit Q12 SC Last administered on 01/16/17 08:16; Admin Dose 5,000 UNIT; Start 12/31/16 at 15: 00 Nitroglycerin (Nitroglycerin (Sl Tab) 0.4 Mg) 1 tab Q5M PRN SL ANGINA; Start 12/31/16 at 14:30 Thiamine HCl (Vitamin B1) 100 mg DAILY PO Last administered on 01/16/17 08:15 ; Admin Dose 100 MG; Start 12/31/16 at 15:00 Folic Acid (Folic Acid) 1 mg DAILY PO Last administered on 01/16/17 08:15; Admin Dose 1 MG; Start 12/31/16 at 15:00 Lorazepam (Ativan) 1 mg Q1H PRN IV CONTROL WITHDRAWAL SYMPTOMS Last administered on 01/02/17 14:30; Admin Dose 1 MG; Start 12/31/16 at 15:30 Nystatin (Nystatin Susp) 5 ml QID PO Last administered on 01/16/17 12:24; Admin Dose 5 ML; Start 01/01/17 at 17:00 Multivitamins Therapeutic (Theragran) 1 tab DAILY PO Last administered on 01/16 08:15; Admin Dose 1 TAB; Start 01/02/17 at 09:00 Levothyroxine Sodium (Synthroid) 50 mcg DAILY@06 PO Last administered on 05:32; Admin Dose 50 MCG; Start 01/04/17 at 06:00 Guaifenesin/ Dextromethorphan (Robitussin Dm Liquid Cup) 10 ml Q4H PRN PO COUGH Last administered on 01/16/17 05:33; Admin Dose 10 ML; Start 01/03/17 at 23:30 Ibuprofen (Motrin) 400 mg Q6H PRN PO PAIN OR TEMP ABOVE 38C; Start 01/04/17 at 11:00 Phenol (Cepastat Lozenge) 1 lozenge Q1H PRN [place] COUGH Last administered on 01/16t 05:33; Admin Dose 1 LOZENGE; Start 01/14/17 at 13:30 BREE ARENAS MD Jan 16, 2017 15:39
--- NOTE | 2017-01-16 18:01 | CONS ---
Date/Time of Note Date/Time of Note DATE: 01/16/17 TIME: 17:51 Assessment/Plan Assessment/Plan Chief Complaint/Hosp Course LEUKOCYTOSIS WITH INTERMITTENT FEVER PER ID - [place] HAS Community acquired pneumonia, likely viral, influenza screen, levaquin WBC labeled scan negative CHECK SMEAR CHECK FLOW AND BMBX Mild splenomegaly Oral thrush. BLE edema History of alcohol abuse Poss nephritic syndrome PLAN: Clinically unchanged, refused MRCP ANEMIA MACROCYTIC WITH ELEVATED RDW Transaminitis ==> dilated CBD per US. Anasarca with Significant LE edema- 3+, US negative for DVT, US abdomen did not show ascites- CXR showed mild pulmonary congestion Alcoholism, no withdrawal Transaminitis, alcohol related, follow up with LFTs Problems: Consultation Date/Type/Reason Admit Date/Time Dec 31, 2016 at 13:50 Initial Consult Date 01/08/17 Type of Consultation: HEMEON Reason for Consultation LEUKOCYTOSIS Referring Provider: JIGNA CANALES BUSINESS TEACHER 24 HR Interval Summary Free Text/Dictation ALL NOTED W-UP IN PROGRESS Exam/Review of Systems Vital Signs Vitals Vital Signs Date Time Temp Pulse Resp B/P Pulse Ox O2 Delivery O2 Flow Rate FiO2 01/16/17 07:56 98.6 105 16 118/74 99 Intake and Output 01/15/17 01/15/17 01/16/17 15:00 23:00 07:00 Intake Total 1020 ml 980 ml Balance 1020 ml 980 ml Exam Constitutional: alert Respiratory: clear to auscultation, crackles/rales Cardiovascular: nl pulses, regular rate and rhythm, Tachycardia Gastrointestinal: non-tender, soft Genitourinary - Male: other (scrotal edema ) Musculoskeletal: muscle weakness, swelling (1+ LE Edema ) Extremities: normal pulses 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: HOME SERVICE CONSULTANT II-XII intact, nl mental status, nl speech, nl strength Results Result Diagram: 01/16/17 0547 01/16/17 0547 Results 24 hrs Laboratory Tests Test 01/16/17 05:40 01/16/17 05:47 Urine Color YELLOW Urine Clarity CLEAR Urine pH 6.0 Urine Specific [place] 1.011 Urine Ketones NEGATIVE Urine Nitrite NEGATIVE Urine Bilirubin NEGATIVE Urine Urobilinogen NEGATIVE Urine Leukocyte Esterase NEGATIVE Urine Hemoglobin NEGATIVE Urine Glucose 2+ H Urine Total Protein NEGATIVE White Blood Count 19.9 H Red Blood Count 3.32 L Hemoglobin 10.8 L Hematocrit 34.1 L Mean Corpuscular Volume 102.7 H Mean Corpuscular Hemoglobin 32.5 Mean Corpuscular Hemoglobin Concent 31.7 L Red Cell Distribution Width 14.6 H Platelet Count 370 Mean Platelet Volume 9.6 Neutrophils % 74.3 Lymphocytes % 12.8 L Monocytes % 6.2 Eosinophils % 4.3 Basophils % 0.7 Nucleated Red Blood Cells % 0.0 Neutrophils # 14.8 H Lymphocytes # 2.5 Monocytes # 1.2 H Eosinophils # 0.9 H Basophils # 0.1 Nucleated Red Blood Cells # 0.0 Sodium Level 137 Potassium Level 4.3 Chloride Level 103 Carbon Dioxide Level 23 Anion Gap 15 Blood Urea Nitrogen 5 L Creatinine 0.67 Glucose Level 240 #H Calcium Level 8.5 Imaging Free Text/Dictation [place] [id number] Radiology Main Line: [phone] DIAGNOSTIC IMAGING REPORT Patient: REECE FERMIN : 1995 Age: 21 Sex: M MR #: [id number] DOS: 12/31/16 0000 Ordering MD: LEIDY MARCUS Location: E/R Room/Bed: PROCEDURE: CT Abdomen and Pelvis with Contrast CLINICAL INDICATION: Abdominal distension, diarrhea, fever TECHNIQUE: Transaxial images were obtained through the abdomen and pelvis on a multi-slice scanner following the intravenous administration of 100 ml of Isovue 370 contrast. No oral contrast had previously been given. Sagittal and coronal re-formations were subsequently reconstructed. One or more of the following dose reduction techniques were used: - Automated exposure control. - Adjustment of the mA and/or kV according to patient size. - Use of iterative reconstruction technique. Radiation dose: CTDIvol = 21.91 mGy; DLP = 1413.34 mGy-cm. COMPARISON: No prior studies are available for comparison. FINDINGS: Lung bases: Minimal discoid atelectasis is seen at the lateral left lung base. Liver: The liver is grossly enlarged and extensively fatty infiltrated with no discrete focal lesion evident. Gallbladder: The wall is not thickened. No radiopaque stones are identified. Bile ducts: The intra and extrahepatic bile ducts are normal in caliber. Pancreas: Appears normal with no mass or inflammation evident. Spleen: The spleen is mildly enlarged. Adrenals: Normal with no mass identified. Kidneys, ureters and bladder: The kidneys enhance normally and are normal in size and there is no mass, pathological calcification, or hydronephrosis evident. There is no perinephric stranding. The ureters are normal in caliber and no ureteroliths are identified. The bladder appears unremarkable. Reproductive organs: The prostate is not enlarged. There is edema seen within the subcutaneous fat at the base of the penis and anterior scrotal wall.. Stomach, bowel, and mesentery: The stomach appears unremarkable. There are mildly dilated segments of small bowel with air-fluid levels that would air and stool seen to the colon most compatible with a moderate ileus. There is no evidence of bowel obstruction. Appendix: The vermiform appendix is not discretely identified. Peritoneum: There is a small amount of free intraperitoneal fluid primarily seen in the pelvis and pericolic gutters. No free air is identified. There is a small fat containing umbilical hernia. There is a small fat containing left inguinal hernia. Aorta: Normal in caliber with no aneurysmal dilatation. IVC: Unremarkable. Lymph nodes: No pathologically enlarged nodes are identified. Osseous structures: The osseous elements appear intact. IMPRESSION: 1. The bowel gas pattern reflects a moderate ileus. There is no evidence of bowel obstruction. The vermiform appendix is not discretely identified. 2. There is a small to moderate amount of free intraperitoneal fluid primarily seen within the pelvis and pericolic gutters. No free air is evident. 3. There is no evidence of urinary outflow obstruction or ureterolithiasis within normal appearing bladder. 4. There is a small fat containing umbilical hernia and a small fat containing left inguinal hernia. 5. Gross hepatomegaly with extensive diffuse fatty infiltration of the liver but no focal lesion identified. 6. Mild splenomegaly 7. Edema is seen within the soft tissues at the base of the penis and anterior scrotal wall. Physician José Date Time Electronically viewed and signed by Physician José on 12/31/2016 15:27 RH/ CC: LEIDY MARCUS Medications Medications Current Medications Ondansetron HCl (Zofran Inj) 4 mg Q6H PRN IV NAUSEA AND/OR VOMITING; Start at 14:30 Acetaminophen (Tylenol Tab) 650 mg Q6H PRN PO PAIN LEVEL 1-3 OR FEVER Last administered on 01/16/17 04:49; Admin Dose 650 MG; Start 12/31/16 at 14:30 Acetaminophen/ Hydrocodone Bitart ([place] (5/325)) 1 tab Q6H PRN PO MODERATE PAIN LEVEL 4-6; Start 12/31/16 at 14:30 Morphine Sulfate (morphine) 2 mg Q4H PRN IV SEVERE PAIN LEVEL 7-10; Start at 14:30 Docusate Sodium (Colace) 100 mg Q12H PRN PO CONSTIPATION; Start 12/31/16 at 14 :30 Magnesium Hydroxide (Milk Of Mag) 30 ml DAILY PRN PO CONSTIPATION; Start 12/31 at 14:30 Sodium Biphosphate/ Sodium Phosphate (Fleet Enema) 133 ml DAILY PRN [place] CONSTIPATION; Start 12/31/16 at 14:30 Heparin Sodium (Porcine) (Heparin (5000 Units/0.5 ml)) 5,000 unit Q12 SC Last administered on 01/16/17 08:16; Admin Dose 5,000 UNIT; Start 12/31/16 at 15: 00 Nitroglycerin (Nitroglycerin (Sl Tab) 0.4 Mg) 1 tab Q5M PRN SL ANGINA; Start 12/31/16 at 14:30 Thiamine HCl (Vitamin B1) 100 mg DAILY PO Last administered on 01/16/17 08:15 ; Admin Dose 100 MG; Start 12/31/16 at 15:00 Folic Acid (Folic Acid) 1 mg DAILY PO Last administered on 01/16/17 08:15; Admin Dose 1 MG; Start 12/31/16 at 15:00 Lorazepam (Ativan) 1 mg Q1H PRN IV CONTROL WITHDRAWAL SYMPTOMS Last administered on 01/02/17 14:30; Admin Dose 1 MG; Start 12/31/16 at 15:30 Nystatin (Nystatin Susp) 5 ml QID PO Last administered on 01/16/17 17:33; Admin Dose 5 ML; Start 01/01/17 at 17:00 Multivitamins Therapeutic (Theragran) 1 tab DAILY PO Last administered on 01/16 08:15; Admin Dose 1 TAB; Start 01/02/17 at 09:00 Levothyroxine Sodium (Synthroid) 50 mcg DAILY@06 PO Last administered on 05:32; Admin Dose 50 MCG; Start 01/04/17 at 06:00 Guaifenesin/ Dextromethorphan (Robitussin Dm Liquid Cup) 10 ml Q4H PRN PO COUGH Last administered on 01/16/17 05:33; Admin Dose 10 ML; Start 01/03/17 at 23:30 Ibuprofen (Motrin) 400 mg Q6H PRN PO PAIN OR TEMP ABOVE 38C; Start 01/04/17 at 11:00 Phenol (Cepastat Lozenge) 1 lozenge Q1H PRN [place] COUGH Last administered on 01/16 05:33; Admin Dose 1 LOZENGE; Start 01/14/17 at 13:30 JD BUCHANAN MD Jan 16, 2017 18:01
--- NOTE | 2017-01-16 18:11 | CONS ---
Date/Time of Note Date/Time of Note DATE: 01/15/17 TIME: 18:11 VK LE Assessment/Plan Assessment/Plan Chief Complaint/Hosp Course LEUKOCYTOSIS WITH INTERMITTENT FEVER PER ID - [place] HAS Community acquired pneumonia, likely viral, influenza screen, levaquin WBC labeled scan negative CHECK SMEAR CHECK FLOW AND BMBX Mild splenomegaly Oral thrush. BLE edema History of alcohol abuse Poss nephritic syndrome ANEMIA MACROCYTIC WITH ELEVATED RDW Transaminitis ==> dilated CBD per US. Anasarca with Significant LE edema- 3+, US negative for DVT, US abdomen did not show ascites- CXR showed mild pulmonary congestion Alcoholism, no withdrawal Transaminitis, alcohol related, follow up with LFTs Problems: Consultation Date/Type/Reason Admit Date/Time Dec 31, 2016 at 13:50 Date of Consultation: Jan 15, 2017 Type of Consultation: HEMEONC Reason for Consultation LEUKOCYTOSIS Referring Provider: BREE ARENAS MD Hx of Present Illness The patient is a 21-year-old male, no significant past medical history, who says he has been having cough, hoarseness and abdominal swelling and pain for the last 6 days. He has never had this before. No nausea or vomiting. No fevers or chills. He has had some diarrhea and loose stools, but nonbilious and nonbloody. No upper lower GI bleeding. No headaches or dizziness. No loss of consciousness. He has had some mild shortness of breath as well, but no chest pain. No fevers or chills. He does drink beer daily, a 24 ounce of beer for the last year he says. His last drink was 3 days ago. He does not have a primary care doctor. When he came in today, he had a temperature of 100.9, and he had an elevated white blood cell count of 24 . HIS MEDICAL W-UP AND TREATMENT ARE IN PROGRESS I WAS ASKED TO PROVIDE HEMEONC CONSULT RE PERSISTENT LEUKOCYTOSIS Constitutional: alert, obese, oriented, well developed Psych: nl mood/affect, no complaints Head: atraumatic, normocephalic Eyes: EOMI, PERRL, nl conjunctiva, nl lids, nl sclera ENMT: nl external ears & nose, nl lips & teeth, nl nasal mucosa & septum Neck: non-tender, supple Respiratory: clear to auscultation, normal air movement, No congested cough, No crackles/rales, No diminished breath sounds, No intercostal retraction, No labored breathing, No other, No respirations, No tactile fremitus, No wheezing Cardiovascular: nl pulses, regular rate and rhythm, No S3, No S4, No bruits, No diastolic murmur, No edema, No gallop, No irregular rhythm, No jugular venous distention (JVD), No murmurs/extra sounds, No other, No rub, No systolic murmur Gastrointestinal: nl liver, spleen, non-tender, soft, No ascites, No bowel sounds, No distended, No firm, No hepatomegaly, No mass , No other, No rebound or guarding, No splenomegaly, No surgical scars, No tender Musculoskeletal: nl extremities to inspection Extremities: normal pulses, No calf tenderness, No clubbing, No cyanosis, No edema, No other, No palpable cord, No pitting pedal edema, No tenderness 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, nl mental status, nl speech, nl strength Respiratory: no complaints Cardiovascular: no complaints Gastrointestinal: no complaints Genitourinary: no complaints Musculoskeletal: other (3+ edema ), swelling Psychological: nl mood/affect, no complaints Past Medical History Medical History: no pertinent history Past Surgical History Past Surgical Hx: no surgical history Social History Alcohol Use: heavy Smoking Status: Unknown if ever smoked Drug Use: none Exam/Review of Systems Vital Signs Vitals Vital Signs Date Time Temp Pulse Resp B/P Pulse Ox O2 Delivery O2 Flow Rate FiO2 01/16/17 07:56 98.6 105 16 118/74 99 Intake and Output 01/15/17 01/15/17 01/16/17 15:00 23:00 07:00 Intake Total 1020 ml 980 ml Balance 1020 ml 980 ml Exam Constitutional: alert, oriented, well developed Psych: nl mood/affect, no complaints Head: atraumatic, normocephalic Eyes: EOMI, PERRL, nl conjunctiva, nl lids, nl sclera ENMT: nl external ears & nose, nl lips & teeth, nl nasal mucosa & septum Neck: non-tender, supple Respiratory: clear to auscultation, normal air movement, No congested cough, No crackles/rales, No diminished breath sounds, No intercostal retraction, No labored breathing, No other, No respirations, No tactile fremitus, No wheezing Cardiovascular: nl pulses, regular rate and rhythm, No S3, No S4, No bruits, No diastolic murmur, No edema, No gallop, No irregular rhythm, No jugular venous distention (JVD), No murmurs/extra sounds, No other, No rub, No systolic murmur Gastrointestinal: nl liver, spleen, non-tender, soft, No ascites, No bowel sounds, No distended, No firm, No hepatomegaly, No mass , No other, No rebound or guarding, No splenomegaly, No surgical scars, No tender Musculoskeletal: nl extremities to inspection Extremities: normal pulses, No calf tenderness, No clubbing, No cyanosis, No edema, No other, No palpable cord, No pitting pedal edema, No tenderness 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, nl mental status, nl speech, nl strength Results Result Diagram: 01/16/17 0547 01/16/17 0547 Results 24 hrs Laboratory Tests Test 01/16/17 05:40 01/16/17 05:47 Urine Color YELLOW Urine Clarity CLEAR Urine pH 6.0 Urine Specific [place] 1.011 Urine Ketones NEGATIVE Urine Nitrite NEGATIVE Urine Bilirubin NEGATIVE Urine Urobilinogen NEGATIVE Urine Leukocyte Esterase NEGATIVE Urine Hemoglobin NEGATIVE Urine Glucose 2+ H Urine Total Protein NEGATIVE White Blood Count 19.9 H Red Blood Count 3.32 L Hemoglobin 10.8 L Hematocrit 34.1 L Mean Corpuscular Volume 102.7 H Mean Corpuscular Hemoglobin 32.5 Mean Corpuscular Hemoglobin Concent 31.7 L Red Cell Distribution Width 14.6 H Platelet Count 370 Mean Platelet Volume 9.6 Neutrophils % 74.3 Lymphocytes % 12.8 L Monocytes % 6.2 Eosinophils % 4.3 Basophils % 0.7 Nucleated Red Blood Cells % 0.0 Neutrophils # 14.8 H Lymphocytes # 2.5 Monocytes # 1.2 H Eosinophils # 0.9 H Basophils # 0.1 Nucleated Red Blood Cells # 0.0 Sodium Level 137 Potassium Level 4.3 Chloride Level 103 Carbon Dioxide Level 23 Anion Gap 15 Blood Urea Nitrogen 5 L Creatinine 0.67 Glucose Level 240 #H Calcium Level 8.5 Medications Medications Current Medications Ondansetron HCl (Zofran Inj) 4 mg Q6H PRN IV NAUSEA AND/OR VOMITING; Start at 14:30 Acetaminophen (Tylenol Tab) 650 mg Q6H PRN PO PAIN LEVEL 1-3 OR FEVER Last administered on 01/16/17 04:49; Admin Dose 650 MG; Start 12/31/16 at 14:30 Acetaminophen/ Hydrocodone Bitart ([place] (5/325)) 1 tab Q6H PRN PO MODERATE PAIN LEVEL 4-6; Start 12/31/16 at 14:30 Morphine Sulfate (morphine) 2 mg Q4H PRN IV SEVERE PAIN LEVEL 7-10; Start at 14:30 Docusate Sodium (Colace) 100 mg Q12H PRN PO CONSTIPATION; Start 12/31/16 at 14 :30 Magnesium Hydroxide (Milk Of Mag) 30 ml DAILY PRN PO CONSTIPATION; Start 12/31 at 14:30 Sodium Biphosphate/ Sodium Phosphate (Fleet Enema) 133 ml DAILY PRN [place] CONSTIPATION; Start 12/31/16 at 14:30 Heparin Sodium (Porcine) (Heparin (5000 Units/0.5 ml)) 5,000 unit Q12 SC Last administered on 01/16/17 08:16; Admin Dose 5,000 UNIT; Start 12/31/16 at 15: 00 Nitroglycerin (Nitroglycerin (Sl Tab) 0.4 Mg) 1 tab Q5M PRN SL ANGINA; Start 12/31/16 at 14:30 Thiamine HCl (Vitamin B1) 100 mg DAILY PO Last administered on 01/16/17 08:15 ; Admin Dose 100 MG; Start 12/31/16 at 15:00 Folic Acid (Folic Acid) 1 mg DAILY PO Last administered on 01/16/17 08:15; Admin Dose 1 MG; Start 12/31/16 at 15:00 Lorazepam (Ativan) 1 mg Q1H PRN IV CONTROL WITHDRAWAL SYMPTOMS Last administered on 01/02/17 14:30; Admin Dose 1 MG; Start 12/31/16 at 15:30 Nystatin (Nystatin Susp) 5 ml QID PO Last administered on 01/16/17 17:33; Admin Dose 5 ML; Start 01/01/17 at 17:00 Multivitamins Therapeutic (Theragran) 1 tab DAILY PO Last administered on 01/16 08:15; Admin Dose 1 TAB; Start 01/02/17 at 09:00 Levothyroxine Sodium (Synthroid) 50 mcg DAILY@06 PO Last administered on 05:32; Admin Dose 50 MCG; Start 01/04/17 at 06:00 Guaifenesin/ Dextromethorphan (Robitussin Dm Liquid Cup) 10 ml Q4H PRN PO COUGH Last administered on 01/16/17 05:33; Admin Dose 10 ML; Start 01/03/17 at 23:30 Ibuprofen (Motrin) 400 mg Q6H PRN PO PAIN OR TEMP ABOVE 38C; Start 01/04/17 at 11:00 Phenol (Cepastat Lozenge) 1 lozenge Q1H PRN [place] COUGH Last administered on 01/16 05:33; Admin Dose 1 LOZENGE; Start 01/14/17 at 13:30 JD BUCHANAN MD Jan 16, 2017 18:11
--- NOTE | 2017-01-16 19:57 | CONS ---
Date/Time of Note Date/Time of Note DATE: 01/16/17 TIME: 19:56 Assessment/Plan Assessment/Plan Chief Complaint/Hosp Course 21-year-old male with no PMHx except alcohol abuse, admitted with SIRS cough, CAP- treated with iV abx, pt persitently have Cough with low grade fever, ID followed up on patient. pt finished Levaquin abx for PNA coverage but continues to have low grade fever, with signficant LE 3-4+ edema, UA negative for protein Pt was treated with IV albumin +IV lasix for diuresis but continues to have Edema. Renal has been consulted for Anasarca, to rule out nephrotic syndrome. Problems: Additional Assessment/Plan 1. Anasarca with Significant LE edema- 3+, US negative for DVT, US abdomen did not show ascites- CXR showed mild pulmonary congestion 2. Community acquired pneumonia, likely viral, influenza screen, levaquin 3. Leukocytosis, likely reactive from viral infection 4. Alcoholism, no withdrawal 5. Transaminitis, alcohol related, follow up with LFTs 6. persistent fever with luecocytosis Plan: Autoimmune work up including DOLORES, ANCA< ESR, CRP, Rheumatoid factor, C3, C4, total complement - negative His HIV, hepatitis panel negative plan for WBC Scan on Sunday US LE negative for DVT- s/p IV lasix + albumin diuresis still has LE edema- 24 hr urine collection did not show nephrotic range proteinuria US abdomen showed fatty liver, hepatomegaluy, no evidence of cirrhosis. Heparin for DVT prophylaxis Hematology oncolgoy consulted on the case Currently we sign off, call us if any questions, or if pt renal function changes will follow up Consultation Date/Type/Reason Admit Date/Time Dec 31, 2016 at 13:50 Initial Consult Date 01/08/17 Type of Consultation: NEPHROLOGY Referring Provider: JIGNA CANALES NP 24 HR Interval Summary Free Text/Dictation pt still spiking fever, BP stable,a febrile Exam/Review of Systems Vital Signs Vitals Vital Signs Date Time Temp Pulse Resp B/P Pulse Ox O2 Delivery O2 Flow Rate FiO2 01/16/17 07:56 98.6 105 16 118/74 99 Intake and Output 01/15/17 01/15/17 01/16/17 15:00 23:00 07:00 Intake Total 1020 ml 980 ml Balance 1020 ml 980 ml Results Result Diagram: 01/16/17 0547 01/16/17 0547 Results 24 hrs Laboratory Tests Test 01/16/17 05:40 01/16/17 05:47 Urine Color YELLOW Urine Clarity CLEAR Urine pH 6.0 Urine Specific [place] 1.011 Urine Ketones NEGATIVE Urine Nitrite NEGATIVE Urine Bilirubin NEGATIVE Urine Urobilinogen NEGATIVE Urine Leukocyte Esterase NEGATIVE Urine Hemoglobin NEGATIVE Urine Glucose 2+ H Urine Total Protein NEGATIVE White Blood Count 19.9 H Red Blood Count 3.32 L Hemoglobin 10.8 L Hematocrit 34.1 L Mean Corpuscular Volume 102.7 H Mean Corpuscular Hemoglobin 32.5 Mean Corpuscular Hemoglobin Concent 31.7 L Red Cell Distribution Width 14.6 H Platelet Count 370 Mean Platelet Volume 9.6 Neutrophils % 74.3 Lymphocytes % 12.8 L Monocytes % 6.2 Eosinophils % 4.3 Basophils % 0.7 Nucleated Red Blood Cells % 0.0 Neutrophils # 14.8 H Lymphocytes # 2.5 Monocytes # 1.2 H Eosinophils # 0.9 H Basophils # 0.1 Nucleated Red Blood Cells # 0.0 Sodium Level 137 Potassium Level 4.3 Chloride Level 103 Carbon Dioxide Level 23 Anion Gap 15 Blood Urea Nitrogen 5 L Creatinine 0.67 Glucose Level 240 #H Calcium Level 8.5 Medications Medications Current Medications Ondansetron HCl (Zofran Inj) 4 mg Q6H PRN IV NAUSEA AND/OR VOMITING; Start at 14:30 Acetaminophen (Tylenol Tab) 650 mg Q6H PRN PO PAIN LEVEL 1-3 OR FEVER Last administered on 01/16/17t 04:49; Admin Dose 650 MG; Start 12/31/16 at 14:30 Acetaminophen/ Hydrocodone Bitart ([place] (5/325)) 1 tab Q6H PRN PO MODERATE PAIN LEVEL 4-6; Start 12/31/16 at 14:30 Morphine Sulfate (morphine) 2 mg Q4H PRN IV SEVERE PAIN LEVEL 7-10; Start at 14:30 Docusate Sodium (Colace) 100 mg Q12H PRN PO CONSTIPATION; Start 12/31/16 at 14 :30 Magnesium Hydroxide (Milk Of Mag) 30 ml DAILY PRN PO CONSTIPATION; Start 12/31 at 14:30 Sodium Biphosphate/ Sodium Phosphate (Fleet Enema) 133 ml DAILY PRN [place] CONSTIPATION; Start 12/31/16 at 14:30 Heparin Sodium (Porcine) (Heparin (5000 Units/0.5 ml)) 5,000 unit Q12 SC Last administered on 01/16/17 08:16; Admin Dose 5,000 UNIT; Start 12/31/16 at 15: 00 Nitroglycerin (Nitroglycerin (Sl Tab) 0.4 Mg) 1 tab Q5M PRN SL ANGINA; Start 12/31/16 at 14:30 Thiamine HCl (Vitamin B1) 100 mg DAILY PO Last administered on 01/16/17 08:15 ; Admin Dose 100 MG; Start 12/31/16 at 15:00 Folic Acid (Folic Acid) 1 mg DAILY PO Last administered on 01/16/17 08:15; Admin Dose 1 MG; Start 12/31/16 at 15:00 Lorazepam (Ativan) 1 mg Q1H PRN IV CONTROL WITHDRAWAL SYMPTOMS Last administered on 01/02/17 14:30; Admin Dose 1 MG; Start 12/31/16 at 15:30 Nystatin (Nystatin Susp) 5 ml QID PO Last administered on 01/16/17 17:33; Admin Dose 5 ML; Start 01/01/17 at 17:00 Multivitamins Therapeutic (Theragran) 1 tab DAILY PO Last administered on 01/16 08:15; Admin Dose 1 TAB; Start 01/02/17 at 09:00 Levothyroxine Sodium (Synthroid) 50 mcg DAILY@06 PO Last administered on 05:32; Admin Dose 50 MCG; Start 01/04/17 at 06:00 Guaifenesin/ Dextromethorphan (Robitussin Dm Liquid Cup) 10 ml Q4H PRN PO COUGH Last administered on 01/16/17 05:33; Admin Dose 10 ML; Start 01/03/17 at 23:30 Ibuprofen (Motrin) 400 mg Q6H PRN PO PAIN OR TEMP ABOVE 38C; Start 01/04/17 at 11:00 Phenol (Cepastat Lozenge) 1 lozenge Q1H PRN MT COUGH Last administered on 01/16 05:33; Admin Dose 1 LOZENGE; Start 01/14/17 at 13:30 JAY ROSALES MD Jan 16, 2017 19:57
[2017-01-16 20:06] VITALS: BP 122/77; RESP 16
[2017-01-17] VITALS (8 sets, daily range): BP systolic 115–131; BP diastolic 62–78; PULSE 103–108; RESP 16–19
[2017-01-17] MEDS: LEVOTHYROXINE 50 MCG TAB PO SCH (05:23)
[2017-01-17 06:18] LABS: BASOPHIL # 0.1 10^3/ul (0.0-0.1); BASOPHILS % 0.6 % (0.0-2.0); EOSINOPHILS # 0.7 10^3/ul (0.0-0.5); EOSINOPHILS % 3.9 % (0.0-7.0); HEMOGLOBIN 10.5 g/dl (14.0-18.0); LYMPHOCYTES # 2.2 10^3/ul (0.8-2.9); LYMPHOCYTES % 12.3 % (15.0-51.0); MEAN CORPUSCULAR HEMOGLOBIN 32.3 pg (29.0-33.0); MEAN CORPUSCULAR HGB CONC 31.8 g/dl (32.0-37.0); MEAN CORPUSCULAR VOLUME 101.5 fl (82.0-101.0); MEAN PLATELET VOLUME 9.6 fl (7.4-10.4); MONOCYTE # 1.1 10^3/ul (0.3-0.9); MONOCYTES % 6.3 % (0.0-11.0); NEUTROPHIL # 13.6 10^3/ul (1.6-7.5); NEUTROPHILS % 75.6 % (39.0-77.0); PLATELET COUNT 339 10^3/UL (140-415); RED BLOOD COUNT 3.25 10^6/ul (4.70-6.10); RED CELL DISTRIBUTION WIDTH 14.3 % (11.5-14.5)
[2017-01-17 06:49] LABS: CALCIUM 9.1 mg/dl (8.4-10.2); CREATININE 0.79 mg/dl (0.61-1.24)
[2017-01-17] MEDS: MULTIVITAMINS THERAPEUTIC TAB PO SCH (08:11)
[2017-01-17] MEDS: NYSTATIN SUSP 5 ML CUP PO SCH ×4 (08:11→21:20)
[2017-01-17] MEDS: FOLIC ACID 1 MG TAB PO SCH (08:11)
[2017-01-17] MEDS: HEPARIN 5,000 UNIT/0.5 ML VIAL SC SCH ×2 (08:12→21:19)
[2017-01-17] MEDS: THIAMINE 100 MG TAB PO SCH (08:12)
[2017-01-17] MEDS ORDERED: FENTAnyl 50 MCG/ML VIAL ONE (08:52)
[2017-01-17] MEDS ORDERED: MIDAZOLAM 1 MG/ML 2 ML INJ ONE (08:52)
[2017-01-17] MEDS ORDERED: LIDOCAINE 1% (MDV) 20 ML INJ ONE (08:52)
[2017-01-17] MEDS ORDERED: SOD CHLORIDE 0.9% 500 ML ONE (08:52)
--- NOTE | 2017-01-17 09:44 | RADRPT ---
PROCEDURE: CT guided bone marrow aspiration and left iliac bone biopsy. CLINICAL INDICATION: History of pancytopenia and splenomegaly. TECHNIQUE: Informed consent was obtained. The procedure, risks, benefits, complications and alternatives were e xplained to the patient. Risks including bleeding and infection were explained. The patient understo od and was willing to proceed. A procedural pause was performed. The patient's name, date of , and procedure to be performed were verified. One or more of the following dose reduction techni ques were used: Automated exposure control, adjustment of the mA and/or kV according to patient size , use of iterative reconstruction technique. DICOM images are available. Using local anesthetic, sterile technique and CT guidance, an 11-gauge On Control bone biopsy needle was advanced into the left iliac bone via a posterior approach. Bone marrow aspiration was perform ed yielding approximately 10 ml. The bone biopsy needle was then advanced an additional 4 cm using the power drill device and tissue was obtained. Adequate tissue was obtained according to the patho logist present during the procedure. The needle was removed. A postprocedural scan was performed. A dressing was applied. The patient tolerated procedure well. COMPARISON: None. FINDINGS: Initial images demonstrate the tip of the needle at the posterior margin of the left iliac bone. Yoo bsequent images demonstrate the needle within the bone. Post biopsy images demonstrate no immediate complication. IMPRESSION: 1. Successful CT guided bone marrow aspiration and biopsy. RPTAT: QQ .Sunday Nava MD, MD Date Time Electronically viewed and signed by .Sunday Nava MD, MD on 01/17/2017 09:43 .R/
--- NOTE | 2017-01-17 12:07 | CONS ---
Date/Time of Note Date/Time of Note DATE: 01/17/17 TIME: 12:05 Assessment/Plan Assessment/Plan Chief Complaint/Hosp Course LEUKOCYTOSIS WITH INTERMITTENT FEVER PER ID - ID HAS Community acquired pneumonia, likely viral, influenza screen, levaquin WBC labeled scan negative SMEAR- NO BLASTS BMBX- P Splenomegaly ANEMIA MACROCYTIC WITH ELEVATED RDW COMPLETE W-UP Oral thrush. BLE edema History of alcohol abuse Poss nephritic syndrome Transaminitis ==> dilated CBD per US. Anasarca with Significant LE edema- 3+, US negative for DVT, US abdomen did not show ascites- CXR showed mild pulmonary congestion Alcoholism, no withdrawal Transaminitis, alcohol related, follow up with LFTs Problems: Consultation Date/Type/Reason Admit Date/Time Dec 31, 2016 at 13:50 Initial Consult Date 01/08/17 Type of Consultation: [facility] Referring Provider: JIGNA CANALES NP 24 HR Interval Summary Free Text/Dictation ALL NOTED POST BMBX Exam/Review of Systems Vital Signs Vitals Vital Signs Date Time Temp Pulse Resp B/P Pulse Ox O2 Delivery O2 Flow Rate FiO2 01/17/17 08:00 99.2 106 16 131/73 96 Intake and Output 01/16/17 01/16/17 01/17/17 14:59 22:59 06:59 Intake Total 1720 ml 680 ml Balance 1720 ml 680 ml Exam Constitutional: alert, obese, oriented, well developed Psych: nl mood/affect, no complaints Head: atraumatic, normocephalic Eyes: EOMI, PERRL, nl conjunctiva, nl lids, nl sclera ENMT: nl external ears & nose, nl lips & teeth, nl nasal mucosa & septum Neck: non-tender, supple Respiratory: clear to auscultation, normal air movement, No congested cough, No crackles/rales, No diminished breath sounds, No intercostal retraction, No labored breathing, No other, No respirations, No tactile fremitus, No wheezing Cardiovascular: nl pulses, regular rate and rhythm, No S3, No S4, No bruits, No diastolic murmur, No edema, No gallop, No irregular rhythm, No jugular venous distention (JVD), No murmurs/extra sounds, No other, No rub, No systolic murmur Gastrointestinal: nl liver, spleen, non-tender, soft, No ascites, No bowel sounds, No distended, No firm, No hepatomegaly, No mass , No other, No rebound or guarding, No splenomegaly, No surgical scars, No tender Musculoskeletal: nl extremities to inspection Extremities: normal pulses, No calf tenderness, No clubbing, No cyanosis, No edema, No other, No palpable cord, No pitting pedal edema, No tenderness 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, nl mental status, nl speech, nl strength Results Result Diagram: 01/17/1715 01/17/1715 Results 24 hrs Laboratory Tests Test 01/17/17 05:15 White Blood Count 18.0 H Red Blood Count 3.25 L Hemoglobin 10.5 L Hematocrit 33.0 L Mean Corpuscular Volume 101.5 H Mean Corpuscular Hemoglobin 32.3 Mean Corpuscular Hemoglobin Concent 31.8 L Red Cell Distribution Width 14.3 Platelet Count 339 Mean Platelet Volume 9.6 Neutrophils % 75.6 Lymphocytes % 12.3 L Monocytes % 6.3 Eosinophils % 3.9 Basophils % 0.6 Nucleated Red Blood Cells % 0.0 Neutrophils # 13.6 H Lymphocytes # 2.2 Monocytes # 1.1 H Eosinophils # 0.7 H Basophils # 0.1 Nucleated Red Blood Cells # 0.0 Sodium Level 139 Potassium Level 4.0 Chloride Level 104 Carbon Dioxide Level 24 Anion Gap 15 Blood Urea Nitrogen 7 Creatinine 0.79 Glucose Level 129 # Calcium Level 9.1 Lactate Dehydrogenase 880 H Medications Medications Current Medications Ondansetron HCl (Zofran Inj) 4 mg Q6H PRN IV NAUSEA AND/OR VOMITING; Start at 14:30 Acetaminophen (Tylenol Tab) 650 mg Q6H PRN PO PAIN LEVEL 1-3 OR FEVER Last administered on 01/16/17t 04:49; Admin Dose 650 MG; Start 12/31/16 at 14:30 Acetaminophen/ Hydrocodone Bitart ([place] (5/325)) 1 tab Q6H PRN PO MODERATE PAIN LEVEL 4-6; Start 12/31/16 at 14:30 Morphine Sulfate (morphine) 2 mg Q4H PRN IV SEVERE PAIN LEVEL 7-10; Start at 14:30 Docusate Sodium (Colace) 100 mg Q12H PRN PO CONSTIPATION; Start 12/31/16 at 14 :30 Magnesium Hydroxide (Milk Of Mag) 30 ml DAILY PRN PO CONSTIPATION; Start 12/31 at 14:30 Sodium Biphosphate/ Sodium Phosphate (Fleet Enema) 133 ml DAILY PRN [place] CONSTIPATION; Start 12/31/16 at 14:30 Heparin Sodium (Porcine) (Heparin (5000 Units/0.5 ml)) 5,000 unit Q12 SC Last administered on 01/16/17 21:37; Admin Dose 5,000 UNIT; Start 12/31/16 at 15: 00 Nitroglycerin (Nitroglycerin (Sl Tab) 0.4 Mg) 1 tab Q5M PRN SL ANGINA; Start 12/31/16 at 14:30 Thiamine HCl (Vitamin B1) 100 mg DAILY PO Last administered on 01/16/17 08:15 ; Admin Dose 100 MG; Start 12/31/16 at 15:00 Folic Acid (Folic Acid) 1 mg DAILY PO Last administered on 01/16/17 08:15; Admin Dose 1 MG; Start 12/31/16 at 15:00 Lorazepam (Ativan) 1 mg Q1H PRN IV CONTROL WITHDRAWAL SYMPTOMS Last administered on 01/02/17 14:30; Admin Dose 1 MG; Start 12/31/16 at 15:30 Nystatin (Nystatin Susp) 5 ml QID PO Last administered on 01/16/17 21:36; Admin Dose 5 ML; Start 01/01/17 at 17:00 Multivitamins Therapeutic (Theragran) 1 tab DAILY PO Last administered on 01/16 08:15; Admin Dose 1 TAB; Start 01/02/17 at 09:00 Levothyroxine Sodium (Synthroid) 50 mcg DAILY@06 PO Last administered on 05:23; Admin Dose 50 MCG; Start 01/04/17 at 06:00 Guaifenesin/ Dextromethorphan (Robitussin Dm Liquid Cup) 10 ml Q4H PRN PO COUGH Last administered on 01/16/17 05:33; Admin Dose 10 ML; Start 01/03/17 at 23:30 Ibuprofen (Motrin) 400 mg Q6H PRN PO PAIN OR TEMP ABOVE 38C; Start 01/04/17 at 11:00 Phenol (Cepastat Lozenge) 1 lozenge Q1H PRN [place] COUGH Last administered on 11/14 /17at 05:33; Admin Dose 1 LOZENGE; Start 01/14/17 at 13:30 JD BUCHANAN MD Jan 17, 2017 12:07
--- NOTE | 2017-01-17 13:20 | CONS ---
Date/Time of Note Date/Time of Note DATE: 01/17/17 TIME: 13:19 Consult Date/Type/Reason Admit Date/Time Dec 31, 2016 at 13:50 Type of Consultation: ID Ordering Provider: JIGNA CANALES NP Objective Vital Signs Date Time Temp Pulse Resp B/P Pulse Ox O2 Delivery O2 Flow Rate FiO2 01/17/17 12:17 98.2 103 19 122/68 97 Room Air Intake and Output 01/16/17 01/16/17 01/17/17 15:00 23:00 07:00 Intake Total 1720 ml 680 ml Balance 1720 ml 680 ml Results/Medications Result Diagram: 01/17/17 0515 01/17/17 0515 Results 24 hrs Laboratory Tests Test 01/17/17 05:15 White Blood Count 18.0 H Red Blood Count 3.25 L Hemoglobin 10.5 L Hematocrit 33.0 L Mean Corpuscular Volume 101.5 H Mean Corpuscular Hemoglobin 32.3 Mean Corpuscular Hemoglobin Concent 31.8 L Red Cell Distribution Width 14.3 Platelet Count 339 Mean Platelet Volume 9.6 Neutrophils % 75.6 Lymphocytes % 12.3 L Monocytes % 6.3 Eosinophils % 3.9 Basophils % 0.6 Nucleated Red Blood Cells % 0.0 Neutrophils # 13.6 H Lymphocytes # 2.2 Monocytes # 1.1 H Eosinophils # 0.7 H Basophils # 0.1 Nucleated Red Blood Cells # 0.0 Sodium Level 139 Potassium Level 4.0 Chloride Level 104 Carbon Dioxide Level 24 Anion Gap 15 Blood Urea Nitrogen 7 Creatinine 0.79 Glucose Level 129 # Calcium Level 9.1 Lactate Dehydrogenase 880 H Medications Current Medications Ondansetron HCl (Zofran Inj) 4 mg Q6H PRN IV NAUSEA AND/OR VOMITING; Start at 14:30 Acetaminophen (Tylenol Tab) 650 mg Q6H PRN PO PAIN LEVEL 1-3 OR FEVER Last administered on 01/16/17t 04:49; Admin Dose 650 MG; Start 12/31/16 at 14:30 Acetaminophen/ Hydrocodone Bitart ([place] (5/325)) 1 tab Q6H PRN PO MODERATE PAIN LEVEL 4-6; Start 12/31/16 at 14:30 Morphine Sulfate (morphine) 2 mg Q4H PRN IV SEVERE PAIN LEVEL 7-10; Start at 14:30 Docusate Sodium (Colace) 100 mg Q12H PRN PO CONSTIPATION; Start 12/31/16 at 14 :30 Magnesium Hydroxide (Milk Of Mag) 30 ml DAILY PRN PO CONSTIPATION; Start 12/31 at 14:30 Sodium Biphosphate/ Sodium Phosphate (Fleet Enema) 133 ml DAILY PRN [place] CONSTIPATION; Start 12/31/16 at 14:30 Heparin Sodium (Porcine) (Heparin (5000 Units/0.5 ml)) 5,000 unit Q12 SC Last administered on 01/16/17 21:37; Admin Dose 5,000 UNIT; Start 12/31/16 at 15: 00 Nitroglycerin (Nitroglycerin (Sl Tab) 0.4 Mg) 1 tab Q5M PRN SL ANGINA; Start 12/31/16 at 14:30 Thiamine HCl (Vitamin B1) 100 mg DAILY PO Last administered on 01/16/17 08:15 ; Admin Dose 100 MG; Start 12/31/16 at 15:00 Folic Acid (Folic Acid) 1 mg DAILY PO Last administered on 01/16/17 08:15; Admin Dose 1 MG; Start 12/31/16 at 15:00 Lorazepam (Ativan) 1 mg Q1H PRN IV CONTROL WITHDRAWAL SYMPTOMS Last administered on 01/02/17 14:30; Admin Dose 1 MG; Start 12/31/16 at 15:30 Nystatin (Nystatin Susp) 5 ml QID PO Last administered on 01/17/17 12:05; Admin Dose 5 ML; Start 01/01/17 at 17:00 Multivitamins Therapeutic (Theragran) 1 tab DAILY PO Last administered on 01/16 08:15; Admin Dose 1 TAB; Start 01/02/17 at 09:00 Levothyroxine Sodium (Synthroid) 50 mcg DAILY@06 PO Last administered on 05:23; Admin Dose 50 MCG; Start 01/04/17 at 06:00 Guaifenesin/ Dextromethorphan (Robitussin Dm Liquid Cup) 10 ml Q4H PRN PO COUGH Last administered on 01/16/17 05:33; Admin Dose 10 ML; Start 01/03/17 at 23:30 Ibuprofen (Motrin) 400 mg Q6H PRN PO PAIN OR TEMP ABOVE 38C; Start 01/04/17 at 11:00 Phenol (Cepastat Lozenge) 1 lozenge Q1H PRN [place] COUGH Last administered on 01/16t 05:33; Admin Dose 1 LOZENGE; Start 01/14/17 at 13:30 Assessment/Plan Chief Complaint/Hosp Course SUBJECTIVE: No events, looks comfortable LABORATORY DATA: Blood cultures have been negative. Urinalysis was negative. Hepatitis panel and HIV negative. PHYSICAL EXAMINATION: GENERAL: This is a morbidly obese young man who is alert, in no distress. HEENT: Head atraumatic, normocephalic. Sclerae anicteric. Buccal mucosa dry with white rash on his tongue and halitosis. NECK: Obese. CHEST: Rise symmetrical. Breath sounds diminished to bases. HEART: S1, S2. ABDOMEN: Obese, soft. Bowel tones present. EXTREMITIES: Without cyanosis. ASSESSMENT: 1. Ongoing fevers with leukocytosis, r/o malignancy 2. Transaminitis ==> dilated CBD per US. 3. Oral thrush. 4. BLE edema 5. History of alcohol abuse 6. Poss nephritic syndrome PLAN: Clinically unchanged, WBC labeled scan and cx's negative, s/p BM bx per hem-oncology [facility] staff Problems: BRENDEN SCOTT NP Jan 17, 2017 13:20
--- NOTE | 2017-01-17 15:40 | PN ---
Date/Time of Note Date/Time of Note DATE: 01/17/17 TIME: 15:39 Assessment/Plan VTE Prophylaxis VTE Prophylaxis Intervention: heparin Lines/Catheters IV C[facility]ter Type [facility] [place] [facility] Urinary Cath still in place: No Assessment/Plan Assessment/Plan 1. Persistent leukocytosis, unclear source/etiology, off of antibiotics. negative WBC scan, bone marrow biopsy on 01/17/2017 2. Cough with hoarseness 3. Alcoholism, no withdrawal 4. Transaminitis, alcohol related, follow up with LFTs 5. Dilated CBD on US, refuses MRCP 6. 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 Peripheral edema with hypoalbuminemia 8. DVT prophylaxis: heparin Subjective 24 Hr Interval Summary Free Text/Dictation afebrile. dry cough Exam/Review of Systems Vital Signs Vitals Vital Signs Date Time Temp Pulse Resp B/P Pulse Ox O2 Delivery O2 Flow Rate FiO2 01/17/17 14:24 98.5 107 19 121/62 96 Room Air Intake and Output 01/16/17 01/16/17 01/17/17 15:00 23:00 07:00 Intake Total 1720 ml 680 ml Balance 1720 ml 680 ml Exam Constitutional: alert, obese, oriented, well developed Psych: nl mood/affect, no complaints Head: atraumatic, normocephalic Eyes: EOMI, PERRL, nl conjunctiva, nl lids, nl sclera ENMT: nl external ears & nose, nl lips & teeth, nl nasal mucosa & septum Neck: non-tender, supple Respiratory: clear to auscultation, normal air movement Cardiovascular: nl pulses, regular rate and rhythm Gastrointestinal: nl liver, spleen, non-tender, soft Musculoskeletal: nl extremities to inspection Extremities: normal pulses, No calf tenderness, No clubbing, No cyanosis, No edema, No other, No palpable cord, No pitting pedal edema, No tenderness 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: 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, nl mental status, nl speech, nl strength Skin: nl turgor Lymph: nl lymph nodes Results Result Diagram: 01/17/1715 01/17/17 0515 Results 24 hrs Laboratory Tests Test 01/17/17 05:15 White Blood Count 18.0 H Red Blood Count 3.25 L Hemoglobin 10.5 L Hematocrit 33.0 L Mean Corpuscular Volume 101.5 H Mean Corpuscular Hemoglobin 32.3 Mean Corpuscular Hemoglobin Concent 31.8 L Red Cell Distribution Width 14.3 Platelet Count 339 Mean Platelet Volume 9.6 Neutrophils % 75.6 Lymphocytes % 12.3 L Monocytes % 6.3 Eosinophils % 3.9 Basophils % 0.6 Nucleated Red Blood Cells % 0.0 Neutrophils # 13.6 H Lymphocytes # 2.2 Monocytes # 1.1 H Eosinophils # 0.7 H Basophils # 0.1 Nucleated Red Blood Cells # 0.0 Sodium Level 139 Potassium Level 4.0 Chloride Level 104 Carbon Dioxide Level 24 Anion Gap 15 Blood Urea Nitrogen 7 Creatinine 0.79 Glucose Level 129 # Calcium Level 9.1 Lactate Dehydrogenase 880 H Medications Medications Current Medications Ondansetron HCl (Zofran Inj) 4 mg Q6H PRN IV NAUSEA AND/OR VOMITING; Start at 14:30 Acetaminophen (Tylenol Tab) 650 mg Q6H PRN PO PAIN LEVEL 1-3 OR FEVER Last administered on 01/16/17 04:49; Admin Dose 650 MG; Start 12/31/16 at 14:30 Acetaminophen/ Hydrocodone Bitart ([place] (5/325)) 1 tab Q6H PRN PO MODERATE PAIN LEVEL 4-6; Start 12/31/16 at 14:30 Morphine Sulfate (morphine) 2 mg Q4H PRN IV SEVERE PAIN LEVEL 7-10; Start at 14:30 Docusate Sodium (Colace) 100 mg Q12H PRN PO CONSTIPATION; Start 12/31/16 at 14 :30 Magnesium Hydroxide (Milk Of Mag) 30 ml DAILY PRN PO CONSTIPATION; Start 12/31 at 14:30 Sodium Biphosphate/ Sodium Phosphate (Fleet Enema) 133 ml DAILY PRN [place] CONSTIPATION; Start 12/31/16 at 14:30 Heparin Sodium (Porcine) (Heparin (5000 Units/0.5 ml)) 5,000 unit Q12 SC Last administered on 01/16/17 21:37; Admin Dose 5,000 UNIT; Start 12/31/16 at 15: 00 Nitroglycerin (Nitroglycerin (Sl Tab) 0.4 Mg) 1 tab Q5M PRN SL ANGINA; Start 12/31/16 at 14:30 Thiamine HCl (Vitamin B1) 100 mg DAILY PO Last administered on 01/16/17 08:15 ; Admin Dose 100 MG; Start 12/31/16 at 15:00 Folic Acid (Folic Acid) 1 mg DAILY PO Last administered on 01/16/17 08:15; Admin Dose 1 MG; Start 12/31/16 at 15:00 Lorazepam (Ativan) 1 mg Q1H PRN IV CONTROL WITHDRAWAL SYMPTOMS Last administered on 01/02/17 14:30; Admin Dose 1 MG; Start 12/31/16 at 15:30 Nystatin (Nystatin Susp) 5 ml QID PO Last administered on 01/17/17 12:05; Admin Dose 5 ML; Start 01/01/17 at 17:00 Multivitamins Therapeutic (Theragran) 1 tab DAILY PO Last administered on 01/16 08:15; Admin Dose 1 TAB; Start 01/02/17 at 09:00 Levothyroxine Sodium (Synthroid) 50 mcg DAILY@06 PO Last administered on 05:23; Admin Dose 50 MCG; Start 01/04/17 at 06:00 Guaifenesin/ Dextromethorphan (Robitussin Dm Liquid Cup) 10 ml Q4H PRN PO COUGH Last administered on 01/16/17 05:33; Admin Dose 10 ML; Start 01/03/17 at 23:30 Ibuprofen (Motrin) 400 mg Q6H PRN PO PAIN OR TEMP ABOVE 38C; Start 01/04/17 at 11:00 Phenol (Cepastat Lozenge) 1 lozenge Q1H PRN MT COUGH Last administered on 01/16 05:33; Admin Dose 1 LOZENGE; Start 01/14/17 at 13:30 BREE ARENAS MD Jan 17, 2017 15:40
[2017-01-18 02:59] VITALS: BP 123/71; RESP 18
[2017-01-18 05:37] LABS: BASOPHIL # 0.1 10^3/ul (0.0-0.1); BASOPHILS % 0.7 % (0.0-2.0); EOSINOPHILS # 0.6 10^3/ul (0.0-0.5); EOSINOPHILS % 3.4 % (0.0-7.0); HEMATOCRIT 31.1 % (42.0-52.0); HEMOGLOBIN 10.4 g/dl (14.0-18.0); LYMPHOCYTES # 1.9 10^3/ul (0.8-2.9); LYMPHOCYTES % 10.5 % (15.0-51.0); MEAN CORPUSCULAR HEMOGLOBIN 33.2 pg (29.0-33.0); MEAN CORPUSCULAR HGB CONC 33.4 g/dl (32.0-37.0); MEAN CORPUSCULAR VOLUME 99.4 fl (82.0-101.0); MEAN PLATELET VOLUME 9.8 fl (7.4-10.4); MONOCYTE # 1.1 10^3/ul (0.3-0.9); MONOCYTES % 6.4 % (0.0-11.0); NEUTROPHIL # 13.9 10^3/ul (1.6-7.5); NEUTROPHILS % 77.8 % (39.0-77.0); PLATELET COUNT 335 10^3/UL (140-415); RED BLOOD COUNT 3.13 10^6/ul (4.70-6.10); RED CELL DISTRIBUTION WIDTH 14.4 % (11.5-14.5); WHITE BLOOD COUNT 17.8 10^3/ul (4.8-10.8)
[2017-01-18] MEDS: LEVOTHYROXINE 50 MCG TAB PO SCH (06:37)
[2017-01-18 06:41] LABS: CALCIUM 8.2 mg/dl (8.4-10.2); CREATININE 0.65 mg/dl (0.61-1.24); POTASSIUM 4.4 mmol/L (3.5-5.1)
[2017-01-18 07:30] VITALS: BP 118/69; RESP 16
[2017-01-18] MEDS: FOLIC ACID 1 MG TAB PO SCH (08:37)
[2017-01-18] MEDS: MULTIVITAMINS THERAPEUTIC TAB PO SCH (08:38)
[2017-01-18] MEDS: THIAMINE 100 MG TAB PO SCH (08:38)
[2017-01-18] MEDS: NYSTATIN SUSP 5 ML CUP PO SCH ×4 (08:38→21:34)
[2017-01-18] MEDS: HEPARIN 5,000 UNIT/0.5 ML VIAL SC SCH ×2 (08:39→21:37)
[2017-01-18] MEDS: GUAIFENESIN/DM 5ML CUP PO PRN ×4 (08:45→21:34)
[2017-01-18] MEDS: CEPASTAT LOZENGE MT PRN ×4 (08:45→21:36)
[2017-01-18 14:28] VITALS: BP 128/74; RESP 18
--- NOTE | 2017-01-18 14:34 | CONS ---
Date/Time of Note Date/Time of Note DATE: 01/18/17 TIME: 14:33 Consult Date/Type/Reason Admit Date/Time Dec 31, 2016 at 13:50 Type of Consultation: ID Ordering Provider: JIGNA CANALES NP Objective Vital Signs Date Time Temp Pulse Resp B/P Pulse Ox O2 Delivery O2 Flow Rate FiO2 01/18/17 07:30 99.0 105 16 118/69 94 01/17/17 14:24 Room Air Intake and Output 01/17/17 01/17/17 01/18/17 15:00 23:00 07:00 Intake Total 450 ml 1100 ml 700 ml Balance 450 ml 1100 ml 700 ml Results/Medications Result Diagram: 01/18/17 0445 01/18/17 0445 Results 24 hrs Laboratory Tests Test 01/18/17 04:45 White Blood Count 17.8 H Red Blood Count 3.13 L Hemoglobin 10.4 L Hematocrit 31.1 L Mean Corpuscular Volume 99.4 Mean Corpuscular Hemoglobin 33.2 H Mean Corpuscular Hemoglobin Concent 33.4 Red Cell Distribution Width 14.4 Platelet Count 335 Mean Platelet Volume 9.8 Neutrophils % 77.8 H Lymphocytes % 10.5 L Monocytes % 6.4 Eosinophils % 3.4 Basophils % 0.7 Nucleated Red Blood Cells % 0.0 Neutrophils # 13.9 H Lymphocytes # 1.9 Monocytes # 1.1 H Eosinophils # 0.6 H Basophils # 0.1 Nucleated Red Blood Cells # 0.0 Sodium Level 134 L Potassium Level 4.4 Chloride Level 103 Carbon Dioxide Level 20 L Anion Gap 15 Blood Urea Nitrogen 7 Creatinine 0.65 Glucose Level 298 #H Calcium Level 8.2 L Medications Current Medications Ondansetron HCl (Zofran Inj) 4 mg Q6H PRN IV NAUSEA AND/OR VOMITING; Start at 14:30 Acetaminophen (Tylenol Tab) 650 mg Q6H PRN PO PAIN LEVEL 1-3 OR FEVER Last administered on 01/16/17t 04:49; Admin Dose 650 MG; Start 12/31/16 at 14:30 Acetaminophen/ Hydrocodone Bitart ([place] (5/325)) 1 tab Q6H PRN PO MODERATE PAIN LEVEL 4-6; Start 12/31/16 at 14:30 Morphine Sulfate (morphine) 2 mg Q4H PRN IV SEVERE PAIN LEVEL 7-10; Start at 14:30 Docusate Sodium (Colace) 100 mg Q12H PRN PO CONSTIPATION; Start 12/31/16 at 14 :30 Magnesium Hydroxide (Milk Of Mag) 30 ml DAILY PRN PO CONSTIPATION; Start 12/31 at 14:30 Sodium Biphosphate/ Sodium Phosphate (Fleet Enema) 133 ml DAILY PRN [place] CONSTIPATION; Start 12/31/16 at 14:30 Heparin Sodium (Porcine) (Heparin (5000 Units/0.5 ml)) 5,000 unit Q12 SC Last administered on 01/18/17 08:39; Admin Dose 5,000 UNIT; Start 12/31/16 at 15: 00 Nitroglycerin (Nitroglycerin (Sl Tab) 0.4 Mg) 1 tab Q5M PRN SL ANGINA; Start 12/31/16 at 14:30 Thiamine HCl (Vitamin B1) 100 mg DAILY PO Last administered on 01/18/17 08:38 ; Admin Dose 100 MG; Start 12/31/16 at 15:00 Folic Acid (Folic Acid) 1 mg DAILY PO Last administered on 01/18/17 08:37; Admin Dose 1 MG; Start 12/31/16 at 15:00 Lorazepam (Ativan) 1 mg Q1H PRN IV CONTROL WITHDRAWAL SYMPTOMS Last administered on 01/02/17 14:30; Admin Dose 1 MG; Start 12/31/16 at 15:30 Nystatin (Nystatin Susp) 5 ml QID PO Last administered on 01/18/17 12:17; Admin Dose 5 ML; Start 01/01/17 at 17:00 Multivitamins Therapeutic (Theragran) 1 tab DAILY PO Last administered on 01/18 08:38; Admin Dose 1 TAB; Start 01/02/17 at 09:00 Levothyroxine Sodium (Synthroid) 50 mcg DAILY@06 PO Last administered on 06:37; Admin Dose 50 MCG; Start 01/04/17 at 06:00 Guaifenesin/ Dextromethorphan (Robitussin Dm Liquid Cup) 10 ml Q4H PRN PO COUGH Last administered on 01/18/17 12:46; Admin Dose 10 ML; Start 01/03/17 at 23:30 Ibuprofen (Motrin) 400 mg Q6H PRN PO PAIN OR TEMP ABOVE 38C; Start 01/04/17 at 11:00 Phenol (Cepastat Lozenge) 1 lozenge Q1H PRN MT COUGH Last administered on 01/18t 12:47; Admin Dose 1 LOZENGE; Start 01/14/17 at 13:30 Assessment/Plan Chief Complaint/Hosp Course SUBJECTIVE: Sleeping, looks comfortable, no fevers LABORATORY DATA: Blood cultures have been negative. Urinalysis was negative. Hepatitis panel and HIV negative. PHYSICAL EXAMINATION: GENERAL: This is a morbidly obese young man who is alert, in no distress. HEENT: Head atraumatic, normocephalic. Sclerae anicteric. Buccal mucosa dry with white rash on his tongue and halitosis. NECK: Obese. CHEST: Rise symmetrical. Breath sounds diminished to bases. HEART: S1, S2. ABDOMEN: Obese, soft. Bowel tones present. EXTREMITIES: Without cyanosis. ASSESSMENT: 1. Ongoing fevers with leukocytosis, r/o malignancy 2. Transaminitis ==> dilated CBD per US. 3. Oral thrush. 4. BLE edema 5. History of alcohol abuse 6. Poss nephritic syndrome PLAN: Clinically unchanged, WBC labeled scan and cx's negative, pending BM bx results [facility] staff Problems: BRENDEN SCOTT NP Jan 18, 2017 14:34
--- NOTE | 2017-01-18 14:56 | PN ---
Date/Time of Note Date/Time of Note DATE: 01/18/17 TIME: 14:54 Assessment/Plan VTE Prophylaxis VTE Prophylaxis Intervention: heparin Lines/Catheters IV [facility] [place] [facility] Urinary Cath still in place: No Assessment/Plan Assessment/Plan 1. Persistent leukocytosis, unclear source/etiology, off of antibiotics. negative WBC scan, bone marrow biopsy on 01/17/2017, awaiting for report 2. Cough with hoarseness 3. Alcoholism, no withdrawal 4. Transaminitis, alcohol related, follow up with LFTs 5. Dilated CBD on US, refuses MRCP 6. 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 Peripheral edema with hypoalbuminemia 8. DVT prophylaxis: heparin Subjective 24 Hr Interval Summary Free Text/Dictation no fever, no chills. less cough Exam/Review of Systems Vital Signs Vitals Vital Signs Date Time Temp Pulse Resp B/P Pulse Ox O2 Delivery O2 Flow Rate FiO2 01/18/17 14:28 99.5 123 18 128/74 96 01/17/17 14:24 Room Air Intake and Output 01/17/17 01/17/17 01/18/17 15:00 23:00 07:00 Intake Total 450 ml 1100 ml 700 ml Balance 450 ml 1100 ml 700 ml Exam Constitutional: alert, obese, oriented, well developed Psych: nl mood/affect, no complaints Head: atraumatic, normocephalic Eyes: EOMI, nl conjunctiva, nl lids ENMT: nl external ears & nose, nl lips & teeth, nl nasal mucosa & septum Neck: non-tender, supple Respiratory: clear to auscultation, normal air movement, No congested cough, No crackles/rales, No diminished breath sounds, No intercostal retraction, No labored breathing, No other, No respirations, No tactile fremitus, No wheezing Cardiovascular: nl pulses, regular rate and rhythm, No S3, No S4, No bruits, No diastolic murmur, No edema, No gallop, No irregular rhythm, No jugular venous distention (JVD), No murmurs/extra sounds, No other, No rub, No systolic murmur Gastrointestinal: nl liver, spleen, non-tender, soft Musculoskeletal: nl extremities to inspection Extremities: normal pulses, No calf tenderness, No clubbing, No cyanosis, No edema, No other, No palpable cord, No pitting pedal edema, No tenderness 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: 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, nl mental status, nl speech, nl strength Skin: nl turgor Lymph: nl lymph nodes Results Result Diagram: 01/18/1744401/18/17444 Results 24 hrs Laboratory Tests Test 01/18/17 04:45 White Blood Count 17.8 H Red Blood Count 3.13 L Hemoglobin 10.4 L Hematocrit 31.1 L Mean Corpuscular Volume 99.4 Mean Corpuscular Hemoglobin 33.2 H Mean Corpuscular Hemoglobin Concent 33.4 Red Cell Distribution Width 14.4 Platelet Count 335 Mean Platelet Volume 9.8 Neutrophils % 77.8 H Lymphocytes % 10.5 L Monocytes % 6.4 Eosinophils % 3.4 Basophils % 0.7 Nucleated Red Blood Cells % 0.0 Neutrophils # 13.9 H Lymphocytes # 1.9 Monocytes # 1.1 H Eosinophils # 0.6 H Basophils # 0.1 Nucleated Red Blood Cells # 0.0 Sodium Level 134 L Potassium Level 4.4 Chloride Level 103 Carbon Dioxide Level 20 L Anion Gap 15 Blood Urea Nitrogen 7 Creatinine 0.65 Glucose Level 298 #H Calcium Level 8.2 L Medications Medications Current Medications Ondansetron HCl (Zofran Inj) 4 mg Q6H PRN IV NAUSEA AND/OR VOMITING; Start at 14:30 Acetaminophen (Tylenol Tab) 650 mg Q6H PRN PO PAIN LEVEL 1-3 OR FEVER Last administered on 01/16/17t 04:49; Admin Dose 650 MG; Start 12/31/16 at 14:30 Acetaminophen/ Hydrocodone Bitart ([place] (5/325)) 1 tab Q6H PRN PO MODERATE PAIN LEVEL 4-6; Start 12/31/16 at 14:30 Morphine Sulfate (morphine) 2 mg Q4H PRN IV SEVERE PAIN LEVEL 7-10; Start at 14:30 Docusate Sodium (Colace) 100 mg Q12H PRN PO CONSTIPATION; Start 12/31/16 at 14 :30 Magnesium Hydroxide (Milk Of Mag) 30 ml DAILY PRN PO CONSTIPATION; Start 12/31 at 14:30 Sodium Biphosphate/ Sodium Phosphate (Fleet Enema) 133 ml DAILY PRN [place] CONSTIPATION; Start 12/31/16 at 14:30 Heparin Sodium (Porcine) (Heparin (5000 Units/0.5 ml)) 5,000 unit Q12 SC Last administered on 01/18/17 08:39; Admin Dose 5,000 UNIT; Start 12/31/16 at 15: 00 Nitroglycerin (Nitroglycerin (Sl Tab) 0.4 Mg) 1 tab Q5M PRN SL ANGINA; Start 12/31/16 at 14:30 Thiamine HCl (Vitamin B1) 100 mg DAILY PO Last administered on 01/18/17 08:38 ; Admin Dose 100 MG; Start 12/31/16 at 15:00 Folic Acid (Folic Acid) 1 mg DAILY PO Last administered on 01/18/17 08:37; Admin Dose 1 MG; Start 12/31/16 at 15:00 Lorazepam (Ativan) 1 mg Q1H PRN IV CONTROL WITHDRAWAL SYMPTOMS Last administered on 01/02/17 14:30; Admin Dose 1 MG; Start 12/31/16 at 15:30 Nystatin (Nystatin Susp) 5 ml QID PO Last administered on 01/18/17 12:17; Admin Dose 5 ML; Start 01/01/17 at 17:00 Multivitamins Therapeutic (Theragran) 1 tab DAILY PO Last administered on 01/18 08:38; Admin Dose 1 TAB; Start 01/02/17 at 09:00 Levothyroxine Sodium (Synthroid) 50 mcg DAILY@06 PO Last administered on 06:37; Admin Dose 50 MCG; Start 01/04/17 at 06:00 Guaifenesin/ Dextromethorphan (Robitussin Dm Liquid Cup) 10 ml Q4H PRN PO COUGH Last administered on 01/18/17 12:46; Admin Dose 10 ML; Start 01/03/17 at 23:30 Ibuprofen (Motrin) 400 mg Q6H PRN PO PAIN OR TEMP ABOVE 38C; Start 01/04/17 at 11:00 Phenol (Cepastat Lozenge) 1 lozenge Q1H PRN MT COUGH Last administered on 01/18 12:47; Admin Dose 1 LOZENGE; Start 01/14/17 at 13:30 BREE ARENAS MD Jan 18, 2017 14:56
[2017-01-18 15:00] VITALS: PULSE 109
--- NOTE | 2017-01-18 17:11 | CONS ---
Date/Time of Note Date/Time of Note DATE: 01/18/17 TIME: 17:11 Assessment/Plan Assessment/Plan Chief Complaint/Hosp Course LEUKOCYTOSIS WITH INTERMITTENT FEVER PER ID - [place] HAS Community acquired pneumonia, likely viral, influenza screen, levaquin WBC labeled scan negative SMEAR- NEG BMBX- P Mild splenomegaly Oral thrush. BLE edema History of alcohol abuse Poss nephritic syndrome PLAN: Clinically unchanged, refused MRCP ANEMIA MACROCYTIC WITH ELEVATED RDW Transaminitis ==> dilated CBD per US. Anasarca with Significant LE edema- 3+, US negative for DVT, US abdomen did not show ascites- CXR showed mild pulmonary congestion Alcoholism, no withdrawal Transaminitis, alcohol related, follow up with LFTs Problems: Consultation Date/Type/Reason Admit Date/Time Dec 31, 2016 at 13:50 Initial Consult Date 01/08/17 Type of Consultation: [facility] Referring Provider: JIGNA CANALES NP 24 HR Interval Summary Free Text/Dictation ALL NOTED BMBX- P Exam/Review of Systems Vital Signs Vitals Vital Signs Date Time Temp Pulse Resp B/P Pulse Ox O2 Delivery O2 Flow Rate FiO2 01/18/17 14:28 99.5 123 18 128/74 96 01/17/17 14:24 Room Air Intake and Output 01/17/17 01/17/17 01/18/17 15:00 23:00 07:00 Intake Total 450 ml 1100 ml 700 ml Balance 450 ml 1100 ml 700 ml Exam Constitutional: alert, obese, oriented, well developed Psych: nl mood/affect, no complaints Head: atraumatic, normocephalic Eyes: EOMI, PERRL, nl conjunctiva, nl lids, nl sclera ENMT: nl external ears & nose, nl lips & teeth, nl nasal mucosa & septum Neck: non-tender, supple Respiratory: clear to auscultation, normal air movement, No congested cough, No crackles/rales, No diminished breath sounds, No intercostal retraction, No labored breathing, No other, No respirations, No tactile fremitus, No wheezing Cardiovascular: nl pulses, regular rate and rhythm, No S3, No S4, No bruits, No diastolic murmur, No edema, No gallop, No irregular rhythm, No jugular venous distention (JVD), No murmurs/extra sounds, No other, No rub, No systolic murmur Gastrointestinal: nl liver, spleen, non-tender, soft, No ascites, No bowel sounds, No distended, No firm, No hepatomegaly, No mass , No other, No rebound or guarding, No splenomegaly, No surgical scars, No tender Musculoskeletal: nl extremities to inspection Extremities: normal pulses, No calf tenderness, No clubbing, No cyanosis, No edema, No other, No palpable cord, No pitting pedal edema, No tenderness 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: 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, nl mental status, nl speech, nl strength Results Result Diagram: 01/18/1744401/18/17444 Results 24 hrs Laboratory Tests Test 01/18/17 04:45 White Blood Count 17.8 H Red Blood Count 3.13 L Hemoglobin 10.4 L Hematocrit 31.1 L Mean Corpuscular Volume 99.4 Mean Corpuscular Hemoglobin 33.2 H Mean Corpuscular Hemoglobin Concent 33.4 Red Cell Distribution Width 14.4 Platelet Count 335 Mean Platelet Volume 9.8 Neutrophils % 77.8 H Lymphocytes % 10.5 L Monocytes % 6.4 Eosinophils % 3.4 Basophils % 0.7 Nucleated Red Blood Cells % 0.0 Neutrophils # 13.9 H Lymphocytes # 1.9 Monocytes # 1.1 H Eosinophils # 0.6 H Basophils # 0.1 Nucleated Red Blood Cells # 0.0 Sodium Level 134 L Potassium Level 4.4 Chloride Level 103 Carbon Dioxide Level 20 L Anion Gap 15 Blood Urea Nitrogen 7 Creatinine 0.65 Glucose Level 298 #H Calcium Level 8.2 L Medications Medications Current Medications Ondansetron HCl (Zofran Inj) 4 mg Q6H PRN IV NAUSEA AND/OR VOMITING; Start at 14:30 Acetaminophen (Tylenol Tab) 650 mg Q6H PRN PO PAIN LEVEL 1-3 OR FEVER Last administered on 01/16/17t 04:49; Admin Dose 650 MG; Start 12/31/16 at 14:30 Acetaminophen/ Hydrocodone Bitart ([place] (5/325)) 1 tab Q6H PRN PO MODERATE PAIN LEVEL 4-6; Start 12/31/16 at 14:30 Morphine Sulfate (morphine) 2 mg Q4H PRN IV SEVERE PAIN LEVEL 7-10; Start at 14:30 Docusate Sodium (Colace) 100 mg Q12H PRN PO CONSTIPATION; Start 12/31/16 at 14 :30 Magnesium Hydroxide (Milk Of Mag) 30 ml DAILY PRN PO CONSTIPATION; Start 12/31 at 14:30 Sodium Biphosphate/ Sodium Phosphate (Fleet Enema) 133 ml DAILY PRN [place] CONSTIPATION; Start 12/31/16 at 14:30 Heparin Sodium (Porcine) (Heparin (5000 Units/0.5 ml)) 5,000 unit Q12 SC Last administered on 01/18/17 08:39; Admin Dose 5,000 UNIT; Start 12/31/16 at 15: 00 Nitroglycerin (Nitroglycerin (Sl Tab) 0.4 Mg) 1 tab Q5M PRN SL ANGINA; Start 12/31/16 at 14:30 Thiamine HCl (Vitamin B1) 100 mg DAILY PO Last administered on 01/18/17 08:38 ; Admin Dose 100 MG; Start 12/31/16 at 15:00 Folic Acid (Folic Acid) 1 mg DAILY PO Last administered on 01/18/17 08:37; Admin Dose 1 MG; Start 12/31/16 at 15:00 Lorazepam (Ativan) 1 mg Q1H PRN IV CONTROL WITHDRAWAL SYMPTOMS Last administered on 01/02/17 14:30; Admin Dose 1 MG; Start 12/31/16 at 15:30 Nystatin (Nystatin Susp) 5 ml QID PO Last administered on 01/18/17 16:49; Admin Dose 5 ML; Start 01/01/17 at 17:00 Multivitamins Therapeutic (Theragran) 1 tab DAILY PO Last administered on 01/18 08:38; Admin Dose 1 TAB; Start 01/02/17 at 09:00 Levothyroxine Sodium (Synthroid) 50 mcg DAILY@06 PO Last administered on 06:37; Admin Dose 50 MCG; Start 01/04/17 at 06:00 Guaifenesin/ Dextromethorphan (Robitussin Dm Liquid Cup) 10 ml Q4H PRN PO COUGH Last administered on 01/18/17 16:49; Admin Dose 10 ML; Start 01/03/17 at 23:30 Ibuprofen (Motrin) 400 mg Q6H PRN PO PAIN OR TEMP ABOVE 38C; Start 01/04/17 at 11:00 Phenol (Cepastat Lozenge) 1 lozenge Q1H PRN MT COUGH Last administered on 01/18t 16:50; Admin Dose 1 LOZENGE; Start 01/14/17 at 13:30 JD BUCHANAN MD Jan 18, 2017 17:11
[2017-01-18] MEDS: LORAZEPAM 2 MG INJ IV PRN (19:46)
[2017-01-18 20:00] VITALS: BP 125/70; RESP 20
[2017-01-18 20:27] VITALS: PULSE 97
[2017-01-19 02:00] VITALS: BP 114/63; RESP 20
[2017-01-19 03:23] VITALS: PULSE 101
[2017-01-19] MEDS: LEVOTHYROXINE 50 MCG TAB PO SCH (05:17)
[2017-01-19 08:35] VITALS: BP 119/63; RESP 18
[2017-01-19] MEDS: HEPARIN 5,000 UNIT/0.5 ML VIAL SC SCH (08:50)
[2017-01-19] MEDS: MULTIVITAMINS THERAPEUTIC TAB PO SCH (08:55)
[2017-01-19] MEDS: FOLIC ACID 1 MG TAB PO SCH (08:55)
[2017-01-19] MEDS: THIAMINE 100 MG TAB PO SCH (08:55)
[2017-01-19] MEDS: NYSTATIN SUSP 5 ML CUP PO SCH ×3 (08:55→16:36)
[2017-01-19] MEDS: LORAZEPAM 2 MG INJ IV PRN (08:55)
[2017-01-19] MEDS: CEPASTAT LOZENGE MT PRN ×2 (09:02→13:08)
[2017-01-19] MEDS: GUAIFENESIN/DM 5ML CUP PO PRN ×2 (09:02→13:08)
[2017-01-19 09:10] VITALS: PULSE 100
--- NOTE | 2017-01-19 14:41 | CONS ---
Date/Time of Note Date/Time of Note DATE: 01/19/17 TIME: 14:40 Consult Date/Type/Reason Admit Date/Time Dec 31, 2016 at 13:50 Type of Consultation: id Ordering Provider: JIGNA CANALES NP Objective Vital Signs Date Time Temp Pulse Resp B/P Pulse Ox O2 Delivery O2 Flow Rate FiO2 01/19/17 09:10 100 01/19/17 08:35 98.8 18 119/63 94 01/17/17 14:24 Room Air Intake and Output 01/18/17 01/18/17 01/19/17 15:00 23:00 07:00 Intake Total 1000 ml 960 ml Balance 1000 ml 960 ml Results/Medications Result Diagram: 01/18/17 0445 01/18/17 0445 Medications Current Medications Ondansetron HCl (Zofran Inj) 4 mg Q6H PRN IV NAUSEA AND/OR VOMITING; Start at 14:30 Acetaminophen (Tylenol Tab) 650 mg Q6H PRN PO PAIN LEVEL 1-3 OR FEVER Last administered on 01/16/17 04:49; Admin Dose 650 MG; Start 12/31/16 at 14:30 Acetaminophen/ Hydrocodone Bitart ([place] (5/325)) 1 tab Q6H PRN PO MODERATE PAIN LEVEL 4-6; Start 12/31/16 at 14:30 Morphine Sulfate (morphine) 2 mg Q4H PRN IV SEVERE PAIN LEVEL 7-10; Start at 14:30 Docusate Sodium (Colace) 100 mg Q12H PRN PO CONSTIPATION; Start 12/31/16 at 14 :30 Magnesium Hydroxide (Milk Of Mag) 30 ml DAILY PRN PO CONSTIPATION; Start 12/31 at 14:30 Sodium Biphosphate/ Sodium Phosphate (Fleet Enema) 133 ml DAILY PRN [place] CONSTIPATION; Start 12/31/16 at 14:30 Heparin Sodium (Porcine) (Heparin (5000 Units/0.5 ml)) 5,000 unit Q12 SC Last administered on 01/19/17 08:50; Admin Dose 5,000 UNIT; Start 12/31/16 at 15: 00 Nitroglycerin (Nitroglycerin (Sl Tab) 0.4 Mg) 1 tab Q5M PRN SL ANGINA; Start 12/31/16 at 14:30 Thiamine HCl (Vitamin B1) 100 mg DAILY PO Last administered on 01/19/17 08:55 ; Admin Dose 100 MG; Start 12/31/16 at 15:00 Folic Acid (Folic Acid) 1 mg DAILY PO Last administered on 01/19/17 08:55; Admin Dose 1 MG; Start 12/31/16 at 15:00 Lorazepam (Ativan) 1 mg Q1H PRN IV CONTROL WITHDRAWAL SYMPTOMS Last administered on 01/19/17 08:55; Admin Dose 1 MG; Start 12/31/16 at 15:30 Nystatin (Nystatin Susp) 5 ml QID PO Last administered on 01/19/17 13:06; Admin Dose 5 ML; Start 01/01/17 at 17:00 Multivitamins Therapeutic (Theragran) 1 tab DAILY PO Last administered on 01/19 08:55; Admin Dose 1 TAB; Start 01/02/17 at 09:00 Levothyroxine Sodium (Synthroid) 50 mcg DAILY@06 PO Last administered on 05:17; Admin Dose 50 MCG; Start 01/04/17 at 06:00 Guaifenesin/ Dextromethorphan (Robitussin Dm Liquid Cup) 10 ml Q4H PRN PO COUGH Last administered on 01/19/17 13:08; Admin Dose 10 ML; Start 01/03/17 at 23:30 Ibuprofen (Motrin) 400 mg Q6H PRN PO PAIN OR TEMP ABOVE 38C; Start 01/04/17 at 11:00 Phenol (Cepastat Lozenge) 1 lozenge Q1H PRN MT COUGH Last administered on 01/19 13:08; Admin Dose 1 LOZENGE; Start 01/14/17 at 13:30 Assessment/Plan Chief Complaint/Hosp Course SUBJECTIVE: Alert, feels good, no fevers LABORATORY DATA: Blood cultures have been negative. Urinalysis was negative. Hepatitis panel and HIV negative. PHYSICAL EXAMINATION: GENERAL: This is a morbidly obese young man who is alert, in no distress. HEENT: Head atraumatic, normocephalic. Sclerae anicteric. Buccal mucosa dry with white rash on his tongue and halitosis. NECK: Obese. CHEST: Rise symmetrical. Breath sounds diminished to bases. HEART: S1, S2. ABDOMEN: Obese, soft. Bowel tones present. EXTREMITIES: Without cyanosis. ASSESSMENT: 1. Ongoing leukocytosis===> s/p BM bx 2. Transaminitis ==> dilated CBD per US. 3. Oral thrush. 4. BLE edema 5. History of alcohol abuse 6. Poss nephritic syndrome PLAN: Stable, awaiting for pathology, will see prn [facility] staff Problems: BRENDEN SOCTT NP Jan 19, 2017 14:41
[2017-01-19 15:38] VITALS: BP 124/76; RESP 18
--- NOTE | 2017-01-19 15:53 | DS ---
Date/Time of Note Date/Time of Note DATE: 01/19/17 TIME: 15:36 Discharge Summary Admission/Discharge Info Admit Date/Time Dec 31, 2016 at 13:50 Discharge Date/Time Discharge Diagnosis 1. Persistent leukocytosis, likely reactive from viral infection, follow up with PCP in one week 2. Cough with hoarseness, improving 3. Alcoholism, no withdrawal 4. Transaminitis, alcohol related, follow up with PCP 5. Dilated CBD on US, refuses MRCP 6. 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 Peripheral edema with hypoalbuminemia 8. Inappropriate sinus tachycardia, from viral syndrome, atenolol, follow up with PCP Patient Condition: Stable Hospital Course he patient is a 21-year-old male, no significant past medical history, who says he has been having cough, hoarseness and abdominal swelling and pain for the last 6 days. He has never had this before. No nausea or vomiting. No fevers or chills. He has had some diarrhea and loose stools, but nonbilious and nonbloody. No upper lower GI bleeding. No headaches or dizziness. No loss of consciousness. He has had some mild shortness of breath as well, but no chest pain. No fevers or chills. He does drink beer daily, a 24 ounce of beer for the last year he says. His last drink was 3 days ago. He does not have a primary care doctor. When he came in today, he had a temperature of 100.9, and he had an elevated white blood cell count of 24 . For cough with hoarseness, CXR unremarkable without infiltrates. It is considered viral infection with fever, cough and hoarseness. His cough is dry cough, slowly improving and so the hoarseness. No diffu=iculty in swallowing. Influenza A and B negative. Patient has abnormal LFTs with AST/ALT/Alk phos/T. [place] were 198/53/194/0.6. He is alcoholic but LFTs no change after admission indicating probably more fatty liver disease related. Albumin was 3.1 on admission, urine protein 24 hr is 225 , does not support nephrotic syndrome. Patient has persistent leukocytosis but no obvious source of infection except URIs with dry cough. WBC scan is negative, bone marrow is unremarkable. I will have him follow up with hematology outpatient. Patient has sinus tachycardia that he is on atenolol. Home Meds No Active Prescriptions or Reported Meds Follow-up Plan PCP and hematology in one week Primary Care Provider Not On Staff Doctor BREE ARENAS MD Jan 19, 2017 15:47
[2017-01-19] MEDS ORDERED: ATEN-51 PO (15:55)
[2017-01-19] MEDS ORDERED: ATENOLOL 25 MG TAB PO SCH (16:00)
--- NOTE | 2017-01-19 18:51 | CONS ---
Date/Time of Note Date/Time of Note DATE: 01/19/17 TIME: 18:51 Assessment/Plan Assessment/Plan Chief Complaint/Hosp Course LEUKOCYTOSIS WITH INTERMITTENT FEVER PER ID - OR HAS Community acquired pneumonia, likely viral, influenza screen, levaquin WBC labeled scan negative SMEAR- NEG BMBX- N Mild splenomegaly Oral thrush. BLE edema History of alcohol abuse Poss nephritic syndrome PLAN: Clinically unchanged, refused MRCP ANEMIA MACROCYTIC WITH ELEVATED RDW Transaminitis ==> dilated CBD per US. Anasarca with Significant LE edema- 3+, US negative for DVT, US abdomen did not show ascites- CXR showed mild pulmonary congestion Alcoholism, no withdrawal Transaminitis, alcohol related, follow up with LFTs Problems: Consultation Date/Type/Reason Admit Date/Time Dec 31, 2016 at 13:50 Initial Consult Date 01/08/17 Type of Consultation: [facility] Referring Provider: JIGNA CANALES NP 24 HR Interval Summary Free Text/Dictation BMBX- N Exam/Review of Systems Vital Signs Vitals Vital Signs Date Time Temp Pulse Resp B/P Pulse Ox O2 Delivery O2 Flow Rate FiO2 01/19/17 15:38 99.7 117 18 124/76 95 01/17/17 14:24 Room Air Intake and Output 01/18/17 01/18/17 01/19/17 15:00 23:00 07:00 Intake Total 1000 ml 960 ml Balance 1000 ml 960 ml Exam Constitutional: alert, oriented, well developed Psych: nl mood/affect, no complaints Head: atraumatic, normocephalic Eyes: EOMI, PERRL, nl conjunctiva, nl lids, nl sclera ENMT: nl external ears & nose, nl lips & teeth, nl nasal mucosa & septum Neck: non-tender, supple Respiratory: clear to auscultation, normal air movement, No congested cough, No crackles/rales, No diminished breath sounds, No intercostal retraction, No labored breathing, No other, No respirations, No tactile fremitus, No wheezing Cardiovascular: nl pulses, regular rate and rhythm, No S3, No S4, No bruits, No diastolic murmur, No edema, No gallop, No irregular rhythm, No jugular venous distention (JVD), No murmurs/extra sounds, No other, No rub, No systolic murmur Gastrointestinal: nl liver, spleen, non-tender, soft, No ascites, No bowel sounds, No distended, No firm, No hepatomegaly, No mass , No other, No rebound or guarding, No splenomegaly, No surgical scars, No tender Musculoskeletal: nl extremities to inspection Extremities: normal pulses, No calf tenderness, No clubbing, No cyanosis, No edema, No other, No palpable cord, No pitting pedal edema, No tenderness 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: [employer] II-XII intact, nl mental status, nl speech, nl strength Results Result Diagram: 01/18/1744401/18/17444 Medications Medications Current Medications Ondansetron HCl (Zofran Inj) 4 mg Q6H PRN IV NAUSEA AND/OR VOMITING; Start at 14:30 Acetaminophen (Tylenol Tab) 650 mg Q6H PRN PO PAIN LEVEL 1-3 OR FEVER Last administered on 01/16/17 04:49; Admin Dose 650 MG; Start 12/31/16 at 14:30 Acetaminophen/ Hydrocodone Bitart (Indiahoma (5/325)) 1 tab Q6H PRN PO MODERATE PAIN LEVEL 4-6; Start 12/31/16 at 14:30 Morphine Sulfate (morphine) 2 mg Q4H PRN IV SEVERE PAIN LEVEL 7-10; Start at 14:30 Docusate Sodium (Colace) 100 mg Q12H PRN PO CONSTIPATION; Start 12/31/16 at 14 :30 Magnesium Hydroxide (Milk Of Mag) 30 ml DAILY PRN PO CONSTIPATION; Start 12/31 at 14:30 Sodium Biphosphate/ Sodium Phosphate (Fleet Enema) 133 ml DAILY PRN OR CONSTIPATION; Start 12/31/16 at 14:30 Heparin Sodium (Porcine) (Heparin (5000 Units/0.5 ml)) 5,000 unit Q12 SC Last administered on 01/19/17 08:50; Admin Dose 5,000 UNIT; Start 12/31/16 at 15: 00 Nitroglycerin (Nitroglycerin (Sl Tab) 0.4 Mg) 1 tab Q5M PRN SL ANGINA; Start 12/31/16 at 14:30 Thiamine HCl (Vitamin B1) 100 mg DAILY PO Last administered on 01/19/17 08:55 ; Admin Dose 100 MG; Start 12/31/16 at 15:00 Folic Acid (Folic Acid) 1 mg DAILY PO Last administered on 01/19/17 08:55; Admin Dose 1 MG; Start 12/31/16 at 15:00 Lorazepam (Ativan) 1 mg Q1H PRN IV CONTROL WITHDRAWAL SYMPTOMS Last administered on 01/19/17 08:55; Admin Dose 1 MG; Start 12/31/16 at 15:30 Nystatin (Nystatin Susp) 5 ml QID PO Last administered on 01/19/17 16:36; Admin Dose 5 ML; Start 01/01/17 at 17:00 Multivitamins Therapeutic (Theragran) 1 tab DAILY PO Last administered on 01/19 08:55; Admin Dose 1 TAB; Start 01/02/17 at 09:00 Levothyroxine Sodium (Synthroid) 50 mcg DAILY@06 PO Last administered on 05:17; Admin Dose 50 MCG; Start 01/04/17 at 06:00 Guaifenesin/ Dextromethorphan (Robitussin Dm Liquid Cup) 10 ml Q4H PRN PO COUGH Last administered on 01/19/17 13:08; Admin Dose 10 ML; Start 01/03/17 at 23:30 Ibuprofen (Motrin) 400 mg Q6H PRN PO PAIN OR TEMP ABOVE 38C; Start 01/04/17 at 11:00 Phenol (Cepastat Lozenge) 1 lozenge Q1H PRN MT COUGH Last administered on 01/19 13:08; Admin Dose 1 LOZENGE; Start 01/14/17 at 13:30 Atenolol (Tenormin) 25 mg DAILY PO Last administered on 01/19/17 16:36; Admin Dose 25 MG; Start 01/19/17 at 16:00 JD BUCHANAN MD Jan 19, 2017 18:51
== END 2017-01-19 20:55 | disposition home or self-care (01) | DRG 871 ==
LOC: E/R 12:12 → MS4 13:50 → PP2 01-12 22:03
PROVIDERS: ADMIT Internal Medicine; ATTEND Internal Medicine
PROC: 07DR3ZX Extraction of Iliac Bone Marrow, Percutaneous Approach, Diagnostic (ICD-10-PCS; principal; 2017-01-17)
DX: A41.9 Sepsis, unspecified organism (principal); J18.9 Pneumonia, unspecified organism; E87.2 Acidosis; B37.0 Candidal stomatitis; K56.7 Ileus, unspecified; N04.9 Nephrotic syndrome with unspecified morphologic changes; L03.116 Cellulitis of left lower limb; L03.115 Cellulitis of right lower limb; E88.09 Other disorders of plasma-protein metabolism, not elsewhere classified; R16.2 Hepatomegaly with splenomegaly, not elsewhere classified; K76.0 Fatty (change of) liver, not elsewhere classified; F10.10 Alcohol abuse, uncomplicated; Y90.1 Blood alcohol level of 20-39 mg/100 ml; M79.89 Other specified soft tissue disorders; Y95 Nosocomial condition; D64.9 Anemia, unspecified; R74.0 Nonspecific elevation of levels of transaminase and lactic acid dehydrogenase [LDH]; R60.9 Edema, unspecified; R49.0 Dysphonia; R00.0 Tachycardia, unspecified
CPT/HCPCS: 36415; 71010; 71020; 74177; 76700; 76705; 77012; 78806; 80048; 80053; 80061; 80202; 80306; 81003; 82140; 82575; 83036; 83605; 83615; 83690; 83735; 83880; 84100; 84145; 84153; 84154; 84156; 84439; 84443; 84484; 85025; 85610; 85651; 85730; 86021; 86038; 86140; 86160; 86162; 86430; 86592; 86703; 86704; 86709; 86803; 87040; 87086; 87275; 87276; 87279; 87280; 87340; 87400; 88305; 88313; 93005; 93306; 93971; 96374; 96375; J1940; A9570; C9113; J0692; J0698; J1644; J1956; J2060; J2250; J2543; J3010; J3370; J3411; J3475; J3480; J7030; J7040; J7050; P9047; Q9967